=== PATIENT | male | born 1955 | race Caucasian/White ===

== ENCOUNTER 2017-09-08 22:00 | Emergency (ER) | payer OTHER ==
--- NOTE | 2017-09-08 23:27 | EDPHYS ---
Physician Documentation [facility] Name: Jose Elias Ahn Age: 62 yrs Sex: Male : 1955 Arrival Date: 09/08/2017 Time: 22:03 Bed 20 Private MD: ED Physician Juan C Hansen HPI: 09/08 23:55 This 62 yrs old Male presents to ER via Ambulatory with complaints of Cough. jr8 23:55 The patient or guardian reports cough, that is intermittent, described as moderate, jr8 with productive sputum, that is green. Onset: The symptoms/episode began/occurred suddenly, 1 month(s) ago. Severity of symptoms: At their worst the symptoms were mild, in the emergency department the symptoms are unchanged. Modifying factors: The symptoms are alleviated by nothing, the symptoms are aggravated by nothing. Associated signs and symptoms: The patient has no apparent associated signs or symptoms. The patient has not experienced similar symptoms in the past. The patient has not recently seen a physician. Patient stated that he has had cough for over a month now with mucous production. Has tried numerous OTC medications without relief. Subjective fevers at night . Historical: - Allergies: 22:10 No Known Allergies; la1 - PMHx: 22:10 Hypertension; Diabetes - NIDDM; Back pain; la1 22:11 CHF; Hepatitis; la1 - Immunization history:: Adult Immunizations up to date. - Social history:: Smoking status: Patient uses tobacco products, denies chronic smoking, but will smoke occasionally. ROS: 23:55 Eyes: Negative for injury, pain, redness, and discharge, ENT: Negative for injury, jr8 pain, and discharge, Neck: Negative for injury, pain, and swelling, Cardiovascular: Negative for chest pain, palpitations, and edema, Abdomen/GI: Negative for abdominal pain, nausea, vomiting, diarrhea, and constipation, Back: Negative for injury and pain, MS/Extremity: Negative for injury and deformity, Skin: Negative for injury, rash, and discoloration, Neuro: Negative for headache, weakness, numbness, tingling, and seizure. 23:55 Constitutional: Positive for fever. 23:55 Respiratory: Positive for cough, Negative for dyspnea on exertion, shortness of breath, wheezing. Exam: 23:55 Eyes: Pupils equal round and reactive to light, extra-ocular motions intact. Lids and jr8 lashes normal. Conjunctiva and sclera are non-icteric and not injected. Cornea within normal limits. Periorbital areas with no swelling, redness, or edema. ENT: Nares patent. No nasal discharge, no septal abnormalities noted. Tympanic membranes are normal and external auditory canals are clear. Oropharynx with no redness, swelling, or masses, exudates, or evidence of obstruction, uvula midline. Mucous membranes moist. Neck: Trachea midline, no thyromegaly or masses palpated, and no cervical lymphadenopathy. Supple, full range of motion without nuchal rigidity, or vertebral point tenderness. No Meningismus. Cardiovascular: Regular rate and rhythm with a normal S1 and S2. No gallops, murmurs, or rubs. Normal PMI, no JVD. No pulse deficits. Respiratory: Lungs have equal breath sounds bilaterally, clear to auscultation and percussion. No rales, rhonchi or wheezes noted. No increased work of breathing, no retractions or nasal flaring. Abdomen/GI: Soft, non-tender, with normal bowel sounds. No distension or tympany. No guarding or rebound. No evidence of tenderness throughout. Back: No spinal tenderness. No costovertebral tenderness. Full range of motion. Skin: Warm, dry with normal turgor. Normal color with no rashes, no lesions, and no evidence of cellulitis. MS/ Extremity: Pulses equal, no cyanosis. Neurovascular intact. Full, normal range of motion. Neuro: Awake and alert, GCS 15, oriented to person, place, time, and situation. Cranial nerves II-XII grossly intact. Motor strength 5/5 in all extremities. Sensory grossly intact. Cerebellar exam normal. Normal gait. Vital Signs: 22:10 BP 184 / 92; Pulse 84; Resp 15; Temp 97.3; Pulse Ox 95% on R/A; Weight 124.74 kg; la1 Height 6 ft. 1 in. (185.42 cm); 23:18 BP 158 / 81; Pulse 80; Resp 20; Pulse Ox 97% on R/A; tl2 23:34 BP 152 / 81; Pulse 88; Resp 17; Temp 98.2; Pulse Ox 97% on R/A; Pain 0/10; tl1 22:10 Body Mass Index 36.28 (124.74 kg, 185.42 cm) la1 MDM: 22:46 Patient medically screened. jr8 23:26 Data reviewed: vital signs, nurses notes, radiologic studies, plain films, and as a jr8 result, I will discharge patient. Data interpreted: Pulse oximetry: on room air is 97 %. Interpretation: normal. Counseling: I had a detailed discussion with the patient and/or guardian regarding: the historical points, exam findings, and any diagnostic results supporting the discharge/admit diagnosis, the need for outpatient follow up, a family practitioner, to return to the emergency department if symptoms worsen or persist or if there are any questions or concerns that arise at home. 09/08 22:29 Order name: XRAY Chest Pa And Lat (2 Views) tl1 Administered Medications: No medications were administered Disposition: 09/09 05:42 Co-signature as Attending Physician, Juan C Hansen MD. ma2 Disposition: 09/08/17 23:27 Discharged to Home. Impression: Bronchitis, not specified as acute or chronic. - Condition is Stable. - Discharge Instructions: Acute Bronchitis. - Prescriptions for Prednisone 20 mg Oral Tablet - take 1 tablet by ORAL route once daily for 5 days; 5 tablet. Zithromax Z- Arnulfo 250 mg Oral Tablet - take 1 tablet by ORAL route as directed for 5 days Day 1 - take two (2) tablets one time. Day 2, 3, 4 , 5 take one (1) tablet once daily.; 6 tablet. Albuterol Sulfate 90 mcg/actuation - inhale 1-2 puff by INHALATION route every 4-6 hours; 1 Inhaler. - Medication Reconciliation Form, Thank You Letter, Antibiotic Education, Prescription Opioid Use form. - Follow up: Private Physician; When: 5 - 6 days; Reason: Recheck today's complaints, Continuance of care, Re-evaluation by your physician. - Problem is new. - Symptoms have improved. Signatures: Dispatcher [employer] EDMS Jefferson Doty PA PA jr8 Kade Campos RN RN la1 Denice Amaya RN RN tl1 Juan C Hansen MD MD ma2
--- NOTE | 2017-09-08 23:27 | ER ---
Nurse's Notes [facility] Name: Jose Elias Ahn Age: 62 yrs Sex: Male : 1955 Arrival Date: 09/08/2017 Time: 22:03 Bed 20 Private MD: Diagnosis: Bronchitis, not specified as acute or chronic Presentation: 09/08 22:09 Presenting complaint: Patient states: I have had a cough for about a month and I want la1 to make sure I am not coming down with PNE. Transition of care: patient was not received from another setting of care. Onset of symptoms was September 08, 2017. Care prior to arrival: None. 22:09 Method Of Arrival: Ambulatory la1 22:09 Acuity: NEEL 3 la1 Triage Assessment: 23:35 General: Appears in no apparent distress. Behavior is calm, cooperative, appropriate tl1 for age. Pain: Denies pain. Historical: - Allergies: 22:10 No Known Allergies; la1 - PMHx: 22:10 Hypertension; Diabetes - NIDDM; Back pain; la1 22:11 CHF; Hepatitis; la1 - Immunization history:: Adult Immunizations up to date. - Social history:: Smoking status: Patient uses tobacco products, denies chronic smoking, but will smoke occasionally. Screenin:34 Abuse screen: Denies threats or abuse. Denies injuries from another. Nutritional tl1 screening: No deficits noted. Tuberculosis screening: Has had TB. Possible symptoms: cough for more than 2 weeks. Fall Risk None identified. Assessment: 22:45 General: Appears in no apparent distress. Behavior is calm, cooperative, appropriate tl1 for age. Pain: Denies pain. Neuro: No deficits noted. Level of Consciousness is awake, alert, obeys commands, Oriented to person, place, time, situation. Cardiovascular: Denies chest pain. Respiratory: Reports cough that is productive, hacking, persistent Airway is patent Trachea midline Respiratory effort is even, unlabored, Breath sounds are clear bilaterally. GI: Abdomen is non-distended, Bowel sounds present X 4 quads. Abd is soft and non tender X 4 quads. : No deficits noted. EENT: No signs and/or symptoms were reported regarding the EENT system. Derm: No signs and/or symptoms reported regarding the dermatologic system. 23:19 Reassessment: Patient appears in no apparent distress at this time. Patient and/or tl2 family updated on plan of care and expected duration. Pain level reassessed. Patient is alert, oriented x 3, equal unlabored respirations, skin warm/dry/pink. Vital Signs: 22:10 BP 184 / 92; Pulse 84; Resp 15; Temp 97.3; Pulse Ox 95% on R/A; Weight 124.74 kg; la1 Height 6 ft. 1 in. (185.42 cm); 23:18 BP 158 / 81; Pulse 80; Resp 20; Pulse Ox 97% on R/A; tl2 23:34 BP 152 / 81; Pulse 88; Resp 17; Temp 98.2; Pulse Ox 97% on R/A; Pain 0/10; tl1 22:10 Body Mass Index 36.28 (124.74 kg, 185.42 cm) la1 ED Course: 22:03 Patient arrived in ED. do 22:09 Triage completed. la1 22:11 Arm band placed on left wrist. la1 22:28 Denice Amaya, CHELLE is Primary Nurse. tl1 22:36 Patient moved to radiology via wheelchair. bb2 22:39 X-ray completed. Portable x-ray completed in exam room. Patient tolerated procedure bb2 well. 22:44 Patient moved back from radiology. bb2 22:44 XRAY Chest Pa And Lat (2 Views) In Process Unspecified. EDMS 22:46 Jefferson Doty PA is PHCP. jr8 22:46 Juan C Hansen MD is Attending Physician. jr8 23:34 No provider procedures requiring assistance completed. Patient did not have IV access tl1 during this emergency room visit. 23:36 Patient has correct armband on for positive identification. Bed in low position. Side tl1 rails up X 1. Administered Medications: No medications were administered Outcome: 23:27 Discharge ordered by . jr8 23:35 Discharged to home ambulatory. tl1 23:35 Condition: good 23:35 Discharge instructions given to patient, Instructed on discharge instructions, follow up and referral plans. medication usage, Demonstrated understanding of instructions, follow-up care, medications, Prescriptions given X 3. 23:40 Patient left the ED. tl1 Signatures: Dispatcher [employer] EDTX Jefferson Doty PA PA jr8 Kade Campos RN RN Denice Heck, RN RN tl1 Monae Carr Taylor RN RN tl2 Tasia Pierre2
[2017-09-09 00:24] VITALS: O2SAT 97
[2017-09-09 00:25] VITALS: BP 152/81; TEMP 98.2
--- NOTE | 2017-09-09 07:25 | RAD REPORT ---
EXAM DESCRIPTION: RAD - Chest Pa And Lat (2 Views) - 09/08/2017 10:49 pm CLINICAL HISTORY: Cough and congestion, possible early pneumonia COMPARISON: None. TECHNIQUE: PA and lateral views of the chest were obtained. FINDINGS: The lungs are clear. Left side pericardial fat pad noted. Trachea is midline. No mediasti nal or hilar abnormality identifiable. Heart size is normal and central vasculature is within normal limits. No pleural effusion or pneumothorax seen. No acute bony finding noted. No aortic abnormali ty. IMPRESSION: No acute cardiopulmonary process.
== END 2017-09-08 23:40 | disposition home or self-care (01) ==
LOC: ER 22:00
DX: J40 Bronchitis, not specified as acute or chronic (principal)
CPT/HCPCS: 71046; 99283

== ENCOUNTER 2019-10-25 07:50 | Emergency (ER) | payer OTHER ==
--- OUTSIDE RECORDS SUMMARY | 2019-10-25 08:42 | XMS REPORT ---
:1955 Author Organization [facility] t Address [address] [place] [address] Care Team Providers Name Role Phone Provider, Urgent Care Attending Clinician Unavailable Malou MEDICATION TECHNICIAN Attending Clinician Problems This patient has no known problems. Allergies, Adverse Reactions, Alerts This patient has no known allergies or adverse reactions. Medications This patient has no known medications. Procedures This patient has no known procedures. Encounters Start End Encounter Admission Attending Care Care Encounter Source Date/Time Date/Time Type Type Clinicians Facility Department ID 2019-10-15 2019-10-17 Urgent ProviderJESÚS [id number] 13:25:12 08:16:04 Care [facility] [id number] Care [place] [id number] Professio [phone] nal [address] 2019-10-16 2019-10-16 Telephone JESÚS [place] [id number] 00:00:00 00:00:00 [facility] [id number] [place] [id number] Professio [phone] [address]al [address] Results This patient has no known results.
--- OUTSIDE RECORDS SUMMARY | 2019-10-25 08:42 | XMS REPORT | Summary of Care ---
:1955 Author Organization [facility] Address [address] [place] [address] Care Team Providers Name Role Phone MD [place] Primary Care Provider Reason for Visit Reason Comments Refill Request Encounter Details Date Type Department Care Team Description 09/16/2019 Refill [facility] Family Medicine Kumar Xie MD Refill Request - [address] [address] [place] [address] [place] [address] [phone] Allergies No Known Allergiesdocumented as of this encounter (statuses as of 09/16/2019) Medications Medication Sig Dispensed Refills Start Date End Date Status mometasone 50 Use 1 [place] in 1 Bottle 0 07/23/2017 Active mcg/actuation each nostril 2 nasal spray (two) times daily. carvedilol 12.5 mg Take 12.5 mg by 0 07/12/2017 Active tablet mouth 2 (two) times daily. gabapentin 300 mg Take 300 mg by 0 07/12/2017 Active capsule mouth 2 (two) times daily. furosemide 20 mg Take 20 mg by 0 07/12/2017 Active tablet mouth daily. HYDROcodone-acetam Take 1 tablet by 0 07/12/2017 Active inophen 10-325 mg mouth 3 (three) tablet times daily. KRISTALOSE 20 gram Take 1 Package 0 07/25/2017 Active packet by mouth daily. tiZANidine 4 mg Take 1 tablet by 60 tablet 0 04/25/2018 Active tablet mouth 2 (two) times daily as needed for Pain (scale 4-6). diazePAM 10 mg Take 1 tablet by 2 tablet 0 04/25/2018 Active tablet mouth 2 (two) times daily as needed (pre proceedure). DILTIAZEM 60 mg TAKE 1 TABLET BY 10 tablet 0 08/03/2018 Active tablet MOUTH WITH PALPITATION AND TACHYCARDIA codeine-guaifenesi Take 5 mL by 8 oz 0 09/04/2018 Active n (CHERATUSSIN AC) mouth every 4 10-100 mg/5 mL (four) hours as solutionIndication needed for s: Upper Cough. respiratory tract infection, unspecified type AMITRIPTYLINE 10 TAKE 1 TABLET BY 30 tablet 2 10/26/2018 Active mg tablet MOUTH AT BEDTIME NEXIUM 40 mg TAKE 1 CAPSULE 30 capsule 2 10/26/2018 Active capsule BY MOUTH EVERY DAY METFORMIN 500 mg TAKE 1 TABLET BY 60 tablet 2 11/22/2018 Active tablet MOUTH TWICE DAILY LISINOPRIL-HYDROCH TAKE 1 TABLET BY 30 tablet 0 09/16/2019 Active LOROTHIAZIDE 20-25 MOUTH EVERY DAY mg per tabletIndications: Essential hypertension KCL 10 mEq tablet TAKE 1 TABLET BY 30 tablet 0 09/16/2019 Active MOUTH EVERY DAY LISINOPRIL-HYDROCH TAKE 1 TABLET BY 30 tablet 0 07/23/2019 Discontinued LOROTHIAZIDE 20-25 MOUTH EVERY DAY 0 mg per tabletIndications: Essential hypertension KCL 10 mEq tablet TAKE 1 TABLET BY 30 tablet 0 07/30/201908/28 Discontinued MOUTH EVERY DAY 0 documented as of this encounter (statuses as of 09/16/2019) Active Problems Problem Noted Date Sepsis 10/03/2015 Pain in joint, multiple sites 05/09/2013 Cervicalgia 05/09/2013 Lumbosacral spondylosis 05/09/2013 History of alcoholism 05/09/2013 Hepatitis C infection 05/09/2013 Chronic back pain 05/09/2013 documented as of this encounter (statuses as of 09/16/2019) Social History Tobacco Use Types Packs/Day Years Used Date Former Smoker Cigarettes 1.5 2 Smokeless Tobacco: Never Used Comments: Started as a teen then stopped and restarted 2 years ago. Alcohol Use Drinks/Week oz/Week Comments Yes 0 Standard drinks or equivalent 0.0 Occasionally Alcohol Habits Answer Date Recorded How often do you have a drink containing alcohol? Monthly or less 03/15/2019 How many drinks containing alcohol do you have on a 1 or 2 03/15/2019 typical day when you are drinking? How often do you have six or more drinks on one Less than mo nthly 03/15/2019 occasion? Social Isolation Answer Date Recorded In a typical week, how many times do you More than three eric es a week 03/15/2019 talk on the phone with family, friends, or neighbors? How often do you get together with friends Three times a wee k 03/15/2019 or relatives? How often do you attend mormonism or Never 2018 church services? Do you belong to any clubs or Yes 03/15/2019 organizations such as mormonism groups, unions, fraternal or athletic groups, or school groups? How often do you attend meetings of the More than 4 times pe r year 03/15/2019 clubs or organizations you belong to? Are you now , , , Never 03/15/2019 , never or living with a partner? Physical Activity Answer Date Recorded On average, how many days per week do you engage in moderate to 5 days 03/15/2019 strenuous exercise (like walking fast, running, jogging, dancing, swimming, biking, or other activities that cause a light or heavy sweat)? On average, how many minutes do you engage in exercise at th is 100 min 03/15/2019 level? Stress Answer Date Recorded Do you feel stress - tense, restless, nervous, or anxious, N ot at all 03/15/2019 or unable to sleep at night because your mind is troubled all the time - these days? Financial Resource Strain Answer Date Recorded How hard is it for you to pay for the very basics like food, Hard 03/15/2019 housing, medical care, and heating? Intimate Partner Violence Answer Date Recorded Within the last year, have you been afraid of your partner o r No 03/15/2019 ex-partner? Within the last year, have you been humiliated or emotionall y No 03/15/2019 abused in other ways by your partner or ex-partner? Within the last year, have you been kicked, hit, slapped, or No 03/15/2019 otherwise physically hurt by your partner or ex-partner? Within the last year, have you been raped or forced to have any No 03/15/2019 kind of sexual activity by your partner or ex-partner? Food Insecurity Answer Date Recorded Within the past 12 months, you worried that your food Someti mes true 03/15/2019 would run out before you got money to buy more. Within the past 12 months, the food you bought just Sometime s true 03/15/2019 didn't last and you didn't have money to get more. Transportation Needs Answer Date Recorded In the past 12 months, has lack of transportation kept you f rom No 03/15/2019 medical appointments or from getting medications? In the past 12 months, has lack of transportation kept you f rom No 03/15/2019 meetings, work, or getting things needed for daily living? Sex Assigned at Date Recorded Not on file Job Start Date Occupation Industry Not on file Not on file Not on file Travel History Travel Start Travel End No recent travel history available. documented as of this encounter Last Filed Vital Signs Not on filedocumented in this encounter Plan of Treatment Health Maintenance Due Date Last Done Comments PNEUMOCOCCAL 0-64 YEARS COMBINED SERIES (1 of 1 - 1960 PPSV23) DTaP,Tdap,and Td Vaccines (1 - Tdap) 1965 COLONOSCOPY 2004 Zoster Recombinant Vaccine (SHINGRIX) (1 of 2) 2004 INFLUENZA VACCINE (#1) 2019 HEPATITIS C (HCV) SCREEN Completed 05/09/2013 documented as of this encounter Results Not on filedocumented in this encounter Visit Diagnoses Diagnosis Essential hypertension Unspecified essential hypertension documented in this encounter Insurance Payer Benefit Plan / Subscriber ID Effective Dates Phone Addre ss Type Group [facility] xxxxxxxxx 2013-Present Medicaid COMM PLAN - PLUS MANAGED MEDICAID documented as of this encounter
--- OUTSIDE RECORDS SUMMARY | 2019-10-25 08:42 | XMS REPORT | Summary of Care ---
:1955 Author Organization [facility] Address [address] [place] [id number] Care Team Providers Name Role Phone MD Austin Primary Care Provider Reason for Visit Reason Comments Refill Request Encounter Details Date Type Department Care Team Description 07/30/2019 Refill [facility] Family Medicine Kumar iXe MD Refill Request - [place] [address] [place] [address] [place] [address] [phone] Allergies No Known Allergiesdocumented as of this encounter (statuses as of 07/30/2019) Medications Medication Sig Dispensed Refills Start Date End Date Status mometasone 50 Use 1 [place] in 1 Bottle 0 07/23/2017 Active mcg/actuation [...] 1 TABLET BY 30 tablet 0 07/23/2019 Active LOROTHIAZIDE 20-25 MOUTH EVERY DAY mg per tabletIndications: Essential hypertension KCL 10 mEq tablet TAKE 1 TABLET BY 30 tablet 0 07/30/2019 Active MOUTH EVERY DAY KCL 10 mEq tablet TAKE 1 TABLET BY 30 tablet 0 06/21/2019 03/0 Discontinued MOUTH EVERY DAY 0 documented as of this encounter (statuses as of 07/30/2019) Active Problems Problem Noted Date Sepsis 10/03/2015 Pain in joint, multiple sites 05/09/2013 Cervicalgia 05/09/2013 Lumbosacral spondylosis 05/09/2013 History of alcoholism 05/09/2013 Hepatitis C infection 05/09/2013 Chronic back pain 05/09/2013 documented as of this encounter (statuses as of 07/30/2019) Social History Tobacco Use Types Packs/Day Years [...] or relatives? How often do you attend druze or Never 2018 cheondoism services? Do you belong to any clubs or Yes 03/15/2019 organizations such as druze groups, unions, fraternal or athletic groups, or [...] Results Not on filedocumented in this encounter Insurance Payer Benefit Plan / Subscriber ID Effective Dates Phone Addre ss Type Group [facility] ST[facility] xxxxxxxxx 2013-Present Medicaid COMM PLAN - PLUS MANAGED MEDICAID documented as of this encounter
--- OUTSIDE RECORDS SUMMARY | 2019-10-25 08:43 | XMS REPORT | Summary of Care ---
:1955 Author Organization [facility] Address [address] [place] [id number] Care Team Providers Name Role Phone MD Austin Primary Care Provider Reason for Referral MRI/CAT Scan (Routine) Status Reason Specialty Diagnoses / Referred By Referred To Procedures Contact Contact New Request Diagnostic Diagnoses Left lower quadrant abdominal pain Robyn Westfall, Radiology Procedures CT ABDOMEN WO CONTRAST ACCOUNT MANAGEMENT ASSISTANT[address] [id number] Reason for Visit Reason Comments Back Pain x2 days Abdominal Pain x2 days Encounter Details Date Type Department Care Team Description 10/15/2019 Urgent Care [facility] Family Kye Westfall, ACCOUNT MANAGEMENT ASSISTANT [address] [phone] Left lower quadrant abdominal pain (Prim vitor Dx); Medicine - [place] Provider, [facility] Essential hypertension [address] [place] [phone] Allergies No Known Allergiesdocumented as of this encounter (statuses as of 10/15/2019) Medications Medication Sig Dispensed Refills Start Date End Date Status mometasone 50 Use 1 Charlotte in 1 Bottle 0 07/23/2017 Active mcg/actuation nasal each nostril 2 spray (two) times daily. carvedilol 12.5 mg Take 12.5 mg by 0 07/12/2017 Active tablet mouth 2 (two) times daily. gabapentin 300 mg Take 300 mg by 0 07/12/2017 Active capsule mouth 2 (two) times daily. furosemide 20 mg Take 20 mg by 0 07/12/2017 Active tablet mouth daily. HYDROcodone-acetamino Take 1 tablet by 0 07/12/2017 Active phen 10-325 mg tablet mouth 3 (three) times daily. KRISTALOSE 20 gram Take 1 Package by 0 07/25/2017 Active packet mouth daily. tiZANidine 4 mg Take 1 tablet by 60 tablet 0 04/25/2018 Active tablet mouth 2 (two) times daily as needed for Pain (scale 4-6). diazePAM 10 mg tablet Take 1 tablet by 2 tablet 0 04/25/2018 Active mouth 2 (two) times daily as needed (pre proceedure). DILTIAZEM 60 mg TAKE 1 TABLET BY 10 tablet 0 08/03/2018 Active tablet MOUTH WITH PALPITATION AND TACHYCARDIA codeine-guaifenesin Take 5 mL by mouth 8 oz 0 09/04/2018 Active (CHERATUSSIN AC) every 4 (four) 10-100 mg/5 mL hours as needed solutionIndications: for Cough. Upper respiratory tract infection, unspecified type AMITRIPTYLINE 10 mg TAKE 1 TABLET BY 30 tablet 2 10/26/2018 Active tablet MOUTH AT BEDTIME NEXIUM 40 mg capsule TAKE 1 CAPSULE BY 30 capsule 2 10/26/2018 Active MOUTH EVERY DAY METFORMIN 500 mg TAKE 1 TABLET BY 60 tablet 2 11/22/2018 Active tablet MOUTH TWICE DAILY LISINOPRIL-HYDROCHLOR TAKE 1 TABLET BY 30 tablet 0 09/16/2019 Active OTHIAZIDE 20-25 mg MOUTH EVERY DAY per tabletIndications: Essential hypertension KCL 10 mEq tablet TAKE 1 TABLET BY 30 tablet 0 09/16/2019 Active MOUTH EVERY DAY documented as of this encounter (statuses as of 10/15/2019) Active Problems Problem Noted Date Sepsis 10/03/2015 Pain in joint, multiple sites 05/09/2013 Cervicalgia 05/09/2013 Lumbosacral spondylosis 05/09/2013 History of alcoholism 05/09/2013 Hepatitis C infection 05/09/2013 Chronic back pain 05/09/2013 documented as of this encounter (statuses as of 10/15/2019) Social History Tobacco Use Types Packs/Day Years [...] or relatives? How often do you attend nondenominational or Never 2018 restoration services? Do you belong to any clubs or Yes 03/15/2019 organizations such as nondenominational groups, unions, fraternal or athletic groups, or [...] of this encounter Last Filed Vital Signs Vital Sign Reading Time Taken Comments Blood Pressure 159/87 10/15/2019 1:38 PM CDT Pulse 85 10/15/2019 1:34 PM CDT Temperature 37 C (98.6 F) 10/15/2019 1:34 PM CDT Respiratory Rate 19 10/15/2019 1:34 PM CDT Oxygen Saturation 98% 10/15/2019 1:34 PM CDT Inhaled Oxygen Concentration - - Weight 119.7 kg (264 lb) 10/15/2019 1:34 PM CDT Height 185.4 cm (6' 1") 10/15/2019 1:34 PM CDT Body Mass Index 34.83 10/15/2019 1:34 PM CDT documented in this encounter Patient Instructions Patient InstructionsRobyn Westfall FNP - 10/15/2019 1:40 PM CDT Patient Education Abdominal Pain Abdominal pain is pain in the stomach or belly area. Everyone has this pain from time to time. In many cases it goes away on its own. But abdominal pain can sometimes be due to a serious problem, such as appendicitis. So its important to know when to get help. Causes of abdominal pain There are many possible causes of abdominal pain. Common causes in adults include: Constipation, diarrhea, or gas Stomach acid flowing back up into the esophagus (acid reflux or heartburn) Severe acid reflux, called GERD (gastroesophageal reflux disease) A sore in the lining of the stomach or small intestine (peptic ulcer) Inflammation of the gallbladder, liver,or pancreas Gallstones or kidney stones Appendicitis Intestinal blockage An internal organ pushing through a muscle or other tissue (hernia) Urinary tract infections In women, menstrual cramps, fibroids, ovarian cysts, pelvic inflammatory disease, or endometriosis Inflammation or infection of the intestines, including Crohn's disease and ulcerative colitis Irritable bowel syndrome Diagnosing the cause of abdominal pain Your healthcare provider will give you a physical exam help find the cause of your pain. If needed, you will have tests. Belly pain has many possible causes. So it can be hard to find the reason for your pain. Giving details about your pain can help. Tell your provider where and when you feel the pain, and what makes it better or worse. Also let your provider know if you have other symptoms such as: Fever Tiredness Upset stomach (nausea) Vomiting Changes in bathroom habits Blood in the stool or black, tarry stool Weight loss that you can't explain (involuntary weight loss?) Also report any family history of stomach or intestinal problems, or cancers. Tell your provider about all your alcohol use and drug use. Tell your provider about all medicines you use, including herbs, vitamins, and supplements. Treating abdominal pain Some causes of pain need emergency medical treatment right away. These include appendicitis or a bowel blockage. Other problems can be treated with rest, fluids, or medicines. Your healthcare provider can give you specific instructions for treatment or self-care based on what is causing your pain. If you have vomiting or diarrhea,sip water or other clear fluids. When you are ready to eat solid foods again, start with small amounts of fdyr-st-ucoqhl, low- fat foods. These include apple sauce, toast, or crackers. When to get medical care Call 911or go to the hospital right away if you: Cant pass stool and are vomiting Are vomiting blood or have bloody diarrhea or black, tarry diarrhea Have chest, neck, or shoulder pain Feel like you might pass out Have pain in your shoulder blades with nausea Have sudden, severe belly pain Have new, severepain unlike any you have felt before Have a belly that is rigid, hard, and hurts to touch Call your healthcare provider if you have: Pain for more [id number] Bloating for more than 2days Diarrhea for more kadl1lipx A fever of 100.4F (38C) or higher, or as directed by your healthcare provider Pain that gets worse Weight loss for no reason Continued lack of appetite Blood in your stool How to prevent abdominal pain Here are some tips to help prevent abdominal pain: Eat smaller amounts of food at each meal. Don't eat greasy, fried, or other high-fat foods. Don't eat foods that give you gas. Exercise regularly. Drink plenty of fluids. To help prevent GERD symptoms: Quit smoking. Reduce alcohol and foods that increase stomach acid. Don't use aspirin or coyo-qtk-avmjsvs pain and fever medicines, if possible. This includes nonsteroidal anti-inflammatory drugs (NSAIDs). Lose excess weight. Finish eating at least 2 hours before you go to bed or lie down. Raise the head of your bed. [employer] last reviewed this educational content on 08/27/201819992321-1372 The [employer]. [address] [place] [address]. All rights reserved. This information is not intended as a substitute for professional medical care. Always follow your healthcare professional's instructions. Patient Education Controlling High Blood Pressure High blood pressure (hypertension) is often called the silent killer. This is because many people who have it, dont know it. It can be very dangerous. High blood pressure can raise your risk of heart attack, stroke, heart disease, and heart failure. Controlling your blood pressure can decrease yourrisk of these problems. It's important to know the appropriate blood pressure range and remember to check your blood pressure regularly. Doing so can save your life. Blood pressure measurements are given as 2 numbers. Systolic blood pressure is the upper number. This is the pressure when the heart contracts. Diastolic blood pressure is the lower number. This is thepressure when the heart relaxes between beats. Blood pressure is categorized as normal, elevated, or stage 1 or stage 2 high blood pressure: Normal blood pressure is systolic of less than 120 and diastolic of less than 80 (120/80) Elevated blood pressure is systolic of 120 to 129 and diastolic less than 80 Stage 1 high blood pressure is systolic is 130 to 139 or diastolic between 80 to 89 Stage 2 high blood pressure is when systolic is 140 or higher or the diastolic is 90 or higher A heart-healthy lifestyle can help you control your blood pressure without medicines. Here are some things you can do to pursue a heart-healthy lifestyle: Choose heart-healthy foods Select low-salt, low-fat foods. Limit sodium intake to 2,400 mg per day or the amount suggested by your healthcare provider. Limit canned, dried, cured, packaged, and fast foods. These can contain a lot of salt. Eat 8 to 10 servings of fruits and vegetables every day. Choose lean meats, fish, or chicken. Eat whole-grain pasta, brown rice, and beans. Eat 2 to 3 servings of low-fat or fat-free dairy products. Ask your doctor about the DASH eating plan. This plan helps reduce blood pressure. When you go to a restaurant, ask that your meal be prepared with no added salt. Stay at a healthy weight Ask your healthcare provider how many calories to eat a day. Then stick to that number. Ask your healthcare provider what weight range is healthiest for you. If you are overweight, a weight loss of only 3% to 5% of your body weightcan help lower blood pressure. Generally, a good weight loss goal is to lose 10% of your body weight in a year. Limit snacks and sweets. Get regular exercise. Get up and get active Find activities you enjoy that can be done alone or with friends or family. Such activities mightinclude bicycling, dancing, walking, or jogging. Park farther away from building entrances to walk more. Use stairs instead of the elevator. When you can, walk or bike instead of driving. [place] leaves, garden, or do household repairs. Be active at a moderate to vigorous level of physical activity for at least 40 minutes for a minimum of 3 to 4 days a week. Manage stress Make time to relax and enjoy life. Find time to laugh. Communicate your concerns with your loved ones and your healthcare provider. Visit with family and friends, and keep up with hobbies. Limit alcohol and quit smoking Men should have no more than 2 drinks per day. Women should have no more than 1 drink per day. Talk with your healthcare provider about quitting smoking. Smoking significantly increases your risk for heart disease and stroke. Ask your healthcare provider about community smoking cessation programs and other options. Medicines If lifestyle changes arent enough, your healthcare provider may prescribe high blood pressure medicine. Take all medicines as prescribed. If you have any questions about your medicines, ask your healthcare provider before stopping or changing them. [employer] last reviewed this educational content on 10/27/201819998822-5145 The [employer]. [address] [place] [address], [place] [address]. All rights reserved. This information is not intended as a substitute for professional medical care. Always follow your healthcare professional's instructions. Patient Education Eating Heart-Healthy Foods Eating has a big impact on your heart health. In fact, eating healthier can improve several of your heart risks at once. For instance, it helps you manage weight, cholesterol, and blood pressure. Here are ideas to help you make heart- healthy changes without giving up allthe foods and flavors you love. Getting started Talk with your healthcare provider about eating plans, such as the DASH or Mediterranean diet. You may also be referred to a dietitian. Change a few things at a time. Give yourself time to get used to a few eating changes before adding more. Work to create a tasty, healthy eating plan that you can stick to for the rest of your life. Goals for healthy eating Below are some tips to improve your eating habits: Limit saturated fats and trans fats. Saturated fats raise your levels of cholesterol, so keep these fats to a minimum. They are found in foods such as fatty meats, whole milk, cheese, and palm and coconut oils. Avoid trans fats because they lower good cholesterol as well as raise bad cholesterol. Trans fats are most often found in processed foods. Reduce sodium (salt) intake. Eating too much salt may increase your blood pressure. Limit your sodium intake to 2,300 milligrams (mg) per day(the amount in 1 teaspoon of salt), or less if your healthcare provider recommends it. Dining out less often and eating fewer processed foods are two great ways to decrease the amount of salt you consume. Managing calories. A calorie is a unit of energy. Your body de [place] garza calories for fuel, but if you eat more calories than your body de [place] garza, the extras are stored as fat. Your healthcare provider can help you create a diet plan to manage your calories. This will likely include eating healthier foods as well as exercising regularly. To help you track your progress, keep a diary to record what you eat and how often you exercise. Choose the right foods Aim to make these foods caren of your diet. If you have diabetes, you may have different recommendations than what is listed here: Fruits and vegetables provide plenty of nutrients without a lot of calories. At meals, fill half your plate with these foods. Split the other half of your plate between whole grains and lean protein. Whole grains are high in fiber and rich in vitamins and nutrients. Good choices include whole-wheat bread, pasta, and brown rice. Lean proteins give you nutrition with less fat. Good choices include fish, skinless chicken, and beans. Low-fat or nonfat dairy provides nutrients without a lot of fat. Try low-fat or nonfat milk, cheese, or yogurt. Healthy fats can be good for you in small amounts. These are unsaturated fats, such as olive oil,nuts, and fish. Try to have at least 2 servings per week of fatty fish, such as salmon, sardines, mackerel, rainbow trout, and albacore tuna. These contain omega-3 fatty acids, which are good for your heart. Flaxseed is another source of a heart-healthy fat. More on heart-healthy eating Read food labels Healthy eating starts at the grocery store. Be sure to pay attention to food labels on packaged foods. Look for products that are high in fiber and protein, and low in saturated fat, cholesterol, and sodium. Avoid products that contain trans fat. And pay close attention to serving size. For instance, if you plan to eat two servings, double all the numbers on the label. Prepare food right A juarez part of healthy cooking is cutting down on added fat and salt. Look on the internet for lower-fat, lower-sodium recipes. Also, try these tips: Remove fat from meat and skin from poultry before cooking. Skim fat from the surface of soups and sauces. Broil, boil, bake, steam, grill, and microwave food without added fats. Choose ingredients that spice up your food without adding calories, fat, or sodium. Try these items: horseradish, hot sauce, lemon, mustard, nonfat salad dressings, and vinegar. For salt-free herbs and spices, try basil, cilantro, cinnamon, pepper, and stephanie. [employer] last reviewed this educational content on 02/26/201719998564-5586 The [employer]. [address] [place] [address], [place] [id number]. All rights reserved. This information is not intended as a substitute for professional medical care. Always follow your healthcare professional's instructions. Patient Education Low-Salt Choices Eating salt(sodium)can make your body retain too much water. Extra water makes your heart work harder. Canned, packaged, and frozen foods are easy to prepare. But they are often high in sodium. Here are some ideas for low-salt foods you can easily make yourself. For breakfast Fruit or 100% fruit juice. It's better to have whole fruit instead of 100% fruit juice. Whole-wheat bread or an Ken[place] muffin. Look for sodium content on Nutrition Facts labels. Low-fat milk or yogurt Unsalted eggs Shredded wheat [place] tortillas Unsalted steamed rice Regular (not instant) hot cereal, made without salt Stay away from Sausage, soares, and ham Flour tortillas Packaged muffins, pancakes, and biscuits Instant hot cereals Cottage cheese For lunch and dinner Fresh fish, chicken, turkey, or meatbaked, broiled, or roasted without salt Dry beans, cooked without salt Tofu, stir-fried without salt Unsalted fresh fruit and vegetables, or frozen or canned fruit and vegetables with no added salt Stay away from Lunch or deli meat that is cured or smoked Cheese Tomato juice and ketchup Canned vegetables, soups, and fish not labeled as vs-cuql-wdvxi or reduced sodium Packaged gravies and sauces Olives, pickles, and relish Bottled salad dressings For snacks and desserts Yogurt Unsalted, air-popped popcorn Unsalted nuts or seeds Stay away from Pies and cakes Packaged dessert mixes Pizza Canned and packaged puddings Pretzels, chips, crackers, and nutsunless the label says unsalted Muna last reviewed this educational content on 03/29/201919998078-7372 The [employer]. [address] [place] [id number]. All rights reserved. This information is not intended as a substitute for professional medical care. Always follow your healthcare professional's instructions. Patient Education Checking Your Blood Pressure Bpnc-yl-Fwpt [employer] last reviewed this educational content on 08/28/201919998529-8429 The [employer]. [address] [place] [id number]. All rights reserved. This information is not intended as a substitute for professional medical care. Always follow your healthcare professional's instructions. documented in this encounter Progress Notes Robyn Westfall FNP - 10/15/2019 1:40 PM CDT Cc: Chief Complaint Patient presents with Back Pain x2 days Abdominal Pain x2 days Max Chad Ahn is a 64 year old male. Patient has a hx of hepatitis C and cirrhosis of the liver, abdominal hernia, GERD, chronic lower back pain, kidney stones, here with abdominal pain and lower back pain. His this acute abdominal pain is along the left lower quadrant mostly, and radiates up to the epigastric region sometimes. He sees pain management for his back and neck Pain, thus the lower back pain is not acute. He takes hydrocodone and muscle relaxants and home which he has been taking with this acute flare up. He denies any other associated symptoms as detailed below. Abdominal Pain Pain location: Epigastric, L flank and LUQ Pain quality: sharp, stabbing and tugging Pain radiates to: Does not radiate Pain severity: Mild Onset quality: Gradual Timing: Intermittent Progression: Unchanged Chronicity: Recurrent Context: not awakening from sleep, not diet changes and not previous surgeries Relieved by: Nothing Worsened by: Nothing Ineffective treatments: None tried Associated symptoms: no chest pain, no chills, no constipation, no cough, no diarrhea, no dysuria, no fatigue, no fever, no hematuria, no nausea, no shortness of breath and no vomiting Risk factors: being elderly and obesity Allergies Max has No Known Allergies. Medications Outpatient Medications Prior to Visit Medication Sig Dispense Refill KCL 10 mEq tablet TAKE 1 TABLET BY MOUTH EVERY DAY 30 tablet 0 LISINOPRIL-HYDROCHLOROTHIAZIDE 20-25 mg per tablet TAKE 1 TABLET BY MOUTH EVERY DAY 30 tablet 0 METFORMIN 500 mg tablet TAKE 1 TABLET BY MOUTH TWICE DAILY 60 tablet 2 tiZANidine 4 mg tablet Take 1 tablet by mouth 2 (two) times daily as needed for Pain (scale 4-6). 60 tablet 0 carvedilol 12.5 mg tablet Take 12.5 mg by mouth 2 (two) times daily. furosemide 20 mg tablet Take 20 mg by mouth daily. HYDROcodone-acetaminophen 10-325 mg tablet Take 1 tablet by mouth 3 (three) times daily. KRISTALOSE 20 gram packet Take 1 Package by mouth daily. AMITRIPTYLINE 10 mg tablet TAKE 1 TABLET BY MOUTH AT BEDTIME 30 tablet 2 NEXIUM 40 mg capsule TAKE 1 CAPSULE BY MOUTH EVERY DAY 30 capsule 2 codeine-guaifenesin (CHERATUSSIN AC) 10-100 mg/5 mL solution Take 5 mL by mouth every 4 (four) hours as needed for Cough. 8 oz 0 DILTIAZEM 60 mg tablet TAKE 1 TABLET BY MOUTH WITH PALPITATION AND TACHYCARDIA 10 tablet 0 diazePAM 10 mg tablet Take 1 tablet by mouth 2 (two) times daily as needed (pre proceedure). 2 tablet 0 gabapentin 300 mg capsule Take 300 mg by mouth 2 (two) times daily. mometasone 50 mcg/actuation nasal spray Use 1 Charlotte in each nostril 2 (two) times daily. 1 Bottle 0 Facility-Administered Medications Prior to Visit Medication Dose Route Frequency Provider Last Rate Last Dose bupivacaine (preserv free) (SENSORCAINE MPF) 0.25 % (2.5 mg/mL) injection PRN Dariel Trevino MD 10 mL at 09/18/17 1020 lidocaine 1% (XYLOCAINE) 10 mg/mL (1 %) injection PRN Dariel Trevino MD 6 mL at 09/18/17 1020 triamcinolone acetonide (KENALOG) injection PRN Dariel Trevino MD 40 mg at 09/18/17 1020 Histories Past Medical History: Diagnosis Date Acid reflux well controlled Anemia Back pain Blood transfusion, without reported diagnosis as a child Chronic back pain HCV (hepatitis C virus) HTN (hypertension) Kidney stone Obesity (BMI 30-39.9) Pre-diabetes Rheumatoid arthritis(714.0) diagnosed aout 20 years ago, states that he was in [facility] at that time TB (tuberculosis) states that he has hx of t/t for TB Past Surgical History: Procedure Laterality Date BACK SURGERY CERVICAL EPIDURAL STEROID INJECTION N/A 03/14/2016 Surgeon: Dariel Trevino MD; [place] [facility] [place]ERVICAL EPIDURAL STEROID INJECTION N/A 03/21/2016 Surgeon: Dariel Trevino MD; Location: [facility] CERVICAL EPIDURAL STEROID INJECTION N/A 03/28/2016 Surgeon: Dariel Trevino MD; Location: [facility] CERVICAL EPIDURAL STEROID INJECTION N/A 09/18/2017 Surgeon: Dariel Trevino MD; Location: [facility] CERVICAL EPIDURAL STEROID INJECTION N/A 09/25/2017 Surgeon: Dariel Trevino MD; Location: [facility] CERVICAL EPIDURAL STEROID INJECTION N/A 10/02/2017 Surgeon: Dariel Trevino MD; Location: [facility] Location LEG/ANKLE SURGERY PROC UNLISTED 1987 LUMBAR EPIDURAL STEROID INJECTION LUMBAR EPIDURAL STEROID INJECTION N/A 04/27/2015 Surgeon: Dariel Trevino MD; Location: [facility] LUMBAR EPIDURAL STEROID INJECTION N/A 05/04/2015 Surgeon: Dariel Trevino MD; Location: [facility] LUMBAR EPIDURAL STEROID INJECTION N/A 05/11/2015 Surgeon: Dariel Trevino MD; Location: [facility] LUMBAR EPIDURAL STEROID INJECTION N/A 09/21/2015 Surgeon: Dariel Trevino MD; Location: [facility] LUMBAR EPIDURAL STEROID INJECTION N/A 09/28/2015 Surgeon: Dariel Trevino MD; Location: [facility] LUMBAR EPIDURAL STEROID INJECTION N/A 10/05/2015 Surgeon: Dariel Trevino MD; Location: [facility] LUMBAR EPIDURAL STEROID INJECTION N/A 06/20/2016 Surgeon: Dariel Trevino MD; Location: [facility] Location LUMBAR EPIDURAL STEROID INJECTION N/A 06/27/2016 Surgeon: Dariel Trevino MD; Location: [facility] LUMBAR EPIDURAL STEROID INJECTION N/A 07/04/2016 Surgeon: Dariel Trevino MD; Location: [facility] [place] Location LUMBAR EPIDURAL STEROID INJECTION N/A 02/06/2017 Surgeon: Dariel Trevino MD; Location: [facility] [place] Location LUMBAR EPIDURAL STEROID INJECTION N/A 02/13/2017 Surgeon: Dariel Trevino MD; Location: [facility] LUMBAR EPIDURAL STEROID INJECTION N/A 02/20/2017 Surgeon: Dariel Trevino MD; Location: [facility] OTHER hardware in leg Social History Socioeconomic History Marital status: Single Spouse name: Not on file Number of children: 4 Years of education: 11 Highest education level: Not on file Occupational History Occupation: Disbabled Social Needs Financial resource strain: Hard Food insecurity: Worry: Sometimes true Inability: Sometimes true Transportation needs: Medical: No Non-medical: No Tobacco Use Smoking status: Former Smoker Packs/day: 1.50 Years: 2.00 Pack years: 3.00 Types: Cigarettes Smokeless tobacco: Never Used Tobacco comment: Started as a teen then stopped and restarted 2 years ago. Substance and Sexual Activity Alcohol use: Yes Alcohol/week: 0.0 standard drinks Frequency: Monthly or less Drinks per session: 1 or 2 Binge frequency: Less than monthly Comment: Occasionally Drug use: Yes Types: Hydrocodone Comment: perscribed Sexual activity: Not Currently Partners: Female Lifestyle Physical activity: Days per week: 5 days Minutes per session: 100 min Stress: Not at all Relationships Social connections: Talks on phone: More than three times a week Gets together: Three times a week Attends restoration service: Never Active member of club or organization: Yes Attends meetings of clubs or organizations: More than 4 times per year Relationship status: Never Intimate partner violence: Fear of current or ex partner: No Emotionally abused: No Physically abused: No Forced sexual activity: No Other Topics Concern Not on file Social History Narrative Unemployed-disabled. Lives alone. 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 Self reported claustrophobia. Has support of his children and grandchildren. [employer]. 03/15/2019 MRM Family History Problem Relation Age of Onset Arthritis Mother Arthritis Maternal Grandmother Heart Brother arrhythmia Review of Systems Constitutional: Negative. Negative for chills, fatigue and fever. Respiratory: Negative. Negative for cough, chest tightness, shortness of breath and wheezing. Cardiovascular: Negative. Negative for chest pain and palpitations. Gastrointestinal: Positive for abdominal pain. Negative for constipation, diarrhea, nausea and vomiting. Genitourinary: Negative for dysuria and hematuria. Musculoskeletal: Positive for back pain (chronic ). Neurological: Negative. Negative for syncope, weakness, light-headedness and headaches. Psychiatric/Behavioral: Negative. Endocrine: Endocrine negative Vital Signs BP (!) 159/87 (BP Location: Left arm, Patient Position: Sitting, BP CUFF SIZE: Adult Large) | Pulse85 | Temp 37 C (98.6 F) (Oral) | Resp 19 | Ht 6' 1" (1.854 m) | Wt 264 lb (119.7 kg) | HsT286% | BMI 34.83 kg/m Physical Exam Constitutional: He is oriented to person, place, and time. He appears well- developed. No distress. Cardiovascular: Normal rate, regular rhythm, normal heart sounds and intact distal pulses. Exam reveals no gallop and no friction rub. No murmur heard. Pulmonary/Chest: Effort normal and breath sounds normal. No stridor. No respiratory distress. He hasno wheezes. He has no rales. He exhibits no tenderness. Abdominal: Soft. Bowel sounds are normal. He exhibits distension. There is tenderness in the left upper quadrant and left lower quadrant. There is guarding. There is no CVA tenderness. A hernia is present. Exam limited due to large girth versus distension as well as severity of pain Neurological: He is alert and oriented to person, place, and time. Skin: Skin is warm and dry. Capillary refill takes less than 2 seconds. Psychiatric: He has a normal mood and affect. Nursing note and vitals reviewed. Assessment/Plan 1. Abdominal pain: will get CBC, CMP, UA and culture, and CT of the abdomen to determine etiology. further interventions to follow depending on study result. 2. Chronic back pain: continue care with pain clinic. 3. Hypertension: CBC, CMP, TSH continue current medication regimen as ordered, and care with PCP. Watch blood pressure: check at least twice weekly, if consistently elevated, follow up with PCP. Low salt Low caffeine diet Low alcohol Avoid tobacco products. Heart Healthy Exercise: total of 150 minutes of cardio: walking,swimming, hiking, biking every week. Heart healthy diet: low fat/carb/sugar diet; increase lean meat-chicken, turkey, fish; increase vegetables/fruits ( still be careful because elevated sugar level) ER--> worsening condition; cp, shortness of breath, dizziness, syncope, palpitations, n/v, diaphoresis. Plan of care, desired health behaviors, goals, and medication discussed with patient. Education resources provided and reviewed with AVS. Patient/guardian/family verbalized understanding & agrees to plan of care. This visit did not involve counseling and coordination that comprised more than 50% of the visit time. If applicable, the [facility] database was accessed to review any controlled substance prescription claims data. The [employer] prescription claims data in [employer] was reviewed to assess patient compliance with the medication treatment plan. 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 METABOLIC PANEL LAB Routine Left lower quadrant Ordered: 10/15/2019 (91206) abdominal pain Essential hypertension URINALYSIS LAB Routine Left lower quadrant Ordered: 10/15/2019 abdominal pain URINE CULTURE LAB Routine Left lower quadrant Ordered : 10/15/2019 abdominal pain THYROID STIMULATING LAB Routine Left lower quadrant E xpected: HORMONE abdominal pain 10/15/2019, Expires: Essential hypertension 10/14 CT ABDOMEN WO CONTRAST IMAGING Routine Left lower quadran t Expected: abdominal pain 10/15/2019, E xpires: 10/14/2020 Health Maintenance Due Date Last Done Comments DTaP,Tdap,and Td Vaccines (1 - Tdap) 1965 COLONOSCOPY 2004 Zoster Recombinant Vaccine (SHINGRIX) (1 of 2) 2004 Medicare Wellness Visit 08/21/2019 PNEUMOCOCCAL VACCINES 65+ (1 of 2 - PCV13) 08/21/2019 INFLUENZA VACCINE (Season Ended) 2020 HEPATITIS C (HCV) SCREEN Completed 05/09/2013 documented as of this encounter Results Not on filedocumented in this encounter Visit Diagnoses Diagnosis Left lower quadrant abdominal pain - Mary antoinette Essential hypertension Unspecified essential hypertension documented in this encounter Insurance Payer Benefit Plan / Subscriber ID Effective Dates Phone Addre ss Type Group [facility] STAR xxxxxxxxx 2013-Present Medicaid COMM PLAN - PLUS MANAGED MEDICAID documented as of this encounter
[2019-10-25] MEDS ORDERED: MORPHINE 4 MG/ML SYR ONE ×2 (08:44→10:12)
[2019-10-25] MEDS ORDERED: ONDANSETRON 4 MG/2 ML VIAL ONE (08:44)
[2019-10-25] MEDS ORDERED: NA CHLORIDE 0.9% 500 ML ONE (08:44)
--- OUTSIDE RECORDS SUMMARY | 2019-10-25 08:44 | XMS REPORT | Summary of Care ---
:1955 Author Organization [facility] - Health Address [address] [place] [address] Care Team Providers Name Role Phone MD Austin Primary Care Provider Encounter Details Date Type Department Care Team Description 10/15/2019 Orders Only [facility] Doctor Unassigned, No [address] [facility] [place] [address] [address] [place] [address] Allergies No Known Allergiesdocumented as of this encounter (statuses as of 10/15/2019) Medications Medication Sig Dispensed Refills Start Date End Date Status mometasone 50 Use 1 [place] in 1 Bottle 0 07/23/2017 Active mcg/actuation [...] or relatives? How often do you attend alevism or Never 2018 judaism services? Do you belong to any clubs or Yes 03/15/2019 organizations such as alevism groups, unions, fraternal or athletic groups, or [...] Travel End No recent travel history available. COVID-19 Exposure Response Date Recorded In the last month, have you been in contact with No / Unsure 10/15/2019 2:31 PM CDT someone who was confirmed or suspected to have Coronavirus / COVID-19? documented as of this encounter Last Filed [...] Completed 05/09/2013 documented as of this encounter Procedures Procedure Name Priority Date/Time Associated Diagnosis Comme nts ASSIGNMENT OF BENEFITS Routine 10/15/2019 2:48 PM CDT documented in this encounter Results Not on filedocumented in this encounter Insurance Payer Benefit Plan Subscriber ID Effective Phone Address Typ e / Group Dates [facility] xxxxxxxxx 2013-Prese Medic aid HEALTHCARE COMM STAR PLUS nt PLAN - MANAGED MEDICAID MEDICARE MEDICARE PART xxxxxxxxxxx 2019-Prese [phone] Medicare A & B nt [id number] [place] [id number] [facility] MEDICAID OF xxxxxxxxx 2019-Prese [phone] [address] Med icaid [place] nt [id number] [place] [address] documented as of this encounter
--- OUTSIDE RECORDS SUMMARY | 2019-10-25 08:44 | XMS REPORT | Summary of Care ---
:1955 Author Organization [facility] Address [address] [place] [address] Care Team Providers Name Role Phone MD Austin Primary Care Provider Reason for Referral MRI/CAT Scan (STAT) Status Reason Specialty Diagnoses / Referred By Referred To Procedures Contact Contact New Request Diagnostic Diagnoses Left lower quadrant abdominal pain Robyn Westfall, Radiology Procedures CT ABDOMEN WO CONTRAST CT ABDOMEN WO CONTRAST [facility] M[employer] OPER[address] [address] Reason for Visit Reason Comments Back Pain x2 days Abdominal Pain x2 days Encounter Details Date Type Department Care Team Description 10/15/[address] [facility] Family Kye Westfall, B[employer] M[employer] OPERATOR [address] [address] Left lower quadrant abdominal pain (Prim vitor Dx); Medicine - [place] Provider, [facility] Essential hypertension [address] [place] [phone] Allergies No Known Allergiesdocumented as of this encounter (statuses as of 10/15/2019) Medications Medication Sig Dispensed Refills Start Date End Date Status mometasone 50 Use 1 [place] in 1 Bottle 0 07/23/2017 Active mcg/actuation [...] or relatives? How often do you attend jehovah's witness or Never 2018 spiritism services? Do you belong to any clubs or Yes 03/15/2019 organizations such as jehovah's witness groups, unions, fraternal or athletic groups, or [...] foods again, start with small amounts of jzpm-hj-zfgryg, low- fat foods. These include apple sauce, [...] provider if you have: Pain for more [id number] Bloating for more than 2days Diarrhea for more [id number] A fever of 100.4F (38C) or higher, [...] increase stomach acid. Don't use aspirin or jdyh-viz-doifiga pain and fever medicines, if possible. This includes nonsteroidal anti-inflammatory drugs (NSAIDs). Lose excess weight. Finish eating at least 2 hours before you go to bed or lie down. Raise the head of your bed. [employer] last reviewed this educational content on 08/27/201819997267-[address] [employer] [place] [address], [place] [address]. All rights reserved. This information is not [...] can, walk or bike instead of driving. [place] leaves, garden, or do household repairs. Be [...] healthcare provider before stopping or changing them. [employer] last reviewed this educational content on 10/27/201819995188-7344 [employer]. [address] [place] [address]. All rights reserved. This information is not [...] try basil, cilantro, cinnamon, pepper, and stephanie. [employer] last reviewed this educational content on 02/26/201719994661-2931 [employer]. [address] [place] [address]. All rights reserved. This information is not [...] 100% fruit juice. Whole-wheat bread or an Sinhala muffin. Look for sodium content on Nutrition Facts labels. Low-fat milk or yogurt Unsalted eggs Shredded wheat [place] tortillas Unsalted steamed rice Regular (not instant) [...] vegetables, soups, and fish not labeled as dk-pkvu-pieoi or reduced sodium Packaged gravies and sauces Olives, pickles, and relish Bottled salad dressings For snacks and desserts Yogurt Unsalted, air-popped popcorn Unsalted nuts or seeds Stay away from Pies and cakes Packaged dessert mixes Pizza Canned and packaged puddings Pretzels, chips, crackers, and nutsunless the label says unsalted [employer] last reviewed this educational content on 03/29/201919998813-4826 [employer]. [address] [place] [address]. All rights reserved. This information is not intended as a substitute for professional medical care. Always follow your healthcare professional's instructions. Patient Education Checking Your Blood Pressure Acad-xz-Ktao [employer] last reviewed this educational content on 08/28/201919993908-9441 [employer]. [address] [place] [address]. All rights reserved. This information is not intended as a substitute for professional medical care. Always follow your healthcare professional's instructions. documented in this encounter Progress Notes Robyn Westfall FNP - 10/15/2019 1:40 PM CDT Cc: Chief Complaint Patient presents with Back Pain x2 days Abdominal Pain x2 days Jose Elias Ahn is a 64 year old male. [...] mometasone 50 mcg/actuation nasal spray Use 1 [place] in each nostril 2 (two) times daily. 1 Bottle 0 Facility-Administered Medications Prior to Visit Medication Dose Route Frequency Provider Last Rate Last Dose bupivacaine (preserv free) (SENSORCAINE MPF) 0.25 % (2.5 mg/mL) injection PRDariel Mcnair MD 10 mL at 09/18/17 1020 lidocaine 1% (XYLOCAINE) 10 mg/mL (1 %) injection PRDariel Mcnair MD 6 mL at 09/18/17 1020 triamcinolone acetonide (KENALOG) injection PRDariel Mcnair MD 40 mg at 09/18/17 1020 Histories [...] N/A 03/14/2016 Surgeon: Dariel Trevino MD; Location: [place] Location CERVICAL EPIDURAL STEROID INJECTION N/A 03/21/2016 Surgeon: Dariel Trevino MD; Location: [place] Location CERVICAL EPIDURAL STEROID INJECTION N/A 03/28/2016 Surgeon: Dariel Trevino MD; Location: [place] Location CERVICAL EPIDURAL STEROID INJECTION N/A 09/18/2017 Surgeon: Dariel Trevino MD; Location: [place] Location CERVICAL EPIDURAL STEROID INJECTION N/A 09/25/2017 Surgeon: Dariel Trevino MD; Location: [place] Location CERVICAL EPIDURAL STEROID INJECTION N/A 10/02/2017 Surgeon: Dariel Trevino MD; Location: [place] Location LEG/ANKLE SURGERY PROC UNLISTED 1987 [...] N/A 09/21/2015 Surgeon: Dariel Trevino MD; Location: [place] Location LUMBAR EPIDURAL STEROID INJECTION N/A 09/28/2015 Surgeon: Dariel Trevino MD; Location: [place] Location LUMBAR EPIDURAL STEROID INJECTION N/A 10/05/2015 Surgeon: Dariel Trevino MD; Location: [place] Location LUMBAR EPIDURAL STEROID INJECTION N/A 06/20/2016 Surgeon: Dariel Trevino MD; Location: [place] Location LUMBAR EPIDURAL STEROID INJECTION N/A 06/27/2016 Surgeon: Dariel Trevino MD; Location: [place] Location LUMBAR EPIDURAL STEROID INJECTION N/A 07/04/2016 Surgeon: Dariel Trevino MD; Location: [place] Location LUMBAR EPIDURAL STEROID INJECTION N/A 02/06/2017 Surgeon: Dariel Trevino MD; Location: [facility] OR Location LUMBAR EPIDURAL STEROID INJECTION N/A 02/13/2017 Surgeon: Dariel Trevino MD; Location: [facility] [place] Location LUMBAR EPIDURAL STEROID INJECTION N/A 02/20/2017 Surgeon: Dariel Trevino MD; Location: [facility] OR [facility] OTHER hardware in leg Social History [...] Gets together: Three times a week Attends spiritism service: Never Active member of club or [...] Has support of his children and grandchildren. [employer] Education. 03/15/2019 MRM Family History Problem Relation Age [...] | Wt 264 lb (119.7 kg) | DcJ432% | BMI 34.83 kg/m Physical Exam Constitutional: [...] of the visit time. If applicable, the [facility] database was accessed to review any controlled substance prescription claims data. The [employer] prescription claims data in [employer] was reviewed to assess patient compliance with the medication treatment plan. 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 METABOLIC PANEL LAB Routine Left lower quadrant Ordered: 10/15/2019 (39719) abdominal pain Essential hypertension URINALYSIS LAB Routine Left lower quadrant Ordered: 10/15/2019 abdominal pain URINE CULTURE LAB Routine Left lower quadrant Ordered : 10/15/2019 abdominal pain THYROID STIMULATING LAB Routine Left lower quadrant E xpected: HORMONE abdominal pain 10/15/2019, Expires: Essential hypertension 10/14 CT ABDOMEN WO CONTRAST IMAGING STAT Left lower quadran t Expected: abdominal pain [...] Left lower quadrant abdominal pain - Mary curry Essential hypertension Unspecified essential hypertension documented in this encounter Insurance Payer Benefit Plan / Subscriber ID Effective Dates Phone Addre ss Type Group [facility] xxxxxxxxx 2013-Present Medicaid COMM PLAN - PLUS MANAGED MEDICAID documented as of this encounter
[2019-10-25] MEDS ORDERED: FAMOTIDINE 20 MG/2 ML VIAL IV ONE (08:45)
--- OUTSIDE RECORDS SUMMARY | 2019-10-25 08:45 | XMS REPORT | Summary of Care ---
:1955 Author Organization [facility] Address [address] [place] [address] Care Team Providers Name Role Phone MD Austin Primary Care Provider Reason for Visit Reason Comments LAB WORK Auth/Cert Status Reason Specialty Diagnoses / Procedures Referred By Sherman fenton Referred To Contact Phlebotomy Diagnoses Left lower quadrant abdominal pain Adc Pob Lab Draw Procedures THYROID STIMULATING HORMONE Professional Office Building [address] [facility] , [address] [place] [address] Phone: Fax: Encounter Details Date Type Department Care Team Description 10/15/2019 Relocation Counselor Visit [facility] Robyn Westfall FNP [address] [address] Left lower quadrant abdominal pain; Professional Office Pob, Adc Lab Main Essential hypertension Building Phlebotomy Lab Professional Office Building [address] [facility] , [address] [place] [address] Allergies No Known Allergiesdocumented as of this encounter (statuses as of 10/15/2019) Medications Medication Sig Dispensed Refills Start Date End Date Status mometasone 50 Use 1 [place] in 1 Bottle 0 07/23/2017 Active mcg/actuation [...] or relatives? How often do you attend methodist or Never 2018 bahai services? Do you belong to any clubs or Yes 03/15/2019 organizations such as methodist groups, unions, fraternal or athletic groups, or [...] in contact with No / Unsure 10/15/2019 3:20 PM CDT someone who was confirmed or suspected to have Coronavirus / COVID-19? documented as of this encounter Last Filed Vital Signs Not on filedocumented in this encounter Plan of Treatment Date Type Specialty Care Team Description 10/15/2019 Hospital Encounter Radiology Kye Westfall FNP Arrived [address] [address] Name Type Priority Associated Diagnoses Date/Ti me THYROID STIMULATING LAB Routine Left lower quadrant 0 10/15/2019 3:00 PM HORMONE abdominal pain CDT Essential hypertension Health Maintenance Due Date Last Done Comments DTaP,Tdap,and Td Vaccines (1 - Tdap) 1965 COLONOSCOPY 2004 Zoster Recombinant Vaccine (SHINGRIX) (1 of 2) 2004 Medicare Wellness Visit 08/21/2019 PNEUMOCOCCAL VACCINES 65+ (1 of 2 - PCV13) 08/21/2019 INFLUENZA VACCINE (Season Ended) 2020 HEPATITIS C (HCV) SCREEN Completed 05/09/2013 documented as of this encounter Procedures Procedure Name Priority Date/Time Associated Diagnosis Comme nts CBC WITH DIFFERENTIAL Routine 10/15/2019 3:00 Left lower quad rant Results for this PM CDT abdominal pain procedure are in Essential the results hypertension section. CBC WITH DIFFERENTIAL Routine 10/15/2019 3:00 Left lower quad rant Results for this PM CDT abdominal pain procedure are in Essential the results hypertension section. documented in this encounter Results CBC WITH DIFFERENTIAL (10/15/2019 3:00 PM CDT) Pathologist Sig nature WBC 9.90 4.20 - 10.70 [facility] 10*3/L HOSPITAL LAB[facility]ORY RBC 5.50 4.26 - 5.52 [facility] 10*6/L [facility] HGB 16.8 (H) 12.2 - 16.4 [facility] g/dL [facility] HCT 51.0 (H) 38.4 - 49.3 % [facility] MCV 92.7 81.7 - 95.6 fL [facility] MCH 30.5 26.1 - 32.7 pg [facility] MCHC 32.9 31.2 - 35.0 [facility] g/dL [facility] RDW-SD 48.7 38.5 - 51.6 fL [facility] RDW-CV 14.2 12.1 - 15.4 % [facility] PLT 292 150 - 328 [facility] 10*3/L [facility] MPV 10.1 9.8 - 13.0 fL [facility] NRBC/100 WBC 0.0 0.0 - 10.0 /100 [facility] WBCs [facility] NRBC x10^3 <0.01 10*3/L [facility] GRAN MAT (NEUT) % 67.9 % [facility] IMM GRAN % 0.50 % [facility] LYMPH % 18.9 % [facility] MONO % 8.3 % [facility] EOS % 3.6 % [facility] BASO % 0.8 % [facility] GRAN MAT x10^3(ANC) 6.72 1.99 - 6.95 [facility] 10*3/uL HOSPITAL LAB[facility]ORY IMM GRAN x10^3 0.05 0.00 - 0.06 [facility] 10*3/uL HOS[facility]ITAL LAB[facility] LYMPH x10^3 1.87 1.09 - 3.23 [facility] 10*3/uL [facility]ITAL [facility] MONO x10^3 0.82 0.36 - 1.02 [facility] 10*3/uL HOS[facility]ITAL LAB[facility] EOS x10^3 0.36 0.06 - 0.53 [facility] 10*3/uL [facility]ITAL [facility] BASO x10^3 0.08 0.01 - 0.09 [facility] 10*3/uL [facility] Specimen Blood Performing Organization Address City/State/Zipcode Phone Number [facility] CLIA: [id number], [address] [place], [place] [address] documented in this encounter Visit Diagnoses Diagnosis Left lower quadrant abdominal pain Essential hypertension Unspecified essential hypertension documented in this encounter Insurance Payer Benefit Plan / Subscriber ID Effective Dates Phone Addre ss Type Group MEDICARE MEDICARE PART xxxxxxxxxxx 2019-Presen [phone] Medicare A & B t 2 [id number] [place] [address] [facility] MEDICAID OF xxxxxxxxx 2019-Presen [phone] Medicaid [place] t 0 [id number] [place] [address] documented as of this encounter
--- OUTSIDE RECORDS SUMMARY | 2019-10-25 08:45 | XMS REPORT | Summary of Care ---
:1955 Author Organization [facility] Address [address] [place] [address] Care Team Providers Name Role Phone MD Austin Primary Care Provider Reason for Visit Reason Comments Back Pain x2 days Abdominal Pain x2 days Auth/Cert Status Reason Specialty Diagnoses / Procedures Referred By C ontact Referred To Contact Phlebotomy Diagnoses Left lower quadrant abdominal pain Adc Pob Lab Draw Procedures THYROID STIMULATING HORMONE Professional Office Building [address] [place] [address] , [address] [place] [address] Phone: Fax: Encounter Details Date Type Department Care Team Description 10/15/2019 Urgent Care [facility] Family Kye Westfall, JANETTE [address] [address] Left lower quadrant abdominal pain (Prim vitor Dx); Medicine - [place] Provider, [facility] Essential hypertension; [facility] Urinary tract infection with out [place]uria, [place] [address] Allergies No Known Allergiesdocumented as of this encounter (statuses as of 10/17/2019) Medications Medication Sig Dispensed Refills Start Date End Date Status mometasone 50 Use 1 [place] in 1 Bottle 0 07/23/2017 Active mcg/actuation nasal each nostril 2 spray (two) times daily. carvedilol 12.5 mg Take 12.5 mg by 0 07/12/2017 Active tablet mouth 2 (two) times daily. gabapentin 300 mg Take 300 mg by 0 07/12/2017 Active capsule mouth 2 (two) times daily. furosemide 20 mg Take 20 mg by 0 07/12/2017 Active tablet mouth daily. HYDROcodone-acetamin Take 1 tablet by 0 07/12/2017 Active ophen 10-325 mg mouth 3 (three) tablet times [...] 2 11/22/2018 Active tablet MOUTH TWICE DAILY LISINOPRIL-HYDROCHLO TAKE 1 TABLET BY 30 tablet 0 09/16/2019 Active ROTHIAZIDE 20-25 mg MOUTH EVERY DAY per tabletIndications: Essential hypertension KCL 10 mEq tablet TAKE 1 TABLET BY 30 tablet 0 09/16/2019 Active MOUTH EVERY DAY Nitrofurantoin&Nit. Take 1 capsule by 14 capsule 0 10/17/2019 10/24/2019 Active Macrocryst mouth 2 (two) (MACROBID) 100 mg times daily for 7 capsuleIndications: days. Urinary tract infection without hematuria, site unspecified documented as of this encounter (statuses as of 10/17/2019) Active Problems Problem Noted Date Sepsis 10/03/2015 Pain in joint, multiple sites 05/09/2013 Cervicalgia 05/09/2013 Lumbosacral spondylosis 05/09/2013 History of alcoholism 05/09/2013 Hepatitis C infection 05/09/2013 Chronic back pain 05/09/2013 documented as of this encounter (statuses as of 10/17/2019) Social History Tobacco Use Types Packs/Day Years [...] or relatives? How often do you attend scientologist or Never 2018 methodist services? Do you belong to any clubs or Yes 03/15/2019 organizations such as scientologist groups, unions, fraternal or athletic groups, or [...] foods again, start with small amounts of ddie-ju-fesstj, low- fat foods. These include apple sauce, [...] provider if you have: Pain for more [id number] Bloating for more than 2days Diarrhea for more trif4efyf A fever of 100.4F (38C) or higher, [...] increase stomach acid. Don't use aspirin or tzzs-riq-oavftxn pain and fever medicines, if possible. This includes nonsteroidal anti-inflammatory drugs (NSAIDs). Lose excess weight. Finish eating at least 2 hours before you go to bed or lie down. Raise the head of your bed. [employer] last reviewed this educational content on 08/27/201819993319-5940 The [employer]. [address] [place] [address], [place] [address]. All rights reserved. This information is not [...] can, walk or bike instead of driving. Docena leaves, garden, or do household repairs. Be [...] healthcare provider before stopping or changing them. Aleth reviewed this educational content on 10/27/201819992511-8010 [employer]. [address] [place] [address], [place] [address]. All rights reserved. This information is not [...] try basil, cilantro, cinnamon, pepper, and stephanie. [employer] last reviewed this educational content on 02/26/201719995199-0106 [employer]. [address] [place] [address]. All rights reserved. This information is not [...] 100% fruit juice. Whole-wheat bread or an Sudanese muffin. Look for sodium content on Nutrition Facts labels. Low-fat milk or yogurt Unsalted eggs Shredded wheat Morehouse tortillas Unsalted steamed rice Regular (not instant) [...] vegetables, soups, and fish not labeled as ri-jcvn-nndaa or reduced sodium Packaged gravies and sauces Olives, pickles, and relish Bottled salad dressings For snacks and desserts Yogurt Unsalted, air-popped popcorn Unsalted nuts or seeds Stay away from Pies and cakes Packaged dessert mixes Pizza Canned and packaged puddings Pretzels, chips, crackers, and nutsunless the label says unsalted [employer] last reviewed this educational content on 03/29/2019 The [employer]. [address] [place] [address]. All rights reserved. This information is not intended as a substitute for professional medical care. Always follow your healthcare professional's instructions. Patient Education Checking Your Blood Pressure Xqef[employer]xh-Mqjl [employer] last reviewed this educational content on 08/28/2019 The [employer]. [address] [place] [address]. All rights reserved. This information is not [...] Risk factors: being elderly and obesity Allergies Jose Elias has No Known Allergies. Medications Outpatient Medications [...] mometasone 50 mcg/actuation nasal spray Use 1 [place] in each nostril 2 (two) times daily. [...] N/A 03/14/2016 Surgeon: Dariel Trevino MD; Location: [place] CERVICAL EPIDURAL STEROID INJECTION N/A 03/21/2016 Surgeon: Dariel Trevino MD; Location: [place] CERVICAL EPIDURAL STEROID INJECTION N/A 03/28/2016 Surgeon: Dariel Trevino MD; Location: [place] CERVICAL EPIDURAL STEROID INJECTION N/A 09/18/2017 Surgeon: Dariel Trevino MD; Location: [place] CERVICAL EPIDURAL STEROID INJECTION N/A 09/25/2017 Surgeon: Dariel Trevino MD; Location: [place] CERVICAL EPIDURAL STEROID INJECTION N/A 10/02/2017 Surgeon: Dariel Trevino MD; Location: [place] LEG/ANKLE SURGERY PROC UNLISTED 1987 [...] N/A 09/21/2015 Surgeon: Dariel Trevino MD; Location: [place] LUMBAR EPIDURAL STEROID INJECTION N/A 09/28/2015 Surgeon: Dariel Trevino MD; Location: [place] LUMBAR EPIDURAL STEROID INJECTION N/A 10/05/2015 Surgeon: Dariel Trevino MD; Location: [place] LUMBAR EPIDURAL STEROID INJECTION N/A 06/20/2016 Surgeon: Dariel Trevino MD; Location: [place] LUMBAR EPIDURAL STEROID INJECTION N/A 06/27/2016 Surgeon: Dariel Trevino MD; Location: [place] LUMBAR EPIDURAL STEROID INJECTION N/A 07/04/2016 Surgeon: Dariel Trevino MD; Location: [place] LUMBAR EPIDURAL STEROID INJECTION N/A 02/06/2017 Surgeon: Dariel Trevino MD; Location: [place] LUMBAR EPIDURAL STEROID INJECTION N/A 02/13/2017 Surgeon: Dariel Trevino MD; Location: [place] LUMBAR EPIDURAL STEROID INJECTION N/A 02/20/2017 Surgeon: Dariel Trevino MD; Location: [facility] Location OTHER hardware in leg Social History Socioeconomic [...] Gets together: Three times a week Attends methodist service: Never Active member of club or [...] Has support of his children and grandchildren. [employer]. 03/15/2019 [facility] Family History Problem Relation Age [...] | Wt 264 lb (119.7 kg) | RbN949% | BMI 34.83 kg/m Physical Exam Constitutional: [...] of the visit time. If applicable, the [place] [employer] database was accessed to review any controlled substance prescription claims data. The [employer] prescription claims data in [email or web address].de was reviewed to assess patient compliance with the medication treatment plan. documented in this encounter Plan of Treatment Name Type Priority Associated Diagnoses Date/Ti me URINE CULTURE LAB Routine Left lower quadrant abdomin al 10/15/2019 4:24 PM CDT pain Health Maintenance Due Date Last Done Comments DTaP,Tdap,and Td Vaccines (1 - Tdap) 1965 COLONOSCOPY 2004 Zoster Recombinant Vaccine (SHINGRIX) (1 of 2) 2004 Medicare Wellness Visit 08/21/2019 PNEUMOCOCCAL VACCINES 65+ (1 of 2 - PCV13) 08/21/2019 INFLUENZA VACCINE (Season Ended) 2020 HEPATITIS C (HCV) SCREEN Completed 05/09/2013 documented as of this encounter Procedures Procedure Name Priority Date/Time Associated Diagnosis Comme nts URINALYSIS Routine 10/15/2019 5:19 Left lower quadrant Resu lts for this PM CDT abdominal pain procedure are in the results section. COMP. METABOLIC Routine 10/15/2019 3:00 Left lower quadrant R esults for this PANEL (48268) PM CDT abdominal pain procedure are in Essential the results hypertension section. documented in this encounter Results URINALYSIS (10/15/2019 5:19 PM CDT) Pathologist Sig nature APPEARANCE Clear Clear [facility] COLOR Yellow Yellow [facility] PH 6.0 4.8 - 8.0 [facility] SP GRAVITY 1.019 1.003 - 1.030 [facility] GLU U QUAL Normal Normal [facility] BLOOD Negative Negative [facility] KETONES Negative Negative [facility] PROTEIN Negative Negative [facility] UROBILIN 2.0 mg/dL (A) Normal [facility] BILIRUBIN Negative Negative [facility] NITRITE Negative Negative [facility] LEUK RAMONA Negative Negative [facility] RBC/HPF <1 0 - 3 HPF [facility] WBC/HPF 1 0 - 5 HPF [facility] BACTERIA Few (A) Negative [facility] MUCOUS Slight (A) Negative LPF [facility] SQ EPITH <1 HPF [facility] GRAN CASTS 1 <=1 LPF [facility] Specimen Urine Performing Organization Address [facility] Phone Number [facility] CLIA: [id number], [address] [place] [address] THYROID STIMULATING HORMONE (10/15/2019 3:00 PM CDT) Pathologist [facility] TSH 1.69 0.45 - 4.70 mIU/L [facility] Specimen Blood Performing Organization Address [facility] Phone Number [facility] CLIA: [id number], [address] [place] [address] COMP. METABOLIC PANEL (41696) (10/15/2019 3:00 PM CDT) Pathologist Sig [facility] NA 141 135 - 145 mmol/L [facility] K 4.8 3.5 - 5.0 mmol/L [facility] CL 103 98 - 108 mmol/L [facility] CO2 TOTAL 30 23 - 31 mmol/L [facility] AGAP 8 2 - 16 [facility] BUN 19 7 - 23 mg/dL [facility] GLUCOSE 100 70 - 110 mg/dL [facility] CREATININE 1.25 0.60 - 1.25 [facility] mg/dL HOSPITAL LABORATORY TOTAL BILI 0.6 0.1 - 1.1 mg/dL [facility] CALCIUM 10.2 8.6 - 10.6 mg/dL [facility] T PROTEIN 7.0 6.3 - 8.2 g/dL [facility] ALBUMIN 4.4 3.5 - 5.0 g/dL [facility] ALK PHOS 77 34 - 122 U/L [facility] ALTv 29 5 - 50 U/L [facility] AST(SGOT) 25 13 - 40 U/L [facility] eGFR Calculation 58.0 mL/min/1.73m2 [facility] (Non-) [facility] LABORATOR Y eGFR Calculation 70.3 mL/min/1.73m2 [facility] () [facility] Specimen Blood Narrative Performed At Association of Glomerular Filtration Rate (GFR) [facility] and Staging of Kidney Disease* + + +- + | GFR (mL/min/1.73 m2) | With Kidney Damage | Without Kidney Damage + + +- + | >90 | Stage one | Normal + + +- + | 60-89 | Stage two | Decreased GFR + + +- + | 30-59 | Stage three | Stage three + + +- + | 15-29 | Stage four | Stage four + + +- + | <15 (or dialysis) | Stage five | Stage five + + +- + *Each stage assumes the associated GFR level has been in effect for at least three months. Stages 1 to 5, with or without kidney disease, indicate chronic kidney disease. Notes: Determination of stages one and two (with eGFR >59mL/min/1.73 m2) requires estimation of kidney damage for at least three months as defined by structural or functional abnormalities of the kidney, manifested by either: Pathological abnormalities or Markers of kidney damage (including abnormalities in the composition of the blood or urine or abnormalities in imaging tests). Performing Organization Address City/State/Zipcode Phone Number [facility] CLIA: [id number], [address] [place], [place] [address] [facility] [address] documented in this encounter Visit Diagnoses Diagnosis Left lower quadrant abdominal pain - Mary antoinette Essential hypertension Unspecified essential hypertension Urinary tract infection without hematuri a, site unspecified documented in this encounter Insurance Payer Benefit Plan / Subscriber ID Effective Dates Phone Addre ss Type Group MEDICARE MEDICARE PART xxxxxxxxxxx 2019-Presen [phone] Medicare A & B t 2 [id number] [place] [id number] [facility] MEDICAID OF xxxxxxxxx 2019-Presen [phone] Medicaid [place] t 0 [id number] [place] [address] documented as of this encounter
--- OUTSIDE RECORDS SUMMARY | 2019-10-25 08:45 | XMS REPORT | Summary of Care ---
:1955 Author Organization [facility] Address [address] [place] [address] Care Team Providers Name Role Phone MD Austin Primary Care Provider Reason for Visit Auth/Cert Status Reason Specialty Diagnoses / Procedures Referred By Sherman fenton Referred To Contact Phlebotomy Diagnoses Left lower quadrant abdominal pain Adc Pob Lab Draw Procedures THYROID STIMULATING HORMONE Professional Office Building [address] [place] [address] [address], [address] [place] [address] Phone: Fax: Encounter Details Date Type Department Care Team Description 10/15/2019 Hospital Encounter [facility] Sherman Westfall FNP Arrived [facility] [address] [facility] [address] [place] [phone] Allergies No Known Allergiesdocumented as of this encounter (statuses as of 10/16/2019) Medications Medication Sig Dispensed Refills Start Date End Date Status mometasone 50 Use 1 [place] in 1 Bottle 0 07/23/2017 Active mcg/actuation [...] as of this encounter (statuses as of 10/16/2019) Active Problems Problem Noted Date Sepsis 10/03/2015 Pain in joint, multiple sites 05/09/2013 Cervicalgia 05/09/2013 Lumbosacral spondylosis 05/09/2013 History of alcoholism 05/09/2013 Hepatitis C infection 05/09/2013 Chronic back pain 05/09/2013 documented as of this encounter (statuses as of 10/16/2019) Social History Tobacco Use Types Packs/Day Years [...] or relatives? How often do you attend baptism or Never 2018 latter day services? Do you belong to any clubs or Yes 03/15/2019 organizations such as baptism groups, unions, fraternal or athletic groups, or school groups? How often do you attend meetings of the More than 4 times r year 03/15/2019 clubs or organizations you [...] Name Priority Date/Time Associated Diagnosis Comme nts CT ABDOMEN PELVIS STAT 10/15/2019 4:41 PM Left lower quadr ant Results for this WO CONTRAST CDT abdominal pain procedure are in the results section. documented in this encounter Results CT ABDOMEN PELVIS WO CONTRAST (10/15/2019 4:41 PM CDT) Specimen Narrative Performed At CT Abdomen and Pelvis with oral contrast only. PACS/VR/DOSE CLINICAL HISTORY: Abdominal mass, nonpulsatile. Severe left lower quadrant tenderness. Abdominal hernia noted on ex am. DOSE: Up-to-date CT equipment and radiation dose reduc tion techniques were employed. CTDIvol: 13.0 mGy. DLP: 649 mG y-cm. TECHNIQUE : Contiguous axial imaging fro m the level of the lung bases through the pubic symphysis was performed with oral co ntrast medium only. Coronal and sagittal reconstructions wer e obtained. Auto mA and/or iterative reconstruction were used to re duce radiation dose. FINDINGS: Comparison is made with prev ious CT scan of 11/26/2015. Lower lungs: Clear. Prominent left epica rdial fat pad noted. No pleural effusion or pericardial effusion. No def inite evidence of hiatal hernia. Liver, Gallbladder and Spleen: Gallbladd er is contracted. No gallstones detected. No signs of acute cholecystitis. Biliary matt ts and the pancreatic duct appear of normal size. Liver is 14.5 cm with showed undulating serosal surfac e and heterogeneous coarse texture of the parenchyma, sugges tive of chronic primary liver disease. Spleen measures approximately 1 2.7 x 4.5 cm. Peritoneum: No free air or free fluid. No lymphadenopathy. Pancreas and Adrenals: Unremarkable pa ncreas and adrenal glands. Kidneys and Ureters: No visible calculi in the renal collecting systems. No hydroureter or hydronephrosis. Latera l surface of the right kidney showed 6.5 mm lesion, unchanged. Left ki dney showed 2.5 cm low-density lesion near its upper pole, likely cysti c and essentially unchanged. Vessels: Tortuous abdominal aorta with diffuse atheros clerosis of the aorta and iliac arteries. No abdominal aortic aneurysm. Retroperitoneum: No abnormal fluid.S mal l lymph nodes are seen in the retrogastric region and near the right orlando of the hem idiaphragm, unchanged when compared with 2016 study. Additiona l subcentimeter lymph nodes are also seen in the retroperitoneum surroun ding the aorta but remain unchanged. Bowel: Normal appendix. Diverticulosis of the sigmoid and descending colon noted without any acute changes of diverticulitis. Sma ll bowel gas pattern appears normal. Bladder and Reproductive Organs: Enlar ged prostate with central zone calcifications. No gross pathology in po mya distended urinary bladder. Bones: Lumbar levoscoliosis, multilevel degenerative d isc disease and old fracture of upper plate of L3 with loss of approximate ly 15% of its height. Soft tissues: Unremarkable. CONCLUSION: 1. No acute intra-abdominal or pelvic ab normalities detected. 2. Constipation, diverticulosis of sigmo id and descending colon noted without any acute changes of diverticuli tis. Appendix is normal. 3. Liver morphology suggestive of chronic primary live r disease, possibly cirrhosis. Procedure Note [facility], Radiant Results Inft User - 2019 4:[address] Abdomen and Pelvis with oral contrast only. CLINICAL HISTORY: Abdominal mass, nonpul satile. Severe left lower quadrant tenderness. Abdominal hernia noted on ex am. DOSE: Up-to-date CT equipment and radiat ion dose reduction techniques were employed. CTDIvol: 13.0 mGy. DLP: 649 mG y-cm. TECHNIQUE : Contiguous axial imaging fro m the level of the lung bases through the pubic symphysis was performe d with oral contrast medium only. Coronal and sagittal reconstructions wer e obtained. Auto mA and/or iterative reconstruction were used to re duce radiation dose. FINDINGS: Comparison is made with previ ous CT scan of 11/26/2015. Lower lungs: Clear. Prominent left epica rdial fat pad noted. No pleural effusion or pericardial effusion. No def inite evidence of hiatal hernia. Liver, Gallbladder and Spleen: Gallbladd er is contracted. No gallstones detected. No signs of acute cholecystiti s. Biliary ducts and the pancreatic duct appear of normal size. Liver is 14.5 cm with showed undulating serosal surface and heterogeneous coarse texture of the parenchyma, sugges tive of chronic primary liver disease. Spleen measures approximately 1 2.7 x 4.5 cm. Peritoneum: No free air or free fluid. No lymphadenopathy. Pancreas and Adrenals: Unremarkable morales creas and adrenal glands. Kidneys and Ureters: No visible calculi in the renal collecting systems. No hydroureter or hydronephrosis. Latera l surface of the right kidney showed 6.5 mm lesion, unchanged. Left ki dney showed 2.5 cm low-density lesion near its upper pole, likely cysti c and essentially unchanged. Vessels: Tortuous abdominal aorta with d iffuse atherosclerosis of the aorta and iliac arteries. No abdominal aortic aneurysm. Retroperitoneum: No abnormal fluid.S mal l lymph nodes are seen in the retrogastric region and near the right c henrique of the hemidiaphragm, unchanged when compared with 2016 study. Additiona l subcentimeter lymph nodes are also seen in the retroperitoneum surroun ding the aorta but remain unchanged. Bowel: Normal appendix. Diverticulosis o f the sigmoid and descending colon noted without any acute changes of diver ticulitis. Small bowel gas pattern appears normal. Bladder and Reproductive Organs: Enlarg ed prostate with central zone calcifications. No gross pathology in po mya distended urinary bladder. Bones: Lumbar levoscoliosis, multilevel degenerative disc disease and old fracture of upper plate of L3 with loss of approximately 15% of its height. Soft tissues: Unremarkable. CONCLUSION: 1. No acute intra-abdominal or pelvic ab normalities detected. 2. Constipation, diverticulosis of sigmo id and descending colon noted without any acute changes of diverticuli tis. Appendix is normal. 3. Liver morphology suggestive of chroni c primary liver disease, possibly cirrhosis. Performing Organization Address City/State/Zipcode Phone Number PACS/VR/DOSE documented in this encounter Visit Diagnoses Diagnosis Left lower quadrant abdominal pain documented in this encounter Insurance Payer Benefit Plan / Subscriber ID Effective Dates Phone Addre ss Type Group MEDICARE MEDICARE PART xxxxxxxxxxx 2019-Presen [id number] [address] Medicare A & B t 2 [id number] [place] [address] [facility] MEDICAID OF xxxxxxxxx 2019-Presen [phone] [address] Medicaid [place] t 0 [id number] [place] [address] documented as of this encounter
--- OUTSIDE RECORDS SUMMARY | 2019-10-25 08:46 | XMS REPORT | Summary of Care ---
:1955 Author Organization [facility] Address [address] [place] [id number] Care Team Providers Name Role Phone MD Austin Primary Care Provider Reason for Visit Reason Comments Results Encounter Details Date Type Department Care Team Description 10/16/2019 Telephone [facility] Family Medicine Robyn Meek FNP Results - [place] [id number] [place] [address] [address] [place] [id number] Allergies No Known Allergiesdocumented as of this encounter (statuses as of 10/23/2019) Medications Medication Sig Dispensed Refills Start Date End Date Status mometasone 50 Use 1 [place] in 1 Bottle 0 07/23/2017 Active mcg/actuation [...] as of this encounter (statuses as of 10/23/2019) Active Problems Problem Noted Date Sepsis 10/03/2015 Pain in joint, multiple sites 05/09/2013 Cervicalgia 05/09/2013 Lumbosacral spondylosis 05/09/2013 History of alcoholism 05/09/2013 Hepatitis C infection 05/09/2013 Chronic back pain 05/09/2013 documented as of this encounter (statuses as of 10/23/2019) Social History Tobacco Use Types Packs/Day Years [...] do you attend nondenominational or Never 2018 anglican services? Do you belong to any clubs [...] Address Typ e / Group Dates [facility] xxxxxxxxx 2013-Prese Medic aid HEALTHCARE COMM STAR PLUS nt PLAN - MANAGED MEDICAID MEDICARE MEDICARE PART xxxxxxxxxxx 2019-Prese [phone] Medicare A & B nt [id number] [place] [id number] [facility] MEDICAID OF xxxxxxxxx 2019- [phone] Med icaid [place] 2019 [id number] [place] [address] documented as of this encounter
--- NOTE | 2019-10-25 08:51 | RAD REPORT ---
EXAM DESCRIPTION: RAD - Chest Single View - 10/25/2019 8:38 am CLINICAL HISTORY: ABDOMINAL DISTENTION COMPARISON: Two view chest August 2017 TECHNIQUE: AP portable chest image was obtained 10/25/2019 8:38 am . FINDINGS: Lungs are clear. Heart and vasculature are normal. No measurable pleural effusion and no p neumothorax. No acute bony abnormality seen. No acute aortic findings suspected. IMPRESSION: No acute cardiopulmonary process. No significant change from comparison.
[2019-10-25 09:14] LABS: Absolute Lymphocytes (CBC) 1.4 K/uL (0.7-4.9); Basophils % 1.2 % (0-1.3); Hematocrit 48.6 % (39.6-49.0); Lymphocytes % 16.6 % (15.3-44.8); MPV 9.3 fL (7.6-11.3); RBC Red Blood Cell Count 5.33 M/uL (4.33-5.43)
[2019-10-25 09:29] LABS: ALT/SGPT 22 U/L (12-78); AST/SGOT 13 U/L (15-37); Albumin 3.9 g/dL (3.4-5.0); Alkaline Phosphatase 92 U/L (45-117); BUN Blood Urea Nitrogen 17 mg/dL (7-18); Bicarbonate 25 mmol/L (21-32); Bilirubin Direct 0.2 mg/dL (0-0.2); Bilirubin Total 0.5 mg/dL (0.2-1.0); Glucose Level 102 mg/dL (74-106); Lipase 139 U/L (73-393); Magnesium 2.2 mg/dL (1.8-2.4); NT PRO-BNP 102 pg/mL (<125); Protein, Total 7.4 g/dL (6.4-8.2); Sodium Level 137 mmol/L (136-145); Troponin (Emerg Dept Use Only) < 0.02 ng/mL (0.0-0.045)
--- NOTE | 2019-10-25 10:34 | RAD REPORT ---
EXAM DESCRIPTION: CT - Abdomen Pelvis W Contrast - 10/25/2019 10:16 am CLINICAL HISTORY: ABD PAIN COMPARISON: No comparisons TECHNIQUE: Biphasic, helical CT imaging of the abdomen and pelvis was performed following 100 ml non -ionic IV contrast. Oral contrast was given. All CT scans are performed using dose optimization technique as appropriate and may include automated exposure control or mA/KV adjustment according to patient size. FINDINGS: No suspicious findings in the lung bases. Liver is normal in size. There is a prominent nodular contour to the liver. This can be seen with cir rhosis or diffuse hepatic parenchymal disease. No focal liver lesion. Portal vein enhances normally. No varices, ascites or other findings of significant liver disease. Pancreas and spleen show no suspi cious findings. Gallbladder and biliary tree are also without suspicious finding. Symmetric renal function is seen with no hydronephrosis or suspicious renal mass. No pyelonephritis o r acute parenchymal process. Renal cysts are present. No ureteritis findings. Urinary bladder shows n o wall thickening, edema or enhancement. Prostate gland within normal limits. No adrenal abnormalitie s. No dilated bowel loops or bowel wall thickening. Appendix is normal. Left-sided diverticulosis is min imal with no diverticulitis. No free air, free fluid or inflammatory stranding. No hernia, mass or b ulky lymphadenopathy. No suspicious bony findings. IMPRESSION: No pyelonephritis or ureteritis. No abnormality of the system identifiable. Minimal diverticulosis without diverticulitis. No appendicitis. No acute finding. Nodular liver contour suggesting cirrhosis or diffuse hepatic parenchymal disease. This can be follow ed as warranted.
[2019-10-25] MEDS ORDERED: NA CHLORIDE 0.9% 1,000 ML ONE (10:38)
[2019-10-25 11:02] LABS: Urine Blood TRACE (NEG); Urine Glucose NEGATIVE (NEG); Urine Protein NEGATIVE (NEG)
[2019-10-25 12:17] VITALS: TEMP 98.5
[2019-10-25 12:20] VITALS: O2SAT 97
[2019-10-25 12:23] VITALS: BP 140/73
--- NOTE | 2019-10-26 12:59 | EKG ---
Test Date: 2019-10-25 Test Time: 08:56:02 Patient Services Technician: KARYN MEASUREMENT RESULTS: Intervals: Rate: 69 UT: 178 QRSD: 78 QT: 390 QTc: 417 [place]: P: 83 UT: 178 QRS: 67 T: 62 INTERPRETIVE STATEMENTS: Normal sinus rhythm Normal ECG No previous ECG available for comparison Electronically Signed On 10-26-19 12:58:34 CDT by Sav Suarez
--- NOTE | 2019-10-28 16:53 | EDPHYS ---
Physician Documentation [facility] Name: Jose Elias Ahn Age: 64 yrs Sex: Male : 1955 Arrival Date: 10/25/2019 Time: 07:53 Bed 19 Private MD: ADDISON Physician Marcelino Nazario HPI: 10/24 08:30 This 64 yrs old Male presents to ER via Ambulatory with complaints of kacy Abdominal Swelling, Flank Pain. 08:30 The patient complains of pain in the left low back and left mid back. Location: left kacy low back and left mid back. Onset: The symptoms/episode began/occurred 3 day(s) ago. 08:30 The patient presents with abdominal pain in the upper abdomen, in the lower abdomen, in kacy the left lower quadrant, abdominal distention in the upper abdomen, in the lower abdomen. Onset: The symptoms/episode began/occurred 3 day(s) ago. Modifying factors: The symptoms are alleviated by nothing. remaining still, the symptoms are aggravated by movement, palpation/percussion. Associated signs and symptoms: The patient has no apparent associated signs or symptoms. The symptoms do not radiate. Associated signs and symptoms: none. Modifying factors: The symptoms are alleviated by remaining still, the symptoms are aggravated by movement, pressure, touching the area. Historical: - Allergies: 08:16 No Known Allergies; ss - PMHx: 08:16 Back pain; CHF; Diabetes - NIDDM; Hepatitis; Hypertension; ss - PSHx: 08:16 L leg; back sx; ss - Immunization history:: Adult Immunizations up to date. - Social history:: Smoking status: Patient reports the use of cigarette tobacco products, smokes one pack cigarettes per day. - Family history:: not pertinent. ROS: 08:30 Constitutional: Negative for fever, chills, and weight loss, Eyes: Negative for injury, kacy pain, redness, and discharge, ENT: Negative for injury, pain, and discharge, Neck: Negative for injury, pain, and swelling, Cardiovascular: Negative for chest pain, palpitations, and edema, Respiratory: Negative for shortness of breath, cough, wheezing, and pleuritic chest pain, Back: Negative for injury and pain, : Negative for injury, bleeding, discharge, and swelling, MS/Extremity: Negative for injury and deformity, Skin: Negative for injury, rash, and discoloration, Neuro: Negative for headache, weakness, numbness, tingling, and seizure, Psych: Negative for depression, anxiety, suicide ideation, homicidal ideation, and hallucinations, Allergy/Immunology: Negative for hives, rash, and allergies, Endocrine: Negative for neck swelling, polydipsia, polyuria, polyphagia, and marked weight changes, Hematologic/Lymphatic: Negative for swollen nodes, abnormal bleeding, and unusual bruising. 08:30 Abdomen/GI: Positive for abdominal pain, constipation, of the anterior aspect of left lateral abdomen, posterior aspect of left lateral abdomen, left upper quadrant and left lower quadrant. Exam: 08:30 Constitutional: This is a well developed, well nourished patient who is awake, alert, kacy and in no acute distress. Head/Face: Normocephalic, atraumatic. Eyes: Pupils equal round and reactive to light, extra-ocular motions intact. Lids and lashes normal. Conjunctiva and sclera are non-icteric and not injected. Cornea within normal limits. Periorbital areas with no swelling, redness, or edema. ENT: Nares patent. No nasal discharge, no septal abnormalities noted. Tympanic membranes are normal and external auditory canals are clear. Oropharynx with no redness, swelling, or masses, exudates, or evidence of obstruction, uvula midline. Mucous membranes moist. Neck: Trachea midline, no thyromegaly or masses palpated, and no cervical lymphadenopathy. Supple, full range of motion without nuchal rigidity, or vertebral point tenderness. No Meningismus. Chest/axilla: Normal chest wall appearance and motion. Nontender with no deformity. No lesions are appreciated. Cardiovascular: Regular rate and rhythm with a normal S1 and S2. No gallops, murmurs, or rubs. Normal PMI, no JVD. No pulse deficits. Respiratory: Lungs have equal breath sounds bilaterally, clear to auscultation and percussion. No rales, rhonchi or wheezes noted. No increased work of breathing, no retractions or nasal flaring. Male : Normal genitalia with no discharge or lesions. Skin: Warm, dry with normal turgor. Normal color with no rashes, no lesions, and no evidence of cellulitis. MS/ Extremity: Pulses equal, no cyanosis. Neurovascular intact. Full, normal range of motion. Neuro: Awake and alert, GCS 15, oriented to person, place, time, and situation. Cranial nerves II-XII grossly intact. Motor strength 5/5 in all extremities. Sensory grossly intact. Cerebellar exam normal. Normal gait. Psych: Awake, alert, with orientation to person, place and time. Behavior, mood, and affect are within normal limits. 08:30 Abdomen/GI: Inspection: distension, that is moderate, Bowel sounds: active, Palpation: mild abdominal tenderness, moderate abdominal tenderness, in the left upper quadrant, right lower quadrant and left lower quadrant, Liver: no appreciated palpable abnormalities, Hernia: not appreciated. 08:59 ECG was reviewed by the Attending Physician. [facility] Vital Signs: 08:12 BP 171 / 100; Pulse 80; Resp 19; Temp 98.5(TE); Pulse Ox 98% on R/A; Weight 119.75 kg; ss Height 6 ft. 1 in. (185.42 cm); Pain 7/10; 09:08 BP 176 / 97; Pulse 64; Resp 18; Pulse Ox 96% on R/A; ph 10:10 BP 168 / 100; Pulse 67; Resp 16; Pulse Ox 97% on R/A; ph 10:48 BP 164 / 85; Pulse 54; Resp 15 S; Pulse Ox 97% on R/A; ca1 11:25 BP 140 / 73; Pulse 51; Resp 16 S; Pulse Ox 97% on R/A; ca1 08:12 Body Mass Index 34.83 (119.75 kg, 185.42 cm) ss MDM: 07:58 Patient medically screened. [facility] 08:32 Data reviewed: vital signs, nurses notes, lab test result(s), EKG, radiologic studies, [facility] CT scan, plain films. 08:32 Differential diagnosis: pyelonephritis, UTI, diverticulitis, pancreatitis, AAA, bowel kacy obstruction, diverticulitis, gastritis, non-specific abd pain, pancreatitis, Ureterolithiasis. 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 Test interpretation: by ED physician or midlevel provider: ECG, plain radiologic studies. Counseling: I had a detailed discussion with the patient and/or guardian regarding: the historical points, exam findings, and any diagnostic results supporting the discharge/admit diagnosis, lab results, radiology results. Medication response: Zofran partially relieved the patient's nausea. 11:38 ED course: all labs discussed, plan discussed, pt will follow up. will return if kacy symptoms worsen or persist. 10/24 08:25 Order name: Basic Metabolic Panel; Complete Time: 10:11 [facility] 10/24 08:25 Order name: CBC with Diff; Complete Time: 09:20 [facility] 10/24 08:25 Order name: LFT's; Complete Time: 10: [facility] 10/24 08:25 Order name: Magnesium; Complete Time: 10: [facility] 10/24 08:25 Order name: NT PRO-BNP; Complete Time: 10: [facility] 10/24 08:25 Order name: Troponin (emerg Dept Use Only); Complete Time: 10: [facility] 10/24 08:25 Order name: XRAY Chest (1 view); Complete Time: 09:20 [facility] 10/24 08:25 Order name: Lipase; Complete Time: 10: [facility] 10/24 08:25 Order name: CT Abd/Pelvis - PO and IV Contrast; Complete Time: : [facility] 10/24 10:48 Order name: Urine Dipstick--Ancillary (enter results); Complete Time: 11:29 10/24 08:25 Order name: EKG; Complete Time: 08:26 [facility] 10/24 08:25 Order name: Cardiac monitoring; Complete Time: 09:10 [facility] 10/24 08:25 Order name: EKG - Nurse/Tech; Complete Time: 09:10 [facility] 10/24 08:25 Order name: IV Saline Lock; Complete Time: 09:10 [facility] 10/24 08:25 Order name: Labs collected and sent; Complete Time: 09:11 [facility] 10/24 08:25 Order name: O2 Per Protocol; Complete Time: 09:11 [facility] 10/24 08:25 Order name: O2 Sat Monitoring; Complete Time: 09: [facility] 10/24 08:25 Order name: Urine Dipstick-Ancillary (obtain specimen); Complete Time: 10:44 [facility] EC:59 Rate is 69 beats/min. Rhythm is regular. QRS [place] is Normal. SD interval is normal. QRS kacy interval is normal. QT interval is normal. No Q waves. T waves are Normal. No ST changes noted. Clinical impression: Normal ECG and No evidence of ischemia. Interpreted by me. Reviewed by me. Administered Medications: 09:00 Drug: NS 0.9% 500 ml Route: IV; Rate: bolus; Site: left antecubital; ph 09:40 Follow up: Response: No adverse reaction; IV Status: Completed infusion ca1 10:08 Follow up: Response: No adverse reaction; IV Status: Completed infusion; IV Intake: ph 500ml 09:01 Drug: Pepcid 20 mg Route: IVP; Site: left antecubital; ph 10:07 Follow up: Response: No adverse reaction ph 09:03 Drug: Zofran (Ondansetron) 4 mg Route: IVP; Site: left antecubital; ph 10:08 Follow up: Response: No adverse reaction ph 09:05 Drug: morphine 4 mg Route: IVP; Site: left antecubital; ph 09:30 Follow up: Response: No adverse reaction; Pain is decreased; RASS: Alert and Calm (0) ph 10:09 Drug: morphine 4 mg Route: IVP; Site: left antecubital; ph 11:00 Follow up: Response: No adverse reaction; Pain is decreased; RASS: Alert and Calm (0) ca1 10:38 Drug: NS 0.9% 1000 ml Route: IV; Rate: 125 ml/hr; Site: left antecubital; ca1 11:51 Follow up: IV Status: Order to discontinue infusion; Order to discontinue infusion, pt ca1 d/c Disposition: 10/25/19 11:33 Discharged to Home. Impression: Abdominal tenderness, Obesity, unspecified, Unspecified cirrhosis of liver, Diverticular disease of intestine, Tobacco abuse counseling, Tobacco use. - Condition is Stable. - Discharge Instructions: Abdominal Pain, Adult, Obesity, Adult, Abdominal Pain, Adult, [id number], Obesity, Adult, [id number]-[id number]. - Prescriptions for Bentyl 20 mg Oral Tablet - take 1 tablet by ORAL route every 6 hours As needed; 20 tablet. Pepcid 20 mg Oral Tablet - take 1 tablet by ORAL route every 12 hours for 10 days; 20 tablet. - Medication Reconciliation Form, Thank You Letter, Antibiotic Education, Prescription Opioid Use form. - Follow up: Private Physician; When: 2 - 3 days; Reason: Recheck today's complaints, Continuance of care, Re-evaluation by your physician. Follow up: Du Ayers MD; When: 2 - 3 days; Reason: Recheck today's complaints, Re-evaluation by your physician. - Problem is new. - Symptoms have improved. Signatures: Dispatcher [employer] EDMarcelino Heck MD MD cha Smirch, Shelby, RN RN ss Ricarda Singh RN RN ph Michelle Mireles RN RN ca1 Corrections: (The following items were deleted from the chart) 11:36 11:33 10/25/2019 11:33 Discharged to Home. Impression: Abdominal tenderness; Obesity, kacy unspecified; Unspecified cirrhosis of liver; Diverticular disease of intestine. Condition is Stable. Forms are Medication Reconciliation Form, Thank You Letter, Antibiotic Education, Prescription Opioid Use. Follow up: Private Physician; When: 2 - 3 days; Reason: Recheck today's complaints, Continuance of care, Re-evaluation by your physician. Follow up: Du Ayers; When: 2 - 3 days; Reason: Recheck today's complaints, Re-evaluation by your physician. Problem is new. Symptoms have improved. kacy 11:48 11:36 10/25/2019 11:33 Discharged to Home. Impression: Abdominal tenderness; Obesity, ca1 unspecified; Unspecified cirrhosis of liver; Diverticular disease of intestine; Tobacco abuse counseling; Tobacco use. Condition is Stable. Discharge Instructions: Abdominal Pain, Adult, Obesity, Adult, Abdominal Pain, Adult, [id number], Obesity, Adult, [id number]. Prescriptions for Bentyl 20 mg Oral Tablet - take 1 tablet by ORAL route every 6 hours As needed; 20 tablet, Pepcid 20 mg Oral Tablet - take 1 tablet by ORAL route every 12 hours for 10 days; 20 tablet. and Forms are Medication Reconciliation Form, Thank You Letter, Antibiotic Education, Prescription Opioid Use. Follow up: Private Physician; When: 2 - 3 days; Reason: Recheck today's complaints, Continuance of care, Re-evaluation by your physician. Follow up: Du Ayers; When: 2 - 3 days; Reason: Recheck today's complaints, Re-evaluation by your physician. Problem is new. Symptoms have improved. kacy
--- NOTE | 2019-10-28 16:53 | ER ---
Nurse's Notes [facility] Name: Jose Elias Ahn Age: 64 yrs Sex: Male : 1955 Arrival Date: 10/25/2019 Time: 07:53 Bed 19 Private MD: Diagnosis: Abdominal tenderness;Obesity, unspecified;Unspecified cirrhosis of liver;Diverticular disease of intestine;Tobacco abuse counseling;Tobacco use Presentation: 10/24 08:00 Risk Assessment: Do you want to hurt yourself or someone else? Patient reports no ph desire to harm self or others. 08:12 Chief complaint: Patient states: L sided abd pain and swelling that began over a week ss ago. Pt reports he was seen at [facility] and had a urine specimen and abd CT obtained and was told he had a UTI. Pt believes that there is something more going on than just a UTI. Denies fever. Coronavirus screen: Surgical mask placed on patient. Patient moved to private room, placed in contact and droplet isolation with eye protection until further assessment. Patient denies a cough. Patient denies shortness of breath or difficulty breathing. Patient denies measured and/or subjective temperature greater than 100.4F prior to today's visit. Patient denies travel on a cruise ship or to a country the [facility] currently lists as an affected area. Patient denies contact with known and/or suspected case of COVID-19. Ebola Screen: Patient denies exposure to infectious person. Patient denies travel to an Ebola-affected area in the 21 days before illness onset. Initial Sepsis Screen: Does the patient meet any 2 criteria? No. Patient's initial sepsis screen is negative. Does the patient have a suspected source of infection? No. Patient's initial sepsis screen is negative. Onset of symptoms was September 2019. 08:12 Method Of Arrival: Ambulatory ss 08:12 Acuity: NEEL 3 ss Historical: - Allergies: 08:16 No Known Allergies; ss - PMHx: 08:16 Back pain; CHF; Diabetes - NIDDM; Hepatitis; Hypertension; ss - PSHx: 08:16 L leg; back sx; ss - Immunization history:: Adult Immunizations up to date. - Social history:: Smoking status: Patient reports the use of cigarette tobacco products, smokes one pack cigarettes per day. - Family history:: not pertinent. Screenin:59 Abuse screen: Denies threats or abuse. Denies injuries from another. Nutritional ph screening: No deficits noted. Tuberculosis screening: No symptoms or risk factors identified. Fall Risk None identified. Assessment: 09:05 General: Appears in no apparent distress. comfortable, Behavior is calm, cooperative, ph appropriate for age, Denies fever. Pain: Complains of pain in left lower quadrant and left upper quadrant and posterior aspect of left lateral abdomen and anterior aspect of left lateral abdomen. Neuro: Level of Consciousness is awake, alert, obeys commands, Oriented to person, place, time, situation. Cardiovascular: Capillary refill < 3 seconds in bilateral fingers Patient's skin is warm and dry. Respiratory: Airway is patent Respiratory effort is even, unlabored, Respiratory pattern is regular, symmetrical. GI: Abdomen is round Bowel sounds present X 4 quads. Reports lower abdominal pain, upper abdominal pain, Patient currently denies diarrhea, nausea, vomiting. : No signs and/or symptoms were reported regarding the genitourinary system. Derm: Skin is intact, is healthy with good turgor, Skin is pink, warm \T\ dry. Musculoskeletal: Circulation, motion, and sensation intact. Range of motion: intact in all extremities. 10:10 Reassessment: Patient appears in no apparent distress at this time. Patient and/or ph family updated on plan of care and expected duration. Pain level reassessed. Patient is alert, oriented x 3, equal unlabored respirations, skin warm/dry/pink. Pt taken to CT via wheelchair. 10:44 Reassessment: Patient appears in no apparent distress at this time. Patient is alert, ca1 oriented x 3, equal unlabored respirations, skin warm/dry/pink. GI: Abd is soft X 4 quads Abdomen is tender to palpation in left upper quadrant. 11:25 Reassessment: Patient appears in no apparent distress at this time. Patient and/or ca1 family updated on plan of care and expected duration. Pain level reassessed. Patient is alert, oriented x 3, equal unlabored respirations, skin warm/dry/pink. Vital Signs: 08:12 BP 171 / 100; Pulse 80; Resp 19; Temp 98.5(TE); Pulse Ox 98% on R/A; Weight 119.75 kg; ss Height 6 ft. 1 in. (185.42 cm); Pain 7/10; 09:08 BP 176 / 97; Pulse 64; Resp 18; Pulse Ox 96% on R/A; ph 10:10 BP 168 / 100; Pulse 67; Resp 16; Pulse Ox 97% on R/A; ph 10:48 BP 164 / 85; Pulse 54; Resp 15 S; Pulse Ox 97% on R/A; ca1 11:25 BP 140 / 73; Pulse 51; Resp 16 S; Pulse Ox 97% on R/A; ca1 08:12 Body Mass Index 34.83 (119.75 kg, 185.42 cm) ED Course: 07:53 Patient arrived in ED. as 07:57 Marcelino Nazario MD is Attending Physician. kacy 07:58 Ricarda Singh, CHELLE is Primary Nurse. ph 08:15 Triage completed. ss 08:16 Arm band placed on right wrist. ss 08:32 Patient has correct armband on for positive identification. Placed in gown. Bed in low ph position. Call light in reach. Side rails up X 1. Pulse ox on. NIBP on. Door closed. Noise minimized. Warm blanket given. 08:38 XRAY Chest (1 view) In Process Unspecified. EDMS 08:55 Initial lab(s) drawn, by tn, sent to lab. Inserted saline lock: 20 gauge in left ph antecubital area, using aseptic technique. Blood collected. 09:11 EKG done, by testing and regulating technician. reviewed by Marcelino Nazario MD. tc 10:16 CT Abd/Pelvis - PO and IV Contrast In Process Unspecified. EDMS 11:32 Du Ayers MD is Referral Physician. kacy 11:40 No provider procedures requiring assistance completed. ca1 11:48 IV discontinued, intact, bleeding controlled, No redness/swelling at site. Pressure ca1 dressing applied. Administered Medications: 09:00 Drug: NS 0.9% 500 ml Route: IV; Rate: bolus; Site: left antecubital; ph 09:40 Follow up: Response: No adverse reaction; IV Status: Completed infusion ca1 10:08 Follow up: Response: No adverse reaction; IV Status: Completed infusion; IV Intake: ph 500ml 09:01 Drug: Pepcid 20 mg Route: IVP; Site: left antecubital; ph 10:07 Follow up: Response: No adverse reaction ph 09:03 Drug: Zofran (Ondansetron) 4 mg Route: IVP; Site: left antecubital; ph 10:08 Follow up: Response: No adverse reaction ph 09:05 Drug: morphine 4 mg Route: IVP; Site: left antecubital; ph 09:30 Follow up: Response: No adverse reaction; Pain is decreased; RASS: Alert and Calm (0) ph 10:09 Drug: morphine 4 mg Route: IVP; Site: left antecubital; ph 11:00 Follow up: Response: No adverse reaction; Pain is decreased; RASS: Alert and Calm (0) ca1 10:38 Drug: NS 0.9% 1000 ml Route: IV; Rate: 125 ml/hr; Site: left antecubital; ca1 11:51 Follow up: IV Status: Order to discontinue infusion; Order to discontinue infusion, pt ca1 d/c Intake: 10:08 IV: 500ml; Total: 500ml. ph Outcome: 11:33 Discharge ordered by . kacy 11:48 Discharged to home ambulatory. ca1 11:48 Condition: stable 11:48 Discharge instructions given to patient, Instructed on discharge instructions, follow up and referral plans. medication usage, Demonstrated understanding of instructions, follow-up care, medications, Prescriptions given X 2. 11:48 Patient left the ED. ca1 Signatures: Dispatcher [employer] EDMS Marcelino Nazario MD MD cha Martinez, Amelia as Smirch, Shelby, CHELLE RN Anne-Marie Craig, commercial credit head EKG [facility] Ricarda Singh RN RN ph Acob, Cheryl, RN RN ca1
== END 2019-10-25 11:48 | disposition home or self-care (01) ==
LOC: ER 07:50
DX: K74.60 Unspecified cirrhosis of liver (principal); K57.90 Diverticulosis of intestine, part unspecified, without perforation or abscess without bleeding; E66.9 Obesity, unspecified; I10 Essential (primary) hypertension; Z72.0 Tobacco use; Z71.6 Tobacco abuse counseling
CPT/HCPCS: 96361; 93005; 85025; 80048; 36415; 83735; 80076; 81003; 84484; 83690; 83880; 74177; 71045; 96375; 96374; 99284; Q9967; J7040; J7030; J2405

== ENCOUNTER 2021-10-12 09:47 | Emergency (ER) | payer OTHER ==
--- OUTSIDE RECORDS SUMMARY | 2021-10-12 09:57 | XMS REPORT | Continuity of Care Document ---
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 TAKE 1 [facility] 10 mg 5-31 TABLET BY [facility] tablet 00:00: MOUTH AT [place] BEDTIME [facility] NEXIUM 40 0 Yes TAKE 1 [facility] mg capsule 5-31 CAPSULE BY [facility] of 00:00: MOUTH [place] EVERY DAY [facility] AMITRIPTYLI 2019-0 Yes 10mg TAKE 1 [facility] 10 mg 5-31 TABLET BY [facility] tablet 00:00: MOUTH AT [place] BEDTIME [facility] NEXIUM 40 0 Yes TAKE 1 [facility] mg capsule 5-31 CAPSULE BY [facility] of 00:00: MOUTH [place] DAY [facility] AMITRIPTYLI 2019-0 Yes 10mg TAKE 1 [facility] 10 mg 5-31 TABLET BY [facility] tablet 00:00: MOUTH AT [place] BEDTIME [facility] NEXIUM 40 2018-0 Yes TAKE 1 [facility] mg capsule 5-31 CAPSULE BY [facility] of 00:00: MOUTH [place] EVERY DAY [facility] AMITRIPTYLI 2019-0 Yes 10mg TAKE 1 [facility] 10 mg 5-31 TABLET BY [facility] tablet 00:00: MOUTH AT [place] BEDTIME [facility] NEXIUM 40 2019-0 Yes TAKE 1 [facility] mg capsule 5-31 CAPSULE BY [facility] of 00:00: MOUTH [place] EVERY DAY [facility] AMITRIPTYLI 2019-0 Yes 10mg TAKE 1 [facility] 10 mg 5-31 TABLET BY [facility] tablet 00:00: MOUTH AT [place] BEDTIME [facility] NEXIUM 40 2019-0 Yes TAKE 1 [facility] mg capsule 5-31 CAPSULE BY [facility] of 00:00: MOUTH [place] EVERY DAY [facility] AMITRIPTYLI 2019-0 Yes 10mg TAKE 1 [facility] 10 mg 5-31 TABLET BY [facility] tablet 00:00: MOUTH AT [place] BEDTIME [facility] NEXIUM 40 2019-0 Yes TAKE 1 [facility] mg capsule 5-31 CAPSULE BY [facility] of 00:00: MOUTH [place] EVERY DAY [facility] AMITRIPTYLI 2019-0 Yes 10mg TAKE 1 [facility] 10 mg 5-31 TABLET BY [facility] tablet 00:00: MOUTH AT [place] BEDTIME [facility] NEXIUM 40 2019-0 Yes TAKE 1 [facility] mg capsule 5-31 CAPSULE BY [facility] of 00:00: MOUTH [place] EVERY DAY [facility] AMITRIPTYLI 2019-0 Yes 10mg TAKE 1 [facility] 10 mg 5-31 TABLET BY [facility] tablet 00:00: MOUTH AT [place] BEDTIME [facility] NEXIUM 40 2018-0 Yes TAKE 1 [facility] mg capsule 5-31 CAPSULE BY [facility] of 00:00: MOUTH [place] EVERY DAY [facility] AMITRIPTYLI 2019-0 Yes 10mg TAKE 1 [facility] 10 mg 5-31 TABLET BY [facility] tablet 00:00: MOUTH AT [place] BEDTIME [facility] NEXIUM 40 2018-0 Yes TAKE 1 [facility] mg capsule 5-31 CAPSULE BY [facility] of 00:00: MOUTH [place] EVERY DAY [facility] AMITRIPTYLI 2019-0 Yes 10mg TAKE 1 [facility] 10 mg 5-31 TABLET BY [facility] tablet 00:00: MOUTH AT [place] BEDTIME [facility] NEXIUM 40 2019-0 Yes TAKE 1 [facility] mg capsule 5-31 CAPSULE BY [facility] of 00:00: MOUTH [place] EVERY DAY [facility] AMITRIPTYLI 2019-0 Yes 10mg TAKE 1 [facility] 10 mg 5-31 TABLET BY [facility] of tablet 00:00: MOUTH AT [place] BEDTIME [facility] NEXIUM 40 2019-0 Yes TAKE 1 [facility] mg capsule 5-31 CAPSULE BY [facility] of 00:00: MOUTH [place] EVERY DAY [facility] AMITRIPTYLI 2019-0 Yes 10mg TAKE 1 [facility] 10 mg 5-31 TABLET BY [facility] tablet 00:00: MOUTH AT [place] BEDTIME [facility] NEXIUM 40 2019-0 Yes TAKE 1 [facility] mg capsule 5-31 CAPSULE BY [facility] of 00:00: MOUTH [place] [address] EVERY DAY Medical Branch AMITRIPTYLI 2019-0 Yes 10mg TAKE 1 [facility] 10 mg 5-31 TABLET BY [facility] of tablet 00:00: MOUTH AT [place] [address] BEDTIME Medical Branch AMITRIPTYLI 2019-0 Yes 10mg TAKE 1 [facility] 10 mg 5-31 TABLET BY [facility] tablet 00:00: MOUTH AT [place] BEDTIME [facility] AMITRIPTYLI 2019-0 Yes 10mg TAKE 1 [facility] 10 mg 5-31 TABLET BY [facility] tablet 00:00: MOUTH AT [place] BEDTIME [facility] AMITRIPTYLI 2019-0 Yes 10mg TAKE 1 [facility] 10 mg 5-31 TABLET BY [facility] of tablet 00:00: MOUTH AT [place] BEDTIME [facility] AMITRIPTYLI 2019-0 Yes 10mg TAKE 1 [facility] 10 mg 5-31 TABLET BY [facility] tablet 00:00: MOUTH AT [place] BEDTIME [facility] AMITRIPTYLI 20190 Yes 10mg TAKE 1 [facility] 10 mg 5-31 TABLET BY [facility] of tablet 00:00: MOUTH AT [place] BEDTIME [facility] AMITRIPTYLI 2019-0 Yes 10mg TAKE 1 [facility] 10 mg 5-31 TABLET BY [facility] tablet 00:00: MOUTH AT [place] BEDTIME [facility] AMITRIPTYLI 2019-0 Yes 10mg TAKE 1 [facility] 10 mg 5-31 TABLET BY [facility] tablet 00:00: MOUTH AT [place] BEDTIME [facility] AMITRIPTYLI 20190 Yes 10mg TAKE 1 [facility] 10 mg 5-31 TABLET BY [facility] tablet 00:00: MOUTH AT [place] [facility] AMITRIPTYLI 2019-0 Yes 10mg TAKE 1 [facility] 10 mg 5-31 TABLET BY [facility] of tablet 00:00: MOUTH AT [place] BEDTIME [facility] Branch AMITRIPTYLI 2019-0 Yes 10mg TAKE 1 [facility] 10 mg 5-31 TABLET BY [facility] of tablet 00:00: MOUTH AT [place] [facility] Branch KCL 10 mEq 20190 Yes TAKE 1 [facility] tablet 5-31 TABLET BY ity of 00:00: MOUTH [place] EVERY DAY [facility] Branch AMITRIPTYLI 2019-0 Yes 10mg TAKE 1 [facility] 10 mg 5-31 TABLET BY [facility] of tablet 00:00: MOUTH AT [place] BEDTIME [facility] Branch AMITRIPTYLI 2019-0 Yes 10mg TAKE 1 [facility] 10 mg 5-31 TABLET BY ity of tablet 00:00: MOUTH AT BEDTIME Medical Branch NEXIUM 40 0 Yes TAKE 1 [facility] mg capsule 5-31 CAPSULE BY it[facility] of 00:00: MOUTH EVERY DAY [facility] Branch AMITRIPTYLI 20190 Yes 10mg TAKE 1 [facility] 10 mg 5-31 TABLET BY [facility] of tablet 00:00: MOUTH AT [place] BEDTIME [facility] KCL 10 mEq Yes TAKE 1 [facility] tablet 5-31 TABLET BY it[facility] of 00:00: MOUTH EVERY DAY [facility] AMITRIPTYLI 0 Yes 10mg TAKE 1 [facility] 10 mg 5-31 TABLET BY [facility] of tablet 00:00: MOUTH AT [place] BEDTIME [facility] Branch NEXIUM 40 0 Yes TAKE 1 [facility] mg capsule 5-31 CAPSULE BY ity of 00:00: MOUTH EVERY DAY [facility] Branch NEXIUM 40 2018-0 2020- No TAKE 1 [facility] mg capsule 5-31 07-22 CAPSULE BY it y of 00:00: 00:00 MOUTH [place] 00 :00 EVERY DAY Medical Branch NEXIUM 40 2018-0 2020- No TAKE 1 [facility] mg capsule 5-31 07-22 CAPSULE BY it y of 00:00: 00:00 MOUTH [place] 00 :00 EVERY DAY Medical Branch codeine-gua 0 Yes [id number] 5mL Take 5 mL [facility] 4-09 by mouth ity of (CHERATUSSI 00:00: every 4 [place] AC) 00 (four) Medical 10-100 mg/5 hours as Bran ch mL solution needed for Cough. codeine-gua 2019 Yes [id number] 5mL Take 5 mL [facility] ifenesin 4-09 by mouth ity of (CHERATUSSI 00:00: every 4 [place] AC) 00 (four) Medical 10-100 mg/5 hours as Bran ch mL solution needed for Cough. codeine-gua 20190 Yes [id number] 5mL Take 5 mL [facility] ifenesin 4-09 by mouth ity of (CHERATUSSI 00:00: every 4 [place] AC) 00 (four) Medical 10-100 mg/5 hours as Bran ch mL solution needed for Cough. codeine-gua 2019-0 Yes [id number] 5mL Take 5 mL [facility] ifenesin 4-09 by mouth ity of (CHERATUSSI 00:00: every 4 [place] AC) 00 (four) Medical 10-100 mg/5 hours as Bran ch mL solution needed for Cough. codeine-gua Yes [id number] 5mL Take 5 mL [facility]enes[facility] 4-09 by mouth ity of (CHERATUSSI 00:00: every 4 [place] AC) 00 (four) Medical 10-100 mg/5 hours as Bran ch mL solution needed for Cough. codeine-gua Yes [id number] 5mL Take 5 mL [facility] 4-09 by mouth ity of (CHERATUSSI 00:00: every 4 [place] AC) 00 (four) Medical 10-100 mg/5 hours as Bran ch mL solution needed for Cough. codeine-gua Yes [id number] 5mL Take 5 mL [facility] 4-09 by mouth ity of (CHERATUSSI 00:00: every 4 [place] AC) 00 (four) Medical 10-100 mg/5 hours as Bran ch mL solution needed for Cough. codeine-gua Yes [id number] 5mL Take 5 mL [facility] 4-09 by mouth ity of (CHERATUSSI 00:00: every 4 [place] AC) 00 (four) Medical 10-100 mg/5 hours as Bran ch mL solution needed for Cough. codeine-gua Yes [id number] 5mL Take 5 mL [facility] 4-09 by mouth ity of (CHERATUSSI 00:00: every 4 [place] AC) 00 (four) Medical 10-100 mg/5 hours as Bran ch mL solution needed for Cough. codeine-gua Yes [id number] 5mL Take 5 mL [facility] 4-09 by mouth ity of (CHERATUSSI 00:00: every 4 [place] AC) 00 (four) Medical 10-100 mg/5 hours as Bran ch mL solution needed for Cough. codeine-gua 0 Yes [id number] 5mL Take 5 mL [facility] 4-09 by mouth ity of (CHERATUSSI 00:00: every 4 [place] AC) 00 (four) Medical 10-100 mg/5 hours as Bran ch mL solution needed for Cough. codeine-gu[place] Yes [id number] 5mL Take 5 mL [facility] 4-09 by mouth ity of (CHERATUSSI 00:00: every 4 [place] AC) 00 (four) Medical 10-100 mg/5 hours as Bran ch mL solution needed for Cough. codeine-gua 0 Yes [id number] 5mL Take 5 mL [facility] 4-09 by mouth ity of (CHERATUSSI 00:00: every 4 [place] AC) 00 (four) Medical 10-100 mg/5 hours as Bran ch mL solution needed for Cough. codeine-gua Yes [id number] 5mL Take 5 mL [facility] 4-09 by mouth ity of (CHERATUSSI 00:00: every 4 [place] AC) 00 (four) Medical 10-100 mg/5 hours as Bran ch mL solution needed for Cough. codeine-gua Yes [id number] 5mL Take 5 mL [facility] 4-09 by mouth ity of (CHERATUSSI 00:00: every 4 [place] AC) 00 (four) Medical 10-100 mg/5 hours as Bran ch mL solution needed for Cough. codeine-gua Yes [id number] 5mL Take 5 mL [facility] 4-09 by mouth ity of (CHERATUSSI 00:00: every 4 [place] AC) 00 (four) Medical 10-100 mg/5 hours as Bran ch mL solution needed for Cough. codeine-gua Yes [id number] 5mL Take 5 mL [facility] 4-09 by mouth ity of (CHERATUSSI 00:00: every 4 [place] AC) 00 (four) Medical 10-100 mg/5 hours as Bran ch mL solution needed for Cough. codeine-gu[place] Yes [id number] 5mL Take 5 mL [facility] 4-09 by mouth ity of (CHERATUSSI 00:00: every 4 [place] AC) 00 (four) Medical 10-100 mg/5 hours as Bran ch mL solution needed for Cough. codeine-gua 0 Yes [id number] 5mL Take 5 mL [facility] 4-09 by mouth ity of (CHERATUSSI 00:00: every 4 [place] AC) 00 (four) Medical 10-100 mg/5 hours as Bran ch mL solution needed for Cough. codeine-gua Yes [id number] 5mL Take 5 mL [facility] 4-09 by mouth ity of (CHERATUSSI 00:00: every 4 [place] AC) 00 (four) Medical 10-100 mg/5 hours as Bran ch mL solution needed for Cough. codeine-gua Yes [id number] 5mL Take 5 mL [facility] 4-09 by mouth ity of (CHERATUSSI 00:00: every 4 [place] AC) 00 (four) Medical 10-100 mg/5 hours as Bran ch mL solution needed for Cough. codeine-gua Yes [id number] 5mL Take 5 mL [facility] 4-09 by mouth ity of (CHERATUSSI 00:00: every 4 [place] AC) 00 (four) Medical 10-100 mg/5 hours as Bran ch mL solution needed for Cough. codeine-[place] Yes [id number] 5mL Take 5 mL [facility] 4-09 by mouth ity of (CHERATUSSI 00:00: every 4 [place] AC) 00 (four) Medical 10-100 mg/5 hours as Bran ch mL solution needed for Cough. codeine-gua 2020- No [id number] 5mL Take 5 mL [facility] -02 02- by mouth ity of (CHERATUSSI 00:00: 00:00 every 4 [place] N AC) 00 :00 (four) Medical 10-100 mg/5 hours as Bran ch mL solution needed for Cough. codeine-gua 2020- No [id number] 5mL Take 5 mL [facility] -02 02- by mouth ity of (CHERATUSSI 00:00: 00:00 every 4 [place] N AC) 00 :00 (four) Medical 10-100 mg/5 hours as Bran ch mL solution needed for Cough. DILTIAZEM Yes TAKE 1 [facility] 60 mg 3-08 TABLET BY ity of tablet 00:00: MOUTH WITH [place] 00 PALPITATIO Medical N AND Branch TACHYCARDI A DILTIAZEM Yes TAKE 1 [facility] 60 mg 3-08 TABLET BY ity of tablet 00:00: MOUTH WITH [place] 00 PALPITATIO Medical N AND Branch TACHYCARDI A DILTIAZEM 2019-0 Yes TAKE 1 [facility] 60 mg 3-08 TABLET BY ity of tablet 00:00: MOUTH WITH [place] 00 PALPITATIO Medical N AND Branch TACHYCARDI A DILTIAZEM 0 Yes TAKE 1 [facility] 60 mg 3-08 TABLET BY ity of tablet 00:00: MOUTH WITH [place] PALPITATIO Medical N AND Branch TACHYCARDI A DILTIAZEM 0 Yes TAKE 1 [facility] 60 mg 3-08 TABLET BY ity of tablet 00:00: MOUTH WITH [place] PALPITATIO Medical N AND Branch TACHYCARDI A DILTIAZEM 0 Yes TAKE 1 [facility] 60 mg 3-08 TABLET BY ity of tablet 00:00: MOUTH WITH [place] PALPITATIO Medical N AND Branch TACHYCARDI A DILTIAZEM 0 Yes TAKE 1 [facility] 60 mg 3-08 TABLET BY ity of tablet 00:00: MOUTH WITH [place] PALPITATIO Medical N AND Branch TACHYCARDI A DILTIAZEM Yes TAKE 1 [facility] 60 mg 3-08 TABLET BY ity of tablet 00:00: MOUTH WITH [place] PALPITATIO Medical N AND Branch TACHYCARDI A DILTIAZEM 0 Yes TAKE 1 [facility] 60 mg 3-08 TABLET BY ity of tablet 00:00: MOUTH WITH [place] PALPITATIO Medical N AND Branch TACHYCARDI A DILTIAZEM 2018-0 Yes TAKE 1 [facility] 60 mg 3-08 TABLET BY ity of tablet 00:00: MOUTH WITH [place] PALPITATIO Medical N AND Branch TACHYCARDI A DILTIAZEM 2018-0 Yes TAKE 1 [facility] 60 mg 3-08 TABLET BY ity of tablet 00:00: MOUTH WITH [place] PALPITATIO Medical N AND Branch TACHYCARDI A DILTIAZEM 2018-0 Yes TAKE 1 [facility] 60 mg 3-08 TABLET BY ity of tablet 00:00: MOUTH WITH [place] 00 PALPITATIO Medical N AND Branch TACHYCARDI A DILTIAZEM 2018-0 Yes TAKE 1 [facility] 60 mg 3-08 TABLET BY ity of tablet 00:00: MOUTH WITH [place] 00 PALPITATIO Medical N AND Branch TACHYCARDI A DILTIAZEM 0 Yes TAKE 1 [facility] 60 mg 3-08 TABLET BY ity of tablet 00:00: MOUTH WITH [place] PALPITATIO Medical N AND Branch TACHYCARDI A DILTIAZEM 2019-0 Yes TAKE 1 [facility] 60 mg 3-08 TABLET BY ity of tablet 00:00: MOUTH WITH [place] PALPITATIO Medical N AND Branch TACHYCARDI A DILTIAZEM 2018-0 Yes TAKE 1 [facility] 60 mg 3-08 TABLET BY ity of tablet 00:00: MOUTH WITH [place] PALPITATIO Medical N AND Branch TACHYCARDI A DILTIAZEM 2018-0 Yes TAKE 1 [facility] 60 mg 3-08 TABLET BY ity of tablet 00:00: MOUTH WITH [place] PALPITATIO Medical N AND Branch TACHYCARDI A DILTIAZEM 2018-0 Yes TAKE 1 [facility] 60 mg 3-08 TABLET BY ity of tablet 00:00: MOUTH WITH [place] PALPITATIO Medical N AND Branch TACHYCARDI A DILTIAZEM 2018-0 Yes TAKE 1 [facility] 60 mg 3-08 TABLET BY ity of tablet 00:00: MOUTH WITH [place] PALPITATIO Medical N AND Branch TACHYCARDI A DILTIAZEM 2018-0 Yes TAKE 1 [facility] 60 mg 3-08 TABLET BY ity of tablet 00:00: MOUTH WITH [place] PALPITATIO Medical N AND Branch TACHYCARDI A DILTIAZEM 2018-0 Yes TAKE 1 [facility] 60 mg 3-08 TABLET BY ity of tablet 00:00: MOUTH WITH [place] [facility] N AND Branch TACHYCARDI A DILTIAZEM 2019-0 Yes TAKE 1 [facility] 60 mg 3-08 TABLET BY ity of tablet 00:00: MOUTH WITH [place] PALPITATIO Medical N AND Branch TACHYCARDI A DILTIAZEM 2019-0 Yes TAKE 1 [facility] 60 mg 3-08 TABLET BY ity of tablet 00:00: MOUTH WITH [place] PALPITATIO Medical N AND Branch TACHYCARDI A DILTIAZEM 2019-0 Yes TAKE 1 [facility] 60 mg 3-08 TABLET BY ity of tablet 00:00: MOUTH WITH [place] PALPITATIO Medical N AND Branch TACHYCARDI A DILTIAZEM 2019-0 Yes TAKE 1 [facility] 60 mg 3-08 TABLET BY ity of tablet 00:00: MOUTH WITH [place] [facility] N AND Branch TACHYCARDI A DILTIAZEM Yes TAKE 1 [facility] 60 mg 3-08 TABLET BY ity of tablet 00:00: MOUTH WITH [place] PALPITATIO Medical N AND Branch TACHYCARDI A DILTIAZEM Yes TAKE 1 [facility] 60 mg 3-08 TABLET BY ity of tablet 00:00: MOUTH WITH [place] PALPITATIO Medical N AND Branch TACHYCARDI A DILTIAZEM Yes TAKE 1 [facility] 60 mg 3-08 TABLET BY ity of tablet 00:00: MOUTH WITH [place] [facility] N AND Branch TACHYCARDI A DILTIAZEM Yes TAKE 1 [facility] 60 mg 3-08 TABLET BY ity of tablet 00:00: MOUTH WITH [place] [facility] N AND Branch TACHYCARDI A DILTIAZEM Yes TAKE 1 [facility] 60 mg 3-08 TABLET BY ity of tablet 00:00: MOUTH WITH [place] [facility] N AND Branch TACHYCARDI A DILTIAZEM Yes TAKE 1 [facility] 60 mg 3-08 TABLET BY ity of tablet 00:00: MOUTH WITH [place] [facility] N AND Branch TACHYCARDI A DILTIAZEM Yes TAKE 1 [facility] 60 mg 3-08 TABLET BY ity of tablet 00:00: MOUTH [facility] [place] [facility] N AND Branch TACHYCARDI A DILTIAZEM Yes TAKE 1 [facility] 60 mg 3-08 TABLET BY ity of tablet 00:00: MOUTH [facility] [place] [facility] AND Branch TACHYCARDI A DILTIAZEM Yes TAKE 1 [facility] 60 mg 3-08 TABLET BY ity of tablet 00:00: MOUTH WITH [place] [facility] N AND Branch TACHYCARDI A DILTIAZEM Yes TAKE 1 [facility] 60 mg 3-08 TABLET BY ity of tablet 00:00: MOUTH WITH [place] [facility] N AND Branch TACHYCARDI A DILTIAZEM 0 Yes TAKE 1 [facility] 60 mg 3-08 TABLET BY ity of tablet 00:00: MOUTH WITH [place] Medical N AND Branch TACHYCARDI A LISINOPRIL- 0 Yes [id number] TAKE 1 [facility] HYDROCHLORO 1-31 TABLET BY ity of THIAZIDE 00:00: MOUTH [place] 20-25 mg 00 EVERY DAY Medica l per tablet Branch LISINOPRIL- 0 Yes [id number] TAKE 1 [facility] HYDROCHLORO 1-31 TABLET BY ity of THIAZIDE 00:00: MOUTH [place] 20-25 mg 00 EVERY DAY Medica l per tablet Branch LISINOPRIL- Yes [id number] TAKE 1 [facility] HYDROCHLORO 1-31 TABLET BY ity of THIAZIDE 00:00: MOUTH [place] 20-25 mg 00 EVERY DAY Medica l per tablet Branch LISINOPRIL- 0 2019- No [id number] TAKE 1 [facility] HYDROCHLORO 1-31 08-29 TABLET BY it y of THIAZIDE 00:00: 00:00 MOUTH [place] 20-25 mg 00 :00 EVERY DAY Medica l per tablet Branch tiZANidine 2017-05 Yes 4mg Take 1 [facility] 4 mg tablet 1-28 tablet by ity of 00:00: mouth 2 00 (two) Medical times Branch daily as needed for Pain (scale 4-6). diazePAM 2017-05 Yes 10mg Take 1 [facility] mg tablet 1-28 tablet by ity o f 00:00: mouth 2 00 (two) Medical times Branch daily as needed (pre proceedure ). tiZANidine 2017-05 Yes 4mg Take 1 [facility] 4 mg tablet 1-28 tablet by ity of 00:00: mouth 2 00 (two) Medical times Branch daily as needed for Pain (scale 4-6). diazePAM 2017-05 Yes 10mg Take 1 [facility] mg tablet 1-28 tablet by ity o f 00:00: mouth 2 [place] 00 (two) Medical times Branch daily as needed (pre proceedure ). tiZANidine 2017-05 Yes 4mg Take 1 [facility] 4 mg tablet 1-28 tablet by ity of 00:00: mouth 2 [place] 00 (two) Medical times Branch daily as needed for Pain (scale 4-6). diazePAM 2017-05 Yes 10mg Take 1 [facility] mg tablet 1-28 tablet by ity o f 00:00: mouth 2 [place] 00 (two) Medical times Branch daily as needed (pre proceedure ). tiZANidine 2017-05 Yes 4mg Take 1 [facility] 4 mg tablet 1-28 tablet by ity of 00:00: mouth 2 (two) Medical times Branch daily as needed for Pain (scale 4-6). diazePAM 2017-05 Yes 10mg Take 1 [facility] mg tablet 1-28 tablet by ity o f 00:00: mouth 2 [place] 00 (two) Medical times Branch daily as needed (pre proceedure ). tiZANidine 2017-05 Yes 4mg Take 1 [facility] 4 mg tablet 1-28 tablet by ity of 00:00: mouth 2 (two) Medical times Branch daily as needed for Pain (scale 4-6). diazePAM 2017-05 Yes 10mg Take 1 [facility] mg tablet 1-28 tablet by ity o f 00:00: mouth 2 (two) Medical times Branch daily as needed (pre proceedure ). tiZANidine 2017-05 Yes 4mg Take 1 [facility] 4 mg tablet 1-28 tablet by ity of 00:00: mouth 2 (two) Medical times Branch daily as needed for Pain (scale 4-6). diazePAM 2017-05 Yes 10mg Take 1 [facility] mg tablet 1-28 tablet by ity o f 00:00: mouth 2 (two) Medical times Branch daily as needed (pre proceedure ). tiZANidine 2017-05 Yes 4mg Take 1 [facility] 4 mg tablet 1-28 tablet by ity of 00:00: mouth 2 00 (two) Medical times Branch daily as needed for Pain (scale 4-6). diazePAM 2017-05 Yes 10mg Take 1 [facility] mg tablet 1-28 tablet by ity o f 00:00: mouth 2 (two) Medical times Branch daily as needed (pre proceedure ). tiZANidine 2017-05 Yes 4mg Take 1 [facility] 4 mg tablet 1-28 tablet by ity of 00:00: mouth 2 00 (two) Medical times Branch daily as needed for Pain (scale 4-6). diazePAM 2017-05 Yes 10mg Take 1 [facility] mg tablet 1-28 tablet by ity o f 00:00: mouth 2 00 (two) Medical times Branch daily as needed (pre proceedure ). tiZANidine 2017-05 Yes 4mg Take 1 [facility] 4 mg tablet 1-28 tablet by ity of 00:00: mouth 2 [place] 00 (two) Medical times Branch daily as needed for Pain (scale 4-6). diazePAM 2017-05 Yes 10mg Take 1 [facility] mg tablet 1-28 tablet by ity o f 00:00: mouth 2 (two) Medical times Branch daily as needed (pre proceedure ). tiZANidine 2017-05 Yes 4mg Take 1 [facility] 4 mg tablet 1-28 tablet by ity of 00:00: mouth 2 (two) Medical times Branch daily as needed for Pain (scale 4-6). diazePAM 2017-05 Yes 10mg Take 1 [facility] mg tablet 1-28 tablet by ity o f 00:00: mouth 2 (two) Medical times Branch daily as needed (pre proceedure ). tiZANidine 2017-05 Yes 4mg Take 1 [facility] 4 mg tablet 1-28 tablet by ity of 00:00: mouth (two) Medical times Branch daily as needed for Pain (scale 4-6). diazePAM 2017-05 Yes 10mg Take 1 [facility] mg tablet 1-28 tablet by ity o f 00:00: mouth (two) Medical times Branch daily as needed (pre proceedure ). tiZANidine 2017-05 Yes 4mg Take 1 [facility] 4 mg tablet 1-28 tablet by ity of 00:00: mouth (two) Medical times Branch daily as needed for Pain (scale 4-6). diazePAM 2017-05 Yes 10mg Take 1 [facility] mg tablet 1-28 tablet by ity o f 00:00: mouth (two) Medical times Branch daily as needed (pre proceedure ). tiZANidine 2017-05 Yes 4mg Take 1 [facility] 4 mg tablet 1-28 tablet by ity of 00:00: mouth 2 (two) Medical times Branch daily as needed for Pain (scale 4-6). diazePAM 2017-05 Yes 10mg Take 1 [facility] mg tablet 1-28 tablet by ity o f 00:00: mouth 2 (two) Medical times Branch daily as needed (pre proceedure ). tiZANidine 2017-05 Yes 4mg Take 1 [facility] 4 mg tablet 1-28 tablet by ity of 00:00: mouth 2 [place] 00 (two) Medical times Branch daily as needed for Pain (scale 4-6). diazePAM 2017-05 Yes 10mg Take 1 [facility] mg tablet 1-28 tablet by ity o f 00:00: mouth 2 (two) Medical times Branch daily as needed (pre proceedure ). tiZANidine 2017-05 Yes 4mg Take 1 [facility] 4 mg tablet 1-28 tablet by ity of 00:00: mouth 2 (two) Medical times Branch daily as needed for Pain (scale 4-6). diazePAM 2017-05 Yes 10mg Take 1 [facility] mg tablet 1-28 tablet by ity o f 00:00: mouth 2 (two) Medical times Branch daily as needed (pre proceedure ). tiZANidine 2017-05 Yes 4mg Take 1 [facility] 4 mg tablet 1-28 tablet by ity of 00:00: mouth (two) Medical times Branch daily as needed for Pain (scale 4-6). diazePAM 2017-05 Yes 10mg Take 1 [facility] mg tablet 1-28 tablet by ity o f 00:00: mouth (two) Medical times Branch daily as needed (pre proceedure ). tiZANidine 2017-05 Yes 4mg Take 1 [facility] 4 mg tablet 1-28 tablet by ity of 00:00: mouth (two) Medical times Branch daily as needed for Pain (scale 4-6). diazePAM 2017-05 Yes 10mg Take 1 [facility] mg tablet 1-28 tablet by ity o f 00:00: mouth 2 (two) Medical times Branch daily as needed (pre proceedure ). tiZANidine 2017-05 Yes 4mg Take 1 [facility] 4 mg tablet 1-28 tablet by ity of 00:00: mouth 2 (two) Medical times Branch daily as needed for Pain (scale 4-6). diazePAM 2017-05 Yes 10mg Take 1 [facility] mg tablet 1-28 tablet by ity o f 00:00: mouth 2 (two) Medical times Branch daily as needed (pre proceedure ). tiZANidine 2017-05 Yes 4mg Take 1 [facility] 4 mg tablet 1-28 tablet by ity of 00:00: mouth 2 (two) Medical times Branch daily as needed for Pain (scale 4-6). diazePAM 2017-05 Yes 10mg Take 1 [facility] mg tablet 1-28 tablet by ity o f 00:00: mouth 2 (two) Medical times Branch daily as needed (pre proceedure ). tiZANidine 2017-05 Yes 4mg Take 1 [facility] 4 mg tablet 1-28 tablet by ity of 00:00: mouth 2 (two) Medical times Branch daily as needed for Pain (scale 4-6). diazePAM 2017-05 Yes 10mg Take 1 [facility] mg tablet 1-28 tablet by ity o f 00:00: mouth 2 (two) Medical times Branch daily as needed (pre proceedure ). tiZANidine 2017-05 Yes 4mg Take 1 [facility] 4 mg tablet 1-28 tablet by ity of 00:00: mouth (two) Medical times Branch daily as needed for Pain (scale 4-6). tiZANidine 2017-05 Yes 4mg Take 1 [facility] 4 mg tablet 1-28 tablet by ity of 00:00: mouth (two) Medical times Branch daily as needed for Pain (scale 4-6). tiZANidine 2017-05 Yes 4mg Take 1 [facility] 4 mg tablet 1-28 tablet by ity of 00:00: mouth (two) Medical times Branch daily as needed for Pain (scale 4-6). tiZANidine 2017-05 Yes 4mg Take 1 [facility] 4 mg tablet 1-28 tablet by ity of 00:00: mouth (two) Medical times Branch daily as needed for Pain (scale 4-6). tiZANidine 2017-05 Yes 4mg Take 1 [facility] 4 mg tablet 1-28 tablet by ity of 00:00: mouth 2 (two) Medical times Branch daily as needed for Pain (scale 4-6). tiZANidine 2017-05 Yes 4mg Take 1 [facility] 4 mg tablet 1-28 tablet by ity of 00:00: mouth 2 (two) Medical times Branch daily as needed for Pain (scale 4-6). tiZANidine 2017-05 Yes 4mg Take 1 [facility] 4 mg tablet 1-28 tablet by ity of 00:00: mouth 2 (two) Medical times Branch daily as needed for Pain (scale 4-6). tiZANidine 2017-05 Yes 4mg Take 1 [facility] 4 mg tablet 1-28 tablet by [facility] 00:00: mouth (two) Medical times Branch daily as needed for Pain (scale 4-6). tiZANidine 2017-05 Yes 4mg Take 1 [facility] 4 mg tablet 1-28 tablet by [facility] of 00:00: mouth (two) Medical times Branch daily as needed for Pain (scale 4-6). tiZANidine 2017-05 Yes 4mg Take 1 [facility] 4 mg tablet 1-28 tablet by [facility] of 00:00: mouth (two) Medical times Branch daily as needed for Pain (scale 4-6). diazePAM 2017-05 Yes 10mg Take 1 [facility] mg tablet 1-28 tablet by [facility] o f 00:00: mouth (two) Medical times Branch daily as needed (pre proceedure ). tiZANidine 2017-05 Yes 4mg Take 1 [facility] 4 mg tablet 1-28 tablet by [facility] of 00:00: mouth (two) Medical times Branch daily as needed for Pain (scale 4-6). tiZANidine 2017-05 Yes 4mg Take 1 [facility] 4 mg tablet 1-28 tablet by [facility] of 00:00: mouth (two) Medical times Branch daily as needed for Pain (scale 4-6). tiZANidine 2017-05 Yes 4mg Take 1 [facility] 4 mg tablet 1-28 tablet by [facility] of 00:00: mouth (two) Medical times Branch daily as needed for Pain (scale 4-6). tiZANidine 2017-05 Yes 4mg Take 1 [facility] 4 mg tablet 1-28 tablet by [facility] of 00:00: mouth (two) Medical times Branch daily as needed for Pain (scale 4-6). tiZANidine 2017-05 Yes 4mg Take 1 [facility] 4 mg tablet 1-28 tablet by [facility] of 00:00: mouth (two) Medical times Branch daily as needed for Pain (scale 4-6). diazePAM 2017-05 Yes 10mg Take 1 [facility] mg tablet 1-28 tablet by [facility] o f 00:00: mouth (two) Medical times Branch daily as needed (pre proceedure ). tiZANidine 2017-05 Yes 4mg Take 1 [facility] 4 mg tablet - tablet by [facility] of 00:00: mouth (two) Medical times Branch daily as needed for Pain (scale 4-6). diazePAM 2017-05 Yes 10mg Take 1 [facility] mg tablet - tablet by [facility]y o f 00:00: mouth (two) Medical times Branch daily as needed (pre proceedure ). diazePAM 2017-05- No 10mg Take 1 [facility] vers mg tablet 06-25- tablet by [facility]y of 00:00: 00:00 mouth 2 00 :00 (two) Medical times Branch daily as needed (pre proceedure ). diazePAM 2017-05- No 10mg Take 1 [facility] vers mg tablet 06-25- tablet by [facility] of 00:00: 00:00 mouth 2 00 :00 (two) Medical times Branch daily as needed (pre proceedure ). KRISTALOSE 0 Yes 1{packa Take 1 [facility] will 20 gram 2-27 ge} Package by [facility] of packet 00:00: mouth 00 daily. Medical Branch KRISTALOSE 0 Yes 1{packa Take 1 [facility] will 20 gram 2-27 ge} Package by ity of packet 00:00: mouth [place] 00 daily. [facility] Branch KRISTALOSE 0 Yes 1{packa Take 1 [facility] will 20 gram 2-27 ge} Package by ity of packet 00:00: mouth 00 daily. Medical Branch KRISTALOSE 2017-0 Yes 1{packa Take 1 [facility] will 20 gram 2-27 ge} Package by [facility] of packet 00:00: mouth [place] 00 daily. Medical Branch KRISTALOSE 2018-0 Yes 1{packa Take 1 [facility] will 20 gram 2-27 ge} Package by it[facility] of packet 00:00: mouth [place] 00 daily. Medical Branch KRISTALOSE 2018-0 Yes 1{packa Take 1 [facility] will 20 gram 2-27 ge} Package by ity of packet 00:00: mouth [place] 00 daily. [facility] KRISTALOSE 2018-0 Yes 1{packa Take 1 [facility] will 20 gram 2-27 ge} Package by [facility] of packet 00:00: mouth [place] 00 daily. Medical [facility] KRISTALOSE 2018-0 Yes 1{packa Take 1 [facility] will 20 gram 2-27 ge} Package by [facility] of packet 00:00: mouth [place] 00 daily. Medical [facility] KRISTALOSE 2018-0 Yes 1{packa Take 1 [facility] will 20 gram 2-27 ge} Package by ity of packet 00:00: mouth [place] 00 daily. Medical [facility] KRISTALOSE 2018-0 Yes 1{packa Take 1 [facility] will 20 gram 2-27 ge} Package by ity of packet 00:00: mouth [place] 00 daily. [facility] KRISTALOSE 2018-0 Yes 1{packa Take 1 [facility] will 20 gram 2-27 ge} Package by ity of packet 00:00: mouth [place] 00 daily. [facility] KRISTALOSE 2018-0 Yes 1{packa Take 1 [facility] will 20 gram 2-27 ge} Package by ity of packet 00:00: mouth [place] 00 daily. [facility] KRISTALOSE 2018-0 Yes 1{packa Take 1 [facility] will 20 gram 2-27 ge} Package by it[facility] of packet 00:00: mouth [place] 00 daily. Medical [facility] KRISTALOSE 2018-0 Yes 1{packa Take 1 [facility] will 20 gram 2-27 ge} Package by ity of packet 00:00: mouth [place] 00 daily. [facility] KRISTALOSE 2018-0 Yes 1{packa Take 1 [facility] will 20 gram 2-27 ge} Package by ity of packet 00:00: mouth [place] 00 daily. Medical [facility] KRISTALOSE 2018-0 Yes 1{packa Take 1 [facility] will 20 gram 2-27 ge} Package by [facility] of packet 00:00: mouth [place] 00 daily. [facility] KRISTALOSE 2018-0 Yes 1{packa Take 1 [facility] will 20 gram 2-27 ge} Package by ity of packet 00:00: mouth [place] 00 daily. [facility] KRISTALOSE 2018-0 Yes 1{packa Take 1 [facility] will 20 gram 2-27 ge} Package by ity of packet 00:00: mouth [place] 00 daily. [facility] KRISTALOSE 2018-0 Yes 1{packa Take 1 [facility] will 20 gram 2-27 ge} Package by it[facility] of packet 00:00: mouth [place] 00 daily. [facility] KRISTALOSE 2018-0 Yes 1{packa Take 1 [facility] will 20 gram 2-27 ge} Package by it[facility] of packet 00:00: mouth [place] 00 daily. [facility] KRISTALOSE 2018-0 Yes 1{packa Take 1 [facility] will 20 gram 2-27 ge} Package by ity of packet 00:00: mouth [place] 00 daily. [facility] KRISTALOSE 2018-0 Yes 1{packa Take 1 [facility] will 20 gram 2-27 ge} Package by ity of packet 00:00: mouth [place] 00 daily. [facility] KRISTALOSE 2018-0 Yes 1{packa Take 1 [facility] will 20 gram 2-27 ge} Package by it[facility] of packet 00:00: mouth [place] 00 daily. [facility] KRISTALOSE 2018-0 Yes 1{packa Take 1 [facility] will 20 gram 2-27 ge} Package by ity of packet 00:00: mouth [place] 00 daily. [facility] KRISTALOSE 2018-0 Yes 1{packa Take 1 [facility] will 20 gram 2-27 ge} Package by [facility] of packet 00:00: mouth [place] 00 daily. [facility] KRISTALOSE 2018-0 Yes 1{packa Take 1 [facility] 20 gram 2-27 ge} Package by [facility] of packet 00:00: mouth [place] 00 daily. [facility] KRISTALOSE 2018-0 Yes 1{packa Take 1 [facility] will 20 gram 2-27 ge} Package by [facility] of packet 00:00: mouth [place] 00 daily. [facility] KRISTALOSE 2018-0 Yes 1{packa Take 1 [facility] 20 gram 2-27 ge} Package by ity of packet 00:00: mouth [place] 00 daily. [facility] KRISTALOSE 2018-0 Yes 1{packa Take 1 [facility] will 20 gram 2-27 ge} Package by [facility] of packet 00:00: mouth [place] 00 daily. [facility] KRISTALOSE 2018-0 Yes 1{packa Take 1 [facility] will 20 gram 2-27 ge} Package by ity of packet 00:00: mouth [place] 00 daily. [facility] KRISTALOSE 2018-0 Yes 1{packa Take 1 [facility] will 20 gram 2-27 ge} Package by ity of packet 00:00: mouth [place] 00 daily. [facility] KRISTALOSE 2018-0 Yes 1{packa Take 1 [facility] will 20 gram 2-27 ge} Package by it[facility] of packet 00:00: mouth [place] 00 daily. [facility] KRISTALOSE 2017-0 Yes 1{packa Take 1 [facility] will 20 gram 2-27 ge} Package by [facility] of packet 00:00: mouth [place] 00 daily. [facility] KRISTALOSE 2017-0 Yes 1{packa Take 1 [facility] will 20 gram 2-27 ge} Package by ity of packet 00:00: mouth [place] 00 daily. [facility] KRISTALOSE 2017-0 Yes 1{packa Take 1 [facility] will 20 gram 2-27 ge} Package by it[facility] of packet 00:00: mouth [place] 00 daily. [facility] KRISTALOSE 2017-0 Yes 1{packa Take 1 [facility] will 20 gram 2-27 ge} Package by ity of packet 00:00: mouth [place] 00 daily. [facility] mometasone 2018-0 Yes 1{spray Use 1 [facility] vers 50 2-25 } [place] in [facility]y of mcg/actuati 00:00: each [place] on nasal 00 nostril 2 [facility] spray (two) Branch times daily. mometasone 2018-0 Yes 1{spray Use 1 [facility] vers 50 2-25 } [place] in [facility]y of mcg/actuati 00:00: each [place] on nasal 00 nostril 2 [facility] l spray (two) Branch times daily. mometasone 2018-0 Yes 1{spray Use 1 [facility] vers 50 2-25 } [place] in ity of mcg/actuati 00:00: each [place] on nasal 00 nostril 2 [facility] spray (two) Branch times daily. mometasone 2018-0 Yes 1{spray Use 1 [facility] vers 50 2-25 } [place] in ity of mcg/actuati 00:00: each [place] on nasal 00 nostril 2 [facility] spray (two) Branch times daily. mometasone 2018-0 Yes 1{spray Use 1 [facility] vers 50 2-25 } [place] in ity of mcg/actuati 00:00: each [place] on nasal 00 nostril 2 [facility] l spray (two) Branch times daily. mometasone 2018-0 Yes 1{spray Use 1 [facility] vers 50 2-25 } [place] in ity of mcg/actuati 00:00: each [place] on nasal 00 nostril 2 [facility] spray (two) Branch times daily. mometasone 2018-0 Yes 1{spray Use 1 [facility] vers 50 2-25 } [place] in ity of mcg/actuati 00:00: each [place] on nasal 00 nostril 2 [facility] spray (two) Branch times daily. mometasone 2018-0 Yes 1{spray Use 1 [facility] vers 50 2-25 } [place] in ity of mcg/actuati 00:00: each [place] on nasal 00 nostril 2 [facility] spray (two) Branch times daily. mometasone 2018-0 Yes 1{spray Use 1 [facility] vers 50 2-25 } [place] in ity of mcg/actuati 00:00: each [place] on nasal 00 nostril 2 [facility] spray (two) Branch times daily. mometasone 2018-0 Yes 1{spray Use 1 [facility] vers 50 2-25 } [place] in ity of mcg/actuati 00:00: each [place] on nasal 00 nostril 2 [facility] spray (two) Branch times daily. mometasone 2018-0 Yes 1{spray Use 1 [facility] vers 50 2-25 } [place] in ity of mcg/actuati 00:00: each [place] on nasal 00 nostril 2 [facility] spray (two) Branch times daily. mometasone 2018-0 Yes 1{spray Use 1 [facility] vers 50 2-25 } [place] in ity of mcg/actuati 00:00: each [place] on nasal 00 nostril 2 [facility] spray (two) Branch times daily. mometasone 2018-0 Yes 1{spray Use 1 [facility] vers 50 2-25 } [place] in ity of mcg/actuati 00:00: each [place] on nasal 00 nostril 2 [facility] spray (two) Branch times daily. mometasone 2018-0 Yes 1{spray Use 1 [facility] vers 50 2-25 } [place] in ity of mcg/actuati 00:00: each [place] on nasal 00 nostril 2 [facility] spray (two) Branch times daily. mometasone 2018-0 Yes 1{spray Use 1 [facility] vers 50 2-25 } [place] in ity of mcg/actuati 00:00: each [place] on nasal 00 nostril 2 [facility] spray (two) Branch times daily. mometasone 2018-0 Yes 1{spray Use 1 [facility] vers 50 2-25 } [place] in ity of mcg/actuati 00:00: each [place] on nasal 00 nostril 2 [facility] spray (two) Branch times daily. mometasone 2018-0 Yes 1{spray Use 1 [facility] vers 50 2-25 } [place] in ity of mcg/actuati 00:00: each [place] on nasal 00 nostril 2 [facility] spray (two) Branch times daily. mometasone 2017-0 Yes 1{spray Use 1 [facility] vers 50 2-25 } [place] in ity of mcg/actuati 00:00: each [place] on nasal 00 nostril 2 [facility] spray (two) Branch times daily. mometasone 2018-0 Yes 1{spray Use 1 [facility] vers 50 2-25 } [place] in ity of mcg/actuati 00:00: each [place] on nasal 00 nostril 2 [facility] spray (two) Branch times daily. mometasone 2018-0 Yes 1{spray Use 1 [facility] vers 50 2-25 } [place] in ity of mcg/actuati 00:00: each [place] on nasal 00 nostril 2 [facility] spray (two) Branch times daily. mometasone 2017-0 Yes 1{spray Use 1 [facility] vers 50 2-25 } [place] in ity of mcg/actuati 00:00: each [place] on nasal 00 nostril 2 Med[facility] spray (two) Branch times daily. mometasone 2017-0 Yes 1{spray Use 1 [facility] vers 50 2-25 } [place] in ity of mcg/actuati 00:00: each [place] on nasal 00 nostril 2 [facility] spray (two) Branch times daily. mometasone 2018-0 Yes 1{spray Use 1 [facility] vers 50 2-25 } [place] in ity of mcg/actuati 00:00: each [place] on nasal 00 nostril 2 [facility] spray (two) Branch times daily. mometasone 2018-0 2020- No 1{spray Use 1 Un will 50 2-25 07-22 } [place] in ity of mcg/actuati 00:00: 00:00 each [place] on nasal 00 :00 nostril 2 [facility] spray (two) Branch times daily. mometasone 2018-0 2020- No 1{spray Use 1 Un will 50 2-25 07-22 } [place] in ity of mcg/actuati 00:00: 00:00 each [place] on nasal 00 :00 nostril 2 [facility] l spray (two) Branch times daily. carvedilol 2018-0 Yes 12.5mg Take 12.5 [facility] 12.5 mg 2-14 mg by ity of tablet 00:00: mouth 2 (two) Medical times Branch daily. gabapentin 2018-0 Yes 300mg Take 300 [facility] 300 mg 2-14 mg by ity of capsule 00:00: mouth 2 (two) Medical times Branch daily. furosemide 2018-0 Yes 20mg Take 20 mg [facility] nivers 20 mg 2-14 by mouth ity of tablet 00:00: daily. Medical [facility] HYDROcodone 2018-0 Yes 1{tbl} Take 1 [facility] will -acetaminop 2-14 tablet by ity of hen 10-325 00:00: mouth 3 [place] mg tablet 00 (three) Medical times Branch daily. carvedilol 2018-0 Yes 12.5mg Take 12.5 [facility] 12.5 mg 2-14 mg by ity of tablet 00:00: mouth [place] (two) Medical times Branch daily. gabapentin 2018-0 Yes 300mg Take 300 [facility] 300 mg 2-14 mg by ity of capsule 00:00: mouth [place] (two) Medical times Branch daily. furosemide 2018-0 Yes 20mg Take 20 mg U nivers 20 mg 2-14 by mouth ity of tablet 00:00: daily. [place] [facility] HYDROcodone 2018-0 Yes 1{tbl} Take 1 [facility] will -acetaminop 2-14 tablet by ity of hen 10-325 00:00: mouth 3 [place] mg tablet 00 (three) Medical times Branch daily. carvedilol 2018-0 Yes 12.5mg Take 12.5 [facility] 12.5 mg 2-14 mg by ity of tablet 00:00: mouth [place] (two) Medical times Branch daily. gabapentin 2018-0 Yes 300mg Take 300 [facility] will 300 mg 2-14 mg by ity of capsule 00:00: mouth 2 [place] (two) Medical times Branch daily. furosemide 2018-0 Yes 20mg Take 20 mg [facility] nivers 20 mg 2-14 by mouth ity of tablet 00:00: daily. [place] [facility] HYDROcodone 2018-0 Yes 1{tbl} Take 1 Un will -acetaminop 2-14 tablet by ity of hen 10-325 00:00: mouth 3 [place] mg tablet 00 (three) Medical times Branch daily. carvedilol 2018-0 Yes 12.5mg Take 12.5 [facility] 12.5 mg 2-14 mg by ity of tablet 00:00: mouth 2 (two) Medical times Branch daily. gabapentin 2018-0 Yes 300mg Take 300 [facility] will 300 mg 2-14 mg by ity of capsule 00:00: mouth 2 (two) Medical times Branch daily. furosemide 2018-0 Yes 20mg Take 20 mg U nivers 20 mg 2-14 by mouth ity of tablet 00:00: daily. [place] [address] Medical Branch HYDROcodone 2018-0 Yes 1{tbl} Take 1 Un will -acetaminop 2-14 tablet by ity of hen 10-325 00:00: mouth 3 [place] mg tablet 00 (three) Medical times Branch daily. carvedilol 2018-0 Yes 12.5mg Take 12.5 [facility] 12.5 mg 2-14 mg by ity of tablet 00:00: mouth (two) Medical times Branch daily. gabapentin 2018-0 Yes 300mg Take 300 [facility] will 300 mg 2-14 mg by ity of capsule 00:00: mouth (two) Medical times Branch daily. furosemide 2018-0 Yes 20mg Take 20 mg U nivers 20 mg 2-14 by mouth ity of tablet 00:00: daily. [place] [facility] HYDROcodone 2018-0 Yes 1{tbl} Take 1 Un will -acetaminop 2-14 tablet by ity of hen 10-325 00:00: mouth 3 [place] mg tablet 00 (three) Medical times Branch daily. carvedilol 2018-0 Yes 12.5mg Take 12.5 [facility] 12.5 mg 2-14 mg by ity of tablet 00:00: mouth 2 (two) Medical times Branch daily. gabapentin 2018-0 Yes 300mg Take 300 Un will 300 mg 2-14 mg by ity of capsule 00:00: mouth 2 (two) Medical times Branch daily. furosemide 2018-0 Yes 20mg Take 20 mg U nivers 20 mg 2-14 by mouth ity of tablet 00:00: daily. Medical Branch HYDROcodone 2018-0 Yes 1{tbl} Take 1 Un will -acetaminop 2-14 tablet by ity of hen 10-325 00:00: mouth 3 [place] mg tablet 00 (three) Medical times Branch daily. carvedilol 2018-0 Yes 12.5mg Take 12.5 [facility] 12.5 mg 2-14 mg by ity of tablet 00:00: mouth (two) Medical times Branch daily. gabapentin 2018-0 Yes 300mg Take 300 [facility] will 300 mg 2-14 mg by ity of capsule 00:00: mouth (two) Medical times Branch daily. furosemide 2018-0 Yes 20mg Take 20 mg U nivers 20 mg 2-14 by mouth ity of tablet 00:00: daily. [place] [facility] Branch HYDROcodone 2018-0 Yes 1{tbl} Take 1 Un will -acetaminop 2-14 tablet by ity of hen 10-325 00:00: mouth 3 [place] mg tablet 00 (three) Medical times Branch daily. carvedilol 2018-0 Yes 12.5mg Take 12.5 [facility] 12.5 mg 2-14 mg by ity of tablet 00:00: mouth (two) Medical times Branch daily. gabapentin 2018-0 Yes 300mg Take 300 [facility] will 300 mg 2-14 mg by ity of capsule 00:00: mouth (two) Medical times Branch daily. furosemide 2018-0 Yes 20mg Take 20 mg U nivers 20 mg 2-14 by mouth ity of tablet 00:00: daily. [place] [facility] HYDROcodone 2018-0 Yes 1{tbl} Take 1 Un will -acetaminop 2-14 tablet by ity of hen 10-325 00:00: mouth 3 [place] mg tablet 00 (three) Medical times Branch daily. carvedilol 2018-0 Yes 12.5mg Take 12.5 [facility] 12.5 mg 2-14 mg by ity of tablet 00:00: mouth (two) Medical times Branch daily. gabapentin 2018-0 Yes 300mg Take 300 [facility] will 300 mg 2-14 mg by ity of capsule 00:00: mouth (two) Medical times Branch daily. furosemide 2018-0 Yes 20mg Take 20 mg U nivers 20 mg 2-14 by mouth ity of tablet 00:00: daily. Medical Branch HYDROcodone 2018-0 Yes 1{tbl} Take 1 Un will -acetaminop 2-14 tablet by ity of hen 10-325 00:00: mouth 3 [place] mg tablet 00 (three) Medical times Branch daily. carvedilol 2018-0 Yes 12.5mg Take 12.5 [facility] 12.5 mg 2-14 mg by ity of tablet 00:00: mouth 2 (two) Medical times Branch daily. gabapentin 2018-0 Yes 300mg Take 300 [facility] will 300 mg 2-14 mg by ity of capsule 00:00: mouth (two) Medical times Branch daily. furosemide 2018-0 Yes 20mg Take 20 mg U nivers 20 mg 2-14 by mouth ity of tablet 00:00: daily. [place] [facility] HYDROcodone 2018-0 Yes 1{tbl} Take 1 Un will -acetaminop 2-14 tablet by ity of hen 10-325 00:00: mouth 3 [place] mg tablet 00 (three) Medical times Branch daily. carvedilol 2018-0 Yes 12.5mg Take 12.5 [facility] 12.5 mg 2-14 mg by ity of tablet 00:00: mouth (two) Medical times Branch daily. gabapentin 2018-0 Yes 300mg Take 300 [facility] will 300 mg 2-14 mg by ity of capsule 00:00: mouth (two) Medical times Branch daily. furosemide 2018-0 Yes 20mg Take 20 mg U nivers 20 mg 2-14 by mouth ity of tablet 00:00: daily. [place] [facility] HYDROcodone 2018-0 Yes 1{tbl} Take 1 Un will -acetaminop 2-14 tablet by ity of hen 10-325 00:00: mouth 3 [place] mg tablet 00 (three) Medical times Branch daily. carvedilol 2018-0 Yes 12.5mg Take 12.5 [facility] 12.5 mg 2-14 mg by ity of tablet 00:00: mouth 2 (two) Medical times Branch daily. gabapentin 2018-0 Yes 300mg Take 300 Un will 300 mg 2-14 mg by ity of capsule 00:00: mouth (two) Medical times Branch daily. furosemide 2018-0 Yes 20mg Take 20 mg U nivers 20 mg 2-14 by mouth ity of tablet 00:00: daily. Medical Branch HYDROcodone 2018-0 Yes 1{tbl} Take 1 Un will -acetaminop 2-14 tablet by ity of hen 10-325 00:00: mouth 3 [place] mg tablet 00 (three) Medical times Branch daily. carvedilol 2018-0 Yes 12.5mg Take 12.5 [facility] 12.5 mg 2-14 mg by ity of tablet 00:00: mouth 2 (two) Medical times Branch daily. gabapentin 2018-0 Yes 300mg Take 300 [facility] will 300 mg 2-14 mg by ity of capsule 00:00: mouth (two) Medical times Branch daily. furosemide 2018-0 Yes 20mg Take 20 mg U nivers 20 mg 2-14 by mouth ity of tablet 00:00: daily. [place] [facility] Branch HYDROcodone 2018-0 Yes 1{tbl} Take 1 Un will -acetaminop 2-14 tablet by ity of hen 10-325 00:00: mouth 3 [place] mg tablet 00 (three) Medical times Branch daily. carvedilol 2018-0 Yes 12.5mg Take 12.5 [facility] 12.5 mg 2-14 mg by ity of tablet 00:00: mouth (two) Medical times Branch daily. gabapentin 2018-0 Yes 300mg Take 300 Un will 300 mg 2-14 mg by ity of capsule 00:00: mouth (two) Medical times Branch daily. furosemide 2018-0 Yes 20mg Take 20 mg U nivers 20 mg 2-14 by mouth ity of tablet 00:00: daily. [place] [facility] HYDROcodone 2018-0 Yes 1{tbl} Take 1 Un will -acetaminop 2-14 tablet by ity of hen 10-325 00:00: mouth 3 [place] mg tablet 00 (three) Medical times Branch daily. carvedilol 2018-0 Yes 12.5mg Take 12.5 [facility] 12.5 mg 2-14 mg by ity of tablet 00:00: mouth (two) Medical times Branch daily. gabapentin 2018-0 Yes 300mg Take 300 [facility] will 300 mg 2-14 mg by ity of capsule 00:00: mouth 2 (two) Medical times Branch daily. furosemide 2018-0 Yes 20mg Take 20 mg U nivers 20 mg 2-14 by mouth ity of tablet 00:00: daily. Medical Branch HYDROcodone 2018-0 Yes 1{tbl} Take 1 Un will -acetaminop 2-14 tablet by ity of hen 10-325 00:00: mouth 3 [place] mg tablet 00 (three) Medical times Branch daily. carvedilol 2018-0 Yes 12.5mg Take 12.5 [facility] 12.5 mg 2-14 mg by ity of tablet 00:00: mouth 2 (two) Medical times Branch daily. gabapentin 2018-0 Yes 300mg Take 300 [facility] will 300 mg 2-14 mg by ity of capsule 00:00: mouth (two) Medical times Branch daily. furosemide 2018-0 Yes 20mg Take 20 mg U nivers 20 mg 2-14 by mouth ity of tablet 00:00: daily. [place] [facility] HYDROcodone 2018-0 Yes 1{tbl} Take 1 Un will -acetaminop 2-14 tablet by ity of hen 10-325 00:00: mouth 3 [place] mg tablet 00 (three) Medical times Branch daily. carvedilol 2018-0 Yes 12.5mg Take 12.5 [facility] 12.5 mg 2-14 mg by ity of tablet 00:00: mouth (two) Medical times Branch daily. gabapentin 2018-0 Yes 300mg Take 300 [facility] will 300 mg 2-14 mg by ity of capsule 00:00: mouth (two) Medical times Branch daily. furosemide 2018-0 Yes 20mg Take 20 mg U nivers 20 mg 2-14 by mouth ity of tablet 00:00: daily. [place] [facility] HYDROcodone 2018-0 Yes 1{tbl} Take 1 Un will -acetaminop 2-14 tablet by ity of hen 10-325 00:00: mouth 3 [place] mg tablet 00 (three) Medical times Branch daily. carvedilol 2018-0 Yes 12.5mg Take 12.5 [facility] 12.5 mg 2-14 mg by ity of tablet 00:00: mouth 2 (two) Medical times Branch daily. gabapentin 2018-0 Yes 300mg Take 300 Un will 300 mg 2-14 mg by ity of capsule 00:00: mouth 2 (two) Medical times Branch daily. furosemide 2018-0 Yes 20mg Take 20 mg U nivers 20 mg 2-14 by mouth ity of tablet 00:00: daily. Medical Branch HYDROcodone 2018-0 Yes 1{tbl} Take 1 Un will -acetaminop 2-14 tablet by ity of hen 10-325 00:00: mouth 3 [place] mg tablet 00 (three) Medical times Branch daily. carvedilol 2018-0 Yes 12.5mg Take 12.5 [facility] 12.5 mg 2-14 mg by ity of tablet 00:00: mouth 2 (two) Medical times Branch daily. gabapentin 2018-0 Yes 300mg Take 300 Un will 300 mg 2-14 mg by ity of capsule 00:00: mouth 2 (two) Medical times Branch daily. furosemide 2018-0 Yes 20mg Take 20 mg U nivers 20 mg 2-14 by mouth ity of tablet 00:00: daily. [place] [facility] HYDROcodone 2018-0 Yes 1{tbl} Take 1 Un will -acetaminop 2-14 tablet by ity of hen 10-325 00:00: mouth 3 [place] mg tablet 00 (three) Medical times Branch daily. carvedilol 2018-0 Yes 12.5mg Take 12.5 [facility] 12.5 mg 2-14 mg by ity of tablet 00:00: mouth 2 (two) Medical times Branch daily. gabapentin 2018-0 Yes 300mg Take 300 Un will 300 mg 2-14 mg by ity of capsule 00:00: mouth 2 (two) Medical times Branch daily. furosemide 2018-0 Yes 20mg Take 20 mg U nivers 20 mg 2-14 by mouth ity of tablet 00:00: daily. [place] [address] Medical Branch HYDROcodone 2018-0 Yes 1{tbl} Take 1 Un will -acetaminop 2-14 tablet by ity of hen 10-325 00:00: mouth 3 [place] mg tablet 00 (three) Medical times Branch daily. carvedilol 2018-0 Yes 12.5mg Take 12.5 [facility] 12.5 mg 2-14 mg by ity of tablet 00:00: mouth 2 (two) Medical times Branch daily. furosemide 2018-0 Yes 20mg Take 20 mg U nivers 20 mg 2-14 by mouth ity of tablet 00:00: daily. [place] [facility] HYDROcodone 2018-0 Yes 1{tbl} Take 1 Un will -acetaminop 2-14 tablet by ity of hen 10-325 00:00: mouth 3 [place] mg tablet 00 (three) Medical times Branch daily. carvedilol 2018-0 Yes 12.5mg Take 12.5 [facility] 12.5 mg 2-14 mg by ity of tablet 00:00: mouth 2 (two) Medical times Branch daily. furosemide 2018-0 Yes 20mg Take 20 mg U nivers 20 mg 2-14 by mouth ity of tablet 00:00: daily. [place] [facility] HYDROcodone 2018-0 Yes 1{tbl} Take 1 Un will -acetaminop 2-14 tablet by ity of hen 10-325 00:00: mouth 3 [place] mg tablet 00 (three) Medical times Branch daily. carvedilol 2018-0 Yes 12.5mg Take 12.5 [facility] 12.5 mg 2-14 mg by ity of tablet 00:00: mouth 2 (two) Medical times Branch daily. furosemide 2018-0 Yes 20mg Take 20 mg U nivers 20 mg 2-14 by mouth ity of tablet 00:00: daily. [place] [facility] HYDROcodone 2018-0 Yes 1{tbl} Take 1 Un will -acetaminop 2-14 tablet by ity of hen 10-325 00:00: mouth 3 [place] mg tablet 00 (three) Medical times Branch daily. carvedilol 2018-0 Yes 12.5mg Take 12.5 [facility] 12.5 mg 2-14 mg by ity of tablet 00:00: mouth 2 (two) Medical times Branch daily. furosemide 2018-0 Yes 20mg Take 20 mg U nivers 20 mg 2-14 by mouth ity of tablet 00:00: daily. [place] [facility] HYDROcodone 2018-0 Yes 1{tbl} Take 1 Un will -acetaminop 2-14 tablet by ity of hen 10-325 00:00: mouth 3 [place] mg tablet 00 (three) Medical times Branch daily. carvedilol 2018-0 Yes 12.5mg Take 12.5 [facility] 12.5 mg 2-14 mg by ity of tablet 00:00: mouth 2 (two) Medical times Branch daily. furosemide 2018-0 Yes 20mg Take 20 mg U nivers 20 mg 2-14 by mouth ity of tablet 00:00: daily. Medical Branch HYDROcodone 2018-0 Yes 1{tbl} Take 1 Un will -acetaminop 2-14 tablet by ity of hen 10-325 00:00: mouth 3 [place] mg tablet 00 (three) Medical times Branch daily. carvedilol 2018-0 Yes 12.5mg Take 12.5 [facility] 12.5 mg 2-14 mg by ity of tablet 00:00: mouth (two) Medical times Branch daily. carvedilol 2018-0 Yes 12.5mg Take 12.5 Univers 12.5 mg 2-14 mg by ity of tablet 00:00: mouth (two) Medical times Branch daily. furosemide 2018-0 Yes 20mg Take 20 mg U nivers 20 mg 2-14 by mouth ity of tablet 00:00: daily. [place] [facility] HYDROcodone 2018-0 Yes 1{tbl} Take 1 Un will -acetaminop 2-14 tablet by ity of [place] 10-325 00:00[place] (three) Medical times Branch daily. gabapentin 2018-0 Yes 300mg Take 300 Un will 300 mg 2-14 mg by ity of capsule 00:00: mouth (two) Medical times Branch daily. carvedilol 2018-0 Yes 12.5mg Take 12.5 Univers 12.5 mg 2-14 mg by ity of tablet 00:00: mouth 2 (two) Medical times Branch daily. furosemide 2018-0 Yes 20mg Take 20 mg U nivers 20 mg 2-14 by mouth ity of tablet 00:00: daily. [place] [facility] HYDROcodone 2018-0 Yes 1{tbl} Take 1 Un will -acetaminop 2-14 tablet by ity of [place] 10-325 00[place]00[place] tablet [place] (three) Medical times Branch daily. furosemide 2018-0 Yes 20mg Take 20 mg U nivers 20 mg 2-14 by mouth ity of tablet 00:00: daily. [place] [facility] carvedilol 2018-0 Yes 12.5mg Take 12.5 Univers 12.5 mg 2-14 mg by ity of tablet 00:00: mouth 2 (two) Medical times Branch daily. furosemide 2018-0 Yes 20mg Take 20 mg U nivers 20 mg 2-14 by mouth ity of tablet 00:00: daily. [place] [facility] HYDROcodone 2018-0 Yes 1{tbl} Take 1 Un will -acetaminop 2-14 tablet by ity of [place] 10-325 00:00: [place] tablet 00 (three) Medical times Branch daily. HYDROcodone 2018-0 Yes 1{tbl} Take 1 Un will -acetaminop 2-14 tablet by ity of hen 10-325 00:00: mouth 3 [place] mg tablet 00 (three) Medical times Branch daily. carvedilol 2018-0 Yes 12.5mg Take 12.5 Univers 12.5 mg 2-14 mg by ity of tablet 00:00: mouth 2 (two) Medical times Branch daily. furosemide 2018-0 Yes 20mg Take 20 mg U nivers 20 mg 2-14 by mouth ity of tablet 00:00: daily. [place] [facility] HYDROcodone 2018-0 Yes 1{tbl} Take 1 Un will -acetaminop 2-14 tablet by ity of hen 10-325 00:00: mouth 3 [place] tablet 00 (three) Medical times Branch daily. carvedilol 2018-0 Yes 12.5mg Take 12.5 Univers 12.5 mg 2-14 mg by ity of tablet 00:00: mouth 2 (two) Medical times Branch daily. furosemide 2018-0 Yes 20mg Take 20 mg U nivers 20 mg 2-14 by mouth ity of tablet 00:00: daily. [place] [facility] HYDROcodone 2018-0 Yes 1{tbl} Take 1 Un will -acetaminop 2-14 tablet by ity of hen 10-325 00:00: mouth [place] tablet 00 (three) Medical times Branch daily. carvedilol 2018-0 Yes 12.5mg Take 12.5 Univers 12.5 mg 2-14 mg by ity of tablet 00:00: mouth 2 (two) Medical times Branch daily. furosemide 2018-0 Yes 20mg Take 20 mg U nivers 20 mg 2-14 by mouth ity of tablet 00:00: daily. Medical Branch HYDROcodone 2018-0 Yes 1{tbl} Take 1 Un will -acetaminop 2-14 tablet by ity of hen 10-325 00:00: mouth [place] mg tablet 00 (three) Medical times Branch daily. carvedilol 2018-0 Yes 12.5mg Take 12.5 Univers 12.5 mg 2-14 mg by ity of tablet 00:00: mouth 2 (two) Medical times Branch daily. furosemide 2018-0 Yes 20mg Take 20 mg U nivers 20 mg 2-14 by mouth ity of tablet 00:00: daily. Medical Branch HYDROcodone 2018-0 Yes 1{tbl} Take 1 Un will -acetaminop 2-14 tablet by ity of hen 10-325 00:00: mouth 3 [place] mg tablet 00 (three) Medical times Branch daily. carvedilol 2018-0 Yes 12.5mg Take 12.5 Univers 12.5 mg 2-14 mg by ity of tablet 00:00: mouth 2 (two) Medical times Branch daily. furosemide 2018-0 Yes 20mg Take 20 mg U nivers 20 mg 2-14 by mouth ity of tablet 00:00: daily. [place] [facility] HYDROcodone 2018-0 Yes 1{tbl} Take 1 Un will -acetaminop 2-14 tablet by ity of hen 10-325 00:00: mouth 3 [place] mg tablet (three) Medical times Branch daily. carvedilol 2018-0 Yes 12.5mg Take 12.5 Univers 12.5 mg 2-14 mg by ity of tablet 00:00: mouth 2 (two) Medical times Branch daily. gabapentin 2018-0 Yes 300mg Take 300 Un will 300 mg 2-14 mg by ity of capsule 00:00: mouth 2 (two) Medical times Branch daily. furosemide 2018-0 Yes 20mg Take 20 mg U nivers 20 mg 2-14 by mouth ity of tablet 00:00: daily. [place] [facility] Branch HYDROcodone 2018-0 Yes 1{tbl} Take 1 Un will -acetaminop 2-14 tablet by ity of hen 10-325 00:00: mouth 3 [place] mg tablet 00 (three) Medical times Branch daily. carvedilol 2017- Yes 12.5mg Take 12.5 Univers 12.5 mg 2-14 mg by ity of tablet 00:00: mouth 2 [place] 00 (two) Medical times Branch daily. gabapentin Yes 300mg Take 300 Un will 300 mg 2-14 mg by ity of capsule 00:00: mouth 2 [place] 00 (two) Medical times Branch daily. furosemide 2017- Yes 20mg Take 20 mg U nivers 20 mg 2-14 by mouth ity of tablet 00:00: daily. [place] [facility] HYDROcodone 2017- Yes 1{tbl} Take 1 Un will -acetaminop 2-14 tablet by ity of hen 10-325 00:00: mouth 3 [place] mg tablet 00 (three) Medical times Branch daily. gabapentin 2020- No 300mg Take 300 U nivers 300 mg 2-14 07-22 mg by ity of capsule 00:00: 00:00 mouth 2 [place] 00 :00 (two) Medical times Branch daily. gabapentin 2019- No 300mg Take 300 U nivers 300 mg 2-14 07-22 mg by ity of capsule 00:00: 00:00 mouth 2 [place] 00 :00 (two) Medical times Branch daily. Vital Signs Vital Name Observation Time Observation Value Comments Source Systolic blood 2020-09-28 13:21:00 148 mm[Hg] [facility] Diastolic blood 2020-09-28 13:21:00 88 mm[Hg] [facility] Heart rate 2020-09-28 13:21:00 81 /min [facility] Respiratory rate 2020-09-28 13:21:00 20 /min [facility] Oxygen saturation in 2020-09-28 13:21:00 97 /min [facility] Arterial blood by [facility] Pulse oximetry Branch Body temperature 2020-09-28 13:07:00 36.83 Sandra [facility] Body height 2020-09-24 15:31:00 185.4 cm [facility] Body weight 2020-09-24 15:31:00 117.5 kg Universi ty of [place] [facility] BMI 2020-09-24 15:31:00 34.18 kg/m2 Universi ty of [facility] Branch Systolic blood 2020-09-28 13:12:00 136 mm[Hg] Univer sity of pressure [place] [facility] Diastolic blood 2020-09-28 13:12:00 78 mm[Hg] Unive rsity of pressure [facility] Heart rate 2020-09-28 13:12:00 75 /min Universi ty of [facility] Respiratory rate 2020-09-28 13:12:00 21 /min Univ ersity of [facility] Oxygen saturation in 2020-09-28 13:12:00 97 /min University of Arterial blood by [facility] Pulse oximetry Branch Body temperature 2020-09-28 13:07:00 36.83 Sandra [facility] ersity of [facility] Body height 2020-09-24 15:31:00 185.4 cm Universi ty of [facility] Body weight 2020-09-24 15:31:00 117.5 kg Universi ty of [facility] BMI 2020-09-24 15:31:00 34.18 kg/m2 Universi ty of [facility] Branch Systolic blood 2019-12-18 20:34:00 161 mm[Hg] Univer sity of pressure [facility] Diastolic blood 2019-12-18 20:34:00 99 mm[Hg] Unive rsity of pressure [facility] Heart rate 2019-12-18 20:34:00 77 /min Universi ty of [facility] Body temperature 2019-12-18 20:34:00 36.44 Sandra [facility] ersity of [facility] Body weight 2019-12-18 20:34:00 117.482 kg Universi ty of [place] [facility] BMI 2019-12-18 20:34:00 34.17 kg/m2 Universi ty of [facility] Branch Systolic blood 2019-10-15 18:38:00 159 mm[Hg] Univer sity of pressure [facility] Diastolic blood 2019-10-15 18:38:00 87 mm[Hg] Unive rsity of pressure [facility] Heart rate 2019-10-15 18:34:00 85 /min Universi ty of [facility] Body temperature 2019-10-15 18:34:00 37 Sandra [facility] ersity of [place] [facility] Respiratory rate 2019-10-15 18:34:00 19 /min Univ ersity of [place] [facility] Body height 2019-10-15 18:34:00 185.4 cm Universi ty of [place] [facility] Body weight 2019-10-15 18:34:00 119.75 kg Universi ty of [place] [facility] BMI 2019-10-15 18:34:00 34.83 kg/m2 Universi ty of [place] [facility] Oxygen saturation in 2019-10-15 18:34:00 98 /min University of Arterial blood by [facility] Pulse oximetry Branch Systolic blood 2019-10-15 18:38:00 159 mm[Hg] Univer sity of pressure [place] [facility] Diastolic blood 2019-10-15 18:38:00 87 mm[Hg] Unive rsity of pressure [place] [facility] Heart rate 2019-10-15 18:34:00 85 /min Universi ty of [place] [facility] Body temperature 2019-10-15 18:34:00 37 Sandra [facility] [place] [facility] Respiratory rate 2019-10-15 18:34:00 19 /min [facility] ersity of [place] [facility] Body height 2019-10-15 18:34:00 185.4 cm Universi ty of [place] [facility] Body weight 2019-10-15 18:34:00 119.75 kg Universi ty of [place] [facility] BMI 2019-10-15 18:34:00 34.83 kg/m2 Universi ty of [place] [facility] Oxygen saturation in 2019-10-15 18:34:00 98 /min University of Arterial blood by [facility] Pulse oximetry Branch Procedures Procedure Date / Time Performing Clinician Source Performed ASSIGNMENT OF BENEFITS 2020-10-09 16:58:46 Doctor Unassigned, [facility] [place] [facility] FL TIME OR 2020-09-28 13:26:41 Dariel Yee [facility] (NON-REPORTABLE) Medical Branch FL TIME OR 2020-09-28 13:26:41 Dariel Yee [facility] (NON-REPORTABLE) Medical Branch CERVICAL EPIDURAL STEROID 2020-09-28 12:45:00 Dariel Yee [facility] INJECTION Medical [place] DAY SURGERY - ADC 2020-09-28 05:01:00 Doctor Unassigned, [facility] [place] [facility] ASSIGNMENT OF BENEFITS 2020-09-25 16:37:38 [facility] [place] [facility] ASSIGNMENT OF BENEFITS 2020-09-24 14:39:19 [facility] [place] [facility] MEDICATION CORRESPONDENCE 2020-01-09 05:01:00 Doctor Unasshenrry, [facility] [place] [facility] [place] MEDICATION CORRESPONDENCE 2019-11-06 05:01:00 Doctor Unassigned, [facility] [place] [facility] [place] URINALYSIS 2019-10-15 22:19:00 Robyn [place] o f [facility] CT ABDOMEN PELVIS WO 2019-10-15 21:41[facility]01 [facility]ENTIAL 2019-10-15 20:00:00 Malou Robyn [facility] COMP. METABOLIC PANEL 2019-10-15 20:00:00 Malou [facility] ([id number]) Medical Branch ASSIGNMENT OF BENEFITS 2019-10-15 19:48:27 Doctor Unassigned, [facility] Name [facility] [place] Encounters Start End Encounter Admission Attending Care Care Encounter Source Date/Time Date/Time Type Type Clinicians Facility Department ID 2021-03-28 Outpatient Jung YEE [facility] ANS [id number] Univers 20:24:43 [facility] 2021-03-28 Outpatient Jung YEE [facility] ANS [id number] Univers 16:14:13 [facility] 2021-03-28 Outpatient Jung YEE [facility] ANS [id number] Univers 16:14:08 [facility] 2020-10-30 2020-10-30 Outpatient R [facility] [id number] Univers 09:30:00 09:30:00 [id number] [facility] 2020-10-30 2020-10-30 Outpatient Jung YEE [facility] [id number] Univers 09:30:00 09:30:00 [facility] 2020-10-09 2020-10-09 Laboratory Only, Adc Test [facility] 1.2.840. 114 [id number] Univers 11:57:54 12:12:54 Only Dariel Yee 350.1.13.1 0 it[place] [phone] [facility] [address] [place] 2020-10-09 2020-10-09 Outpatient R [facility] [id number] Univers 08:30:00 08:30:00 [id number] ity of [facility] 2020-10-09 2020-10-09 Outpatient R [facility] [id number] Univers 08:30:00 08:30:00 DARIEL ity [facility] 2020-10-09 2020-10-09 Orders Doctor JOSÉ 1.2.840.114 [id number] Univers 00:00:00 00:00:00 Only Unassigned, NESSA 350.1.13.10 ity of [place] [facility] 4.2.7.2.686 Matt as [phone] [facility] [address] [place] 2020-09-28 2020-09-28 [facility] 1.2.840.114 [id number] Univers 07:16:00 09:00:00 Encounter Dariel Godfrey [id number] it[place] [id number] [facility] 071 Branch 2020-09-28 2020-09-28 Surgery [facility] [id number] Univers 07:50:00 08:12:00 Dariel Godfrey [id number] it[place]2.[place] [phone] [facility] 020 Branch 2020-09-28 2020-09-28 Orders Doctor JOSÉ 1.2.840.114 [id number] Univers 00:00:00 00:00:00 Only Unassigned, NESSA 350.1.13.10 ity of [place] [facility] 4.2.7.2.686 Matt as [phone] [facility] [address] [place] 2020-09-25 2020-09-25 Laboratory Only, Adc Test [facility] 1.2.840. 114 [id number] Univers 11:34:51 11:49:51 Only Dariel Yee 350.1.13.1 0 it[place] of [place] 4[place] [phone] [address] 2020-09-25 2020-09-25 Outpatient R [facility] [id number] Univers 11:15:00 11:15:00 [id number] ity of [facility] 2020-09-25 2020-09-25 [facility] [id number] Univers 11:15:00 11:15:00 DARIEL ity [facility] 2020-09-25 2020-09-25 Orders Doctor JOSÉ 1.2.840.114 [id number] Univers 00:00:00 00:00:00 Only Unassigned, NESSA 350.1.13.10 ity of [place] [facility] 4.2.7.2.686 Matt as [phone] [address] 2020-09-24 2020-09-24 Outpatient R [facility] [id number] Univers 10:00:00 10:00:00 [id number] ity of [facility] 2020-09-24 2020-09-24 [facility]patient [facility] [id number] Univers 10:00:00 10:00:00 [facility] ity [facility] 2020-09-24 2020-09-24 Steward/Stewardess Second Gary, Gigi Lab Main [facility] 1.2.8 40.114 [id number] Univers 09:38:58 09:53:58 Visit Dariel Yee 350.1.13.1 0 it[place] 4[place]2.7.2.[place] [facility] [phone] [place] [address] 2020-09-24 2020-09-24 Orders Doctor JOSÉ 1.2.840.114 [id number] Univers 00:00:00 00:00:00 Only Unassigned, NESSA 350.1.13.10 ity of [place] [facility] 4.2.7.2.686 Matt as [phone] [address] 2020-01-09 2020-01-09 Orders Doctor JOSÉ 1.2.840.114 [id number] Univers 00:00:00 00:00:00 Only Unassigned, NESSA 350.1.13.10 ity of [place] [facility] 4.2.7.2.686 Amtt as [phone] [address] 2020-01-08 2020-01-08 Telephone [facility] [id number] Univers 00:00:00 00:00:00 Jorge Godfrey 350.1.13.10 i ty of [place] Profess[place] [phone] [address] 2019-12-18 2019-12-18 Office [facility] 1.2.840.114 [id number] Univers 15:26:31 15:41:31 Visit Omar Godfrey 350.1.13.10 i ty of [place] 4[place]2.7.2.[place] [phone] [address] 2019-12-18 2019-12-18 Outpatient R [facility] [id number] Univers 15:30:00 15:30:00 OMAR [id number] [facility] 2019-12-18 2019-12-18 Outpatient R [facility] [id number] Univers 15:30:00 15:30:00 [facility] 2019-12-10 2019-12-10 Telephone [facility] [id number] Univers 00:00:00 00:00:00 Jorge Godfery 350.1.13.10 i ty [place] 4[place].2.[place] [phone] [address] 2019-12-09 2019-12-09 Refill [facility] 1.2.840.114 [id number] Univers 00:00:00 00:00:00 Jorge Jauregui 350.1.13.10 it y of [place] 4.2.7.2.686 Matt as Professio [phone] [address] Office Building One 2019-11-26 2019-11-26 Refsilvio Howard [facility] 1.2.840.114 [id number] Univers 00:00:00 00:00:00 [facility] 350.1.13.10 it y of [place] 4.2.7.2.686 [place] as Professio [phone] [address] 2019-11-06 2019-11-06 Telephone Anita [facility] [id number] Univers 00:00:00 00:00:00 Jorge Godfrey 350.1.13.10 i ty [place] [phone] [address] 2019-11-06 2019-11-06 Orders Doctor JOSÉ 1.2.840.114 [id number] Univers 00:00:00 00:00:00 Only Unassigned, NESSA 350.1.13.10 ity of [place] [facility] 4.2.7.2.686 Matt as [phone] [address] 2019-11-04 2019-11-04 Refsilvio [facility] 1.2.840.114 [id number] Univers 00:00:00 00:00:00 [facility] 350.1.13.10 it y of [place] 4.2.7.2.686 [place] as Professio [phone] [address] Office [facility] 2019-10-22 2019-10-22 Outpatient Jung HOWARD [facility] [id number] Univers 08:00:00 08:00:00 JORGE [id number] ity of [facility] 2019-10-22 2019-10-22 Outpatient R ANITA [facility] [id number] Univers 08:00:00 08:00:00 JORGE ity [facility] 2019-10-15 2019-10-17 Urgent Provider, [facility] 1.2.840.114 [id number] Univers 13:25:12 08:16:04 Care Robyn [facility] 350.1.13.10 ity of [place] 4.2.7.2.686 [place] as Professio [phone] [address] Office Building [facility] 2019-10-15 2019-10-17 Urgent Provider, [facility] 1.2.027.500 [id number] 13:25:12 08:16:04 Care [facility] 350.1.13.10 Care [place] 4.2.7.2.686 Professio [phone] [place] [address] Office Building [facility] 2019-10-16 2019-10-16 Telephone [facility] [id number] Univers 00:00:00 00:00:00 Robyn [facility] 350.1.13.10 it y of [place] 4.2.7.2.686 [place] as Professio [phone] [address] Office [facility] 2019-10-16 2019-10-16 Telephone [facility] [id number] 00:00:00 00:00:00 Robyn Health 350.1.13.10 [place] 4.2.7.2.686 Professio [phone] [address] 2019-10-15 2019-10-15 Out[facility] [id number] Univers 15:22:21 23:59:00 ROBYN itaracelis [facility] 2019-10-15 2019-10-15 Hospital [facility] 1.2.840.114 [id number] Univers 15:22:00 23:59:00 Encounter Robyn Godfrey 350.1.13.10 ity of [place] [phone] [address] 2019-10-15 2019-10-15 Steward/Stewardess Second Gary, Gigi Lab Main [facility] 1.2.8 40.114 [id number] Univers 14:32:11 14:47:11 Visit Robyn [place] 350.1.13.10 ity of [place] [phone] [facility] 353 [facility] 2019-10-15 2019-10-15 Outpatient [facility] [id number] Univers 13:40:00 13:40:00 [id number] ity [facility] 2019-10-15 2019-10-15 Orders Doctor JOSÉ 1.2.840.114 [id number] Univers 00:00:00 00:00:00 Only Unassigned, NESSA 350.1.13.10 ity of [place] [facility] 4.2.7.2.686 Matt as [phone] [address] 2019-09-16 2019-09-16 Refsilvio Anita [facility] 1.2.840.114 [id number] Univers 00:00:00 00:00:00 Jorge Health 350.1.13.10 it y of [place] 4.2.7.2.686 [place] as Professio [phone] [address] Office [facility] 2019-07-30 2019-07-30 Refsilvio Howard [facility] 1.2.840.114 [id number] Univers 00:00:00 00:00:00 Jorge Health 350.1.13.10 it y of [place] 4.2.7.2.686 Matt as Professio [phone] [address] 2019-07-23 2019-07-23 Refsilvio [facility] 1.2.840.114 [id number] Univers 00:00:00 00:00:00 Jorge Health 350.1.13.10 it y of [place] 4.2.7.2.686 Matt as Professio [phone] [address] Office [facility] 2019-07-04 2019-07-04 Telephone [facility] [id number] Univers 00:00:00 00:00:00 Jorge Health 350.1.13.10 it y of [place] 4.2.7.2.686 Matt as Professio [phone] [address] Office [facility] 2019-07-02 2019-07-02 Telephone Anita [facility] [id number] Univers 00:00:00 00:00:00 Jorge Health 350.1.13.10 it y of [place] 4.2.7.2.686 Matt as Professio [phone] [address] Office [facility] 2019-06-21 2019-06-21 Tejinder [facility] 1.2.840.114 [id number] Univers 00:00:00 00:00:00 Jorge Health 350.1.13.10 it y of [place] 4.2.7.2.686 Matt as Professio [phone] [address] One 2019-01-31 2019-01-31 Outpatient [facility] [id number] Univers 00:00:00 00:00:00 DARIEL [id number] ity of [facility] 2019-01-24 2019-01-24 Tejinder [facility] 1.2.840.114 [id number] Univers 00:00:00 00:00:00 Jorge Health 350.1.13.10 it y of [place] 4.2.7.2.686 Matt as Professio [phone] [address] One 2018-12-26 2018-12-26 Ash [facility] [id number] Univers 00:00:00 00:00:00 Jorge [facility] 350.1.13.10 it y of [place] 4.2.7.2.686 Matt as Professio [phone] [address] One 2018-12-18 2018-12-18 Ash [facility] [id number] Univers 00:00:00 00:00:00 Jorge [facility] 350.1.13.10 it y of [place] 4.2.7.2.686 Matt as Professio [phone] [address] Office [facility] Results Test Description Test Time Test Comments Results Result Sour e Comments GA TIME OR 2020-09-28 These images do Universit y of (NON-REPORTABLE) 13:28:16 not require a [facility] diagnostic report. GA TIME OR 2020-09-28 These images do Universit y of (NON-REPORTABLE) 13:28:16 not require a [facility] diagnostic report. URINALYSIS 2019-10-15 22:29:00 Test Item Value Reference Range Interpretation Comme nts APPEARANCE (test code = Clear Clear 9974745255) COLOR (test code = 3083656460) Yellow Yellow PH (test code = 5784695274) 4.8-8.0 SP GRAVITY (test code = 1.003-1.030 9710436675) GLU U QUAL (test code = Normal Normal 9101300391) BLOOD (test code = 1867935668) Negative Negative KETONES (test code = 4165777669) Negative Negative PROTEIN (test code = 2887-8) Negative Negative UROBILIN (test code = 2.0 mg/dL Normal A 8427925113) BILIRUBIN (test code = Negative Negative 7031905588) NITRITE (test code = 1436293220) Negative Negative LEUK RAMONA (test code = Negative Negative 2898461498) RBC/HPF (test code = 6514932325) <1 See_Comment [Automated message] The system which Ornicept nerated this result transmit dione reference range: 0 - 3 HP F. The reference range was not used to interpret th is result as normal/abnormal . WBC/HPF (test code = 0910369530) See_Comment [Automated message] The system which [facility] nerated this result transmit dione reference range: 0 - 5 HP F. The reference range was not used to interpret th is result as normal/abnormal . BACTERIA (test code = Few Negative A 8479583858) MUCOUS (test code = 3716456214) Slight Negative LPF A SQ EPITH (test code = <1 HPF 5115842751) GRAN CASTS (test code = See_Comment [Au tomated message] The [id number]) system which [facility] nerated this result transmit dione reference range: <=1 LPF. The reference range was not used to interpret th is result as normal/abnormal . Lab Interpretation (test code = Abnormal 90868-3) [id number] 21:53:26CT Abdomen and Pelvis with oral contrast only. CLINICAL HISTORY: Abdominal mass, nonpulsatile. Severe left lower quadranttenderness. Abdominal hernia noted on exam. DOSE: Up-to-date CT equipment and radiation dose reduction techniques wereemployed. CTDIvol: 13.0 mGy. DLP: 649 mGy-cm. TECHNIQUE : Contig uous axial imaging from the level of the lung basesthrough the pubic symphysis was performed with oral contrast medium only.Coronal and sagittal reconstructions were obtained. Auto mA and/oriterative reconstruction were used to reduce radiation dose. FINDINGS: ?Comparison is made with previous CT scanof 11/26/2015. Lower lungs: Clear. Prominent left epicardial fat pad noted. No pleuraleffusion or pericardial effusion. No definite evidence of hiatal hernia. Liver, Gallbladder and Spleen: Gallbladder is contracted. No gallstonesdetected. No signs of acute cholecystitis. Biliary ducts and the pancreaticduct appear of normal size. Liver is 14.5 cm with showed undulating serosal surface and heterogeneouscoarse texture of the parenchyma, suggestive of chronic primary liverdisease. Spleen measures approximately 12.7 x 4.5 cm. Peritoneum: ?No free air or free fluid. No lymphadenopathy. Pancreas and Adrenals: ?Unremarkable pancreas and adrenal glands. Kidneys and Ureters: ?No visible calculi in the renal collecting systems. No hydroureter or hydronephrosis. Lateral surface of the right kidneyshowed 6.5mm lesion, unchanged. Left kidney showed 2.5 cm low- densitylesion near its upper pole, likely cysticand essentially unchanged. Vessels: Tortuous abdominal aorta with diffuse atherosclerosis of the aortaand iliac arteries. No abdominal aortic aneurysm. Retroperitoneum: No abnormal fluid.S mall lymph nodes are seen in theretrogastric region and near the right [place] of the hemidiaphragm, unchangedwhen compared with 2016 study. Additional subcentimeter lymph nodes arealso seen in the retroperitoneum surrounding the aorta but remainunchanged. Bowel: Normal appendix. Diverticulosis of the sigmoid and descending colonnoted without any acute changes of diverticulitis. Small bowel gas patternappears normal. Bladder ?and Reproductive Organs: Enlarged prostate with central zonecalcifications. No gross pathology in poorly distended urinary bladder. Bones: Lumbar levoscoliosis, multilevel degenerative disc disease and oldfracture of upper plate of L3 with loss of approximately 15% of its height. Soft tissues: Unremarkable. CONCLUSION:1. No acute intra- abdominal or pelvic abnormalities detected.2. Constipation, diverticulosis of sigmoid and descending colon notedwithout any acute changes of diverticulitis. Appendix is normal.3. Liver morphology suggestive of chronic primary liver disease, possiblycirrhosis. [facility], Radiant Results Inft User - 10/15/2019 4:54 PM CDTCT Abdomen and Pelvis with oral contrast only.CLINICAL HISTORY: Abdominal mass, nonpulsatile. Severe left lower quadranttenderness. Abdominal hernia noted on exam.DOSE: Up-to-date CT equipment and radiation dose reduction techniques wereemployed. CTDIvol: 13.0 mGy. DLP: 649 mGy-cm.TECHNIQUE : Contiguous axial imaging from the level of the lung basesthrough the pubic symphysis was performed with oral contrast medium only.Coronal and sagittal reconstructions were obtained. Auto mA and/oriterative reconstruction were used to reduce radiation dose.FINDINGS: Comparison is made with previous CT scan of 11/26/2015.Lower lungs: Clear. Prominent left epicardial fat pad noted. No pleuraleffusion or pericardial effusion. No definite evidence of hiatal hernia.Liver, Gallbladder and Spleen: Gallbladder is contracted. No gallstonesdetected. No signs of acute cholecystitis. Biliary ducts and the pancreaticduct appear of normal size.Liver is 14.5cm with showed undulating serosal surface and heterogeneouscoarse texture of the parenchyma, suggestive of chronic primary liverdisease. Spleen measures approximately 12.7 x 4.5 cm.Peritoneum: No freeair or free fluid. No lymphadenopathy.Pancreas and Adrenals: Unremarkable pancreas and adrenal glands.Kidneys and Ureters: No visible calculi in the renal collecting systems. No hydroureter or hydrone phrosis. Lateral surface of the right kidneyshowed 6.5 mm lesion, unchanged. Left kidney showed 2.5 cm low-densitylesion near its upper pole, likely cystic and essentially unchanged.Vessels: Tortuous abdominal aorta with diffuse atherosclerosis of the aortaand iliac arteries. No abdominal aortic aneury sm.Retroperitoneum: No abnormal fluid.S mall lymph nodes are seen in theretrogastric region and nearthe right [place] of the hemidiaphragm, unchangedwhen compared with 2016 study. Additional subcentimeter lymph nodes arealso seen in the retroperitoneum surrounding the aorta but remainunchanged.Bowel: Normal appendix. Diverticulosis of the sigmoid and descending colonnoted without any acute changes of diverticulitis. Small bowel gas patternappears normal.Bladder and Reproductive Organs: Enlarged prostate with central zonecalcifications. No gross pathology in poorly distended urinary bladder.Bones: Lumbar levoscoliosis, multilevel degenerative disc disease and oldfracture of upper plate of L3 with loss of approximately 15% of its height.Soft tissues: Unremarkable.CONCLUSION:1. No acute intra-abdominal or pelvic abnormalities detected.2. Constipation, diverticulosis of sigmoid and descending colon notedwithout any acute changes of diverticulitis. Appendix is normal.3. Liver morphology suggestive ofchronic primary liver disease, possiblycirrhosis.[facility]. METABOLIC PANEL ([id number])2019-10-15 21:26:00 Test Item Value Reference Range Interpretation Comments NA (test code = 141 mmol/L 135-145 4576440722) K (test code = 4.8 mmol/L 3.5-5 2833543745) CL (test code = 103 mmol/L 98-108 1016751671) CO2 TOTAL (test code = 30 mmol/L 23-31 4326682827) AGAP (test code = 2-16 1145538419) BUN (test code = 19 mg/dL 7-23 4909284467) GLUCOSE (test code = 100 mg/dL 70-110 6014662707) CREATININE (test code 1.25 mg/dL 0.6-1.25 = 4342864806) TOTAL BILI (test code 0.6 mg/dL 0.1-1.1 = 2306643013) CALCIUM (test code = 10.2 mg/dL 8.6-10.6 7221996889) T PROTEIN (test code = 7.0 g/dL 6.3-8.2 0497134154) ALBUMIN (test code = 4.4 g/dL 3.5-5 0771466810) ALK PHOS (test code = 77 U/L 34-122 7440877131) ALTv (test code = 29 U/L 5-50 1742-6) AST(SGOT) (test code = 25 U/L 13-40 0377069259) eGFR Calculation mL/min/1.73m2 (Non-) (test code = 1300667650) eGFR Calculation mL/min/1.73m2 () (test code = 3587696459) GORDO (test code = GORDO) Association of Glomerular Filtration Rate (GFR) and Staging of Kidney Disease* + -+ + ---+| GFR (mL/min/1.73 m2) ?| With Kidney Damage ?| ?Without Kidney Damage+ -------+ ------+ ---------+| ?>90 ?| ?Stage one ?| ? Normal ?+ --+ -+ ----+| ?60-89 ?| ?Stage two ?| ? Decreased GFR ? + -+ + ---+| ?30-59 ?| ?Stage three ?| ? Stage three ? + -+ + ---+| ?15-29 ?| ?Stage four ? | ? Stage four ?+ --+ -+ ----+| ?<15 (or dialysis) ? ?| ?Stage five ? | ? Stage five ?+ --+ -+ ----+ *Each stage assumes the associated GFR level has been in effect for at least three months. ?Stages 1 to 5, with or without kidney disease, indicate chronic kidney disease. Notes: Determination of stages one and two (with eGFR >59mL/min/1.73 m2) requires estimation of kidney damage for at least three months as defined by structural or functional abnormalities of the kidney, manifested by either:Pathological abnormalities or Markers of kidney damage (including abnormalities in the composition of the blood or urine or abnormalities in imaging tests). [facility] WITH [id number] 20:07:00 Test Item Value Reference Range Interpretation Comments WBC (test code = See_Comment [Automated 1290-2) message] The sy stem which generated this result transmitted reference range : 4.20 - 10.70 10*3/?L. The reference range was not used to interpret this result as normal/abnormal . RBC (test code = See_Comment [Automated 409-8) message] The sy stem which generated this result transmitted reference range : 4.26 - 5.52 10*6/?L. The reference range was not used to interpret this result as normal/abnormal . HGB (test code = 16.8 g/dL 12.2-16.4 H 718-7) HCT (test code = 51.0 % 38.4-49.3 H 4544-3) MCV (test code = 92.7 fL 81.7-95.6 787-2) MCH (test code = 30.5 pg 26.1-32.7 785-6) MCHC (test code = 32.9 g/dL 31.2-35 786-4) RDW-SD (test code = 48.7 fL 38.5-51.6 78317-4) RDW-CV (test code = 14.2 % 12.1-15.4 788-0) PLT (test code = See_Comment [Automated 777-3) message] The sy stem which generated this result transmitted reference range : 150 - 328 10*3/ ?L. The reference r lito was not used to interpret this result as normal/abnormal . MPV (test code = 10.1 fL 9.8-13 50731-9) NRBC/100 WBC (test See_Comment [Automat ed code = 0607113123) message] The system which generated this result transmitted reference range : 0.0 - 10.0 /100 WBCs. The refer ence range was not u sed to interpret th is result as normal/abnormal . NRBC x10^3 (test code <0.01 See_Comment [Auto mated = 0598414416) message] The s ystem which generated this result transmitted reference range : 10*3/?L. The reference range was not used to interpret this result as normal/abnormal . GRAN MAT (NEUT) % 67.9 % (test code = 770-8) IMM GRAN % (test code 0.50 % = 2867831904) LYMPH % (test code = 18.9 % 736-9) MONO % (test code = 8.3 % 5905-5) EOS % (test code = 3.6 % 713-8) BASO % (test code = 0.8 % 706-2) GRAN MAT x10^3(ANC) 6.72 10*3/uL 1.99-6.95 (test code = 1520843237) IMM GRAN x10^3 (test 0.05 10*3/uL 0-0.06 code = 3113689108) LYMPH x10^3 (test code 1.87 10*3/uL 1.09-3.23 = 731-0) MONO x10^3 (test code 0.82 10*3/uL 0.36-1.02 = 742-7) EOS x10^3 (test code = 0.36 10*3/uL 0.06-0.53 711-2) BASO x10^3 (test code 0.08 10*3/uL 0.01-0.09 = 704-7) Lab Interpretation Abnormal (test code = 40978-7) [facility]"
--- NOTE | 2021-10-12 11:13 | ER ---
Nurse's Notes [facility] Name: Jose Elias Ahn Age: 66 yrs Sex: Male : 1955 Arrival Date: 10/12/2021 Time: 09:54 Bed Waiting [facility] MD: Diagnosis: ED Course: 10/12 09:54 Patient arrived in ED. ds1 Administered Medications: No medications were administered Outcome: 11:12 Patient left the ED. ww Signatures: Amalia Chopra ds1 Birgit Baldwin, RN RN ww
== END 2021-10-12 11:12 | disposition left against medical advice (07) ==
LOC: ER 09:47
DX: Z02.9 Encounter for administrative examinations, unspecified (principal)

== ENCOUNTER 2022-06-04 07:41 | Emergency (ER) | payer OTHER ==
--- OUTSIDE RECORDS SUMMARY | 2022-06-04 07:51 | XMS REPORT | Continuity of Care Document ---
:1955 Author Organization [facility] t Address [address] [place] [address] Care Team Providers Name Role Phone DARIEL YEE Primary Care Physician Unavailable DARIEL YEE Attending Clinician Unavailable Pob, [facility] Main Attending Clinician Unavailable Dariel Yee MD Attending Clinician Doctor Unassigned, [place] Attending Clinician Unavailable ULYSSES BRAY Attending Clinician Unavailable Ulysses Bryant Attending Clinician Only, [facility] Test Attending Clinician Unavailable Jorge Howard MD Attending Clinician Omar Bradshaw MD Attending Clinician OMAR BRADSHAW Attending Clinician Unavailable JORGE HOWARD Attending Clinician Unavailable Provider, [facility] Attending Clinician Unavailable Robyn Llanos Attending Clinician ROBYN WESTFALL Attending Clinician Unavailable DARIEL YEE Admitting Clinician Unavailable Dariel Yee MD Admitting Clinician ROBYN WESTFALL Admitting Clinician Unavailable Payers Payer Name Policy Type Policy Number Effective Date Expiration Date Maria Luisa handy [facility] DUAL [id number] 2021 COMP HMO D SNP 00:00:00 [place] [id number] 2019 00:00:00 MEDICARE PART A [id number] 2019 \\T\\ B 00:00:00 [facility] DIAZ [id number] 2013 PLUS 00:00:00 Problems Condition Condition Condition Status Onset Resolution Last Treating Co mments Source Name Details Category Date Date Treatment Clinician Date Sepsis Sepsis Disease Active 2015- Univers 5-07 ity of 00:00: [place] 00 [facility] Branch Pain in Pain in Disease Active 2012-05 Univers joint, joint, 2-12 ity of multiple multiple 00:00: [place] sites sites 00 Medical Branch Cervicalgi Cervicalgi Disease Active 2012-05 U nivers a a 2-12 ity of 00:00: [place] 00 Medical Branch Lumbosacra Lumbosacra Disease Active 2012-05 U nivers l l 2-12 ity of spondylosi spondylosi [place] [facility] History of History of Disease Active 2012-05 U nivers alcoholism alcoholism 2-12 it y of 00:00: [place] 00 Medical Branch Hepatitis Hepatitis Disease Active 2012-05 Uni vers C C 2-12 [place] infection [place] [facility] Chronic Chronic Disease Active 2012-05 Univers back pain back pain 2-12 ity of 00:00: [place] 00 [facility] Branch Allergies, Adverse Reactions, Alerts Allergy Allergy Status Severity Reaction(s) Onset Inactive Treating Comm ents Source Name Type Date Date Clinician CODEINE DRUG Active Low N/V 2021-05 Univers INGREDI 2-14 ity of 00:00: [place] 00 [facility] Branch Codeine Propensi Active Nausea 2021-05 Univers ty to and/or 2-14 ity of adverse Vomiting 00:00: [place] reaction 00 Medical s to Branch drug NO KNOWN Drug Active Univers ALLERGIE Class ity of S [facility] Social History Social Habit Start Date Stop Date Quantity Comments Source Exposure to 2022-05-01 2022-05-11 Not sure University of SARS-CoV-2 (event) 00:00:00 11:14:[address] [facility] Cigarettes smoked 2022-05-11 2022-05-11 Univers ity of current (pack per 00:00:00 00:00:00 ) - Reported Branch Cigarette 2022-05-11 2022-05-11 University of pack-years 00:00:00 00:00:00 [place] [facility] Tobacco Comment 2022-05-11 2022-05-11 Started as a teen Un iversity of 00:00:00 00:00:00 then stopped and Oliver whitaker restarted 2 years Branch ago. Alcohol intake 2022-05-11 2022-05-11 0 /d University of 00:00:00 00:00:00 [place] [facility] Tobacco use and 2022-05-11 2022-05-11 Smokeless tobacco Un iversity of exposure 00:00:00 00:00:00 non-user [place] [facility] History SDOH 2019-03-15 2019-03-15 2 University o f Alcohol Frequency 00:00:00 00:00:00 [place] [facility] History SDOH 2019-03-15 2019-03-15 1 University o f Alcohol Std Drinks 00:00:00 00:00:00 [place] [facility] History SDOH 2019-03-15 2019-03-15 2 University o f Alcohol Binge 00:00:00 00:00:00 [place] [facility] History SDOH 2019-03-15 2019-03-15 5 University o f Social Connections 00:00:00 00:00:00 [place] [facility] Phone [facility] History SDOH 2019-03-15 2019-03-15 4 University o f Social Connections 00:00:00 00:00:00 [place] [facility] Get Together Branch History SDOH 2019-03-15 2019-03-15 1 University o f Social Connections 00:00:00 00:00:00 [place] [facility] Jain Branch History SDOH 2019-03-15 2019-03-15 1 University [...] 2 Univers ity of Worry 00:00:00 00:00:00 [place] [facility] History SDOH Food 2019-03-15 2019-03-15 2 Univers ity of Scarcity 00:00:00 00:00:00 [place] [facility] History SDOH 2019-03-15 2019-03-15 2 University o f Transport Med 00:00:00 00:00:00 [place] [facility] History SDOH 2019-03-15 2019-03-15 2 University o f Transport Non-Med 00:00:00 00:00:00 [place] [facility] Alcohol Comment 2019-03-15 2019-03-15 Occasionally Univers ity of 00:00:00 00:00:[address] [facility] History of tobacco 1999-05-29 Cigarette Smoker University of use 00:00:[address] [facility] Sex [birth year] Universit y of 00:00:00 00:00:[address] [facility] Smoking Status Start Date Stop Date Source Smokes tobacco daily 2022-05-11 00:00:[address] [facility] Former smoker 2020-10-09 00:00:00 2020-10-09 00:00:[address] [facility] Medications Ordered Filled Start Stop Current Ordering Indication Dosage Frequency Signature Comments Components Source Medication Medication Date Date Medication? Clinician (SIG) Name Name cephALEXin 2021- No [id number] 500mg Take 1 Univers 500 mg 10-13 [id number] capsule by ity of capsule 00:00: 04:59 mouth 4 [place] 00 :00 (four) Medical times Branch daily for 7 days. triamcinolo 2020- No PRN, Unive rs ne 09-28 Starting ity of acetonide 12:57: 16:01 09/28/20 [place] (KENALOG) 00 :02 at 0757, Medica l injection Until Mon Branc h 09/28/20 at 1101, Routine, Intra-op iohexoL 2020- No PRN, Univers (OMNIPAQUE 09-28 Starting ity of 350 BULK-50 12:57: 16:01 [facility] 09/28/20 [place] mL) 00 :02 at 0757, Medical injection Until Mon Branc h 09/28/20 at 1101, Routine, Intra-op lidocaine 2020- No PRN, Univers 1% 09-28 Starting ity of (XYLOCAINE) 12:56: 16:01 [facility] 09/28/20 [place] 10 mg/mL (1 00 :02 at 0756, Medi sushma %) Until Mon Branch injection 09/28/20 at 1101, Routine, Intra-op bupivacaine 2020- No PRN, Unive rs (preserv 09-28 Starting ity of free) 12:56: 16:01 [facility] 09/28/20 [place] (SENSORCAIN 00 :02 at 0756, Medi sushma [...] 1000mL at 42 Unive rs ringers IV 5-03 05-03 mL/hr, ity of infusion 12:30: 12:43 1,000 mL, [place] 1,000 mL 00 :00 IV Medical Infusion, Branch ONCE, 1 dose, 09/28/20 at 0730, Routine, DSU Pre-op KCL 10 mEq 2020-0 Yes TAKE 1 Unive rs tablet 6-08 TABLET BY ity of 00:00: MOUTH [place] EVERY DAY Medical Branch KCL 10 mEq 2020-0 Yes TAKE 1 Unive rs tablet 6-08 TABLET BY ity of 00:00: MOUTH [place] 00 EVERY DAY Medical Branch KCL 10 mEq 2020-0 Yes TAKE 1 Unive rs tablet 6-08 TABLET BY ity of 00:00: MOUTH [place] EVERY DAY Medical Branch KCL 10 mEq 2020-0 Yes TAKE 1 Unive rs tablet 6-08 TABLET BY ity of 00:00: MOUTH [place] EVERY DAY Medical Branch KCL 10 mEq 2020-0 Yes TAKE 1 Unive rs tablet 6-08 TABLET BY ity of 00:00: MOUTH [place] EVERY DAY Medical Branch KCL 10 mEq [...] TABLET BY ity of 00:00: MOUTH [place] EVERY DAY Medical Branch KCL 10 mEq [...] TABLET BY ity of 00:00: MOUTH [place] EVERY DAY Medical Branch KCL 10 mEq 2020-0 Yes TAKE 1 Unive rs tablet 6-08 TABLET BY ity of 00:00: MOUTH [place] 00 EVERY DAY Medical Branch KCL 10 mEq 2020-0 Yes TAKE 1 Unive rs tablet 6-08 TABLET BY ity of 00:00: MOUTH [place] EVERY DAY Medical Branch KCL 10 mEq 2020-0 Yes TAKE 1 Unive rs tablet 6-08 TABLET BY ity of 00:00: MOUTH [place] EVERY DAY Medical Branch KCL 10 mEq 2020-0 Yes TAKE 1 Unive rs tablet 6-08 TABLET BY ity of 00:00: MOUTH [place] EVERY DAY Medical Branch KCL 10 mEq 2020-0 Yes TAKE 1 Unive rs tablet 6-08 TABLET BY ity of 00:00: MOUTH [place] EVERY DAY Medical Branch KCL 10 mEq 2020-0 Yes TAKE 1 Unive rs tablet 6-08 TABLET BY ity of 00:00: MOUTH [place] EVERY DAY Medical Branch KCL 10 mEq 2020-0 Yes TAKE 1 Unive rs tablet 6-08 TABLET BY ity of 00:00: MOUTH [place] 00 EVERY DAY Medical Branch KCL 10 mEq 2020-0 Yes TAKE 1 Unive rs tablet 6-08 TABLET BY ity of 00:00: MOUTH [place] 00 EVERY DAY Medical Branch Nitrofurant 2020-0 2020- No [id number] 100mg Take 1 Univers oin&Nit. 5-21 05-29 capsule by ity of Macrocryst 00:00: 04:59 mouth 2 [place] (MACROBID) 00 :00 (two) Medical 100 mg times Branch capsule daily for 7 days. LISINOPRIL- 2020-0 Yes [id number] TAKE 1 Univers HYDROCHLORO 4-20 TABLET BY ity of THIAZIDE 00:00: MOUTH [place] 20-25 mg 00 EVERY DAY Medica l per tablet Branch KCL 10 mEq 2020-0 Yes TAKE 1 Unive rs tablet 4-20 TABLET BY ity of 00:00: MOUTH [place] 00 EVERY DAY Medical Branch LISINOPRIL- 2020-0 Yes [id number] TAKE 1 Univers HYDROCHLORO 4-20 TABLET BY ity of THIAZIDE 00:00: MOUTH [place] 20-25 mg 00 EVERY DAY Medica l per tablet Branch KCL 10 mEq 2020-0 Yes TAKE 1 Unive rs tablet 4-20 TABLET BY ity of 00:00: MOUTH [place] 00 EVERY DAY Medical Branch LISINOPRIL- 2020-0 Yes [id number] TAKE 1 Univers HYDROCHLORO 4-20 TABLET BY ity of THIAZIDE 00:00: MOUTH [place] 20-25 mg 00 EVERY DAY Medica l per tablet Branch KCL 10 mEq 2020-0 Yes TAKE 1 Unive rs tablet 4-20 TABLET BY ity of 00:00: MOUTH [place] 00 EVERY DAY Medical Branch LISINOPRIL- 2020-0 Yes [id number] TAKE 1 Univers HYDROCHLORO 4-20 TABLET BY ity of THIAZIDE 00:00: MOUTH [place] 20-25 mg 00 EVERY DAY Medica l per tablet Branch KCL 10 mEq 2020-0 Yes TAKE 1 Unive rs tablet 4-20 TABLET BY ity of 00:00: MOUTH [place] 00 EVERY DAY Medical Branch LISINOPRIL- 2020-0 Yes [id number] TAKE 1 Univers HYDROCHLORO 4-20 TABLET BY ity of THIAZIDE 00:00: MOUTH [place] 20-25 mg 00 EVERY DAY Medica l per tablet Branch KCL 10 mEq 2020-0 Yes TAKE 1 Unive rs tablet 4-20 TABLET BY ity of 00:00: MOUTH [place] 00 EVERY DAY Medical Branch LISINOPRIL- 2020-0 Yes [id number] TAKE 1 Univers HYDROCHLORO 4-20 TABLET BY ity of THIAZIDE 00:00: MOUTH [place] 20-25 mg 00 EVERY DAY Medica l per tablet Branch KCL 10 mEq 2020-0 Yes TAKE 1 Unive rs tablet 4-20 TABLET BY ity of 00:00: MOUTH [place] 00 EVERY DAY Medical Branch LISINOPRIL- 2020-0 Yes [id number] TAKE 1 Univers HYDROCHLORO 4-20 TABLET BY ity of THIAZIDE 00:00: MOUTH [place] 20-25 mg 00 EVERY DAY Medica l per tablet Branch KCL 10 mEq 2020-0 Yes TAKE 1 Unive rs tablet 4-20 TABLET BY ity of 00:00: MOUTH [place] 00 EVERY DAY Medical Branch LISINOPRIL- 2020-0 Yes [id number] TAKE 1 Univers HYDROCHLORO 4-20 TABLET BY ity of THIAZIDE 00:00: MOUTH [place] 20-25 mg 00 EVERY DAY Medica l per tablet Branch KCL 10 mEq 2020-0 Yes TAKE 1 Unive rs tablet 4-20 TABLET BY ity of 00:00: MOUTH [place] 00 EVERY DAY Medical Branch LISINOPRIL- 2020-0 Yes [id number] TAKE 1 Univers HYDROCHLORO 4-20 TABLET BY ity of THIAZIDE 00:00: MOUTH [place] 20-25 mg 00 EVERY DAY Medica l per tablet Branch LISINOPRIL- 2020-0 Yes [id number] TAKE 1 Univers HYDROCHLORO 4-20 TABLET BY ity of THIAZIDE 00:00: MOUTH [place] 20-25 mg 00 EVERY DAY Medica l per tablet Branch LISINOPRIL- 2020-0 Yes [id number] TAKE 1 Univers HYDROCHLORO 4-20 TABLET BY ity of THIAZIDE 00:00: MOUTH [place] 20-25 mg 00 EVERY DAY Medica l per tablet Branch LISINOPRIL- 2020-0 Yes [id number] TAKE 1 Univers HYDROCHLORO 4-20 TABLET BY ity of THIAZIDE 00:00: MOUTH [place] 20-25 mg 00 EVERY DAY Medica l per tablet Branch LISINOPRIL- 2020-0 Yes [id number] TAKE 1 Univers HYDROCHLORO 4-20 TABLET BY ity of THIAZIDE 00:00: MOUTH [place] 20-25 mg 00 EVERY DAY Medica l per tablet Branch LISINOPRIL- 2020-0 Yes [id number] TAKE 1 Univers HYDROCHLORO 4-20 TABLET BY ity of THIAZIDE 00:00: MOUTH [place] 20-25 mg 00 EVERY DAY Medica l per tablet Branch LISINOPRIL- 2020-0 Yes [id number] TAKE 1 Univers HYDROCHLORO 4-20 TABLET BY ity of THIAZIDE 00:00: MOUTH [place] 20-25 mg 00 EVERY DAY Medica l per tablet Branch LISINOPRIL- 2020-0 Yes [id number] TAKE 1 Univers HYDROCHLORO 4-20 TABLET BY ity of THIAZIDE 00:00: MOUTH [place] 20-25 mg 00 EVERY DAY Medica l per tablet Branch LISINOPRIL- 2020-0 Yes [id number] TAKE 1 Univers HYDROCHLORO 4-20 TABLET BY ity of THIAZIDE 00:00: MOUTH [place] 20-25 mg 00 EVERY DAY Medica l per tablet Branch LISINOPRIL- 2020-0 Yes [id number] TAKE 1 Univers HYDROCHLORO 4-20 TABLET BY ity of THIAZIDE 00:00: MOUTH [place] 20-25 mg 00 EVERY DAY Medica l per tablet Branch LISINOPRIL- 2020-0 Yes [id number] TAKE 1 Univers HYDROCHLORO 4-20 TABLET BY ity of THIAZIDE 00:00: MOUTH [place] 20-25 mg 00 EVERY DAY Medica l per tablet Branch LISINOPRIL- 2020-0 Yes [id number] TAKE 1 Univers HYDROCHLORO 4-20 TABLET BY ity of THIAZIDE 00:00: MOUTH [place] 20-25 mg 00 EVERY DAY Medica l per tablet Branch LISINOPRIL- 2020-0 Yes [id number] TAKE 1 Univers HYDROCHLORO 4-20 TABLET BY ity of THIAZIDE 00:00: MOUTH [place] 20-25 mg 00 EVERY DAY Medica l per tablet Branch LISINOPRIL- 2020-0 Yes [id number] TAKE 1 Univers HYDROCHLORO 4-20 TABLET BY ity of THIAZIDE 00:00: MOUTH [place] 20-25 mg 00 EVERY DAY Medica l per tablet Branch LISINOPRIL- 2020-0 Yes [id number] TAKE 1 Univers HYDROCHLORO 4-20 TABLET BY ity of THIAZIDE 00:00: MOUTH [place] 20-25 mg 00 EVERY DAY Medica l per tablet Branch LISINOPRIL- 2019-0 Yes [id number] TAKE 1 Univers HYDROCHLORO 4-20 TABLET BY ity of THIAZIDE 00:00: MOUTH [place] 20-25 mg 00 EVERY DAY Medica l per tablet Branch LISINOPRIL- 2019-0 Yes [id number] TAKE 1 Univers HYDROCHLORO 4-20 TABLET BY ity of THIAZIDE 00:00: MOUTH [place] 20-25 mg 00 EVERY DAY Medica l per tablet Branch LISINOPRIL- 2020-0 Yes [id number] TAKE 1 Univers HYDROCHLORO 4-20 TABLET BY ity of THIAZIDE 00:00: MOUTH [place] 20-25 mg 00 EVERY DAY Medica l per tablet Branch LISINOPRIL- 2020-0 Yes [id number] TAKE 1 Univers HYDROCHLORO 4-20 TABLET BY ity of THIAZIDE 00:00: MOUTH [place] 20-25 mg 00 EVERY DAY Medica l per tablet Branch LISINOPRIL- 2020-0 Yes [id number] TAKE 1 Univers HYDROCHLORO 4-20 TABLET BY ity of THIAZIDE 00:00: MOUTH [place] 20-25 mg 00 EVERY DAY Medica l per tablet Branch LISINOPRIL- 2020-0 Yes [id number] TAKE 1 Univers HYDROCHLORO 4-20 TABLET BY ity of THIAZIDE 00:00: MOUTH [place] 20-25 mg 00 EVERY DAY Medica l per tablet Branch LISINOPRIL- 2020-0 Yes [id number] TAKE 1 Univers HYDROCHLORO 4-20 TABLET BY ity of THIAZIDE 00:00: MOUTH [place] 20-25 mg 00 EVERY DAY Medica l per tablet Branch LISINOPRIL- 2020-0 Yes [id number] TAKE 1 Univers HYDROCHLORO 4-20 TABLET BY ity of THIAZIDE 00:00: MOUTH [place] 20-25 mg 00 EVERY DAY Medica l per tablet Branch KCL 10 mEq 2019-0 2020- No TAKE 1 Univ ers tablet [...] 00 :00 EVERY DAY Medical Branch LISINOPRIL- 2019-0 Yes [id number] TAKE 1 Univers HYDROCHLORO 2-25 TABLET BY ity of THIAZIDE 00:00: MOUTH [place] 20-25 mg 00 EVERY DAY Medica l per tablet Branch LISINOPRIL- 2019-0 Yes [id number] TAKE 1 Univers HYDROCHLORO 2-25 TABLET BY ity of THIAZIDE 00:00: MOUTH [place] 20-25 mg 00 EVERY DAY Medica l per tablet Branch LISINOPRIL- 2020-0 2020- No [id number] TAKE 1 Univers HYDROCHLORO 2-25 04-20 TABLET BY it y of THIAZIDE 00:00: 00:00 MOUTH [place] 20-25 mg 00 :00 EVERY DAY Medica l per tablet Branch KCL 10 mEq 2019-0 Yes TAKE 1 Unive rs tablet 1-24 TABLET BY ity of 00:00: MOUTH [place] 00 EVERY DAY Medical Branch LISINOPRIL- 2020-0 Yes [id number] TAKE 1 Univers HYDROCHLORO 1-24 TABLET BY ity of THIAZIDE 00:00: MOUTH [place] 20-25 mg 00 EVERY DAY Medica l per tablet Branch KCL 10 mEq 2020-0 Yes TAKE 1 Unive rs tablet 1-24 TABLET BY ity of 00:00: MOUTH [place] 00 EVERY DAY Medical Branch LISINOPRIL- 2020-0 Yes [id number] TAKE 1 Univers HYDROCHLORO 1-24 TABLET BY ity of THIAZIDE 00:00: MOUTH [place] 20-25 mg 00 EVERY DAY Medica l per tablet Branch KCL 10 mEq 2020-0 Yes TAKE 1 Unive rs tablet 1-24 TABLET BY ity of 00:00: MOUTH [place] 00 EVERY DAY Medical Branch LISINOPRIL- 2020-0 Yes [id number] TAKE 1 Univers HYDROCHLORO 1-24 TABLET BY ity of THIAZIDE 00:00: MOUTH [place] 20-25 mg 00 EVERY DAY Medica l per tablet Branch KCL 10 mEq Yes TAKE 1 Unive rs tablet 1-24 TABLET BY ity of 00:00: MOUTH [place] 00 EVERY DAY Medical Branch KCL 10 mEq 2020- No TAKE 1 Univ ers tablet 1-24 03-03 TABLET BY ity of 00:00: 00:00 MOUTH [place] 00 :00 EVERY DAY Medical Branch LISINOPRIL- 2020- No [id number] TAKE 1 Univers HYDROCHLORO 1-24 02-25 TABLET BY it y of THIAZIDE 00:00: 00:00 MOUTH [place] 20-25 mg 00 :00 EVERY DAY Medica l per tablet Branch LISINOPRIL- 2018-05 2020- No [id number] TAKE 1 Univers HYDROCHLORO 2-27 01-24 TABLET BY it y of THIAZIDE 00:00: 00:00 MOUTH [place] 20-25 mg 00 :00 EVERY DAY Medica l per tablet Branch KCL 10 mEq 2018-05 2020- No TAKE 1 Univ ers tablet 0-02 01-24 TABLET BY ity of 00:00: 00:00 MOUTH [place] 00 :00 EVERY DAY Medical Branch LISINOPRIL- Yes [id number] TAKE 1 Univers HYDROCHLORO 8-29 TABLET BY ity of THIAZIDE 00:00: MOUTH [place] 20-25 mg 00 EVERY DAY Medica l per tablet Branch METFORMIN Yes TAKE 1 Univer s 500 mg [...] TWICE Medical DAILY Branch KCL 10 mEq Yes TAKE 1 Unive rs tablet 5-31 TABLET BY ity of 00:00: MOUTH [place] EVERY DAY Medical Branch AMITRIPTYLI Yes 10mg TAKE 1 Univ ers NE 10 mg 5-31 TABLET BY ity of tablet 00:00: MOUTH AT [place] BEDTIME Medical Branch NEXIUM 40 Yes TAKE 1 Univer s mg capsule 5-31 CAPSULE BY ity of 00:00: MOUTH [place] EVERY DAY Medical Branch KCL 10 mEq Yes TAKE 1 Unive rs tablet 5-31 TABLET BY ity of 00:00: MOUTH [place] EVERY DAY Medical Branch AMITRIPTYLI Yes 10mg TAKE 1 Univ ers NE 10 mg 5-31 TABLET BY ity of tablet 00:00: MOUTH AT [place] BEDTIME Medical Branch NEXIUM 40 Yes TAKE 1 Univer s mg capsule 5-31 CAPSULE BY ity of 00:00: MOUTH [place] EVERY DAY Medical Branch AMITRIPTYLI Yes 10mg TAKE 1 Univ ers NE 10 mg 5-31 TABLET BY ity of tablet 00:00: MOUTH AT [place] BEDTIME Medical Branch NEXIUM 40 Yes TAKE 1 Univer s mg capsule 5-31 CAPSULE BY ity of 00:00: MOUTH [place] EVERY DAY Medical Branch AMITRIPTYLI Yes 10mg TAKE 1 Univ ers NE 10 mg 5-31 TABLET BY ity of tablet 00:00: MOUTH AT [place] BEDTIME Medical Branch NEXIUM 40 Yes TAKE 1 Univer s mg capsule 5-31 CAPSULE BY ity of 00:00: MOUTH [place] EVERY DAY Medical Branch AMITRIPTYLI 0 Yes 10mg TAKE 1 Univ ers NE 10 mg 5-31 TABLET BY ity of tablet 00:00: MOUTH AT [place] BEDTIME Medical Branch NEXIUM 40 Yes TAKE 1 Univer s mg capsule 5-31 CAPSULE BY ity of 00:00: MOUTH [place] DAY Medical Branch AMITRIPTYLI 2019-0 Yes 10mg TAKE 1 Univ ers NE 10 mg 5-31 TABLET BY ity of tablet 00:00: MOUTH AT [place] BEDTIME Medical Branch NEXIUM 40 2019-0 Yes TAKE 1 Univer s mg capsule 5-31 CAPSULE BY ity of 00:00: MOUTH [place] EVERY DAY Medical Branch AMITRIPTYLI 2019-0 Yes 10mg TAKE 1 Univ ers NE 10 mg 5-31 TABLET BY ity of tablet 00:00: MOUTH AT [place] BEDTIME Medical Branch NEXIUM 40 2019-0 Yes TAKE 1 Univer s mg capsule 5-31 CAPSULE BY ity of 00:00: MOUTH [place] EVERY DAY Medical Branch AMITRIPTYLI 2019-0 Yes 10mg TAKE 1 Univ ers NE 10 mg 5-31 TABLET BY ity of tablet 00:00: MOUTH AT [place] BEDTIME Medical Branch NEXIUM 40 0 Yes TAKE 1 Univer s mg capsule 5-31 CAPSULE BY ity of 00:00: MOUTH [place] DAY Medical Branch AMITRIPTYLI 2019-0 Yes 10mg TAKE 1 Univ ers NE 10 mg 5-31 TABLET BY ity of tablet 00:00: MOUTH AT [place] BEDTIME Medical Branch NEXIUM 40 2018-0 Yes TAKE 1 Univer s mg capsule 5-31 CAPSULE BY ity of 00:00: MOUTH [place] EVERY DAY Medical Branch AMITRIPTYLI 2019-0 Yes 10mg TAKE 1 Univ ers [place] 10 mg 5-31 TABLET BY ity of tablet 00:00: MOUTH AT [place] BEDTIME Medical Branch NEXIUM 40 2019-0 Yes TAKE 1 Univer s mg capsule 5-31 CAPSULE BY ity of 00:00: MOUTH [place] DAY Medical Branch AMITRIPTYLI 2019-0 Yes 10mg TAKE 1 Univ ers NE 10 mg 5-31 TABLET BY ity of tablet 00:00: MOUTH AT [place] BEDTIME Medical Branch NEXIUM 40 2019-0 Yes TAKE 1 Univer s mg capsule 5-31 CAPSULE BY ity of 00:00: MOUTH [place] EVERY DAY Medical Branch AMITRIPTYLI 2019-0 Yes 10mg TAKE 1 Univ ers [place] 10 mg 5-31 TABLET BY ity of tablet 00:00: MOUTH AT [place] BEDTIME Medical Branch NEXIUM 40 2019-0 Yes TAKE 1 Univer s mg capsule 5-31 CAPSULE BY ity of 00:00: MOUTH [place] DAY Medical Branch AMITRIPTYLI 2019-0 Yes 10mg TAKE 1 Univ ers NE 10 mg 5-31 TABLET BY ity of tablet 00:00: MOUTH AT [place] BEDTIME Medical Branch NEXIUM 40 2019-0 Yes TAKE 1 Univer s mg capsule 5-31 CAPSULE BY ity of 00:00: MOUTH [place] EVERY DAY Medical Branch AMITRIPTYLI 2019-0 Yes 10mg TAKE 1 Univ ers [place] 10 mg 5-31 TABLET BY ity of tablet 00:00: MOUTH AT [place] BEDTIME Medical Branch NEXIUM 40 2018-0 Yes TAKE 1 Univer s mg capsule 5-31 CAPSULE BY ity of 00:00: MOUTH [place] EVERY DAY Medical Branch AMITRIPTYLI 2019-0 Yes 10mg TAKE 1 Univ ers NE 10 mg 5-31 TABLET BY ity of tablet 00:00: MOUTH AT [place] BEDTIME Medical Branch NEXIUM 40 2018-0 Yes TAKE 1 Univer s mg capsule 5-31 CAPSULE BY ity of 00:00: MOUTH [place] EVERY DAY Medical Branch AMITRIPTYLI 2019-0 Yes 10mg TAKE 1 Univ ers NE 10 mg 5-31 TABLET BY ity of tablet 00:00: MOUTH AT [place] BEDTIME Medical Branch NEXIUM 40 2018-0 Yes TAKE 1 Univer s mg capsule 5-31 CAPSULE BY ity of 00:00: MOUTH [place] EVERY DAY Medical Branch AMITRIPTYLI 2019-0 Yes 10mg TAKE 1 Univ ers NE 10 mg 5-31 TABLET BY ity of tablet 00:00: MOUTH AT [place] BEDTIME Medical Branch NEXIUM 40 2019-0 Yes TAKE 1 Univer s mg capsule 5-31 CAPSULE BY ity of 00:00: MOUTH [place] EVERY DAY Medical Branch AMITRIPTYLI 2019-0 Yes 10mg TAKE 1 Univ ers NE 10 mg 5-31 TABLET BY ity of tablet 00:00: MOUTH AT [place] BEDTIME Medical Branch NEXIUM 40 2019-0 Yes TAKE 1 Univer s mg capsule 5-31 CAPSULE BY ity of 00:00: MOUTH [place] EVERY DAY Medical Branch AMITRIPTYLI 2019-0 Yes 10mg TAKE 1 Univ ers [place] 10 mg 5-31 TABLET BY ity of tablet 00:00: MOUTH AT [place] BEDTIME Medical Branch NEXIUM 40 2019-0 Yes TAKE 1 Univer s mg capsule 5-31 CAPSULE BY ity of 00:00: MOUTH [place] DAY Medical Branch AMITRIPTYLI 2019-0 Yes 10mg TAKE 1 Univ ers NE 10 mg 5-31 TABLET BY ity of tablet 00:00: MOUTH AT [place] BEDTIME Medical Branch NEXIUM 40 2019-0 Yes TAKE 1 Univer s mg capsule 5-31 CAPSULE BY ity of 00:00: MOUTH [place] EVERY DAY Medical Branch AMITRIPTYLI 2019-0 Yes 10mg TAKE 1 Univ ers [place] 10 mg 5-31 TABLET BY ity of tablet 00:00: MOUTH AT [place] BEDTIME Medical Branch NEXIUM 40 2019-0 Yes TAKE 1 Univer s mg capsule 5-31 CAPSULE BY ity of 00:00: MOUTH [place] EVERY DAY Medical Branch AMITRIPTYLI 2019-0 Yes 10mg TAKE 1 Univ ers [place] 10 mg 5-31 TABLET BY ity of tablet 00:00: MOUTH AT [place] BEDTIME Medical Branch AMITRIPTYLI 2019-0 Yes 10mg TAKE 1 Univ ers [place] 10 mg 5-31 TABLET BY ity of tablet 00:00: MOUTH AT [place] BEDTIME Medical Branch AMITRIPTYLI 2019-0 Yes 10mg TAKE 1 Univ ers [place] 10 mg 5-31 TABLET BY ity of tablet 00:00: MOUTH AT [place] BEDTIME Medical Branch AMITRIPTYLI 2019-0 Yes 10mg TAKE 1 Univ ers [place] 10 mg 5-31 TABLET BY ity of tablet 00:00: [facility] [place] [facility] AM[facility]-0 Yes 10mg TAKE 1 Univ ers NE 10 mg 5-31 TABLET BY ity of tablet 00:00: MOUTH AT [place] BEDTIME Medical Branch AMITRIPTYLI 2019-0 Yes 10mg TAKE 1 Univ ers [place] 10 mg 5-31 TABLET BY ity of tablet 00:00: MOUTH AT [place] BEDTIME Medical Branch AMITRIPTYLI 2019-0 Yes 10mg TAKE 1 Univ ers [place] 10 mg 5-31 TABLET BY ity of tablet 00:00: MOUTH AT [place] BEDTIME Medical Branch AMITRIPTYLI 2019-0 Yes 10mg TAKE 1 Univ ers [place] 10 mg 5-31 TABLET BY ity of tablet 00:00: MOUTH AT [place] BEDTIME Medical Branch AMITRIPTYLI 2019-0 Yes 10mg TAKE 1 Univ ers [place] 10 mg 5-31 TABLET BY ity of tablet 00:00: MOUTH AT [place] BEDTIME Medical Branch AMITRIPTYLI 2019-0 Yes 10mg TAKE 1 Univ ers [place] 10 mg 5-31 TABLET BY ity of tablet 00:00: MOUTH AT [place] BEDTIME Medical Branch AMITRIPTYLI [id number] Yes 10mg TAKE 1 Univ ers [place] 10 mg 5-31 TABLET BY ity of tablet 00:00: MOUTH AT [place] BEDTIME Medical Branch KCL 10 mEq 0 Yes TAKE 1 Unive rs tablet 5-31 TABLET BY ity of 00:00: MOUTH [place] EVERY DAY Medical Branch AMITRIPTYLI [id number] Yes 10mg TAKE 1 Univ ers [place] 10 mg 5-31 TABLET BY ity of tablet 00:00: MOUTH AT [place] BEDTIME Medical Branch AMITRIPTYLI 0 Yes 10mg TAKE 1 Univ ers [place] 10 mg 5-31 TABLET BY ity [facility] tablet 00:00[facility] [place] [facility] NEX[facility] 40 0 Yes TAKE 1 Univer s mg capsule 5-31 CAPSULE BY ity of 00:00: MOUTH [place] EVERY DAY Medical Branch AMITRIPTYLI [id number] Yes 10mg TAKE 1 [facility] ers [place] 10 mg 5-31 TABLET BY ity of tablet 00:00: MOUTH AT [place] BEDTIME Medical Branch AMITRIPTYLI 2019-0 Yes 10mg TAKE 1 [facility] [place] 10 mg 5-31 TABLET BY ity of tablet 00:00: MOUTH AT [place] [facility] Medical Branch AMITRIPTYLI [id number] Yes 10mg TAKE 1 [facility] ers [place] 10 mg 5-31 TABLET BY ity of tablet 00:00: MOUTH AT [place] BEDTIME Medical Branch AMITRIPTYLI 2019-0 Yes 10mg TAKE 1 [facility] ers [place] 10 mg 5-31 TABLET BY ity of tablet 00:00: MOUTH AT [place] BEDTIME Medical Branch AMITRIPTYLI 2019-0 Yes 10mg TAKE 1 [facility] ers [place] 10 mg 5-31 TABLET BY ity of tablet 00:00: MOUTH AT [place] [facility] Medical Branch KCL 10 mEq 2018-0 Yes TAKE 1 Unive rs tablet 5-31 TABLET BY ity of 00:00: MOUTH [place] EVERY DAY Medical Branch AMITRIPTYLI [id number] Yes 10mg TAKE 1 [facility] ers [place] 10 mg 5-31 TABLET BY ity of tablet 00:00: MOUTH AT [place] 00 BEDTIME Medical Branch NEXIUM 40 2019-0 Yes TAKE 1 Univer s mg capsule 10-26 CAPSULE BY ity of 00:00: MOUTH [place] 00 EVERY DAY Medical Branch NEXIUM 40 2019-0 2020- No TAKE 1 Unive rs mg capsule 10-26- CAPSULE BY it y of 00:00: 00:00 MOUTH [place] 00 :00 EVERY DAY Medical Branch NEXIUM 40 2019-0 2020- No TAKE 1 Unive rs mg capsule 10-26- CAPSULE BY it y of 00:00: 00:00 MOUTH [place] 00 :00 EVERY DAY Medical Branch codeine-gua 2019-0 Yes [id number] 5mL Take 5 mL Univers ifenesin 4-09 by mouth ity of (CHERATUSSI 00:00: every 4 [place] N AC) 00 (four) Medical 10-100 mg/5 hours as Bran ch mL solution needed for Cough. codeine-gua 2018-0 Yes [id number] 5mL Take 5 mL Univers ifenesin 4-09 by mouth ity of (CHERATUSSI 00:00: every 4 [place] AC) 00 (four) Medical 10-100 mg/5 hours as Bran ch mL solution needed for Cough. codeine-gua 2018- Yes [id number] 5mL Take 5 mL Univers ifenesin 4-09 by mouth ity of (CHERATUSSI 00:00: every 4 [place] AC) 00 (four) Medical 10-100 mg/5 hours as Bran ch mL solution needed for Cough. codeine-gua 2018-0 Yes [id number] 5mL Take 5 mL Univers ifenesin 4-09 by mouth ity of (CHERATUSSI 00:00: every 4 [place] AC) 00 (four) Medical 10-100 mg/5 hours as Bran ch mL solution needed for Cough. codeine-gua 2019-0 Yes [id number] 5mL Take 5 mL Univers ifenesin 4-09 by mouth ity of (CHERATUSSI 00:00: every 4 [place] AC) 00 (four) Medical 10-100 mg/5 hours as Bran ch mL solution needed for Cough. codeine-gua 2018-0 Yes [id number] 5mL Take 5 mL Univers ifenesin 4-09 by mouth ity of (CHERATUSSI 00:00: every 4 [place] AC) 00 (four) Medical 10-100 mg/5 hours as Bran ch mL solution needed for Cough. codeine-gua 2018-0 Yes [id number] 5mL Take 5 mL Univers ifenesin 4-09 by mouth ity of (CHERATUSSI 00:00: every 4 [place] AC) 00 (four) Medical 10-100 mg/5 hours as Bran ch mL solution needed for Cough. codeine-gua 0 Yes [id number] 5mL Take 5 mL Univers ifenesin 4-09 by mouth ity of (CHERATUSSI 00:00: every 4 [place] AC) 00 (four) Medical 10-100 mg/5 hours as Bran ch mL solution needed for Cough. codeine-gua 0 Yes [id number] 5mL Take 5 mL Univers ifenesin 4-09 by mouth ity of (CHERATUSSI 00:00: every 4 [place] AC) 00 (four) Medical 10-100 mg/5 hours as Bran ch mL solution needed for Cough. codeine-gua Yes [id number] 5mL Take 5 mL Univers ifenesin 4-09 by mouth ity of (CHERATUSSI 00:00: every 4 [place] AC) 00 (four) Medical 10-100 mg/5 hours as Bran ch mL solution needed for Cough. codeine-gua 0 Yes [id number] 5mL Take 5 mL Univers ifenesin 4-09 by mouth ity of (CHERATUSSI 00:00: every 4 [place] AC) 00 (four) Medical 10-100 mg/5 hours as Bran ch mL solution needed for Cough. codeine-gua 0 Yes [id number] 5mL Take 5 mL Univers ifenesin 4-09 by mouth ity of (CHERATUSSI 00:00: every 4 [place] AC) 00 (four) Medical 10-100 mg/5 hours as Bran ch mL solution needed for Cough. codeine-gua 0 Yes [id number] 5mL Take 5 mL Univers ifenesin 4-09 by mouth ity of (CHERATUSSI 00:00: every 4 [place] AC) 00 (four) Medical 10-100 mg/5 hours as Bran ch mL solution needed for Cough. codeine-gua Yes [id number] 5mL Take 5 mL Univers ifenesin 4-09 by mouth ity of (CHERATUSSI 00:00: every 4 [place] AC) 00 (four) Medical 10-100 mg/5 hours as Bran ch mL solution needed for Cough. codeine-gua 0 Yes [id number] 5mL Take 5 mL Univers ifenesin 4-09 by mouth ity of (CHERATUSSI 00:00: every 4 [place] AC) 00 (four) Medical 10-100 mg/5 hours as Bran ch mL solution needed for Cough. codeine-gua 0 Yes [id number] 5mL Take 5 mL Univers ifenesin 4-09 by mouth ity of (CHERATUSSI 00:00: every 4 [place] AC) 00 (four) Medical 10-100 mg/5 hours as Bran ch mL solution needed for Cough. codeine-gua 0 Yes [id number] 5mL Take 5 mL Univers ifenesin 4-09 by mouth ity of (CHERATUSSI 00:00: every 4 [place] AC) 00 (four) Medical 10-100 mg/5 hours as Bran ch mL solution needed for Cough. codeine-gua Yes [id number] 5mL Take 5 mL Univers ifenesin 4-09 by mouth ity of (CHERATUSSI 00:00: every 4 [place] AC) 00 (four) Medical 10-100 mg/5 hours as Bran ch mL solution needed for Cough. codeine-gua 0 Yes [id number] 5mL Take 5 mL Univers ifenesin 4-09 by mouth ity of (CHERATUSSI 00:00: every 4 [place] AC) 00 (four) Medical 10-100 mg/5 hours as Bran ch mL solution needed for Cough. codeine-gua 0 Yes [id number] 5mL Take 5 mL Univers ifenesin 4-09 by mouth ity of (CHERATUSSI 00:00: every 4 [place] AC) 00 (four) Medical 10-100 mg/5 hours as Bran ch mL solution needed for Cough. codeine-gua 0 Yes [id number] 5mL Take 5 mL Univers ifenesin 4-09 by mouth ity of (CHERATUSSI 00:00: every 4 [place] AC) 00 (four) Medical 10-100 mg/5 hours as Bran ch mL solution needed for Cough. codeine-gua 2019-0 Yes [id number] 5mL Take 5 mL Univers ifenesin 4- by mouth ity of (CHERATUSSI 00:00: every 4 [place] N AC) 00 (four) Medical 10-100 mg/5 hours as Bran ch mL solution needed for Cough. codeine-gua Yes [id number] 5mL Take 5 mL Univers ifenesin - by mouth ity of (CHERATUSSI 00:00: every 4 [place] N AC) 00 (four) Medical 10-100 mg/5 hours as Bran ch mL solution needed for Cough. codeine-gua 2020- No [id number] 5mL Take 5 mL Univers ifenesin 09-04- by mouth ity of (CHERATUSSI 00:00: 00:00 every 4 [place] N AC) 00 :00 (four) Medical 10-100 mg/5 hours as Bran ch mL solution needed for Cough. codeine-gua 2020- No [id number] 5mL Take 5 mL Univers ifenesin 09-04- by mouth ity of (CHERATUSSI 00:00: 00:00 every 4 [place] N AC) 00 :00 (four) Medical 10-100 mg/5 hours as Bran ch mL solution needed for Cough. DILTIAZEM Yes TAKE 1 Univer s 60 mg 3-08 TABLET BY ity of tablet 00:00: MOUTH WITH [place] PALPITATIO Medical N AND Branch TACHYCARDI A DILTIAZEM Yes TAKE 1 Univer s 60 mg 3-08 TABLET BY ity of tablet 00:00: MOUTH WITH [place] PALPITATIO Medical N AND Branch TACHYCARDI A DILTIAZEM 2018-0 Yes TAKE 1 Univer s 60 mg 3-08 TABLET BY ity of tablet 00:00: MOUTH WITH [place] PALPITATIO Medical N AND Branch TACHYCARDI A DILTIAZEM 2018-0 Yes TAKE 1 Univer s 60 mg 3-08 TABLET BY ity of tablet 00:00: MOUTH WITH [place] PALPITATIO Medical N AND Branch TACHYCARDI A DILTIAZEM 2018-0 Yes TAKE 1 Univer s 60 mg 3-08 TABLET BY ity of tablet 00:00: MOUTH WITH [place] PALPITATIO Medical N AND Branch TACHYCARDI A [...] Medical N AND Branch TACHYCARDI A LISINOPRIL- Yes [id number] TAKE 1 Univers HYDROCHLORO 1-31 TABLET BY ity of THIAZIDE 00:00: MOUTH [place] 20-25 mg 00 EVERY DAY Medica l per tablet Branch LISINOPRIL- Yes [id number] TAKE 1 Univers HYDROCHLORO 1-31 TABLET BY ity of THIAZIDE 00:00: MOUTH [place] 20-25 mg 00 EVERY DAY Medica l per tablet Branch LISINOPRIL- Yes [id number] TAKE 1 Univers HYDROCHLORO 1-31 TABLET BY ity of THIAZIDE 00:00: MOUTH [place] 20-25 mg 00 EVERY DAY Medica l per tablet Branch LISINOPRIL- 2019- No [id number] TAKE 1 Univers HYDROCHLORO 1-31 08-29 TABLET [...] needed for Pain (scale 4-6). diazePAM 10 2017-05 Yes 10mg Take 1 Univ ers [...] 10mg Take 1 Uni vers mg tablet -23 12- tablet by ity of 00:00: 00:00 mouth 2 [place] 00 :00 (two) Medical times Branch daily as needed (pre proceedure ). diazePAM 2017-05- No 10mg Take 1 Uni vers mg tablet -23 12-22 tablet by ity of 00:00: 00:00 mouth 2 [place] 00 :00 (two) Medical times Branch daily as needed (pre proceedure ). KRISTALOSE Yes 1{packa Take 1 Un will 20 [...] mouth [place] 00 daily. Medical Branch KRISTALOSE 2017- Yes 1{packa Take 1 Un will 20 [...] mouth [place] 00 daily. Medical Branch mometasone 2017-0 Yes 1{spray Use 1 Uni vers 50 2-25 } [place] in ity of mcg/actuati 00:00: each [place] on nasal 00 nostril 2 Medica l spray (two) Branch times daily. mometasone 2017-0 Yes 1{spray Use 1 Uni vers 50 2-25 } [place] in ity of mcg/actuati 00:00: each [place] on nasal 00 nostril 2 Medica l spray (two) Branch times daily. mometasone 2017-0 Yes 1{spray Use 1 Uni vers 50 2-25 } [place] in ity of mcg/actuati 00:00: each [place] on nasal 00 nostril 2 Medica l spray (two) Branch times daily. mometasone 2017-0 Yes 1{spray Use 1 Uni vers 50 2-25 } [place] in ity of mcg/actuati 00:00: each [place] on nasal 00 nostril 2 Medica l spray (two) Branch times daily. mometasone 2017-0 Yes 1{spray Use 1 Uni vers 50 2-25 } [place] in ity of mcg/actuati 00:00: each [place] on nasal 00 nostril 2 Medica l spray (two) Branch times daily. mometasone 2017-0 Yes 1{spray Use 1 Uni vers 50 2-25 } [place] in ity of mcg/actuati 00:00: each [place] on nasal 00 nostril 2 Medica l spray (two) Branch times daily. mometasone 2017-0 Yes 1{spray Use 1 Uni vers 50 2-25 } [place] in ity of mcg/actuati 00:00: each [place] on nasal 00 nostril 2 Medica l spray (two) Branch times daily. mometasone 2017-0 Yes 1{spray Use 1 Uni vers 50 2-25 } [place] in ity of mcg/actuati 00:00: each [place] on nasal 00 nostril 2 Medica l spray (two) Branch times daily. mometasone 2018-0 Yes 1{spray Use 1 Uni vers 50 2-25 } [place] in ity of mcg/actuati 00:00: each [place] on nasal 00 nostril 2 Medica l spray (two) Branch times daily. mometasone 2018-0 Yes 1{spray Use 1 Uni vers 50 2-25 } [place] in ity of mcg/actuati 00:00: each [place] on nasal 00 nostril 2 Medica l spray (two) Branch times daily. mometasone 2018-0 Yes 1{spray Use 1 Uni vers 50 2-25 } [place] in ity of mcg/actuati 00:00: each [place] on nasal 00 nostril 2 Medica l spray (two) Branch times daily. mometasone 2018-0 Yes 1{spray Use 1 Uni vers 50 2-25 } [place] in ity of mcg/actuati 00:00: each [place] on nasal 00 nostril 2 Medica l spray (two) Branch times daily. mometasone 2018-0 Yes 1{spray Use 1 Uni vers 50 2-25 } [place] in ity of mcg/actuati 00:00: each [place] on nasal 00 nostril 2 Medica l spray (two) Branch times daily. mometasone 2018-0 Yes 1{spray Use 1 Uni vers 50 2-25 } [place] in ity of mcg/actuati 00:00: each [place] on nasal 00 nostril 2 Medica l spray (two) Branch times daily. mometasone 2018-0 Yes 1{spray Use 1 Uni vers 50 2-25 } [place] in ity of mcg/actuati 00:00: each [place] on nasal 00 nostril 2 Medica l spray (two) Branch times daily. mometasone 2018-0 Yes 1{spray Use 1 Uni vers 50 2-25 } [place] in ity of mcg/actuati 00:00: each [place] on nasal 00 nostril 2 Medica l spray (two) Branch times daily. mometasone 2018-0 Yes 1{spray Use 1 Uni vers 50 2-25 } [place] in ity of mcg/actuati 00:00: each [place] on nasal 00 nostril 2 Medica l spray (two) Branch times daily. mometasone 2018-0 Yes 1{spray Use 1 Uni vers 50 2-25 } [place] in ity of mcg/actuati 00:00: each [place] on nasal 00 nostril 2 Medica l spray (two) Branch times daily. mometasone 2018-0 Yes 1{spray Use 1 Uni vers 50 2-25 } [place] in ity of mcg/actuati 00:00: each [place] on nasal 00 nostril 2 Medica l spray (two) Branch times daily. mometasone 2018-0 Yes 1{spray Use 1 Uni vers 50 2-25 } [place] in ity of mcg/actuati 00:00: each [place] on nasal 00 nostril 2 Medica l spray (two) Branch times daily. mometasone 2018-0 Yes 1{spray Use 1 Uni vers 50 2-25 } [place] in ity of mcg/actuati 00:00: each [place] on nasal 00 nostril 2 Medica l spray (two) Branch times daily. mometasone 2018-0 Yes 1{spray Use 1 Uni vers 50 2-25 } [place] in ity of mcg/actuati 00:00: each [place] on nasal 00 nostril 2 Medica l spray (two) Branch times daily. mometasone 2018-0 Yes 1{spray Use 1 Uni vers 50 2-25 } [place] in ity of mcg/actuati 00:00: each [place] on nasal 00 nostril 2 Medica l spray (two) Branch times daily. mometasone 2017-0 2020- No 1{spray Use 1 Un will 50 2-25 07-22 } [place] in ity of mcg/actuati 00:00: 00:00 each [place] on nasal 00 :00 nostril 2 Medica l spray (two) Branch times daily. mometasone 2018-0 2020- No 1{spray Use 1 Un will 50 2-25 07-22 } [place] in ity of mcg/actuati 00:00: 00:00 each [place] on nasal 00 :00 nostril 2 Medica l spray (two) Branch times daily. carvedilol 2018- Yes 12.5mg Take 12.5 Univers 12.5 mg 2-14 mg by ity of tablet 00:00: mouth 2 [place] 00 (two) Medical times Branch daily. gabapentin 2018-0 [...] by mouth ity of tablet 00:00: daily. [place] [facility] HYDROcodone 2018-0 Yes 1{tbl} Take [...] by mouth ity of tablet 00:00: daily. [place] [facility] HYDROcodone 2018-0 Yes 1{tbl} Take [...] by mouth ity of tablet 00:00: daily. [facility] Branch HYDROcodone 2018-0 Yes 1{tbl} Take 1 [...] by mouth ity of tablet 00:00: daily. [place] [facility] Branch HYDROcodone 2018-0 Yes 1{tbl} Take 1 [...] by mouth ity of tablet 00:00: daily. [place] [facility] Branch HYDROcodone 2018-0 Yes 1{tbl} Take 1 [...] by mouth ity of tablet 00:00: daily. [place] [facility] HYDROcodone 2018-0 Yes 1{tbl} Take [...] by mouth ity of tablet 00:00: daily. [place] [facility] Branch HYDROcodone 2018-0 Yes 1{tbl} Take 1 [...] by mouth ity of tablet 00:00: daily. [address] Branch HYDROcodone 2018-0 Yes 1{tbl} Take 1 [...] by mouth ity of tablet 00:00: daily. [place] [facility] HYDROcodone 2018-0 Yes 1{tbl} Take [...] by mouth ity of tablet 00:00: daily. [address] HYDROcodone 2018-0 Yes 1{tbl} Take 1 Un [...] by mouth ity of tablet 00:00: daily. [address] HYDROcodone 2018-0 Yes 1{tbl} Take 1 Un [...] HYDROcodone 2018-0 Yes 1{tbl} Take 1 Un iwll -acetaminop 2-14 tablet by ity of hen [...] by mouth ity of tablet 00:00: daily. [place] [facility] Branch HYDROcodone 2018-0 Yes 1{tbl} Take 1 [...] by mouth ity of tablet 00:00: daily. [place] [id number] Medical Branch HYDROcodone 2018-0 Yes 1{tbl} Take 1 Un iwll -acetaminop 2-14 tablet by ity of hen [...] by mouth ity of tablet 00:00: daily. [place] [facility] Branch HYDROcodone 2018-0 Yes 1{tbl} Take 1 [...] by mouth ity of tablet 00:00: daily. [place] [facility] HYDROcodone 2018-0 Yes 1{tbl} Take [...] by mouth ity of tablet 00:00: daily. [place] [facility] Branch HYDROcodone 2018-0 Yes 1{tbl} Take 1 Un will -acetaminop 2-14 tablet by ity of hen 10-325 00:00: mouth 3 [place] mg tablet 00 (three) Medical times Branch daily. carvedilol 2018-0 Yes 12.5mg Take 12.5 Univers 12.5 mg 2-14 mg by ity of tablet 00:00: mouth 2 [place] (two) Medical times Branch daily. furosemide 2018-0 Yes 20mg Take 20 mg U nivers 20 mg 2-14 by mouth ity of tablet 00:00: daily. [place] [facility] Branch HYDROcodone 2018-0 Yes 1{tbl} Take 1 Un will -acetaminop 2-14 tablet by ity of hen 10-325 00:00: mouth 3 [place] mg tablet 00 (three) Medical times Branch daily. carvedilol 2018-0 Yes 12.5mg Take 12.5 Univers 12.5 mg 2-14 mg by ity of tablet 00:00: mouth 2 [place] (two) Medical times Branch daily. furosemide 2018-0 Yes 20mg Take 20 mg U nivers 20 mg 2-14 by mouth ity of tablet 00:00: daily. [place] [facility] HYDROcodone 2018-0 Yes 1{tbl} Take 1 Un will -acetaminop 2-14 tablet by ity of hen 10-325 00:00: mouth 3 [place] mg tablet 00 (three) Medical times Branch daily. carvedilol 2018-0 Yes 12.5mg Take 12.5 Univers 12.5 mg 2-14 mg by ity of tablet 00:00: mouth 2 [place] (two) Medical times Branch daily. furosemide 2018-0 Yes 20mg Take 20 mg U nivers 20 mg 2-14 by mouth ity of tablet 00:00: daily. [place] [facility] HYDROcodone 2018-0 Yes 1{tbl} Take 1 Un will -acetaminop 2-14 tablet by ity of hen 10-325 00:00: mouth 3 [place] mg tablet 00 (three) Medical times Branch daily. carvedilol 2018-0 Yes 12.5mg Take 12.5 Univers 12.5 mg 2-14 mg by ity of tablet 00:00: mouth 2 (two) Medical times Branch daily. carvedilol 2018-0 Yes 12.5mg Take 12.5 Univers 12.5 mg 2-14 mg by ity of tablet 00:00: mouth 2 (two) Medical times Branch daily. furosemide 2018-0 Yes 20mg Take 20 mg U nivers 20 mg 2-14 by mouth ity of tablet 00:00: daily. [place] [facility] Branch HYDROcodone 2018-0 Yes 1{tbl} Take 1 Un will -acetaminop 2-14 tablet by ity of hen 10-325 00:00: mouth 3 [place] mg tablet 00 (three) Medical times Branch daily. gabapentin 2018-0 Yes 300mg Take 300 Un will 300 mg 2-14 mg by ity of capsule 00:00: mouth 2 (two) Medical times Branch daily. carvedilol 2018-0 Yes 12.5mg Take 12.5 Univers 12.5 mg 2-14 mg by ity of tablet 00:00: mouth 2 (two) Medical times Branch daily. furosemide 2018-0 Yes 20mg Take 20 mg U nivers 20 mg 2-14 by mouth ity of tablet 00:00: daily. [place] [facility] HYDROcodone 2018-0 Yes 1{tbl} Take 1 Un will -acetaminop 2-14 tablet by ity of hen 10-325 00:00: mouth 3 [place] mg tablet 00 (three) Medical times Branch daily. furosemide 2018-0 Yes 20mg Take 20 mg U nivers 20 mg 2-14 by mouth ity of tablet 00:00: daily. [place] [facility] Branch carvedilol 2018-0 Yes 12.5mg Take 12.5 Univers 12.5 mg 2-14 mg by ity of tablet 00:00: mouth 2 (two) Medical times Branch daily. furosemide 2018-0 Yes 20mg Take 20 mg U nivers 20 mg 2-14 by mouth ity of tablet 00:00: daily. [place] [address] Medical Branch HYDROcodone 2018-0 Yes 1{tbl} Take [...] by ity of tablet 00:00: mouth 2 [place] 00 (two) Medical times Branch daily. furosemide 2018-0 Yes 20mg Take 20 mg U nivers 20 mg 2-14 by mouth ity of tablet 00:00: daily. [address] Branch HYDROcodone 2017-0 Yes 1{tbl} Take 1 Un will -acetaminop 2-14 tablet by ity of hen 10-325 00:00: mouth 3 [place] mg tablet 00 (three) Medical times Branch daily. carvedilol 2018-0 Yes 12.5mg Take 12.5 Univers 12.5 mg 2-14 mg by ity of tablet 00:00: mouth 2 [place] (two) Medical times Branch daily. furosemide 2018-0 Yes 20mg Take 20 mg U nivers 20 mg 2-14 by mouth ity of tablet 00:00: daily. [address] HYDROcodone 2018-0 Yes 1{tbl} Take 1 Un will -acetaminop 2-14 tablet by ity of hen 10-325 00:00: mouth 3 [place] mg tablet 00 (three) Medical times Branch daily. carvedilol 2018-0 Yes 12.5mg Take 12.5 Univers 12.5 mg 2-14 mg by ity of tablet 00:00: mouth 2 [place] 00 (two) Medical times Branch daily. furosemide 2018-0 Yes 20mg Take 20 mg U nivers 20 mg 2-14 by mouth ity of tablet 00:00: daily. [address] Branch HYDROcodone 2018-0 Yes 1{tbl} Take 1 [...] by mouth ity of tablet 00:00: daily. [place] [facility] HYDROcodone 2018-0 Yes 1{tbl} Take [...] by mouth ity of tablet 00:00: daily. [place] [facility] Branch HYDROcodone 2018-0 Yes 1{tbl} Take 1 [...] by mouth ity of tablet 00:00: daily. [place] [facility] Branch HYDROcodone 2018-0 Yes 1{tbl} Take 1 Un will -acetaminop 2-14 tablet by ity of hen 10-325 00:00: mouth 3 [place] mg tablet 00 (three) Medical times Branch daily. furosemide 2018-0 Yes 20mg Take 20 mg U nivers 20 mg 2-14 by mouth ity of tablet 00:00: daily. [place] [facility] HYDROcodone 2018-0 Yes 1{tbl} Take 1 Un will -acetaminop 2-14 tablet by ity of hen 10-325 00:00: mouth 3 [place] mg tablet 00 (three) Medical times Branch daily. carvedilol 2018-0 Yes 12.5mg Take 12.5 Univers 12.5 mg 2-14 mg by ity of tablet 00:00: mouth 2 [place] (two) Medical times Branch daily. furosemide 2018-0 Yes 20mg Take 20 mg U nivers 20 mg 2-14 by mouth ity of tablet 00:00: daily. [place] [facility] HYDROcodone 2018-0 Yes 1{tbl} Take 1 Un will -acetaminop 2-14 tablet by ity of hen 10-325 00:00: mouth 3 [place] mg tablet 00 (three) Medical times Branch daily. carvedilol 2018-0 Yes 12.5mg Take 12.5 Univers 12.5 mg 2-14 mg by ity of tablet 00:00: mouth 2 [place] (two) Medical times Branch daily. furosemide 2018-0 Yes 20mg Take 20 mg U nivers 20 mg 2-14 by mouth ity of tablet 00:00: daily. [place] [facility] Branch HYDROcodone 2018-0 Yes 1{tbl} Take 1 Un will -acetaminop 2-14 tablet by ity of hen 10-325 00:00: mouth 3 [place] mg tablet 00 (three) Medical times Branch daily. carvedilol 2018-0 Yes 12.5mg Take 12.5 Univers 12.5 mg 2-14 mg by ity of tablet 00:00: mouth 2 [place] (two) Medical times Branch daily. furosemide 2018-0 Yes 20mg Take 20 mg U nivers 20 mg 2-14 by mouth ity of tablet 00:00: daily. [place] [facility] Branch HYDROcodone 2018-0 Yes 1{tbl} Take 1 Un will -acetaminop 2-14 tablet by ity of hen 10-325 00:00: mouth 3 [place] mg tablet 00 (three) Medical times Branch daily. carvedilol 2018-0 Yes 12.5mg Take 12.5 Univers 12.5 mg 2-14 mg by ity of tablet 00:00: mouth 2 [place] 00 (two) Medical times Branch daily. gabapentin 2017- Yes 300mg Take 300 Un will 300 mg 2-14 mg by ity of capsule 00:00: mouth 2 00 (two) Medical times Branch daily. furosemide 2017- Yes 20mg Take 20 mg U nivers 20 mg 2-14 by mouth ity of tablet 00:00: daily. Medical Branch HYDROcodone 2017- Yes 1{tbl} Take 1 Un will -acetaminop 2-14 tablet by ity of hen 10-325 00:00: mouth 3 [place] mg tablet 00 (three) Medical times Branch daily. gabapentin 2020- No 300mg Take 300 U nivers 300 mg 2-14 07-22 mg by ity of capsule 00:00: 00:00 mouth 2 [place] 00 :00 (two) Medical times Branch daily. gabapentin 2019- No 300mg Take 300 U nivers 300 mg 2-14 07-22 mg by ity of capsule 00:00: 00:00 mouth 2 [place] 00 :00 (two) Medical times Branch daily. Vital Signs Vital Name Observation Time Observation Value Comments Source Systolic blood 2021-10-13 22:15:00 152 mm[Hg] [facility] Diastolic blood 2021-10-13 22:15:00 89 mm[Hg] [facility] Heart rate 2021-10-13 22:15:00 79 /min [facility] Body temperature 2021-10-13 22:15:00 37.17 Sandra [facility] Respiratory rate 2021-10-13 22:15:00 18 /min [facility] Oxygen saturation in 2021-10-13 22:15:00 98 /min [facility] Arterial blood by [facility] Pulse oximetry Branch Systolic blood 2020-09-28 13:21:00 148 mm[Hg] Univer sity [facility] Diastolic blood 2020-09-28 13:21:00 88 mm[Hg] Unive [facility] Heart rate 2020-09-28 13:21:00 81 /min [facility] Respiratory rate 2020-09-28 13:21:00 20 /min [facility] Oxygen saturation in 2020-09-28 13:21:00 97 /min University of Arterial blood by [facility] Pulse oximetry Branch Body temperature 2020-09-28 13:07:00 36.83 Sandra Univ ersity of [facility] Body height 2020-09-24 15:31:00 185.4 cm [facility] [place] [facility] Body weight 2020-09-24 15:31:00 117.5 kg [facility] [place] [facility] BMI 2020-09-24 15:31:00 34.18 kg/m2 [facility] [place] [facility] Systolic blood 2020-09-28 13:12:00 136 mm[Hg] Univer sity of pressure [facility] Branch Diastolic blood 2020-09-28 13:12:00 78 mm[Hg] Unive rsity of pressure [facility] Heart rate 2020-09-28 13:12:00 75 /min Universi ty of [facility] Respiratory rate 2020-09-28 13:12:00 21 /min Univ ersity of [facility] Oxygen saturation in 2020-09-28 13:12:00 97 /min University of Arterial blood by [facility] Pulse oximetry Branch Body temperature 2020-09-28 13:07:00 36.83 Sandra Univ ersity of [facility] Body height 2020-09-24 15:31:00 185.4 cm [facility] Body weight 2020-09-24 15:31:00 117.5 kg [facility] BMI 2020-09-24 15:31:00 34.18 kg/m2 [facility] Systolic blood 2019-12-18 20:34:00 161 mm[Hg] Univer sity of [facility] Diastolic blood 2019-12-18 20:34:00 99 mm[Hg] Unive rsity of pressure [facility] Heart rate 2019-12-18 20:34:00 77 /min [facility] Body temperature 2019-12-18 20:34:00 36.44 Sandra [facility] Body weight 2019-12-18 20:34:00 117.482 kg [facility] BMI 2019-12-18 20:34:00 34.17 kg/m2 Universi ty of [facility] Systolic blood 2019-10-15 18:38:00 159 mm[Hg] Univer [facility]ity of [facility] Diastolic blood 2019-10-15 18:38:00 87 mm[Hg] Unive rsity of [facility] Heart rate 2019-10-15 18:34:00 85 /min Universi ty of [facility] Body temperature 2019-10-15 18:34:00 37 Sandra Univ ersity of [facility] Respiratory rate 2019-10-15 18:34:00 19 /min Univ ersity of [facility] Body height 2019-10-15 18:34:00 185.4 cm [facility] Body weight 2019-10-15 18:34:00 119.75 kg Universi ty of [facility] BMI 2019-10-15 18:34:00 34.83 kg/m2 Universi ty of [facility] Oxygen saturation in 2019-10-15 18:34:00 98 /min University of Arterial blood by [facility] Pulse oximetry Branch Systolic blood 2019-10-15 18:38:00 159 mm[Hg] Univer sity of pressure [facility] Diastolic blood 2019-10-15 18:38:00 87 mm[Hg] Unive rsity of pressure [facility] Heart rate 2019-10-15 18:34:00 85 /min Universi ty of [facility] Body temperature 2019-10-15 18:34:00 37 Sandra [facility] Respiratory rate 2019-10-15 18:34:00 19 /min Univ ersity of [facility] Body height 2019-10-15 18:34:00 185.4 cm [facility] Body weight 2019-10-15 18:34:00 119.75 kg [facility] BMI 2019-10-15 18:34:00 34.83 kg/m2 Universi ty of [facility] Oxygen saturation in 2019-10-15 18:34:00 98 /min University of Arterial blood by [facility] Pulse oximetry Branch Procedures Procedure Date / Time Performing Clinician Source Performed CBC WITH DIFF 2022-05-11 18:21:00 Dariel Yee [facility] PHYSICIAN ORDERS 2022-05-11 06:01:00 Doctor Unassigned, [facility] [place] [facility] NOTICE OF PRIVACY 2021-10-13 22:11:48 Doctor Bruno [facility] PRACTICES [facility] [place] [facility] CONSENT/REFUSAL FOR 2021-10-13 22:11:29 Doctor Bruno [facility] DIAGNOSIS AND TREATMENT [place] [place] [facility] ASSIGNMENT OF BENEFITS 2020-10-09 16:58:46 Doctor Bruno, [facility] [place] [facility] FL TIME OR 2020-09-28 13:26:41 Dariel Yee [facility] (NON-REPORTABLE) Medical Branch [place] TIME OR 2020-09-28 13:26:41 Dariel Yee [facility] (NON-REPORTABLE) Medical Branch CERVICAL EPIDURAL STEROID 2020-09-28 12:45:00 Dariel Yee [facility] INJECTION Medical Branch DAY SURGERY - ADC 2020-09-28 05:01:00 Doctor Carr [facility] [place] [facility] ASSIGNMENT OF BENEFITS 2020-09-25 16:37:38 Doctor Bruno, [facility] [place] [facility] ASSIGNMENT OF BENEFITS 2020-09-24 14:39:19 Doctor Bruno, [facility] [place] [facility] MEDICATION CORRESPONDENCE 2020-01-09 05:01:00 Doctor Bruno [facility] [facility] MEDICATION CORRESPONDENCE 2019-11-06 05:01:00 Doctor Bruno [facility] [place] [facility] URINALYSIS 2019-10-15 22:19:00 Robyn [place]fall [place] [facility] [place] [facility] [place] [facility] ABDOMEN PELVIS WO 2019-10-15 21:41:01 Robyn Westfall [facility] CONTRAST Medical Branch CBC WITH DIFFERENTIAL 2019-10-15 20:00:00 Robyn Westfall [facility] Medical Branch COMP. METABOLIC PANEL 2019-10-15 20:00:00 Robyn Westfall [facility] ([id number]) Medical Branch ASSIGNMENT OF BENEFITS 2019-10-15 19:48:27 Doctor Bruno, [facility] [place] [facility] Encounters Start End Encounter Admission Attending Care Care Encounter Source Date/Time Date/Time Type Type Clinicians Facility Department ID 2022-05-27 Outpatient JSEÚS KOEHLER ANS [id number] Univers 15:03:48 DARIEL ity [facility] 2022-05-27 [facility] [id number] Univers 14:57:49 DARIEL ity [facility] 2022-05-05 Outpatient R NAKAI [facility] ANS [id number] Univers 09:40:05 DARIEL nicholasy [facility] 2021-03-28 Outpatient R NAKIA [facility] ANS [id number] Univers 20:24:43 DARIEL ity [facility] 2021-03-28 Outpatient R NAKIA, [facility] ANS [id number] Univers 16:14:13 DARIEL ity [facility] 2021-03-28 Outpatient Jung NAKIA [facility] ANS [id number] Univers 16:14:08 DARIELEl [facility] 2022-05-13 2022-05-13 Outpatient Jung NAKIA [facility] [id number] Univers 08:45:00 08:45:00 [facility] 2022-05-11 2022-05-11 Want Ad Clerk Gary, Adc Lab Main [facility] 1.2.8 40.114 [id number] Univers 12:15:00 12:30:00 Visit Nakia Dariel Maria Luisa KRISTIN 350.1.13.1 0 [facility] 4.2.7.2.686 [place] [phone] Tn dical [address] 2022-05-11 2022-05-11 Outpatient Jung NAKIA [facility] [id number] Univers 12:15:00 12:15:00 DARIEL ity [facility] 2022-05-11 2022-05-11 Orders Doctor JOSÉ 1.2.840.114 [id number] Univers 00:00:00 00:00:00 Only Unassigned, NESSA 350.1.13.10 ity of [place] [facility] 4.2.7.2.686 Matt as [phone] [address] 2021-10-13 2021-10-13 Emergency X [facility] ERT [id number] Univers 17:17:00 18:33:00 ULYSSES ity [facility] 2021-10-13 2021-10-13 Emergency [facility] 1.2.512.118 [id number] Univers 17:17:00 18:33:00 Ulysses FOSTER 350.1.13.10 i ty of [facility] 4.2.7.2.[place] [id number] [facility] 084 Branch 2020-10-30 2020-10-30 [facility] [id number] Univers 09:30:00 09:30:00 DARIEL ity of [facility] 2020-10-09 2020-10-09 Laboratory Only, Adc Test [facility] 1.2.840. 114 [id number] Univers 11:57:54 12:12:54 Only Dariel Yee 350.1.13.1 0 ity of [place] [id number] [facility] 353 Branch 2020-10-09 2020-10-09 [facility] [id number] Univers 08:30:00 08:30:00 DARIEL ity of [facility] 2020-10-09 2020-10-09 Orders Doctor JOSÉ 1.2.840.114 [id number] Univers 00:00:00 00:00:00 Only Unassigned, NESSA 350.1.13.10 ity of [place] [facility] 4.2.7.2.686 Matt as [phone] [facility] 009 Branch 2020-09-28 2020-09-28 Hospital [facility] 1.2.840.114 [id number] Univers 07:16:00 09:00:00 Encounter Dariel Postton 350.1.13.10 ity of [place].2.[place] [id number] [facility] 071 Branch 2020-09-28 2020-09-28 Surgery [facility] 1.2.584.195 [id number] Univers 07:50:00 08:12:00 Dariel Maria Luisa [place] 350.1.13.10 ity of [place].2.[place] [id number] [facility] 020 Branch 2020-09-28 2020-09-28 Orders Doctor JOSÉ 1.2.840.114 [id number] Univers 00:00:00 00:00:00 Only Unassigned, NESSA 350.1.13.10 ity of [place] [facility] 4.2.7.2.686 Matt as [phone] [facility] 009 [place] 2020-09-25 2020-09-25 Laboratory Only, Adc Test [facility] 1.2.840. 114 [id number] Univers 11:34:51 11:49:51 Only NakiaBetzyt Maria Luisa Kristin 350.1.13.1 0 ity of [place].2.686 [place] [phone] [address] 2020-09-25 2020-09-25 Outpatient R NAKIA [facility] [id number] Univers 11:15:00 11:15:00 DARIEL ity [facility] 2020-09-25 2020-09-25 Orders Doctor KUMAR 1.2.840.114 [id number] Univers 00:00:00 00:00:00 Only Unassigned, NESSA 350.1.13.10 ity of [place] [facility] 4.2.7.2.686 Matt as [id number] [address] 2020-09-24 2020-09-24 Outpatient Jung YEE [facility] [id number] Univers 10:00:00 10:00:00 DARIEL ity of [facility] 2020-09-24 2020-09-24 Want Ad Clerk Gary, Adc Lab Main [facility] 1.2.8 40.114 [id number] Univers 09:38:58 09:53:58 Visit NakiaBetzyt Maria Luisa Kristin 350.1.13.1 0 ity of [place].2.686 [place] [facility] [phone] [address] 2020-09-24 2020-09-24 Orders Doctor KUMAR 1.2.840.114 [id number] Univers 00:00:00 00:00:00 Only Unassigned, NESSA 350.1.13.10 ity of [place] [facility] 4.2.7.2.686 Matt as [phone] [address] 2020-01-09 2020-01-09 Orders Doctor JOSÉ 1.2.840.114 [id number] Univers 00:00:00 00:00:00 Only Unassigned, NESSA 350.1.13.10 ity of [place] [facility] 4.2.7.2.686 Matt as [id number] [address] 2020-01-08 2020-01-08 Telephone [facility] [id number] Univers 00:00:00 00:00:00 Jorge Foster 350.1.13.10 i ty of [place] Profess[place] [phone] [address] 2019-12-18 2019-12-18 [facility] 1.2.840.114 [id number] Univers 15:26:31 15:41:31 Visit Omar Foster 350.1.13.10 i ty of [place] 4[place]2.7.2.[place] [phone] [address] 2019-12-18 2019-12-18 Outpatient R AUGUSTINE [facility] [id number] Univers 15:30:00 15:30:00 OMAR emma [facility] 2019-12-10 2019-12-10 Telephone [facility] 1.2.076.360 [id number] Univers 00:00:00 00:00:00 Jorge Foster 350.1.13.10 i ty of [place].2.[place] [phone] [address] 2019-12-09 2019-12-09 Refsilvio Howard [facility] 1.2.840.114 [id number] Univers 00:00:00 00:00:00 Jorge Jauregui 350.1.13.10 it y of [place] 4.2.7.2.686 Matt as Professio [phone] [address] Office Building One 2019-11-26 2019-11-26 Refsilvio Howard [facility] 1.2.840.114 [id number] Univers 00:00:00 00:00:00 Jorge Health 350.1.13.10 it y of [place] 4.2.7.2.686 [place] as Professio [phone] [address] Office [facility] One 2019-11-06 2019-11-06 Telephone [facility] 1.2.032.636 [id number] Univers 00:00:00 00:00:00 Jorge Foster 350.1.13.10 i ty of [place] 4[place].2.[place] [phone] [address] 2019-11-06 2019-11-06 Orders Doctor JOSÉ 1.2.840.114 [id number] Univers 00:00:00 00:00:00 Only Unassigned, NESSA 350.1.13.10 ity of [place] [facility] 4.2.7.2.686 Matt as [id number] [address] 2019-11-04 2019-11-04 Refsilvio [facility] 1.2.840.114 [id number] Univers 00:00:00 00:00:00 Jorge Health 350.1.13.10 it y of [place] 4.2.7.2.686 Matt as Professio [phone] [address] Office [facility] 2019-10-22 2019-10-22 Outpatient R HOWARD [facility] [id number] Univers 08:00:00 08:00:00 JORGE ity [facility] 2019-10-15 2019-10-17 Urgent Provider, [facility] 1.2.840.114 [id number] Univers 13:25:12 08:16:04 Care Anene, Robyn Health 350.1.13.10 ity of [place] 4.2.7.2.686 [place] as Professio [phone] [address] Office [facility] 2019-10-15 2019-10-17 Urgent Provider, [facility] 1.2.299.181 [id number] 13:25:12 08:16:04 Care [facility] 350.1.13.10 Care [place] 4.2.7.2.686 Professio [phone] nal 044 Office Building [facility] 2019-10-16 2019-10-16 Telephone [facility] 1.2.428.627 [id number] Univers 00:00:00 00:00:00 Robyn Jauregui 350.1.13.10 it y of [place] 4.2.7.2.686 Matt as Professio [phone] Tn dical [facility] 044 [place] Office Building [facility] 2019-10-16 2019-10-16 Telephone [facility] 1.2.242.640 [id number] 00:00:00 00:00:00 Robyn Health 350.1.13.10 [place] 4.2.7.2.686 Professio [phone] [place] [address] Office Building [facility] 2019-10-15 2019-10-15 Outpatient R [facility] [id number] Univers 15:22:21 23:59:00 ROBYN ity of [facility] 2019-10-15 2019-10-15 [facility] 1.2.840.114 [id number] Univers 15:22:00 23:59:00 Encounter Robyn Foster 350.1.13.10 ity of [place] [phone] [facility] 801 [place] 2019-10-15 2019-10-15 Want Ad Clerk Gary, Gigi Lab Main [facility] 1.2.8 40.114 [id number] Univers 14:32:11 14:47:11 Visit Robyn Westfall 350.1.13.10 ity of [place].2.[place] [phone] Tn dical [facility] 353 [facility] 2019-10-15 2019-10-15 Orders Doctor JOSÉ 1.2.840.114 [id number] Univers 00:00:00 00:00:00 Only Unassigned, NESSA 350.1.13.10 ity of [place] [facility] 4.2.7.2.686 Matt as [phone] [facility] 009 [place] 2019-09-16 2019-09-16 Refsilvio Howard [facility] 1.2.840.114 [id number] Univers 00:00:00 00:00:00 Jorge Health 350.1.13.10 it y of [place] 4.2.7.2.686 Matt as Professio [phone] Tn dical nal [address] [place] [address] Office Building One 2019-07-30 2019-07-30 Tejinder Howard NMCHRIS 1.2.840.114 [id number] Univers 00:00:00 00:00:00 Jorge Health 350.1.13.10 it y of [place] 4.2.7.2.686 Matt as Professio [phone] Tn dical nal [address] [place] [address] Office Building One 2019-07-23 2019-07-23 Tejinder [facility]AD[facility] 1.2.840.114 [id number] Univers 00:00:00 00:00:00 Jorge Health 350.1.13.10 it y of [place] 4.2.7.2.686 Matt as Professio [phone] Tn analiliaal nal [address] [place] [address] Office [facility] One 2019-07-04 2019-07-04 Telephone [facility] 1.2.953.496 [id number] Univers 00:00:00 00:00:00 Jorge Health 350.1.13.10 it y of [place] 4.2.7.2.686 Matt as Professio [phone] Tn dical nal [address] [place] [address] Office Building One 2019-07-02 2019-07-02 Telephone [facility] 1.2.714.112 [id number] Univers 00:00:00 00:00:00 Jorge Health 350.1.13.10 it y of [place] 4.2.7.2.686 Matt as Professio [phone] Tn dical nal [address] [place] [address] Office [facility] One 2019-06-21 2019-06-21 Tejinder HowardAD[facility] 1.2.840.114 [id number] Univers 00:00:00 00:00:00 Jorge Health 350.1.13.10 it y of [place] 4.2.7.2.686 Matt as Professio [phone] Tn analiliaal nal [address] [place] [address] Office Building One 2019-01-24 2019-01-24 Tejinder HowardADV[facility] 1.2.840.114 [id number] Univers 00:00:00 00:00:00 Jorge Health 350.1.13.10 it y of [place] 4.2.7.2.686 Matt as Professio [phone] [facility] 044 [facility] One 2018-12-26 2018-12-26 Telephone [place] NMCHRIS 1.2.360.784 [id number] Univers 00:00:00 00:00:00 Jorge Health 350.1.13.10 it y of [place] 4.2.7.2.686 Matt as Professio [phone] Tn analilia[address] One 2018-12-18 2018-12-18 Telephone [place] [facility] 1.2.947.528 [id number] Univers 00:00:00 00:00:00 Jorge Health 350.1.13.10 it y of [place] 4.2.7.2.686 Matt as Professio [phone] [address] One Results Test Description Test Time Test Comments Results Result Comments Source CBC WITH DIFF 2022-05-11 18:26:28 Test Item Value Reference Range Interpretation Comme nts WBC (test code = 6690-2) See_Comment [A utomated message] The system which ge nerated this result transmit dione reference range: 4.20 - 1 0.70 10*3/?L. The reference r lito was not used to interpr et this result as normal/abnor mal. RBC (test code = 789-8) See_Comment [Au tomated message] The system which ge nerated this result transmit dione reference range: 4.26 - 5 .52 10*6/?L. The reference r lito was not used to interpr et this result as normal/abnor mal. HGB (test code = 718-7) 15.9 g/dL 12.2-16.4 HCT (test code = 4544-3) 48.4 % 38.4-49.3 MCV (test code = 787-2) 90.6 fL 81.7-95.6 MCH (test code = 785-6) 29.8 pg 26.1-32.7 MCHC (test code = 786-4) 32.9 g/dL 31.2-35.0 RDW-SD (test code = 58071-3) 45.5 fL 38.5-51.6 RDW-CV (test code = 788-0) 13.6 % 12.1-15.4 PLT (test code = 777-3) See_Comment H [Au tomated message] The system which ge nerated this result transmit dione reference range: 150 - 32 8 10*3/?L. The reference range was not used to interpret th is result as normal/abnormal . MPV (test code = 37426-7) 10.1 fL 9.8-13.0 NRBC/100 WBC (test code = See_Comment [ Automated message] The 3889578924) system which ge nerated this result transmit dione reference range: 0.0 - 10 .0 /100 WBCs. The reference r lito was not used to interpr et this result as normal/abnor mal. NRBC x10^3 (test code = See_Comment [Au tomated message] The 9781599722) system which ge nerated this result transmit dione reference range: 10*3/?L. The reference range was not u sed to interpret this result as normal/abnormal . GRAN MAT (NEUT) % (test code 71.8 % = 770-8) IMM GRAN % (test code = 0.40 % 9834689378) LYMPH % (test code = 736-9) 17.5 % MONO % (test code = 5905-5) 6.6 % EOS % (test code = 713-8) 3.2 % BASO % (test code = 706-2) 0.5 % GRAN MAT x10^3(ANC) (test 6.79 10*3/uL 1.99-6.95 code = 0620349841) IMM GRAN x10^3 (test code = 0.04 10*3/uL 0.00-0.06 8537734148) LYMPH x10^3 (test code = 1.66 10*3/uL 1.09-3.23 731-0) MONO x10^3 (test code = 0.62 10*3/uL 0.36-1.02 742-7) EOS x10^3 (test code = 0.30 10*3/uL 0.06-0.53 711-2) BASO x10^3 (test code = 0.05 10*3/uL 0.01-0.09 704-7) Lab Interpretation (test Abnormal code = 99638-0) [facility] TIME OR (NON-REPORTABLE)2020-09-28 13:28:16 These images do not require a Radiology diagnostic report.[facility] TIME OR (NON-REPORTABLE)2020-09-28 13:28:16These images do not require a Radiology diagnostic report.[facility] [id number] 22:29:00 Test Item Value Reference Range Interpretation Comments APPEARANCE (test code = Clear Clear 9724968196) COLOR (test code = Yellow Yellow 3278799359) PH (test code = 4.8-8.0 5717161744) SP GRAVITY (test code = 1.003-1.030 0053247885) GLU U QUAL (test code = Normal Normal 5021627716) BLOOD (test code = Negative Negative 8439208270) KETONES (test code = Negative Negative 7233759086) PROTEIN (test code = Negative Negative 2887-8) UROBILIN (test code = 2.0 mg/dL Normal A 0766428268) BILIRUBIN (test code = Negative Negative 9646745024) NITRITE (test code = Negative Negative 0178323358) LEUK RAMONA (test code = Negative Negative 9889189361) RBC/HPF (test code = <1 See_Comment [Autom ated message] 5520092296) The system [employer] generated this result transmit dione reference range : 0 - 3 HPF. The refe rence range was not u sed to interpret th is result as normal/abnormal . WBC/HPF (test code = See_Comment [Autom ated message] 5027838722) The system [employer] generated this result transmit dione reference range : 0 - 5 HPF. The refe rence range was not u sed to interpret th is result as normal/abnormal . BACTERIA (test code = Few Negative A 2879029787) MUCOUS (test code = Slight Negative LPF A 5109114529) SQ EPITH (test code = <1 HPF 9312846626) GRAN CASTS (test code = See_Comment [Au tomated message] 7932444151) The system [employer] generated this result transmit dione reference range : <=1 LPF. The refere nce range was not u sed to interpret th is result as normal/abnormal . Lab Interpretation (test Abnormal code = 60116-5) [facility] [id number] 21:53:26CT Abdomen and Pelvis with oral contrast [...] bladder. Bones: Lumbar levoscoliosis, multilevel degenerative disc di sease and oldfracture of upper plate of L3 with loss of approximately 15% of its height. Soft tissues: Unremarkable. CONCLUSION:1. No acute intra-abdominal or pelvic abnormalities detected.2. Constipation, diverticulosis of sigmoid and descending colon notedwithout any acute changes of diverticulitis.Appendix is normal.3. Liver morphology suggestive of chronic primary liver disease, possiblycirrhosis. [facility], Radiant Results Inft User - 10/15/2019 4:54 PM CDTCT Abdomen and Pelvis with oral contrast only.CLINICAL HISTORY: Abdominal mass, nonpulsatile. Severe left lower quadranttenderness. Abdominal hernia noted on exam.DOSE: Up-to-date CT equipment and radiation dose reduction techniques wereemployed. CTDIvol: 13.0 mGy. DLP: 649 mGy-cm.TECHNIQUE : Contiguous axial imaging from the level of the lungbasesthrough the pubic symphysis was performed with oral contrast medium only.Coronal and sagittal reconstructions were obtained. Auto mA and/oriterative reconstruction were used to reduce radiation dose.FINDINGS: Comparison is made with previous CT scan of 11/26/2015.Lower lungs: Clear. Prominent leftepicardial fat pad noted. No pleuraleffusion or pericardial effusion. No definite evidence of hiatalhernia.Liver, Gallbladder and Spleen: Gallbladder is contracted. No gallstonesdetected. No signs of acute cholecystitis. Biliary ducts and the pancreaticduct appear of normal size.Liver is 14.5 cm withshowed undulating serosal surface and heterogeneouscoarse texture of the parenchyma, suggestive of chronic primary liverdisease. Spleen measures approximately 12.7 x 4.5 cm.Peritoneum: No free air or free fluid. No lymphadenopathy.Pancreas and Adrenals: Unremarkable pancreas and adrenal glands.Kidneysand Ureters: No visible calculi in the renal collecting systems. No hydroureter or hydronephrosis. Lateral surface of the right kidneyshowed 6.5 mm lesion, unchanged. Left kidney showed 2.5 cm low-densitylesion near its upper pole, likely cystic and essentially unchanged.Vessels: Tortuous abdominal aorta with diffuse atherosclerosis of the aortaand iliac arteries. No abdominal aortic aneurysm.Retroperitoneum: No abnormal fluid.S mall lymph nodes are [...] height.Soft tissues: Unremarkable.CONCLUSION:1. No acute intra-abdominal or pelvicabnormalities detected.2. Constipation, diverticulosis of sigmoid and descending colon notedwithout any acute changes of diverticulitis. Appendix is normal.3. Liver morphology suggestive of chronic primary liver disease, possiblycirrhosis.[facility]. METABOLIC PANEL (01037)2019-10-15 21:26:00 Test Item Value Reference Range Interpretation Comments NA (test code = 141 mmol/L 135-145 6391871188) K (test code = 4.8 mmol/L 3.5-5 8790707194) CL (test code = 103 mmol/L 98-108 0404150345) CO2 TOTAL (test code = 30 mmol/L 23-31 8386293013) AGAP (test code = 2-16 2031332425) BUN (test code = 19 mg/dL 7-23 1552457671) GLUCOSE (test code = 100 mg/dL 70-110 5337940108) CREATININE (test code 1.25 mg/dL 0.6-1.25 = 4818201786) TOTAL BILI (test code 0.6 mg/dL 0.1-1.1 = 7607933612) CALCIUM (test code = 10.2 mg/dL 8.6-10.6 1077996560) T PROTEIN (test code = 7.0 g/dL 6.3-8.2 0859767346) ALBUMIN (test code = 4.4 g/dL 3.5-5 4843776889) ALK PHOS (test code = 77 U/L 34-122 9102569649) ALTv (test code = 29 U/L 5-50 1742-6) AST(SGOT) (test code = 25 U/L 13-40 5532941137) eGFR Calculation mL/min/1.73m2 (Non-) (test code = 4763204585) eGFR Calculation mL/min/1.73m2 () (test code = 1762529871) GORDO (test code = GORDO) Association of [...] or urine or abnormalities in imaging tests). [facility] WITH [id number] 20:07:00 Test Item Value Reference Range Interpretation Comments WBC (test code = See_Comment [Automated 6690-2) message] The sy stem which generated this result transmitted reference range : 4.20 - 10.70 10*3/?L. The reference range was not used to interpret this result as normal/abnormal . RBC (test code = See_Comment [Automated 789-8) message] The sy stem which generated this [...] RDW-SD (test code = 48.7 fL 38.5-51.6 03183-0) RDW-CV (test code = 14.2 % 12.1-15.4 788-0) PLT (test code = See_Comment [Automated 777-3) message] The sy stem which generated this result transmitted reference range : 150 - 328 10*3/ ?L. The reference r lito was not used to interpret this result as normal/abnormal . MPV (test code = 10.1 fL 9.8-13 17815-7) NRBC/100 WBC (test See_Comment [Automat ed code = 1823478526) message] The system which generated this result transmitted reference range : 0.0 - 10.0 /100 WBCs. The refer ence range was not u sed to interpret th is result as normal/abnormal . NRBC x10^3 (test code <0.01 See_Comment [Auto mated = 2910407250) message] The s ystem which generated this result transmitted reference range : 10*3/?L. The reference range was not used to interpret this result as normal/abnormal . GRAN MAT (NEUT) % 67.9 % (test code = 770-8) IMM GRAN % (test code 0.50 % = 5188137947) LYMPH % (test code = 18.9 % 736-9) MONO % (test code = 8.3 % 5905-5) EOS % (test code = 3.6 % 713-8) BASO % (test code = 0.8 % 706-2) GRAN MAT x10^3(ANC) 6.72 10*3/uL 1.99-6.95 (test code = 7554973292) IMM GRAN x10^3 (test 0.05 10*3/uL 0-0.06 code = 8216639781) LYMPH x10^3 (test code 1.87 10*3/uL 1.09-3.23 = 731-0) MONO x10^3 (test code 0.82 10*3/uL 0.36-1.02 = 742-7) EOS x10^3 (test code = 0.36 10*3/uL 0.06-0.53 711-2) BASO x10^3 (test code 0.08 10*3/uL 0.01-0.09 = 704-7) Lab Interpretation Abnormal (test code = 00945-7) [facility]"
[2022-06-04 08:28] LABS: Absolute Lymphocytes (CBC) 1.2 K/uL (0.7-4.9); Hematocrit 47.5 % (39.6-49.0); Lymphocytes % 9.5 % (15.3-44.8); MCV 90.7 fL (80-100); MPV 8.4 fL (7.6-11.3); RBC Red Blood Cell Count 5.24 M/uL (4.33-5.43)
[2022-06-04 08:33] LABS: Protime INR 1.08
--- NOTE | 2022-06-04 08:34 | RAD REPORT ---
EXAM DESCRIPTION: RAD - Chest Single View - 06/04/2022 8:24 am CLINICAL HISTORY: COUGH COMPARISON: Chest Single View dated 10/25/2019; Chest Pa And Lat (2 Views) dated 09/08/2017 FINDINGS: Lines: None. Lungs: No evidence of edema or pneumonia. Pleural: No significant pleural effusions or pneumothorax. Cardiac: The heart size is within normal limits. Mediastinum: Within normal limits. Bones: No acute fractures. Other: None IMPRESSION: No acute cardiopulmonary disease.
[2022-06-04 08:48] LABS: Albumin 3.8 g/dL (3.4-5.0); Bilirubin Direct 0.2 mg/dL (0-0.2); Bilirubin Total 0.7 mg/dL (0.2-1.0); Magnesium 2.1 mg/dL (1.6-2.4); Potassium 4.2 mmol/L (3.5-5.1); Protein, Total 7.4 g/dL (6.4-8.2); Troponin High Sensitivity 12.3 pg/mL (<58.9)
[2022-06-04 08:51] LABS: SARS-COV-2 RT PCR NEGATIVE (NEGATIVE)
[2022-06-04] MEDS ORDERED: LEVALBUTEROL 1.25 MG/3 ML NEB ONE (09:03)
[2022-06-04] MEDS ORDERED: METHYLPREDNISOLONE 125 MG INJ ONE (09:03)
--- NOTE | 2022-06-04 09:03 | ER ---
Nurse's Notes [facility] Name: Jose Elias Ahn Age: 66 yrs Sex: Male : 1955 Arrival Date: 06/04/2022 Time: 07:43 Bed 16 Private MD: Diagnosis: Cough;Dyspnea, unspecified Presentation: 06/04 07:45 Chief complaint: Patient states: about a month has been having difficulty breathing vg1 with a cough, stated was exposed to black mold while tearing down a house. 07:45 Coronavirus screen: Vaccine status: Patient reports receiving the 2nd dose of the covid vg1 vaccine. Client denies travel out of the [place] in the last 14 days. Client presents with at least one sign or symptom that may indicate coronavirus-19. Standard/surgical mask placed on the client. Ebola Screen: Patient negative for fever greater than or equal to 101.5 degrees Fahrenheit, and additional compatible Ebola Virus Disease symptoms. Initial Sepsis Screen: Does the patient meet any 2 criteria? RR > 20 per min. Does the patient have a suspected source of infection? No. Patient's initial sepsis screen is negative. Risk Assessment: Do you want to hurt yourself or someone else? Patient reports desire/thoughts of hurting themselves or someone else. Provider notified. Onset of symptoms was April 2022. 07:45 Method Of Arrival: Ambulatory vg1 07:45 Acuity: NEEL 3 vg1 Triage Assessment: 07:56 General: Appears in no apparent distress. uncomfortable, Behavior is calm, cooperative. vg1 Pain: Denies pain. Neuro: Level of Consciousness is awake, alert, obeys commands, Oriented to person, place, time, situation. Respiratory: Reports shortness of breath at rest cough that is Airway is patent Respiratory effort is even, labored, Respiratory pattern is tachypnea Onset: The symptoms/episode began/occurred about a month ago, the patient has moderate shortness of breath. Historical: - Allergies: 07:56 No Known Allergies; vg1 - Home Meds: 07:56 Hydrocodone-Acetaminophen Oral [Active]; Trazodone Oral [Active]; amitriptyline Oral vg1 [Active]; - PMHx: 07:56 Back pain; CHF; Diabetes - NIDDM; Hepatitis; Hypertension; vg1 - Immunization history:: Client reports receiving the 2nd dose of the Covid vaccine. - Social history:: Smoking status: Patient reports the use of cigarette tobacco products, smokes one pack cigarettes per day. Smoking status: Reported history of juuling and/or vaping. - Family history:: not pertinent. - Hospitalizations: : No recent hospitalization is reported. Screenin:[facility] ED Fall Risk Assessment (Adult) History of falling in the last 3 months, vg1 including since admission No falls in past 3 months (0 pts) Confusion or Disorientation No (0 pts) Intoxicated or Sedated No (0 pts) Impaired Gait No (0 pts) Mobility Assist Device Used No (0 pt) Altered Elimination No (0 pt) Score/Fall Risk Level 0 - 2 = Low Risk Oriented to surroundings, Maintained a safe environment, Educated pt \T\ family on fall prevention, incl call for assistance when getting out of bed, Assessed \T\ reinforced patient's understanding of fall precautions. Abuse screen: Denies threats or abuse. Nutritional screening: No deficits noted. Tuberculosis screening: Has had TB. Assessment: 08:00 General: SEE TRIAGE NOTE. bp 08:49 Cardiovascular: Rhythm is sinus rhythm. Respiratory: Airway is patent Breath sounds are bp coarse bilaterally. 10:17 Reassessment: PT DC HOME AMBULATORY. bp Vital Signs: 07:45 BP 170 / 100; Pulse 88; Resp 24; Temp 98.6(TE); Pulse Ox 95% on R/A; Weight 117.93 kg; vg1 Height 6 ft. 1 in. (185.42 cm); 08:49 BP 158 / 80; Pulse 85; Resp 24; Pulse Ox 97% ; bp 09:14 BP 162 / 81; Pulse 83; Resp 13; Pulse Ox 100% ; bp 10:17 BP 147 / 73; Pulse 88; Resp 13; Pulse Ox 96% ; bp 07:45 Body Mass Index 34.30 (117.93 kg, 185.42 cm) vg1 ED Course: 07:43 Patient arrived in ED. am2 07:43 Henri Alves MD is Attending Physician. rn 07:53 Tai Schwarz, CHELLE is Primary Nurse. bp 07:56 Triage completed. vg1 07:56 Arm band placed on. vg1 08:10 Inserted saline lock: 20 gauge in left antecubital area, using aseptic technique. Blood bp collected. 08:18 Blood Culture Adult (2) Sent. mm9 08:19 Patient has correct armband on for positive identification. Bed in low position. Call mm9 light in reach. Side rails up X 1. hop sorter on. Pulse ox on. NIBP on. 08:19 Initial lab(s) drawn, by ED staff, sent to lab. EKG done, by ED staff, reviewed by mm9 Henri Alves MD COVID swab sent to lab. 08:26 XRAY CXR (1 view) In Process Unspecified. EDMS 10:00 Abilio Townsend MD is Referral Physician. rn 10:17 No provider procedures requiring assistance completed. IV discontinued, intact, bp bleeding controlled, No redness/swelling at site. Pressure dressing applied. Administered Medications: 09:14 Drug: SOLU-Medrol (methylPrednisoLONE) 125 mg Route: IVP; Site: left antecubital; bp 10:18 Follow up: Response: No adverse reaction bp 09:14 Drug: Xopenex (levalbuterol) 1.25 mg Route: Inhalation; bp Medication: 08:49 VIS not applicable for this client. bp Outcome: 09:02 Discharge ordered by . rn 10:17 Discharged to home ambulatory. bp 10:17 Condition: stable 10:17 Discharge instructions given to patient, Instructed on discharge instructions, follow up and referral plans. medication usage, benefits of quitting smoking, Demonstrated understanding of instructions, follow-up care, medications, Prescriptions given X 3. 10:19 Patient left the ED. bp Signatures: Dispatcher [employer] EDAZ Henri Alves MD MD rn Moreno, Amanda am2 Peltier, Brian RN RN bp Angela Salcedo RN RN jacky1 Elisha Leonard mm9 Corrections: (The following items were deleted from the chart) 08:50 08:49 Pulse 85bpm; Resp 24bpm; Pulse Ox 97%; bp bp
--- NOTE | 2022-06-04 09:03 | EDPHYS ---
Physician Documentation [facility] Name: Jose Elias Ahn Age: 66 yrs Sex: Male : 1955 Arrival Date: 06/04/2022 Time: 07:43 Bed 16 Private MD: ED Physician Henri Alves HPI: 06/04 08:55 This 66 yrs old Male presents to ER via Ambulatory with complaints of Breathing rn Difficulty, Cough. 08:55 The patient has shortness of breath with light activity, during heavy activity. Onset: rn The symptoms/episode began/occurred 2 month(s) ago. Duration: The symptoms are intermittent. The patient's shortness of breath is aggravated by coughing, exertion, light activity. Associated signs and symptoms: Pertinent positives: non-productive cough, Pertinent negatives: chest pain, fever, hemoptysis. Severity of symptoms: At their worst the symptoms were moderate in the emergency department the symptoms are unchanged. The patient has experienced similar episodes in the past. The patient has not recently seen a physician. Historical: - Allergies: 07:56 No Known Allergies; vg1 - Home Meds: 07:56 Hydrocodone-Acetaminophen Oral [Active]; Trazodone Oral [Active]; amitriptyline Oral vg1 [Active]; - PMHx: 07:56 Back pain; CHF; Diabetes - NIDDM; Hepatitis; Hypertension; vg1 - Immunization history:: Client reports receiving the 2nd dose of the Covid vaccine. - Social history:: Smoking status: Patient reports the use of cigarette tobacco products, smokes one pack cigarettes per day. Smoking status: Reported history of juuling and/or vaping. - Family history:: not pertinent. - Hospitalizations: : No recent hospitalization is reported. ROS: 08:55 Constitutional: Negative for fever, chills, and weight loss, Eyes: Negative for injury, rn pain, redness, and discharge, Neck: Negative for injury, pain, and swelling, Cardiovascular: Negative for chest pain, palpitations, and edema, Respiratory: + cough and sob Abdomen/GI: Negative for abdominal pain, nausea, vomiting, diarrhea, and constipation, MS/Extremity: Negative for injury and deformity, Skin: Negative for injury, rash, and discoloration, Neuro: Negative for headache, weakness, numbness, tingling, and seizure. Exam: 08:55 Constitutional: This is a well developed, well nourished patient who is awake, alert, rn and in no acute distress. Head/Face: Normocephalic, atraumatic. ENT: No stridor Cardiovascular: Regular rate and rhythm. No pulse deficits. Respiratory: + mild tachypnea with faint wheezing noted, no retractions, speaking full sentences Abdomen/GI: soft, non-tender Skin: NO cyanosis MS/ Extremity: Pulses equal, no cyanosis. Neurovascular intact. Full, normal range of motion. Equal circumference. Neuro: Awake and alert, GCS 15 08:58 ECG was reviewed by the Attending Physician. rn Vital Signs: 07:45 BP 170 / 100; Pulse 88; Resp 24; Temp 98.6(TE); Pulse Ox 95% on R/A; Weight 117.93 kg; vg1 Height 6 ft. 1 in. (185.42 cm); 08:49 BP 158 / 80; Pulse 85; Resp 24; Pulse Ox 97% ; bp 09:14 BP 162 / 81; Pulse 83; Resp 13; Pulse Ox 100% ; bp 10:17 BP 147 / 73; Pulse 88; Resp 13; Pulse Ox 96% ; bp 07:45 Body Mass Index 34.30 (117.93 kg, 185.42 cm) vg1 MDM: 07:44 Patient medically screened. rn 08:43 Test interpretation: by ED physician or midlevel provider: plain radiologic studies, rn Independent interpretation of CXR by me: no acute disease, no pneumothorax.. 08:58 Differential diagnosis: Anemia Anxiety Reaction Bronchitis CHF exacerbation, Chronic rn Obstructive Pulmonary Disease Myocardial Infarction pneumonia, Pneumothorax pulmonary edema, Pulmonary Embolism reactive airway disease. Data reviewed: vital signs, nurses notes, lab test result(s), EKG, radiologic studies, plain films. 08:58 Data interpreted: threat monitoring analyst: rate is 85 beats/min, rhythm is normal sinus rhythm, rn regular, with no ectopy, Interpretation: normal rate, normal rhythm, Pulse oximetry: on room air is 97 %. Interpretation: normal. Counseling: I had a detailed discussion with the patient and/or guardian regarding: the historical points, exam findings, and any diagnostic results supporting the discharge/admit diagnosis, lab results, radiology results, the need for outpatient follow up, to return to the emergency department if symptoms worsen or persist or if there are any questions or concerns that arise at home. Response to treatment: the patient's symptoms have mildly improved after treatment, and as a result, I will discharge patient. Special discussion: I discussed with the patient/guardian in detail that at this point there is no indication for admission to the hospital. It is understood, however, that if the symptoms persist or worsen the patient needs to return immediately for re-evaluation. Based on the history and exam findings, there is no indication for further emergent testing or inpatient evaluation. I discussed with the patient/guardian the need to see the primary care provider for further evaluation of the symptoms. ED course: Pt with respiratory symptoms, possible pneumonia, no oxygen requirement. No evidence of pulmonary edema or pneumothorax of CXR. No pneumonia of CXR. Will dc home with steroids and inhaler. Return precautions given and understood. Care of patient complicated by multiple chronic co-morbid illnesses including but not limited to diabetes, HTN, CHF, obesity. Trop neg and ECG normal, no evidence of acute NE. . 10:00 Counseling: I had a detailed discussion with the patient and/or guardian regarding: rn smoking cessation. 06/04 07:57 Order name: BMP; Complete Time: 08:53 06/04 08:56 Interpretation: Within normal limits. 06/04 07:57 Order name: Blood Culture Adult (2) rn 06/04 07:57 Order name: CBC with Diff; Complete Time: 08:43 06/04 08:56 Interpretation: Abnormal. 06/04 07:57 Order name: Hepatic Function; Complete Time: 08:53 06/04 08:57 Interpretation: Within normal limits. rn 06/04 07:57 Order name: Magnesium; Complete Time: 08:53 rn 06/04 08:57 Interpretation: Within normal limits. 06/04 07:57 Order name: NT PRO-BNP; Complete Time: 08:53 rn 06/04 08:57 Interpretation: Within normal limits. rn 06/04 07:57 Order name: PT-INR; Complete Time: 08:43 06/04 07:57 Order name: Ptt, Activated; Complete Time: 08:43 06/04 07:57 Order name: Troponin HS; Complete Time: 08:53 rn 06/04 08:57 Interpretation: Within normal limits. 06/04 07:57 Order name: XRAY CXR (1 view); Complete Time: 08:43 rn 06/04 08:57 Interpretation: No acute disease. rn 06/04 07:57 Order name: EKG; Complete Time: 07:58 rn 06/04 07:57 Order name: COVID-19/FLU A+B; Complete Time: 08:53 rn 06/04 07:57 Order name: Cardiac monitoring; Complete Time: 08:19 rn 06/04 07:57 Order name: EKG - Nurse/Tech; Complete Time: 08:19 rn 06/04 07:57 Order name: IV Saline Lock; Complete Time: 08:11 rn 06/04 07:57 Order name: Labs collected and sent; Complete Time: 08:11 rn 06/04 07:57 Order name: O2 Per Protocol; Complete Time: 08:00 rn 06/04 07:57 Order name: O2 Sat Monitoring; Complete Time: 08:00 rn EC:58 Rate is 85 beats/min. Rhythm is regular. QRS [place] is Normal. [place] interval is normal. QRS rn interval is normal. QT interval is normal. No Q waves. T waves are Normal. No ST changes noted. Clinical impression: Normal ECG. Interpreted by me. Reviewed by me. Administered Medications: 09:14 Drug: SOLU-Medrol (methylPrednisoLONE) 125 mg Route: IVP; Site: left antecubital; bp 10:18 Follow up: Response: No adverse reaction bp 09:14 Drug: Xopenex (levalbuterol) 1.25 mg Route: Inhalation; bp Disposition Summary: 06/04/22 09:02 Discharge Ordered Location: Home rn Problem: new rn Symptoms: have improved rn Condition: Stable rn Diagnosis - Cough rn - Dyspnea, unspecified rn Followup: rn - With: Private Physician - When: As needed - Reason: Recheck today's complaints, Re-evaluation by your physician Followup: rn - With: Abilio Townsend MD - When: As needed - Reason: Recheck today's complaints, Re-evaluation by your physician Discharge Instructions: - Discharge Summary Sheet rn - Shortness of Breath, Adult rn - Cough, Adult, [id number] rn Forms: - Medication Reconciliation Form rn - Thank You Letter rn - Antibiotic staff attorney - Prescription Opioid Use rn Prescriptions: - albuterol sulfate 90 mcg/actuation Inhalation HFA aerosol inhaler - inhale 1 puff by INHALATION route every 4-6 hours; 1 Pump; Refills: 0, Product rn Selection Permitted - Prednisone 20 mg Oral Tablet - take 3 tablets by ORAL route once daily for 5 days; 15 tablet; Refills: 0, rn Product Selection Permitted - Zithromax Z-Arnulfo 250 mg Oral Tablet - take 1 tablet by ORAL route as directed for 5 days Day 1 - take two (2) tablets rn one time. Day 2, 3, 4 , 5 take one (1) tablet once daily.; 6 tablet; Refills: 0, Product Selection Permitted Signatures: Dispatcher [employer] EDHenri Vergara MD MD rn Peltier, Brian, RN RN bp Garcia, Victoria, RN RN vg1
[2022-06-04 10:26] VITALS: TEMP 98.6
[2022-06-04 10:30] VITALS: BP 147/73; O2SAT 96
--- NOTE | 2022-06-06 16:32 | EKG ---
Test Date: 2022-06-04 Test Time: 08:15:50 Glycerin Supervisor: SENIA MEASUREMENT RESULTS: Intervals: Rate: 85 ID: [id number] QRSD: 76 QT: 360 QTc: 428 [place]: P: 72 ID: [id number] QRS: 48 T: 52 INTERPRETIVE STATEMENTS: Normal sinus rhythm Normal ECG Compared to ECG 10/25/2019 08:56:02 No significant changes Electronically Signed On 06-06-22 16:28:34 SCHOOL BUSINESS ADMINISTRATOR by Rajat Nicole
== END 2022-06-04 10:19 | disposition home or self-care (01) ==
LOC: ER 07:41
DX: R05.9 Cough, unspecified (principal); R06.00 Dyspnea, unspecified; I10 Essential (primary) hypertension; I50.9 Heart failure, unspecified; E11.9 Type 2 diabetes mellitus without complications; F17.210 Nicotine dependence, cigarettes, uncomplicated; Z20.822 Contact with and (suspected) exposure to COVID-19
CPT/HCPCS: 93005; 87040; 85025; 80048; 36415; 83735; 85610; 80076; 85730; 84484; 83880; 0240U; 71045; 96374; 99285; J7614; J2930

== ENCOUNTER 2022-08-17 11:35 | Emergency (ER) | payer OTHER ==
--- OUTSIDE RECORDS SUMMARY | 2022-08-17 11:48 | XMS REPORT | Continuity of Care Document ---
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 TABLET BY ity of 00:00: 00:00 MOUTH [place] 00 :00 EVERY DAY Medical Branch LISINOPRIL- 0 2020- No [id number] TAKE 1 [facility] HYDROCHLORO 1-24 02-25 TABLET BY it y of THIAZIDE 00:00: 00:00 MOUTH [place] 20-25 mg 00 :00 EVERY DAY Medica [facility] per tablet Branch LISINOPRIL- 2018-05 2020- No [id number] TAKE 1 [facility] HYDROCHLORO 2-27 01-24 TABLET BY it y of THIAZIDE 00:00: 00:00 MOUTH [place] 20-25 mg 00 :00 EVERY DAY Med[facility] per tablet Branch KCL 10 mEq 2018-05 2020- No TAKE 1 [facility] tablet 0-02 01-24 TABLET BY ity of 00:00: 00:00 MOUTH [place] 00 :00 EVERY DAY Medical Branch LISINOPRIL- Yes [id number] TAKE 1 [facility] HYDROCHLORO 8-29 TABLET BY [...] 00:00: MOUTH TWICE Medical DAILY Branch METFORMIN Yes TAKE 1 [facility] 500 mg 6-27 TABLET BY ity of tablet 00:00: MOUTH TWICE Medical DAILY Branch METFORMIN Yes TAKE 1 [facility] 500 mg 6-27 TABLET BY ity of tablet 00:00: MOUTH [place] TWICE Medical DAILY Branch AMITRIPTYLI Yes 10mg TAKE 1 [facility] NE 10 mg 5-31 TABLET BY ity of tablet 00:00: MOUTH AT [place] BEDTIME Medical Branch KCL 10 mEq Yes TAKE 1 [facility] tablet 5-31 TABLET BY ity of 00:00: MOUTH [place] EVERY DAY Medical Branch AMITRIPTYLI Yes 10mg TAKE 1 [facility] NE 10 mg 5-31 TABLET BY ity of tablet 00:00: MOUTH AT [place] BEDTIME Medical Branch NEXIUM 40 Yes TAKE 1 [facility] mg capsule 5-31 CAPSULE BY ity of 00:00: MOUTH [place] DAY Medical Branch AMITRIPTYLI Yes 10mg TAKE 1 [facility] NE 10 mg 5-31 TABLET BY ity of tablet 00:00: MOUTH AT [place] BEDTIME Medical Branch AMITRIPTYLI 0 Yes 10mg TAKE 1 [facility] NE 10 mg 5-31 TABLET BY ity of tablet 00:00: MOUTH AT [place] BEDTIME Medical Branch AMITRIPTYLI 0 Yes 10mg TAKE 1 [facility] NE 10 mg 5-31 TABLET BY ity of tablet 00:00: MOUTH AT [place] BEDTIME Medical Branch AMITRIPTYLI 0 Yes 10mg TAKE 1 [facility] NE 10 mg 5-31 TABLET BY ity of tablet 00:00: MOUTH AT [place] BEDTIME Medical Branch KCL 10 mEq Yes TAKE 1 [facility] tablet 5-31 TABLET BY ity of 00:00: MOUTH [place] EVERY DAY Medical Branch AMITRIPTYLI 0 Yes 10mg TAKE 1 [facility] NE 10 mg 5-31 TABLET BY ity of tablet 00:00: MOUTH AT [place] BEDTIME Medical Branch NEXIUM 40 0 Yes TAKE 1 [facility] mg capsule 5-31 CAPSULE BY ity of 00:00: MOUTH [place] EVERY DAY Medical Branch AMITRIPTYLI 2019-0 Yes 10mg TAKE 1 [facility] NE 10 mg 5-31 TABLET BY ity of tablet 00:00: MOUTH AT [place] BEDTIME Medical Branch NEXIUM 40 2019-0 Yes TAKE 1 [facility] mg capsule 5-31 CAPSULE BY ity of 00:00: MOUTH [place] EVERY DAY Medical Branch AMITRIPTYLI 2019-0 Yes 10mg TAKE 1 [facility] NE 10 mg 5-31 TABLET BY ity of tablet 00:00: MOUTH AT [place] BEDTIME Medical Branch NEXIUM 40 2019-0 Yes TAKE 1 [facility] mg capsule 5-31 CAPSULE BY ity of 00:00: MOUTH [place] EVERY DAY Medical Branch AMITRIPTYLI 2019-0 Yes 10mg TAKE 1 [facility] NE 10 mg 5-31 TABLET BY ity of tablet 00:00: MOUTH AT [place] BEDTIME Medical Branch NEXIUM 40 2018-0 Yes TAKE 1 [facility] mg capsule 5-31 CAPSULE BY ity of 00:00: MOUTH [place] EVERY DAY Medical Branch AMITRIPTYLI 2019-0 Yes 10mg TAKE 1 [facility] NE 10 mg 5-31 TABLET BY ity of tablet 00:00: MOUTH AT [place] BEDTIME Medical Branch NEXIUM 40 2018-0 Yes TAKE 1 [facility] mg capsule 5-31 CAPSULE BY ity of 00:00: MOUTH [place] EVERY DAY Medical Branch AMITRIPTYLI 2019-0 Yes 10mg TAKE 1 [facility] NE 10 mg 5-31 TABLET BY ity of tablet 00:00: MOUTH AT [place] BEDTIME Medical Branch NEXIUM 40 2019-0 Yes TAKE 1 [facility] mg capsule 5-31 CAPSULE BY ity of 00:00: MOUTH [place] EVERY DAY Medical Branch AMITRIPTYLI 2019-0 Yes 10mg TAKE 1 [facility] NE 10 mg 5-31 TABLET BY ity of tablet 00:00: MOUTH AT [place] BEDTIME Medical Branch NEXIUM 40 2019-0 Yes TAKE 1 [facility] mg capsule 5-31 CAPSULE BY ity of 00:00: MOUTH [place] EVERY DAY Medical Branch AMITRIPTYLI 2019-0 Yes 10mg TAKE 1 [facility] NE 10 mg 5-31 TABLET BY ity of tablet 00:00: MOUTH AT [place] BEDTIME Medical Branch NEXIUM 40 2019-0 Yes TAKE 1 [facility] mg capsule 5-31 CAPSULE BY ity of 00:00: MOUTH [place] EVERY DAY Medical Branch AMITRIPTYLI 2019-0 Yes 10mg TAKE 1 [facility] [place] 10 mg 5-31 TABLET BY ity of tablet 00:00: MOUTH AT [place] BEDTIME Medical Branch NEXIUM 40 2019-0 Yes TAKE 1 [facility] mg capsule 5-31 CAPSULE BY ity of 00:00: MOUTH [place] EVERY DAY Medical Branch AMITRIPTYLI 2019-0 Yes 10mg TAKE 1 [facility] NE 10 mg 5-31 TABLET BY ity of tablet 00:00: MOUTH AT [place] BEDTIME Medical Branch NEXIUM 40 2018-0 Yes TAKE 1 [facility] mg capsule 5-31 CAPSULE BY ity of 00:00: MOUTH [place] EVERY DAY Medical Branch AMITRIPTYLI 2019-0 Yes 10mg TAKE 1 [facility] NE 10 mg 5-31 TABLET BY ity of tablet 00:00: MOUTH AT [place] BEDTIME Medical Branch NEXIUM 40 2018-0 Yes TAKE 1 [facility] mg capsule 5-31 CAPSULE BY ity of 00:00: MOUTH [place] DAY Medical Branch AMITRIPTYLI 2019-0 Yes 10mg TAKE 1 [facility] NE 10 mg 5-31 TABLET BY ity of tablet 00:00: MOUTH AT [place] BEDTIME Medical Branch NEXIUM 40 0 Yes TAKE 1 [facility] mg capsule 5-31 CAPSULE BY ity of 00:00: MOUTH [place] EVERY DAY Medical Branch AMITRIPTYLI 2019-0 Yes 10mg TAKE 1 [facility] [place] 10 mg 5-31 TABLET BY ity of tablet 00:00: MOUTH AT [place] BEDTIME Medical Branch NEXIUM 40 2019-0 Yes TAKE 1 [facility] mg capsule 5-31 CAPSULE BY ity of 00:00: MOUTH [place] EVERY DAY Medical Branch AMITRIPTYLI 2019-0 Yes 10mg TAKE 1 [facility] [place] 10 mg 5-31 TABLET BY ity of tablet 00:00: MOUTH AT [place] BEDTIME Medical Branch NEXIUM 40 2019-0 Yes TAKE 1 [facility] mg capsule 5-31 CAPSULE BY ity of 00:00: MOUTH [place] EVERY DAY Medical Branch AMITRIPTYLI 2019-0 Yes 10mg TAKE 1 [facility] [place] 10 mg 5-31 TABLET BY ity of tablet 00:00: MOUTH AT [place] BEDTIME Medical Branch NEXIUM 40 2019-0 Yes TAKE 1 [facility] mg capsule 5-31 CAPSULE BY ity of 00:00: MOUTH [place] 00 EVERY DAY Medical Branch AMITRIPTYLI 2019-0 Yes 10mg TAKE 1 [facility] [place] 10 mg 5-31 TABLET BY ity of tablet 00:00: MOUTH AT [place] BEDTIME Medical Branch NEXIUM 40 2018-0 Yes TAKE 1 [facility] mg capsule 5-31 CAPSULE BY ity of 00:00: MOUTH [place] DAY Medical Branch AMITRIPTYLI 2019-0 Yes 10mg TAKE 1 [facility] [place] 10 mg 5-31 TABLET BY ity of tablet 00:00: MOUTH AT [place] BEDTIME Medical Branch NEXIUM 40 0 Yes TAKE 1 [facility] mg capsule 5-31 CAPSULE BY ity of 00:00: MOUTH [place] EVERY DAY Medical Branch AMITRIPTYLI 2019-0 Yes 10mg TAKE 1 [facility] [place] 10 mg 5-31 TABLET BY ity of tablet 00:00: MOUTH AT [place] BEDTIME Medical Branch NEXIUM 40 0 Yes TAKE 1 [facility] mg capsule 5-31 CAPSULE BY ity of 00:00: MOUTH [place] EVERY DAY Medical Branch AMITRIPTYLI 2019-0 Yes 10mg TAKE 1 [facility] [place] 10 mg 5-31 TABLET BY ity of tablet 00:00: MOUTH AT [place] BEDTIME Medical Branch NEXIUM 40 0 Yes TAKE 1 [facility] mg capsule 5-31 CAPSULE BY ity of 00:00: MOUTH [place] DAY Medical Branch AMITRIPTYLI 2019-0 Yes 10mg TAKE 1 [facility] [place] 10 mg 5-31 TABLET BY ity of tablet 00:00: MOUTH AT [place] BEDTIME Medical Branch NEXIUM 40 2019-0 Yes TAKE 1 [facility] mg capsule 5-31 CAPSULE BY ity of 00:00: MOUTH [place] EVERY DAY Medical Branch AMITRIPTYLI 2019-0 Yes 10mg TAKE 1 [facility] [place] 10 mg 5-31 TABLET BY ity of tablet 00:00: MOUTH AT [place] BEDTIME Medical Branch AMITRIPTYLI 2019-0 Yes 10mg TAKE 1 [facility] [place] 10 mg 5-31 TABLET BY ity of tablet 00:00: MOUTH AT [place] BEDTIME Medical Branch AMITRIPTYLI 2019-0 Yes 10mg TAKE 1 [facility] [place] 10 mg 5-31 TABLET BY ity of tablet 00:00: MOUTH AT [place] BEDTIME Medical Branch AMITRIPTYLI 2019-0 Yes 10mg TAKE 1 [facility] [place] 10 mg 5-31 TABLET BY ity of tablet 00:00: MOUTH AT [place] BEDTIME Medical Branch AMITRIPTYLI 2019-0 Yes 10mg TAKE 1 [facility] [place] 10 mg 5-31 TABLET BY ity of tablet 00:00: MOUTH AT [place] BEDTIME Medical Branch AMITRIPTYLI 2019-0 Yes 10mg TAKE 1 [facility] [place] 10 mg 5-31 TABLET BY ity of tablet 00:00: MOUTH AT [place] BEDTIME Medical Branch AMITRIPTYLI 2019-0 Yes 10mg TAKE 1 [facility] [place] 10 mg 5-31 TABLET BY ity of tablet 00:00: MOUTH AT [place] BEDTIME Medical Branch AMITRIPTYLI 20190 Yes 10mg TAKE 1 [facility] [place] 10 mg 5-31 TABLET BY ity of tablet 00:00: MOUTH AT [place] BEDTIME Medical Branch AMITRIPTYLI 20190 Yes 10mg TAKE 1 [facility] [place] 10 mg 5-31 TABLET BY ity of tablet 00:00: MOUTH AT [place] BEDTIME Medical Branch AMITRIPTYLI 2019-0 Yes 10mg TAKE 1 [facility] [place] 10 mg 5-31 TABLET BY ity of tablet 00:00: MOUTH AT [place] BEDTIME Medical Branch AMITRIPTYLI 20190 Yes 10mg TAKE 1 [facility] [place] 10 mg 5-31 TABLET BY ity of tablet 00:00: MOUTH AT [place] [facility] KCL 10 mEq 0 Yes TAKE 1 [facility] tablet 5-31 TABLET BY ity of 00:00: MOUTH [place] EVERY DAY Medical Branch AMITRIPTYLI 2019-0 Yes 10mg TAKE 1 [facility] [place] 10 mg 5-31 TABLET BY ity of tablet 00:00: MOUTH AT [place] BEDTIME Medical Branch AMITRIPTYLI 2019-0 Yes 10mg TAKE 1 [facility] [place] 10 mg 5-31 TABLET BY ity of tablet 00:00: MOUTH AT [place] BEDTIME Medical Branch NEXIUM 40 2019-0 Yes TAKE 1 [facility] mg capsule 5-31 CAPSULE BY ity of 00:00: MOUTH [place] EVERY DAY Medical Branch AMITRIPTYLI 2019-0 Yes 10mg TAKE 1 [facility] [place] 10 mg 5-31 TABLET BY ity of tablet 00:00: MOUTH AT [place] BEDTIME Medical Branch AMITRIPTYLI 2019-0 Yes 10mg TAKE 1 [facility] [place] 10 mg 5-31 TABLET BY ity of tablet 00:00: MOUTH AT [place] [address] BEDTIME Medical Branch AMITRIPTYLI 2019-0 Yes 10mg TAKE 1 [facility] NE 10 mg 5-31 TABLET BY ity of tablet 00:00: MOUTH AT [place] BEDTIME Medical Branch AMITRIPTYLI 2019-0 Yes 10mg TAKE 1 [facility] [place] 10 mg 5-31 TABLET BY ity of tablet 00:00: MOUTH AT [place] BEDTIME Medical Branch AMITRIPTYLI 2019-0 Yes 10mg TAKE 1 [facility] [place] 10 mg 5-31 TABLET BY ity of tablet 00:00: MOUTH AT [address] Medical Branch KCL 10 mEq 2019-0 Yes TAKE 1 [facility] tablet 5-31 TABLET BY ity of 00:00: MOUTH [place] EVERY DAY Medical Branch AMITRIPTYLI 2019-0 Yes 10mg TAKE 1 [facility] [place] 10 mg 5-31 TABLET BY ity of tablet 00:00: MOUTH AT [place] [facility] Branch AMITRIPTYLI 2019-0 Yes 10mg TAKE 1 [facility] [place] 10 mg 5-31 TABLET BY ity of tablet 00:00: MOUTH AT [place] [address] BEDTIME Medical Branch NEXIUM 40 2019-0 Yes TAKE 1 [facility] mg capsule 5-31 CAPSULE BY ity of 00:00: MOUTH [place] EVERY DAY Medical Branch AMITRIPTYLI 2019-0 Yes 10mg TAKE 1 [facility] [place] 10 mg 5-31 TABLET BY ity of tablet 00:00: MOUTH AT [place] [facility] Branch AMITRIPTYLI 2019-0 Yes 10mg TAKE 1 [facility] [place] 10 mg 5-31 TABLET BY ity of tablet 00:00: MOUTH AT [place] BEDTIME Medical Branch AMITRIPTYLI 2019-0 Yes 10mg TAKE 1 [facility] [place] 10 mg 5-31 TABLET BY ity of tablet 00:00: MOUTH AT [place] [address] BEDTIME Medical Branch AMITRIPTYLI 2019-0 Yes 10mg TAKE 1 [facility] [place] 10 mg 5-31 TABLET BY ity of tablet 00:00: MOUTH AT [place] [address] BEDTIME Medical Branch NEXIUM 40 2019-0 2020- No TAKE 1 [facility] mg capsule 5-31 07-22 CAPSULE BY it y of 00:00: 00:00 MOUTH [place] 00 :00 EVERY DAY Medical Branch NEXIUM 40 2019-0 2020- No TAKE 1 [facility] mg capsule 5-31 07-22 CAPSULE BY it y of 00:00: 00:00 MOUTH [place] 00 :00 EVERY DAY Medical Branch codeine-gua 2019-0 Yes [id number] 5mL Take 5 mL [facility] ifenesin 4-09 by mouth ity of (CHERATUSSI 00:00: every 4 [place] AC) 00 (four) Medical 10-100 mg/5 hours as Bran ch mL solution needed for Cough. codeine-gua 0 Yes [id number] 5mL Take 5 mL [facility] ifenesin 4-09 by mouth ity of (CHERATUSSI 00:00: every 4 [place] AC) 00 (four) Medical 10-100 mg/5 hours as Bran ch mL solution needed for Cough. codeine-gua 0 Yes [id number] 5mL Take 5 mL [facility] ifenesin 4-09 by mouth ity of (CHERATUSSI 00:00: every 4 [place] AC) 00 (four) Medical 10-100 mg/5 hours as Bran ch mL solution needed for Cough. codeine-gua Yes [id number] 5mL Take 5 mL [facility] ifenesin 4-09 by mouth ity of (CHERATUSSI 00:00: every 4 [place] AC) 00 (four) Medical 10-100 mg/5 hours as Bran ch mL solution needed for Cough. codeine-gua 0 Yes [id number] 5mL Take 5 mL [facility] ifenesin 4-09 by mouth ity of (CHERATUSSI 00:00: every 4 [place] AC) 00 (four) Medical 10-100 mg/5 hours as Bran ch mL solution needed for Cough. codeine-gua 0 Yes [id number] 5mL Take 5 mL [facility] ifenesin 4-09 by mouth ity of (CHERATUSSI 00:00: every 4 [place] AC) 00 (four) Medical 10-100 mg/5 hours as Bran ch mL solution needed for Cough. codeine-gua 0 Yes [id number] 5mL Take 5 mL [facility] ifenesin 4-09 by mouth ity of (CHERATUSSI 00:00: every 4 [place] AC) 00 (four) Medical 10-100 mg/5 hours as Bran ch mL solution needed for Cough. codeine-gua Yes [id number] 5mL Take 5 mL [facility] ifenesin 4-09 by mouth ity of (CHERATUSSI 00:00: every 4 [place] AC) 00 (four) Medical 10-100 mg/5 hours as Bran ch mL solution needed for Cough. codeine-gua 0 Yes [id number] 5mL Take 5 mL [facility] ifenesin 4-09 by mouth ity of (CHERATUSSI 00:00: every 4 [place] AC) 00 (four) Medical 10-100 mg/5 hours as Bran ch mL solution needed for Cough. codeine-gua 0 Yes [id number] 5mL Take 5 mL [facility] ifenesin 4-09 by mouth ity of (CHERATUSSI 00:00: every 4 [place] AC) 00 (four) Medical 10-100 mg/5 hours as Bran ch mL solution needed for Cough. codeine-gua 0 Yes [id number] 5mL Take 5 mL [facility] ifenesin 4-09 by mouth ity of (CHERATUSSI 00:00: every 4 [place] AC) 00 (four) Medical 10-100 mg/5 hours as Bran ch mL solution needed for Cough. codeine-gua Yes [id number] 5mL Take 5 mL [facility] ifenesin 4-09 by mouth ity of (CHERATUSSI 00:00: every 4 [place] AC) 00 (four) Medical 10-100 mg/5 hours as Bran ch mL solution needed for Cough. codeine-gua 0 Yes [id number] 5mL Take 5 mL [facility] ifenesin 4-09 by mouth ity of (CHERATUSSI 00:00: every 4 [place] AC) 00 (four) Medical 10-100 mg/5 hours as Bran ch mL solution needed for Cough. codeine-gua 0 Yes [id number] 5mL Take 5 mL [facility] ifenesin 4-09 by mouth ity of (CHERATUSSI 00:00: every 4 [place] AC) 00 (four) Medical 10-100 mg/5 hours as Bran ch mL solution needed for Cough. codeine-gua 0 Yes [id number] 5mL Take 5 mL [facility] ifenesin 4-09 by mouth ity of (CHERATUSSI 00:00: every 4 [place] AC) 00 (four) Medical 10-100 mg/5 hours as Bran ch mL solution needed for Cough. codeine-gua 2019-0 Yes [id number] 5mL Take 5 mL [facility] ifenesin 4-09 by mouth ity of (CHERATUSSI 00:00: every 4 [place] AC) 00 (four) Medical 10-100 mg/5 hours as Bran ch mL solution needed for Cough. codeine-gua Yes [id number] 5mL Take 5 mL [facility] ifenesin 4-09 by mouth ity of (CHERATUSSI 00:00: every 4 [place] AC) 00 (four) Medical 10-100 mg/5 hours as Bran ch mL solution needed for Cough. codeine-gua Yes [id number] 5mL Take 5 mL [facility] ifenesin 4-09 by mouth ity of (CHERATUSSI 00:00: every 4 [place] AC) 00 (four) Medical 10-100 mg/5 hours as Bran ch mL solution needed for Cough. codeine-gua Yes [id number] 5mL Take 5 mL [facility] ifenesin 4-09 by mouth ity of (CHERATUSSI 00:00: every 4 [place] AC) 00 (four) Medical 10-100 mg/5 hours as Bran ch mL solution needed for Cough. codeine-gua Yes [id number] 5mL Take 5 mL [facility] ifenesin 4-09 by mouth ity of (CHERATUSSI 00:00: every 4 [place] AC) 00 (four) Medical 10-100 mg/5 hours as Bran ch mL solution needed for Cough. codeine-gua Yes [id number] 5mL Take 5 mL [facility] ifenesin 4-09 by mouth ity of (CHERATUSSI 00:00: every 4 [place] AC) 00 (four) Medical 10-100 mg/5 hours as Bran ch mL solution needed for Cough. codeine-gua Yes [id number] 5mL Take 5 mL [facility] ifenesin 4-09 by mouth ity of (CHERATUSSI 00:00: every 4 [place] AC) 00 (four) Medical 10-100 mg/5 hours as Bran ch mL solution needed for Cough. codeine-gua Yes [id number] 5mL Take 5 mL [facility] ifenesin 4-09 by mouth ity of (CHERATUSSI 00:00: every 4 [place] AC) 00 (four) Medical 10-100 mg/5 hours as Bran ch mL solution needed for Cough. codeine-gua 2020- No [id number] 5mL Take 5 mL [facility] ifenesin 09-04 by mouth ity of (CHERATUSSI 00:00: 00:00 every 4 [place] N AC) 00 :00 (four) Medical 10-100 mg/5 hours as Bran ch mL solution needed for Cough. codeine-gua 2020- No [id number] 5mL Take 5 mL [facility] ifenesin 09-04 by mouth ity of (CHERATUSSI 00:00: 00:00 every 4 [place] N AC) 00 :00 (four) Medical 10-100 mg/5 hours as Bran ch mL solution needed for Cough. DILTIAZEM 2019-0 Yes TAKE 1 [facility] 60 mg 3-08 TABLET BY ity of tablet 00:00: MOUTH WITH [place] PALPITATIO Medical N AND Branch TACHYCARDI A DILTIAZEM 2019-0 Yes TAKE 1 [facility] 60 mg 3-08 TABLET BY ity of tablet 00:00: MOUTH WITH [place] PALPITATIO Medical N AND Branch TACHYCARDI A DILTIAZEM 2019-0 Yes TAKE 1 [facility] 60 mg 3-08 TABLET BY ity of tablet 00:00: MOUTH WITH [place] PALPITATIO Medical N AND Branch TACHYCARDI A DILTIAZEM 2019-0 Yes TAKE 1 [facility] 60 mg 3-08 TABLET BY ity of tablet 00:00: MOUTH WITH [place] PALPITATIO Medical N AND Branch TACHYCARDI A DILTIAZEM 2019-0 Yes TAKE 1 [facility] 60 mg 3-08 TABLET BY ity of tablet 00:00: MOUTH WITH [place] PALPITATIO Medical N AND Branch TACHYCARDI A DILTIAZEM 2019-0 Yes TAKE 1 [facility] 60 mg 3-08 TABLET BY ity of tablet 00:00: MOUTH WITH [place] PALPITATIO Medical N AND Branch TACHYCARDI A DILTIAZEM 2019-0 Yes TAKE 1 [facility] 60 mg 3-08 TABLET BY ity of tablet 00:00: MOUTH WITH [place] PALPITATIO Medical N AND Branch TACHYCARDI A DILTIAZEM 2019-0 Yes TAKE 1 [facility] 60 mg 3-08 TABLET BY ity of tablet 00:00: MOUTH WITH [place] Medical N AND Branch TACHYCARDI A DILTIAZEM [id number] Yes TAKE 1 [facility] 60 mg [...] N AND Branch TACHYCARDI A LISINOPRIL- Yes [id number] TAKE 1 [facility] HYDROCHLORO 1-31 TABLET BY ity of THIAZIDE 00:00: MOUTH [place] 20-25 mg 00 EVERY DAY Medica l per tablet Branch LISINOPRIL- 2018- Yes [id number] TAKE 1 [facility] HYDROCHLORO 1-31 TABLET BY ity of THIAZIDE 00:00: MOUTH [place] 20-25 mg 00 EVERY DAY Medica l per tablet Branch LISINOPRIL- 2018-0 Yes [id number] TAKE 1 [facility] HYDROCHLORO 1-31 TABLET BY ity of THIAZIDE 00:00: MOUTH [place] 20-25 mg 00 EVERY DAY Medica l per tablet Branch LISINOPRIL- 2019- No [id number] TAKE 1 [facility] HYDROCHLORO 1-31 08-29 TABLET [...] 10mg Take 1 [facility] ers mg tablet -28 tablet by ity o f 00:00: mouth 2 00 (two) Medical times Branch daily as needed (pre proceedure ). diazePAM 2017-05- No 10mg Take 1 [facility] vers mg tablet 06-25- tablet by ity of 00:00: 00:00 mouth 2 [place] 00 :00 (two) Medical times Branch daily as needed (pre proceedure ). diazePAM 2017-05- No 10mg Take 1 [facility] vers mg tablet 06-25-22 tablet by ity of 00:00: 00:00 mouth 2 [place] 00 :00 (two) Medical times Branch daily as needed (pre proceedure ). KRISTALOSE 2018-0 Yes 1{packa Take 1 Un [...] Use 1 [facility] vers 50 2-25 } [place] in ity of mcg/actuati 00:00: each [place] on nasal 00 nostril 2 Medica l spray (two) Branch times daily. mometasone 2018-0 Yes 1{spray Use 1 [facility] vers 50 2-25 } [place] in ity of mcg/actuati 00:00: each [place] on nasal 00 nostril 2 Medica l spray (two) Branch times daily. mometasone 2018-0 Yes 1{spray Use 1 [facility] vers 50 2-25 } [place] in ity of mcg/actuati 00:00: each [place] on nasal 00 nostril 2 Medica l spray (two) Branch times daily. mometasone 2018-0 Yes 1{spray Use 1 [facility] vers 50 2-25 } [place] in ity of mcg/actuati 00:00: each [place] on nasal 00 nostril 2 Medica l spray (two) Branch times daily. mometasone 2018-0 Yes 1{spray Use 1 [facility] vers 50 2-25 } [place] in ity of mcg/actuati 00:00: each [place] on nasal 00 nostril 2 Medica l spray (two) Branch times daily. mometasone 2018-0 Yes 1{spray Use 1 [facility] vers 50 2-25 } [place] in ity of mcg/actuati 00:00: each [place] on nasal 00 nostril 2 Medica l spray (two) Branch times daily. mometasone 2018-0 Yes 1{spray Use 1 [facility] vers 50 2-25 } [place] in ity of mcg/actuati 00:00: each [place] on nasal 00 nostril 2 Medica l spray (two) Branch times daily. mometasone 2018-0 Yes 1{spray Use 1 [facility] vers 50 2-25 } [place] in ity of mcg/actuati 00:00: each [place] on nasal 00 nostril 2 Medica l spray (two) Branch times daily. mometasone 2018-0 Yes 1{spray Use 1 [facility] vers 50 2-25 } [place] in ity of mcg/actuati 00:00: each [place] on nasal 00 nostril 2 Medica l spray (two) Branch times daily. mometasone 2018-0 Yes 1{spray Use 1 [facility] vers 50 2-25 } [place] in ity of mcg/actuati 00:00: each [place] on nasal 00 nostril 2 Medica l spray (two) Branch times daily. mometasone 2018-0 Yes 1{spray Use 1 [facility] vers 50 2-25 } [place] in ity of mcg/actuati 00:00: each [place] on nasal 00 nostril 2 Medica l spray (two) Branch times daily. mometasone 2018-0 Yes 1{spray Use 1 [facility] vers 50 2-25 } [place] in ity of mcg/actuati 00:00: each [place] on nasal 00 nostril 2 Medica l spray (two) Branch times daily. mometasone 2018-0 Yes 1{spray Use 1 [facility] vers 50 2-25 } [place] in ity of mcg/actuati 00:00: each [place] on nasal 00 nostril 2 Medica l spray (two) Branch times daily. mometasone 2018-0 Yes 1{spray Use 1 [facility] vers 50 2-25 } [place] in ity of mcg/actuati 00:00: each [place] on nasal 00 nostril 2 Medica l spray (two) Branch times daily. mometasone 2018-0 Yes 1{spray Use 1 [facility] vers 50 2-25 } [place] in ity of mcg/actuati 00:00: each [place] on nasal 00 nostril 2 Medica l spray (two) Branch times daily. mometasone 2018-0 Yes 1{spray Use 1 [facility] vers 50 2-25 } [place] in ity of mcg/actuati 00:00: each [place] on nasal 00 nostril 2 Medica l spray (two) Branch times daily. mometasone 2018-0 Yes 1{spray Use 1 [facility] vers 50 2-25 } [place] in ity of mcg/actuati 00:00: each [place] on nasal 00 nostril 2 Medica l spray (two) Branch times daily. mometasone 2018-0 Yes 1{spray Use 1 [facility] vers 50 2-25 } [place] in ity of mcg/actuati 00:00: each [place] on nasal 00 nostril 2 Medica l spray (two) Branch times daily. mometasone 2018-0 Yes 1{spray Use 1 [facility] vers 50 2-25 } [place] in ity of mcg/actuati 00:00: each [place] on nasal 00 nostril 2 Medica l spray (two) Branch times daily. mometasone 2018-0 Yes 1{spray Use 1 [facility] vers 50 2-25 } [place] in ity of mcg/actuati 00:00: each [place] on nasal 00 nostril 2 Medica l spray (two) Branch times daily. mometasone 2018-0 Yes 1{spray Use 1 [facility] vers 50 2-25 } [place] in ity of mcg/actuati 00:00: each [place] on nasal 00 nostril 2 Medica l spray (two) Branch times daily. mometasone 2018-0 Yes 1{spray Use 1 [facility] vers 50 2-25 } [place] in ity of mcg/actuati 00:00: each [place] on nasal 00 nostril 2 Medica l spray (two) Branch times daily. mometasone 2018-0 Yes 1{spray Use 1 [facility] vers 50 2-25 } [place] in ity of mcg/actuati 00:00: each [place] on nasal 00 nostril 2 Medica l spray (two) Branch times daily. mometasone 2017- 2020- No 1{spray Use 1 [facility] will 50 2-25 07-22 } [place] in ity of mcg/actuati 00:00: 00:00 each [place] on nasal 00 :00 nostril 2 Medica l spray (two) Branch times daily. mometasone 2017- 2020- No 1{spray Use 1 Un will 50 2-25 07-22 } [place] in ity of mcg/actuati 00:00: 00:00 each [place] on nasal 00 :00 nostril 2 Medica l spray (two) Branch times daily. furosemide 2017- Yes 20mg Take 20 mg U nivers 20 mg 2-14 by mouth ity of tablet 00:00: daily. [place] [address] Medical Branch HYDROcodone 2017- Yes 1{tbl} Take 1 Un will -acetaminop 2-14 tablet by ity of hen 10-325 00:00: [place] (three) Medical times Branch daily. carvedilol Yes 12.5mg Take 12.5 Univers 12.5 mg 2-14 mg by ity of tablet 00:00: mouth 2 [place] 00 (two) Medical times Branch daily. furosemide 2018- Yes 20mg Take 20 mg U nivers 20 mg 2-14 by mouth ity of tablet 00:00: daily. [place] [facility] HYDROcodone 2018- Yes 1{tbl} Take 1 Un will -acetaminop 2-14 tablet by ity of [place] 10-325 00:00: [place] (three) Medical times Branch daily. carvedilol 2018- Yes 12.5mg Take 12.5 Univers 12.5 mg 2-14 mg by ity of tablet 00:00: mouth 2 [place] 00 (two) Medical times Branch daily. furosemide 2018- Yes 20mg Take 20 mg U nivers 20 mg 2-14 by mouth ity of tablet 00:00: daily. [place] [address] Medical Branch HYDROcodone 2018-0 Yes 1{tbl} Take [...] by ity of tablet 00:00: mouth 2 [place] (two) Medical times Branch daily. furosemide 2018-0 Yes 20mg Take 20 mg U nivers 20 mg 2-14 by mouth ity of tablet 00:00: daily. [address] HYDROcodone 2018-0 Yes 1{tbl} Take 1 Un will -acetaminop 2-14 tablet by ity of hen 10-325 00:00: [place] (three) Medical times Branch daily. gabapentin 2018-0 Yes 300mg Take 300 Un will 300 mg 2-14 mg by ity of capsule 00:00: mouth 2 [place] (two) Medical times Branch daily. furosemide 2018-0 Yes 20mg Take 20 mg U nivers 20 mg 2-14 by mouth ity of tablet 00:00: daily. [address] carvedilol 2018-0 Yes 12.5mg Take 12.5 Univers 12.5 mg 2-14 mg by ity of tablet 00:00: mouth 2 (two) Medical times Branch daily. furosemide 2018-0 Yes 20mg Take 20 mg U nivers 20 mg 2-14 by mouth ity of tablet 00:00: daily. [address] Branch HYDROcodone 2018-0 Yes 1{tbl} Take [...] by mouth ity of tablet 00:00: daily. [place] [facility] Branch HYDROcodone 2018-0 Yes 1{tbl} Take 1 [...] by mouth ity of tablet 00:00: daily. [place] [facility] Branch HYDROcodone 2018-0 Yes 1{tbl} Take 1 [...] by mouth ity of tablet 00:00: daily. [place] [facility] Branch HYDROcodone 2018-0 Yes 1{tbl} Take 1 [...] by mouth ity of tablet 00:00: daily. [place] [facility] Branch HYDROcodone 2018-0 Yes 1{tbl} Take 1 [...] by mouth ity of tablet 00:00: daily. [address] Branch HYDROcodone 2018-0 Yes 1{tbl} Take [...] by mouth ity of tablet 00:00: daily. [address] furosemide 2018-0 Yes 20mg Take 20 mg U nivers 20 mg 2-14 by mouth ity of tablet 00:00: daily. [address] Branch HYDROcodone 2018-0 Yes 1{tbl} Take [...] by mouth ity of tablet 00:00: daily. [facility] Branch HYDROcodone 2018-0 Yes 1{tbl} Take 1 [...] by mouth ity of tablet 00:00: daily. [place] [facility] Branch HYDROcodone 2018-0 Yes 1{tbl} Take 1 [...] by mouth ity of tablet 00:00: daily. [place] [facility] HYDROcodone 2018-0 Yes 1{tbl} Take [...] by mouth ity of tablet 00:00: daily. [place] [facility] HYDROcodone 2018-0 Yes 1{tbl} Take [...] by mouth ity of tablet 00:00: daily. [address] Branch HYDROcodone 2018-0 Yes 1{tbl} Take [...] by mouth ity of tablet 00:00: daily. [address] Branch HYDROcodone 2018-0 Yes 1{tbl} Take [...] by mouth ity of tablet 00:00: daily. [place] [facility] Branch HYDROcodone 2018-0 Yes 1{tbl} Take 1 [...] by mouth ity of tablet 00:00: daily. [place] [facility] HYDROcodone 2018-0 Yes 1{tbl} Take [...] by mouth ity of tablet 00:00: daily. [place] [address] Medical Branch HYDROcodone 2018-0 Yes 1{tbl} Take [...] by mouth ity of tablet 00:00: daily. [place] [address] Medical Branch HYDROcodone 2018-0 Yes 1{tbl} Take [...] by mouth ity of tablet 00:00: daily. [place] [facility] Branch HYDROcodone 2018-0 Yes 1{tbl} Take 1 [...] by mouth ity of tablet 00:00: daily. [place] [facility] HYDROcodone 2018-0 Yes 1{tbl} Take [...] by mouth ity of tablet 00:00: daily. [place] [facility] HYDROcodone 2018-0 Yes 1{tbl} Take [...] by mouth ity of tablet 00:00: daily. [place] [facility] HYDROcodone 2018-0 Yes 1{tbl} Take [...] by mouth ity of tablet 00:00: daily. [place] [facility] HYDROcodone 2018-0 Yes 1{tbl} Take [...] by mouth ity of tablet 00:00: daily. [facility] Branch HYDROcodone 2018-0 Yes 1{tbl} Take 1 [...] by mouth ity of tablet 00:00: daily. [facility] Branch HYDROcodone 2018-0 Yes 1{tbl} Take 1 [...] by mouth ity of tablet 00:00: daily. [place] 00 Medical Branch HYDROcodone 2018-0 Yes 1{tbl} Take [...] by mouth ity of tablet 00:00: daily. [address] HYDROcodone 2018-0 Yes 1{tbl} Take 1 Un will -acetaminop 2-14 tablet by ity of hen 10-325 00:00: [place] tablet 00 (three) Medical times Branch daily. furosemide 2018-0 Yes 20mg Take 20 mg U nivers 20 mg 2-14 by mouth ity of tablet 00:00: daily. [address] Branch carvedilol 2018-0 Yes 12.5mg Take 12.5 Univers 12.5 mg 2-14 mg by ity of tablet 00:00: mouth 2 [place] (two) Medical times Branch daily. furosemide 2018-0 Yes 20mg Take 20 mg U nivers 20 mg 2-14 by mouth ity of tablet 00:00: daily. [address] HYDROcodone 2018-0 Yes 1{tbl} Take 1 [...] by ity of tablet 00:00: mouth 2 [place] (two) Medical times Branch daily. furosemide 2018-0 Yes 20mg Take 20 mg U nivers 20 mg 2-14 by mouth ity of tablet 00:00: daily. [address] HYDROcodone 2018-0 Yes 1{tbl} Take 1 Un will -acetaminop 2-14 tablet by ity of hen 10-325 00:00: [place] 3 [place] 00 (three) Medical times Branch daily. carvedilol 2018-0 Yes 12.5mg Take 12.5 Univers 12.5 mg 2-14 mg by ity of tablet 00:00: mouth 2 [place] (two) Medical times Branch daily. furosemide 2018-0 Yes 20mg Take 20 mg U nivers 20 mg 2-14 by mouth ity of tablet 00:00: daily. [address] Branch HYDROcodone 2017-0 Yes 1{tbl} Take 1 Un will -acetaminop 2-14 tablet by ity of hen 10-325 00:00: [place] 00 (three) Medical times Branch daily. carvedilol 2018-0 Yes 12.5mg Take 12.5 Univers 12.5 mg 2-14 mg by ity of tablet 00:00: mouth 2 [place] (two) Medical times Branch daily. furosemide 2018-0 Yes 20mg Take 20 mg U nivers 20 mg 2-14 by mouth ity of tablet 00:00: daily. [address] HYDROcodone 2018-0 Yes 1{tbl} Take 1 Un will -acetaminop 2-14 tablet by ity of hen 10-325 00:00: [place] mg [place] 00 (three) Medical times Branch daily. carvedilol 2018-0 Yes 12.5mg Take 12.5 Univers 12.5 mg 2-14 mg by ity of tablet 00:00: mouth 2 [place] (two) Medical times Branch daily. furosemide 2018-0 Yes 20mg Take 20 mg U nivers 20 mg 2-14 by mouth ity of tablet 00:00: daily. [address] HYDROcodone 2018-0 Yes 1{tbl} Take 1 [...] by mouth ity of tablet 00:00: daily. [address] HYDROcodone 2018-0 Yes 1{tbl} Take 1 [...] by mouth ity of tablet 00:00: daily. [address] HYDROcodone 2018-0 Yes 1{tbl} Take 1 Un will -acetaminop 2-14 tablet by ity of hen 10-325 00:00: mouth [place] tablet 00 (three) Medical times Branch daily. furosemide 2018-0 Yes 20mg Take 20 mg U nivers 20 mg 2-14 by mouth ity of tablet 00:00: daily. [address] HYDROcodone 2018-0 Yes 1{tbl} Take 1 [...] by mouth ity of tablet 00:00: daily. [address] HYDROcodone 2018-0 Yes 1{tbl} Take 1 Un will -acetaminop 2-14 tablet by ity of hen 10-325 00:00: mouth 3 [place] mg tablet 00 (three) Medical times Branch daily. carvedilol 2017- Yes 12.5mg Take 12.5 Univers 12.5 mg 2-14 mg by ity of tablet 00:00: mouth 2 [place] 00 (two) Medical times Branch daily. furosemide Yes 20mg Take 20 mg U nivers 20 mg 2-14 by mouth ity of tablet 00:00: daily. [place] 00 Medical Branch HYDROcodone 2017- Yes 1{tbl} Take 1 Un will -acetaminop 2-14 tablet by ity of hen 10-325 00:00: mouth 3 [place] mg tablet 00 (three) Medical times Branch daily. carvedilol Yes 12.5mg Take 12.5 Univers 12.5 mg 2-14 mg by ity of tablet 00:00: mouth 2 [place] 00 (two) Medical times Branch daily. gabapentin 2020- No 300mg Take 300 U nivers 300 mg 2-14 07-22 mg by ity of capsule 00:00: 00:00 mouth 2 [place] 00 :00 (two) Medical times Branch daily. gabapentin 2019- No 300mg Take 300 U nivers 300 mg 2-14 07-22 mg by ity of capsule 00:00: 00:00 mouth 2 [place] 00 :00 (two) Medical times Branch daily. Vital Signs Vital Name Observation Time Observation Value Comments Source Systolic blood 2022-07-18 13:52:00 132 mm[Hg[facility] 2022-07-18 13:52:00 76 mm[Hg] [facility] Heart rate 2022-07-18 13:52:00 69 /min [facility] Respiratory rate 2022-07-18 13:52:00 24 /min [facility] hospital Oxygen saturation in 2022-07-18 13:52:00 98 /min [facility] Arterial blood by [facility] Pulse oximetry Branch Body temperature 2022-07-18 13:37:00 36.39 Sandra [facility] acute hospital Body height 2022-07-06 21:00:00 180.3 cm [facility] Body weight 2022-07-06 21:00:00 124.286 kg Universi ty of [place] [facility] BMI 2022-07-06 21:00:00 38.22 kg/m2 Universi ty of [place] [facility] Systolic blood 2022-07-18 13:52:00 132 mm[Hg] Univer sity of pressure [place] [facility] Diastolic blood 2022-07-18 13:52:00 76 mm[Hg] Unive rsity of pressure [place] [facility] Heart rate 2022-07-18 13:52:00 69 /min Universi ty of [place] [facility] Respiratory rate 2022-07-18 13:52:00 24 /min Univ ersity of [place] [facility] Oxygen saturation in 2022-07-18 13:52:00 98 /min University of Arterial blood by [place] [employer] sushma Pulse oximetry Branch Body temperature 2022-07-18 13:37:00 36.39 Sandra Univ ersity of [place] [facility] Body height 2022-07-06 21:00:00 180.3 cm Universi ty of [place] [facility] Body weight 2022-07-06 21:00:00 124.286 kg Universi ty of [place] [facility] BMI 2022-07-06 21:00:00 38.22 kg/m2 Universi ty of [place] [facility] Systolic blood 2022-06-22 17:28:00 196 mm[Hg] Univer sity of pressure [place] [facility] Diastolic blood 2022-06-22 17:28:00 91 mm[Hg] Unive rsity of pressure [place] [facility] Heart rate 2022-06-22 17:28:00 89 /min Universi ty of [place] [facility] Body temperature 2022-06-22 17:28:00 37 Sandra Univ ersity of [place] [facility] Respiratory rate 2022-06-22 17:28:00 18 /min Univ ersity of [place] [facility] Body weight 2022-06-22 17:28:00 122.925 kg Universi ty of [place] [facility] BMI 2022-06-22 17:28:00 37.80 kg/m2 Universi ty of [place] [facility] Oxygen saturation in 2022-06-22 17:28:00 99 /min University of Arterial blood by [employer] sushma Pulse oximetry Branch Systolic blood 2022-06-09 17:23:00 123 mm[Hg] Univer sity of pressure [place] [facility] Diastolic blood 2022-06-09 17:23:00 86 mm[Hg] Unive rsity of pressure [place] [facility] Heart rate 2022-06-09 17:23:00 81 /min Universi ty of [place] [facility] Respiratory rate 2022-06-09 17:23:00 18 /min Univ ersity of [place] [facility] Body height 2022-06-09 17:23:00 180.3 cm per pt Universi ty of [place] [facility] Body weight 2022-06-09 17:23:00 121.592 kg Universi ty of [place] [facility] BMI 2022-06-09 17:23:00 37.39 kg/m2 Universi ty of [place] [facility] Oxygen saturation in 2022-06-09 17:23:00 96 /min University of Arterial blood by [place] [employer] sushma Pulse oximetry Branch Systolic blood 2022-06-06 15:15:00 153 mm[Hg] Univer sity of pressure [place] [facility] Diastolic blood 2022-06-06 15:15:00 80 mm[Hg] Unive rsity of pressure [place] [facility] Heart rate 2022-06-06 15:15:00 69 /min Universi ty of [place] [facility] Respiratory rate 2022-06-06 15:15:00 24 /min Univ ersity of [place] [facility] Oxygen saturation in 2022-06-06 15:15:00 99 /min University of Arterial blood by [place] [employer] sushma Pulse oximetry Branch Body temperature 2022-06-06 14:54:00 36.33 Sandra Univ ersity of [place] [facility] Body weight 2022-05-30 18:00:00 122.925 kg Universi ty of [place] [facility] BMI 2022-05-30 18:00:00 35.75 kg/m2 Universi ty of [place] [facility] Systolic blood 2022-06-06 15:15:00 153 mm[Hg] Univer sity of pressure [place] [facility] Diastolic blood 2022-06-06 15:15:00 80 mm[Hg] Unive rsity of pressure [place] [facility] Heart rate 2022-06-06 15:15:00 69 /min Universi ty of [place] [facility] Respiratory rate 2022-06-06 15:15:00 24 /min Univ ersity of [place] [facility] Oxygen saturation in 2022-06-06 15:15:00 99 /min University of Arterial blood by [place] [employer] sushma Pulse oximetry Branch Body temperature 2022-06-06 14:54:00 36.33 Sandra Univ ersity of [place] [facility] Body weight 2022-05-30 18:00:00 122.925 kg Universi ty of [place] [facility] BMI 2022-05-30 18:00:00 35.75 kg/m2 Universi ty of [place] [facility] Systolic blood 2021-10-13 22:15:00 152 mm[Hg] Univer sity of pressure [place] [facility] Diastolic blood 2021-10-13 22:15:00 89 mm[Hg] Unive rsity of pressure [place] [facility] Heart rate 2021-10-13 22:15:00 79 /min Universi ty of [place] [facility] Body temperature 2021-10-13 22:15:00 37.17 Sandra Univ ersity of [place] [facility] Respiratory rate 2021-10-13 22:15:00 18 /min Univ ersity of [place] [facility] Oxygen saturation in 2021-10-13 22:15:00 98 /min University of Arterial blood by [facility] Pulse oximetry Branch Systolic blood 2020-09-28 13:21:00 148 mm[Hg] Univer sity of pressure [place] [facility] Diastolic blood 2020-09-28 13:21:00 88 mm[Hg] Unive rsity of pressure [place] [facility] Heart rate 2020-09-28 13:21:00 81 /min Universi ty of [place] [facility] Respiratory rate 2020-09-28 13:21:00 20 /min Univ ersity of [place] [facility] Oxygen saturation in 2020-09-28 13:21:00 97 /min University of Arterial blood by [facility] [place] sushma Pulse oximetry Branch Body temperature 2020-09-28 13:07:00 36.83 Sandra Univ ersity of [place] [facility] Body height 2020-09-24 15:31:00 185.4 cm Universi ty of [place] [facility] Body weight 2020-09-24 15:31:00 117.5 kg Universi ty of [place] [facility] BMI 2020-09-24 15:31:00 34.18 kg/m2 Universi ty of [place] [facility] Systolic blood 2020-09-28 13:12:00 136 mm[Hg] Univer sity of pressure [place] [facility] Diastolic blood 2020-09-28 13:12:00 78 mm[Hg] Unive rsity of pressure [facility] Heart rate 2020-09-28 13:12:00 75 /min Universi ty of [facility] Branch Respiratory rate 2020-09-28 13:12:00 21 /min Univ ersity of [facility] Branch Oxygen saturation in 2020-09-28 13:12:00 97 /min University of Arterial blood by [facility] Pulse oximetry Branch Body temperature 2020-09-28 13:07:00 36.83 Sandra Univ ersity of [facility] Branch Body height 2020-09-24 15:31:00 185.4 cm Universi ty of [place] [facility] Body weight 2020-09-24 15:31:00 117.5 kg Universi ty of [facility] Branch BMI 2020-09-24 15:31:00 34.18 kg/m2 Universi ty of [facility] Systolic blood 2019-12-18 20:34:00 161 mm[Hg] Univer sity of pressure [facility] Branch Diastolic blood 2019-12-18 20:34:00 99 mm[Hg] Unive rsity of pressure [facility] Branch Heart rate 2019-12-18 20:34:00 77 /min Universi ty of [facility] Body temperature 2019-12-18 20:34:00 36.44 Sandra Univ ersity of [facility] Body weight 2019-12-18 20:34:00 117.482 kg Universi ty of [place] [facility] BMI 2019-12-18 20:34:00 34.17 kg/m2 Universi ty of [facility] Branch Systolic blood 2019-10-15 18:38:00 159 mm[Hg] Univer sity of pressure [facility] Branch Diastolic blood 2019-10-15 18:38:00 87 mm[Hg] Unive rsity of pressure [facility] Branch Heart rate 2019-10-15 18:34:00 85 /min Universi ty of [facility] Branch Body temperature 2019-10-15 18:34:00 37 Sandra Univ ersity of [facility] Branch Respiratory rate 2019-10-15 18:34:00 19 /min Univ ersity of [facility] Body height 2019-10-15 18:34:00 185.4 cm Universi ty of [facility] Branch Body weight 2019-10-15 18:34:00 119.75 kg Universi ty of [place] [facility] BMI 2019-10-15 18:34:00 34.83 kg/m2 Universi ty [facility] [place] Oxygen saturation in 2019-10-15 18:34:00 98 /min University of Arterial blood by [facility] Pulse oximetry Branch Systolic blood 2019-10-15 18:38:00 159 mm[Hg] Univer sity of pressure [place] [facility] [place] Diastolic blood 2019-10-15 18:38:00 87 mm[Hg] Unive rsity of pressure [facility] Heart rate 2019-10-15 18:34:00 85 /min Universi ty of [place] [facility] [place] Body temperature 2019-10-15 18:34:00 37 Sandra [facility] 2019-10-15 18:34:00 19 /min [facility] Body height 2019-10-15 18:34:00 185.4 cm Universi ty of [place] [facility] [place] Body weight 2019-10-15 18:34:00 119.75 kg Universi ty [facility] [place] BMI 2019-10-15 18:34:00 34.83 kg/m2 Universi ty [facility] [place] Oxygen saturation in 2019-10-15 18:34:00 98 /min University of Arterial blood by [facility] Pulse oximetry Branch Procedures Procedure Date / Time Performing Clinician Source Performed BLOCK EPIDURAL 2022-07-18 13:12:00 Dariel Yee [facility] [place] POCT GLUCOSE (AUTOMATED) 2022-07-18 13:08:00 Dariel Yee [facility] [place] [facility] POCT GLUCOSE (AUTOMATED) 2022-07-18 13:08:00 Dariel Yee [facility] [place] [facility] PATIENT QUESTIONNAIRE 2022-07-18 06:01:00 Doctor Unassigned, [facility] [place] [facility] CONSENT/REFUSAL FOR 2022-06-22 17:17:17 Doctor Unassigned, [facility] DIAGNOSIS AND TREATMENT [place] [facility] FL TIME OR 2022-06-06 15:07:00 Dariel Yee [facility] (NON-REPORTABLE) Medical Branch [place] TIME OR 2022-06-06 15:07:00 Dariel Yee [facility] (NON-REPORTABLE) Medical Branch BLOCK EPIDURAL 2022-06-06 14:36:00 Dariel Yee [facility] Branch POCT GLUCOSE (AUTOMATED) 2022-06-06 13:53:00 Doctor Carr [facility] [place] [facility] DAY SURGERY - [facility] 2022-06-06 06:01:00 Doctor Carr [facility] [place] [facility] EXTERNAL PROVIDER RECORDS 2022-05-17 06:01:00 Doctor Bruno [facility] [place] [facility] EXTERNAL PROVIDER RECORDS 2022-05-17 06:01:00 Doctor Bruno [facility] Name Medical Branch CBC WITH DIFF 2022-05-11 18:21:00 Dariel Yee [facility] PHYSICIAN ORDERS 2022-05-11 06:01:00 Doctor Carr [facility] [place] [facility] NOTICE OF PRIVACY 2021-10-13 22:11:48 Doctor Carr [facility] PRACTICES [place] [facility] CONSENT/REFUSAL FOR 2021-10-13 22:11:29 Doctor Bruno [facility] DIAGNOSIS AND TREATMENT [place] [facility] ASSIGNMENT OF BENEFITS 2020-10-09 16:58:46 Doctor Carr [facility] [place] [facility] FL TIME OR 2020-09-28 13:26:41 Dariel Yee [facility] (NON-REPORTABLE) Medical Branch [place] TIME OR 2020-09-28 13:26:41 Dariel Yee [facility] (NON-REPORTABLE) Medical Branch CERVICAL EPIDURAL STEROID 2020-09-28 12:45:00 Dariel Yee [facility] INJECTION Medical Branch [facility] SURGERY - [facility] 2020-09-28 05:01:00 Doctor Carr [facility] [place] [facility] ASSIGNMENT OF BENEFITS 2020-09-25 16:37:38 Doctor Carr [facility] [place] [facility] ASSIGNMENT OF BENEFITS 2020-09-24 14:39:19 Doctor Carr [facility] Name Medical Branch MEDICATION CORRESPONDENCE 2020-01-09 05:01:00 Doctor Carr [facility] [place] [facility] MEDICATION CORRESPONDENCE 2019-11-06 05:01:00 Doctor Unassigned, [facility] [place] [facility] URINALYSIS 2019-10-15 22:19:00 Kourtney Westfallthia [place] o [facility] CT ABDOMEN PELVIS WO 2019-10-15 21:41:01 Robyn Westfall [facility] CONTRAST [facility] CBC WITH DIFFERENTIAL 2019-10-15 20:00:00 Malou [facility] COMP. METABOLIC PANEL 2019-10-15 20:00:00 Malou [facility] ([id number]) [facility] [place] ASSIGNMENT OF BENEFITS 2019-10-15 19:48:27 Doctor Unassigned, [facility] [place] [facility] [place] Encounters Start End Encounter Admission Attending Care Care Encounter Source Date/Time Date/Time Type Type Clinicians Facility Department ID 2022-05-27 Outpatient Jung YEE [facility] ANS [id number] Univers 15:03:48 [facility] 2022-05-05 Outpatient Jung YEE [facility] ANS [id number] Univers 09:40:05 [facility] 2021-03-28 Outpatient R NAKIA [facility] ANS [id number] Univers 20:24:43 [facility] 2021-03-28 Outpatient Jung YEE [facility] ANS [id number] Univers 16:14:13 [facility] 2021-03-28 Outpatient Jung YEE [facility] ANS [id number] Univers 16:14:08 [facility] 2022-08-11 2022-08-11 Outpatient Jung GOMEZ [facility] [id number] Univers 09:00:00 09:00:00 NICHOLAS [facility] 2022-07-29 2022-07-29 Telephone Fabián KYCHRIS [id number] Univers 00:00:00 00:00:00 Jeri [facility] [id number] [facility] [id number] Emily s PROFESSIO [id number] Mn dical NAL 085 Branch BUILDING 2022-07-29 2022-07-29 Telephone Fabián [place] [id number] Univers 00:00:00 00:00:00 Shiwan [place] [id number] i ty [id number] [id number] Mn dical NAL 085 Branch [facility] 2022-07-28 2022-07-28 Outpatient R JERI CAMACHO [facility] [id number] Univers 11:00:00 11:00:00 JERI CAMACHO i ty of [facility] 2022-07-27 2022-07-27 Outpatient SFA SFA [id number] Anand 13:13:52 13:13:52 0301 [place] 2022-07-18 2022-07-18 [facility] [id number] Univers 06:45:00 08:04:00 Encounter Dariel S [place] [id number] [place]y [id number] [id number] [facility] 071 [place] 2022-07-18 2022-07-18 Outpatient R [facility] ANS [id number] Univers 06:45:00 08:04:00 DARIEL ity of [facility] 2022-07-18 2022-07-18 Surgery [facility] [id number] Univers 07:25:00 07:54:00 Draiel S [place] [id number] [id number] [id number] [facility] 020 [place] 2022-07-18 2022-07-18 Orders Doctor JOSÉ [id number] Univers 00:00:00 00:00:00 Only Unassigned, NESSA [id number] [place]y of [place] [facility] 4.2.7.2.686 Matt as [phone] [facility] [address] 2022-06-22 2022-06-22 Emergency X Susie FAROOQ [facility] ERT [id number] Univers 11:30:00 11:58:00 ity of [facility] 2022-06-22 2022-06-22 Emergency Susie Farooq [facility] 1.2.840.114 [id number] Univers 11:30:00 11:58:00 Ngoc SOBEBO 350.1.13.10 i [facility] [place] [phone] [facility] [address] [place] 2022-06-21 2022-06-21 Outpatient R JERI CAMACHO [facility] 10 [id number] Univers 00:00:00 00:00:00 JERI CAMACHO i ty of [facility] 2022-06-09 2022-06-09 Outpatient R JERI CAMACHO [facility] 10 [id number] Univers 11:30:00 12:15:12 JERI CAMACHO i ty of [facility] 2022-06-09 2022-06-09 [facility] 1.2.840.114 [id number] Univers 11:30:00 12:15:12 Visit Jeri FOSTER 350.1.13.10 i [place] [phone] Mn dic[address] 2022-06-06 2022-06-06 Outpatient [facility]S 68499 [id number] Univers 07:54:00 09:25:00 DARIEL ity of [facility] 2022-06-06 2022-06-06 [facility] 1.2.840.114 [id number] Univers 07:54:00 09:25:00 Encounter Dariel FOSTER 350.1.13.10 [place] [id number] [facility] [address] 2022-06-06 2022-06-06 Surgery [facility] 1.2.667.375 [id number] Univers 08:53:00 09:22:00 Dariel Maria Luisa SOTON 350.1.13.10 it[place] [id number] [facility] [address] 2022-05-13 2022-05-13 [facility] [id number] Univers 08:45:00 08:45:00 DARIEL carter [facility] 2022-05-11 2022-05-11 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 2022-05-11 2022-05-11 [facility] [id number] Univers 12:15:00 12:15:00 DARIEL carter [facility] 2022-05-11 2022-05-11 Orders Doctor JOSÉ 1.2.840.114 [id number] Univers 00:00:00 00:00:00 Only Unassigned, NESSA 350.1.13.10 ity of [place] [facility] 4.2.7.2.686 Matt as [id number] [facility] [address] 2021-10-13 2021-10-13 Emergency X [facility] ERT [id number] Univers 17:17:00 18:33:00 ULYSSES carter [facility] 2021-10-13 2021-10-13 Emergency [facility] 1.2.980.179 [id number] Univers 17:17:00 18:33:00 Ulysses FOSTER 350.1.13.10 i [place] [id number] [facility] [address] 2020-10-30 2020-10-30 Outpatient R NAKIA [facility] [id number] Univers 09:30:00 09:30:00 DARIEL carter [facility] 2020-10-09 2020-10-09 Laboratory Only, Adc Test [facility] 1.2.840. 114 [id number] Univers 11:57:54 12:12:54 Only Betzy Yeet Maria Luisa Foster 350.1.13.1 0 [place] [id number] [facility] [address] 2020-10-09 2020-10-09 Outpatient [facility] [id number] Univers 08:30:00 08:30:00 DARIEL ity of [facility] 2020-10-09 2020-10-09 Orders Doctor JOSÉ 1.2.840.114 [id number] Univers 00:00:00 00:00:00 Only Unassigned, NESSA 350.1.13.10 [facility] 4.2.7.2.686 Matt as [phone] [facility] [address] 2020-09-28 2020-09-28 [facility] 1.2.840.114 [id number] Univers 07:16:00 09:00:00 Encounter Dariel Glass [place] 350.1.13.10 [place] Surgical [id number] [facility] [address] 2020-09-28 2020-09-28 Surgery [facility] 1.2.677.687 [id number] Univers 07:50:00 08:12:00 Dariel Glass [place] 350.1.13.10 [place] [id number] [facility] [address] 2020-09-28 2020-09-28 Orders Doctor KUMAR 1.2.840.114 [id number] Univers 00:00:00 00:00:00 Only Unassigned, NESSA 350.1.13.10 [facility] 4.2.7.2.686 Matt as [phone] [facility] [address] 2020-09-25 2020-09-25 Laboratory Only, Adc Test [facility] 1.2.840. 114 [id number] Univers 11:34:51 11:49:51 Only Dariel Yee [place] 350.1.13.1 0 it[place] of [place] [phone] [facility] [address] 2020-09-25 2020-09-25 Outpatient [facility] [id number] Univers 11:15:00 11:15:00 DARIEL ity of [facility] 2020-09-25 2020-09-25 Orders Doctor JOSÉ 1.2.840.114 [id number] Univers 00:00:00 00:00:00 Only Unassigned, NESSA 350.1.13.10 ity of [place] HOSPITAL 4.2.7.2.686 Matt as [id number] [address] 2020-09-24 2020-09-24 Outpatient R NAKIA [facility] [id number] Univers 10:00:00 10:00:00 DARIEL ity of [facility] 2020-09-24 2020-09-24 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 Gary, Gigi Lab Main [facility] 1.2.8 40.114 [id number] Univers 09:38:58 09:53:58 Visit Dariel Yee 350.1.13.1 0 [place] [phone] Mn dical nal 353 [facility] 2020-09-24 2020-09-24 Orders Doctor KUMAR 1.2.840.114 [id number] Univers 00:00:00 00:00:00 Only Unassigned, NESSA 350.1.13.10 ity of [place] HOSPITAL 4.2.7.2.686 Matt as [phone] [address] 2020-01-09 2020-01-09 Orders Doctor KUMAR 1.2.840.114 [id number] Univers 00:00:00 00:00:00 Only Unassigned, NESSA 350.1.13.10 ity of [place] HOSPITAL 4.2.7.2.686 Matt as [phone] [address] 2020-01-08 2020-01-08 Telephone [place] [facility] 1.2.258.827 [id number] Univers 00:00:00 00:00:00 Jorge Foster 350.1.13.10 i ty [place] [phone] Mn dical nal 0[address] [facility] 2019-12-18 2019-12-18 Office [place] [facility] 1.2.840.114 [id number] Univers 15:26:31 15:41:31 Visit Omar Epifanio 350.1.13.10 i ty of [place] [phone] [address] 2019-12-18 2019-12-18 Outpatient R [facility] [id number] Univers 15:30:00 15:30:00 OMAR ity [facility] 2019-12-10 2019-12-10 Telephone [facility] 1.2.409.987 [id number] Univers 00:00:00 00:00:00 Jorge Foster 350.1.13.10 i ty [place] [phone] [address] 2019-12-09 2019-12-09 [facility] 1.2.840.114 [id number] Univers 00:00:00 00:00:00 Jorge [facility] 350.1.13.10 it y of [place] 4.2.7.2.686 Matt as Professio [phone] [address] 2019-11-26 2019-11-26 Refsilvio [facility] 1.2.840.114 [id number] Univers 00:00:00 00:00:00 Jorge [facility] 350.1.13.10 it y of [place] 4.2.7.2.686 [place] Professio [phone] [address] Office [facility] 2019-11-06 2019-11-06 Telephone [facility] 1.2.899.069 [id number] Univers 00:00:00 00:00:00 Jorge Foster 350.1.13.10 i ty [place] [id number] [address] 2019-11-06 2019-11-06 Orders Doctor JOSÉ 1.2.840.114 [id number] Univers 00:00:00 00:00:00 Only Unassigned, NESSA 350.1.13.10 ity of [place] [facility] 4.2.7.2.686 Matt as [phone] [address] 2019-11-04 2019-11-04 Refsilvio [facility] 1.2.840.114 [id number] Univers 00:00:00 00:00:00 Jorge Health 350.1.13.10 it y of [place] 4.2.7.2.686 [place] Professio [phone] [address] Office Building One 2019-10-22 2019-10-22 Outpatient R HOWARD [facility] [id number] Univers 08:00:00 08:00:00 JORGE itaracelis [facility] 2019-10-15 2019-10-17 Urgent Provider, [facility] 1.2.840.114 [id number] Univers 13:25:12 08:16:04 Care Aneoh, Rob[facility] 350.1.13.10 ity of [place] 4.2.7.2.686 Matt as Professio [phone] [address] Office [facility] 2019-10-15 2019-10-17 Urgent Provider, [facility] 1.2.157.787 [id number] 13:25:12 08:16:04 Care [facility] 350.1.13.10 Care [place] 4.2.7.2.686 Professio [phone] [place] [address] Office Building [facility] 2019-10-16 2019-10-16 Telephone [facility] 1.2.341.736 [id number] Univers 00:00:00 00:00:00 [facility] 350.1.13.10 it y of [place] 4.2.7.2.686 Matt as Professio [phone] [address] Office Building [facility] 2019-10-16 2019-10-16 [facility] 1.2.393.628 [id number] 00:00:00 00:00:00 [facility] 350.1.13.10 [place] 4.2.7.2.686 Professio [phone] [place] [address] Office Building One 2019-10-15 2019-10-15 Outpatient Jung [facility] [id number] Univers 15:22:21 23:59:00 ROBYN ity of [facility] 2019-10-15 2019-10-15 Hospital Malou, [facility] 1.2.840.114 [id number] Univers 15:22:00 23:59:00 Encounter Robyn Foster 350.1.13.10 [place] [phone] [facility] [address] [place] 2019-10-15 2019-10-15 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 Gary, Gigi Lab Main [facility] 1.2.8 40.114 [id number] Univers 14:32:11 14:47:11 Visit Malou, Robyn Foster 350.1.13.10 [place] [phone] [facility] 353 [facility] 2019-10-15 2019-10-15 Orders Doctor JOSÉ 1.2.840.114 [id number] Univers 00:00:00 00:00:00 Only Unassigned, NESSA 350.1.13.10 ity of [place] [facility] 4.2.7.2.686 Matt as [phone] [facility] [address] [place] 2019-09-16 2019-09-16 Refsilvio [facility] 1.2.840.114 [id number] Univers 00:00:00 00:00:00 Jorge Health 350.1.13.10 it y of [place] 4.2.7.2.686 Matt as Professio [phone] [facility] [address] [facility] One 2019-07-30 2019-07-30 Tejinder [facility] 1.2.840.114 [id number] Univers 00:00:00 00:00:00 Jorge Health 350.1.13.10 it y of [place] 4.2.7.2.686 Matt as Professio [phone] [facility] [address] [facility] One 2019-07-23 2019-07-23 Tejinder [facility] 1.2.840.114 [id number] Univers 00:00:00 00:00:00 Jorge [facility] 350.1.13.10 it y of [place] 4.2.7.2.686 Matt as Professio [phone] Mn dical nal [place] Office Building One 2019-07-04 2019-07-04 Ash [facility]PRES[facility] 1.2.914.801 [id number] 1911 Univers 00:00:00 00:00:00 Jorge [facility] 350.1.13.10 it y of [place] 4.2.7.2.686 Matt as Professio [phone] Mn sherman nal [address] [place] [address] [facility] One 2019-07-02 2019-07-02 Ash [facility]PRES[facility] 1.2.864.321 [id number] 1106 Univers 00:00:00 00:00:00 Jorge [facility] 350.1.13.10 it y of [place] 4.2.7.2.686 Matt as Professio [phone] Mn analiliaal nal [address] [place] [address] One 2019-06-21 2019-06-21 Tejinder [facility]PRES[facility] 1.2.840.114 [id number] Univers 00:00:00 00:00:00 Jorge [facility] 350.1.13.10 it y of [place] 4.2.7.2.686 Matt as Professio [phone] Mn analiliaal nal [address] [place] [address] [facility] One 2019-01-24 2019-01-24 Tejinder [facility]PRES[facility] 1.2.840.114 [id number] Univers 00:00:00 00:00:00 Jorge [facility] 350.1.13.10 it y of [place] 4.2.7.2.686 Matt as Professio [phone] Mn sherman nal [address] [place] [address] [facility] One 2018-12-26 2018-12-26 Ash [facility]PRES[facility] 1.2.717.977 [id number] Univers 00:00:00 00:00:00 Jorge [facility] 350.1.13.10 it y of [place] 4.2.7.2.686 Matt as Professio [phone] Mn dical nal [address] [place] [address] [facility] One 2018-12-18 2018-12-18 Ash [facility] 1.2.379.375 [id number] Univers 00:00:00 00:00:00 Jorge [facility] 350.1.13.10 it y of [place] 4.2.7.2.686 Matt as Professio [phone] Mn dical [address] Office Building One Results Test Description Test Time Test Comments Results Result Comments Source POCT GLUCOSE (AUTOMATED) 2022-07-18 13:11:22 Test Item Value Reference Range Interpretation Comme nts POCT GLU (test code = 4108259042) 110 mg/dL 70-110 Lab Interpretation (test code = 87759-5) Normal [facility] GLUCOSE (AUTOMATED)2022-07-18 13:11:22 Test Item Value Reference Range Interpretation Comments POCT GLU (test code = 2573659682) 110 mg/dL 70-110 Lab Interpretation (test code = Normal 59075-1) [facility] GLUCOSE (AUTOMATED)2022-06-06 16:05:51 Test Item Value Reference Range Interpretation Comments POCT GLU (test code = 5046151505) 99 mg/dL 70-110 Lab Interpretation (test code = Normal 33162-4) [facility] WITH [id number] 18:26:28 Test Item Value Reference Range Interpretation Comments WBC (test code = See_Comment [Automated 6690-2) message] The sy stem which generated this result transmitted reference range : 4.20 - 10.70 10*3/?L. The reference range was not used to interpret this result as normal/abnormal . RBC (test code = See_Comment [Automated 349-8) message] The sy stem which generated this result transmitted reference range : 4.26 - 5.52 10*6/?L. The reference range was not used to interpret this result as normal/abnormal . HGB (test code = 15.9 g/dL 12.2-16.4 718-7) HCT (test code = 48.4 % 38.4-49.3 4544-3) MCV (test code = 90.6 fL 81.7-95.6 787-2) MCH (test code = 29.8 pg 26.1-32.7 785-6) MCHC (test code = 32.9 g/dL 31.2-35.0 786-4) RDW-SD (test code = 45.5 fL 38.5-51.6 91316-0) RDW-CV (test code = 13.6 % 12.1-15.4 788-0) PLT (test code = See_Comment H [Automated 777-3) message] The sy stem which generated this result transmitted reference range : 150 - 328 10*3/ ?L. The reference r lito was not used to interpret this result as normal/abnormal . MPV (test code = 10.1 fL 9.8-13.0 83236-5) NRBC/100 WBC (test See_Comment [Automat ed code = 0075578455) message] The system which generated this result transmitted reference range : 0.0 - 10.0 /100 WBCs. The refer ence range was not u sed to interpret th is result as normal/abnormal . NRBC x10^3 (test code See_Comment [Auto mated = 6519253928) message] The s ystem which generated this result transmitted reference range : 10*3/?L. The reference range was not used to interpret this result as normal/abnormal . GRAN MAT (NEUT) % 71.8 % (test code = 770-8) IMM GRAN % (test code 0.40 % = 4905371468) LYMPH % (test code = 17.5 % 736-9) MONO % (test code = 6.6 % 5905-5) EOS % (test code = 3.2 % 713-8) BASO % (test code = 0.5 % 706-2) GRAN MAT x10^3(ANC) 6.79 10*3/uL 1.99-6.95 (test code = 8460915115) IMM GRAN x10^3 (test 0.04 10*3/uL 0.00-0.06 code = 6112350556) LYMPH x10^3 (test code 1.66 10*3/uL 1.09-3.23 = 731-0) MONO x10^3 (test code 0.62 10*3/uL 0.36-1.02 = 742-7) EOS x10^3 (test code = 0.30 10*3/uL 0.06-0.53 711-2) BASO x10^3 (test code 0.05 10*3/uL 0.01-0.09 = 704-7) Lab Interpretation Abnormal (test code = 45986-1) [facility]2020-09-28 13:28:16 These images do not require a Radiology diagnostic report.[facility] (NON-REPORTABLE)2020-09-28 13:28:16These images do not require a Radiology diagnostic report.[facility] [id number] 22:29:00 Test Item Value Reference Range Interpretation Comments APPEARANCE (test code = Clear Clear 7604725916) COLOR (test code = Yellow Yellow 5026366513) PH (test code = 4.8-8.0 2833661679) SP GRAVITY (test code = 1.003-1.030 4496131364) GLU U QUAL (test code = Normal Normal 6747895830) BLOOD (test code = Negative Negative 5266348134) KETONES (test code = Negative Negative 7379420442) PROTEIN (test code = Negative Negative 2887-8) UROBILIN (test code = 2.0 mg/dL Normal A 3712289702) BILIRUBIN (test code = Negative Negative 2970577154) NITRITE (test code = Negative Negative 3689861545) LEUK RAMONA (test code = Negative Negative 3815397177) RBC/HPF (test code = <1 See_Comment [Autom ated message] 5717277292) The system [employer] generated this result transmit dione reference range : 0 - 3 HPF. The refe rence range was not u sed to interpret th is result as normal/abnormal . WBC/HPF (test code = See_Comment [Autom ated message] 1812668974) The system [employer] generated this result transmit dione reference range : 0 - 5 HPF. The refe rence range was not u sed to interpret th is result as normal/abnormal . BACTERIA (test code = Few Negative A 1112501268) MUCOUS (test code = Slight Negative LPF A 2398806089) SQ EPITH (test code = <1 HPF 7735070288) GRAN CASTS (test code = See_Comment [Au tomated message] 7309807389) The system [employer] generated this result transmit dione reference range : <=1 LPF. The refere nce range was not u sed to interpret th is result as normal/abnormal . Lab Interpretation (test Abnormal code = 42270-6) [facility] WO [id number] 21:53:26CT Abdomen and Pelvis with oral contrast [...] morphology suggestive of chronic primary liver disease, possiblycirrhosis.[facility]. METABOLIC PANEL (68466)2019-10-15 21:26:00 Test Item Value Reference Range Interpretation Comments NA (test code = 141 mmol/L 135-145 2518111735) K (test code = 4.8 mmol/L 3.5-5 4680433112) CL (test code = 103 mmol/L 98-108 8354509671) CO2 TOTAL (test code = 30 mmol/L 23-31 9323625994) AGAP (test code = 2-16 7436563101) BUN (test code = 19 mg/dL 7-23 6870495373) GLUCOSE (test code = 100 mg/dL 70-110 3138805478) CREATININE (test code 1.25 mg/dL 0.6-1.25 = 5386049011) TOTAL BILI (test code 0.6 mg/dL 0.1-1.1 = 4380661535) CALCIUM (test code = 10.2 mg/dL 8.6-10.6 7695481975) T PROTEIN (test code = 7.0 g/dL 6.3-8.2 2535208663) ALBUMIN (test code = 4.4 g/dL 3.5-5 7592294820) ALK PHOS (test code = 77 U/L 34-122 8634673818) ALTv (test code = 29 U/L 5-50 1742-6) AST(SGOT) (test code = 25 U/L 13-40 7030824939) eGFR Calculation mL/min/1.73m2 (Non-) (test code = 9299704443) eGFR Calculation mL/min/1.73m2 () (test code = 9834331414) GORDO (test code = GORDO) Association of [...] or urine or abnormalities in imaging tests). [facility] WITH [id number] 20:07:00 Test Item Value Reference Range Interpretation Comments WBC (test code = See_Comment [Automated 6702-2) message] The sy stem which generated this result transmitted reference range : 4.20 - 10.70 10*3/?L. The reference range was not used to interpret this result as normal/abnormal . RBC (test code = See_Comment [Automated 288-8) message] The sy stem which generated this [...] RDW-SD (test code = 48.7 fL 38.5-51.6 97010-7) RDW-CV (test code = 14.2 % 12.1-15.4 788-0) PLT (test code = See_Comment [Automated 777-3) message] The sy stem which generated this result transmitted reference range : 150 - 328 10*3/ ?L. The reference r lito was not used to interpret this result as normal/abnormal . MPV (test code = 10.1 fL 9.8-13 72306-6) NRBC/100 WBC (test See_Comment [Automat ed code = 1738798970) message] The system which generated this result transmitted reference range : 0.0 - 10.0 /100 WBCs. The refer ence range was not u sed to interpret th is result as normal/abnormal . NRBC x10^3 (test code <0.01 See_Comment [Auto mated = 5306759537) message] The s ystem which generated this result transmitted reference range : 10*3/?L. The reference range was not used to interpret this result as normal/abnormal . GRAN MAT (NEUT) % 67.9 % (test code = 770-8) IMM GRAN % (test code 0.50 % = 3528295395) LYMPH % (test code = 18.9 % 736-9) MONO % (test code = 8.3 % 5905-5) EOS % (test code = 3.6 % 713-8) BASO % (test code = 0.8 % 706-2) GRAN MAT x10^3(ANC) 6.72 10*3/uL 1.99-6.95 (test code = 0056081131) IMM GRAN x10^3 (test 0.05 10*3/uL 0-0.06 code = 1750249263) LYMPH x10^3 (test code 1.87 10*3/uL 1.09-3.23 = 731-0) MONO x10^3 (test code 0.82 10*3/uL 0.36-1.02 = 742-7) EOS x10^3 (test code = 0.36 10*3/uL 0.06-0.53 711-2) BASO x10^3 (test code 0.08 10*3/uL 0.01-0.09 = 704-7) Lab Interpretation Abnormal (test code = 37884-7) [facility]"
[2022-08-17 12:46] LABS: Absolute Lymphocytes (CBC) 1.5 K/uL (0.7-4.9); Hematocrit 47.5 % (39.6-49.0); Lymphocytes % 15.7 % (15.3-44.8); RBC Red Blood Cell Count 5.16 M/uL (4.33-5.43)
[2022-08-17 13:06] LABS: Albumin 4.2 g/dL (3.4-5.0); Bilirubin Total 0.6 mg/dL (0.2-1.0); Protein, Total 7.7 g/dL (6.4-8.2)
[2022-08-17] MEDS ORDERED: DIAZEPAM 10 MG/2 ML INJ SYRINGE ONE (13:15)
[2022-08-17 13:22] LABS: Specific Gravity 1.023 (1.005-1.030); Urine Bacteria None Seen /HPF (<20); Urine Bilirubin NEGATIVE (Negative); Urine Blood Negative (Negative); Urine Clarity Clear (Clear); Urine Color Light-Yellow (Yellow); Urine Crystals Unidentified Few /HPF (None Seen); Urine Glucose NEGATIVE (Negative); Urine Mucus Slight /HPF (None Seen); Urine Protein TRACE (Negative); Urine RBC <5 /HPF (None Seen); Urine Urobilinogen Normal (Normal); Urine pH 6.5 (5.0-7.0)
--- NOTE | 2022-08-17 13:22 | RAD REPORT ---
EXAM DESCRIPTION: CT - Abdomen Pelvis Wo Contrast - 08/17/2022 12:31 pm CLINICAL HISTORY: FLANK PAIN COMPARISON: Abdomen Pelvis W Contrast dated 10/25/2019 TECHNIQUE: Thin cut axial CT imaging of the abdomen and pelvis was performed without IV contrast. Mu ltiplanar reformats were generated and reviewed. All CT scans are performed using dose optimization technique as appropriate and may include automated exposure control or mA/KV adjustment according to patient size. FINDINGS: No suspicious findings in the lung bases. The liver demonstrates a nodular contour, suggestive of cirrhosis. The Spleen, adrenal glands, and pa ncreas show no suspicious findings. Gallbladder shows a small mildly hyperdense focus near the neck s uggestive of a small gallstone. No evidence of intra or extrahepatic biliary ductal dilation. . No hinds spicious focal findings within limits of noncontrast evaluation. Symmetric renal contour, without suspicious parenchymal findings within limits of noncontrast techniq ue. Stable exophytic small left superior pole cyst. No evidence of radiopaque calculi or hydrouretero nephrosis. No dilated bowel loops or bowel wall thickening. Few colonic diverticula. No free air, free fluid or inflammatory stranding. No hernia, mass or bulky lymphadenopathy. The urinary bladder is suboptimally distended, limiting evaluation. No suspicious bony findings. IMPRESSION: No acute intra-abdominal process. No radiopaque renal calculi or hydroureteronephrosis. Cirrhotic changes of the liver.
--- NOTE | 2022-08-17 13:36 | EDPHYS ---
Physician Documentation [facility] Name: Jose Elias Ahn Age: 66 yrs Sex: Male : 1955 Arrival Date: 08/17/2022 Time: 11:39 Bed 11 Private MD: ED Physician Clayton Quintero HPI: 08/17 13:37 This 66 yrs old Male presents to ER via Wheelchair with complaints of Abdominal rt Distention, Abdominal Pain. 13:37 Patient with history of chronic back pain presents to the ED with a chronic low back rt pain that is somewhat worse today. He reports abdominal pain since yesterday with associated nausea. He denies bowel, bladder incontinence, saddle anesthesia. Patient denies other acute complaints at this time, symptoms are moderate in severity, no other aggravating alleviating factors.. Historical: - Allergies: : No Known Allergies; hb - PMHx: :59 Back pain; CHF; Diabetes - NIDDM; Hepatitis; Hypertension; hb - Immunization history:: Adult Immunizations up to date. - Social history:: Smoking status: Patient denies any tobacco usage or history of. - Family history:: not pertinent. ROS: 13:37 Constitutional: Negative for fever, chills, and weight loss, Cardiovascular: Negative rt for chest pain, palpitations, and edema, Respiratory: Negative for shortness of breath, cough, wheezing, and pleuritic chest pain, MS/Extremity: Negative for injury and deformity, Skin: Negative for injury, rash, and discoloration, Neuro: Negative for headache, weakness, numbness, tingling, and seizure, Psych: Negative for depression, anxiety, suicide ideation, homicidal ideation, and hallucinations. 13:37 Abdomen/GI: Positive for abdominal pain, nausea, Negative for diarrhea. 13:37 Back: Positive for pain at rest, pain with movement. Exam: 13:37 Constitutional: This is a well developed, well nourished patient who is awake, alert, rt and in no acute distress. Head/Face: Normocephalic, atraumatic. Eyes: Pupils equal round and reactive to light, extra-ocular motions intact. Lids and lashes normal. Conjunctiva and sclera are non-icteric and not injected. Cornea within normal limits. Periorbital areas with no swelling, redness, or edema. Chest/axilla: Normal chest wall appearance and motion. Nontender with no deformity. No lesions are appreciated. Cardiovascular: Regular rate and rhythm with a normal S1 and S2. No gallops, murmurs, or rubs. Normal PMI, no JVD. No pulse deficits. Abdomen/GI: Mild tenderness diffuse without rebound, guarding, distention Skin: Warm, dry with normal turgor. Normal color with no rashes, no lesions, and no evidence of cellulitis. MS/ Extremity: Pulses equal, no cyanosis. Neurovascular intact. Full, normal range of motion. Neuro: Awake and alert, GCS 15, oriented to person, place, time, and situation. Cranial nerves II-XII grossly intact. Motor strength 5/5 in all extremities. Sensory grossly intact. Cerebellar exam normal. Normal gait. Psych: Awake, alert, with orientation to person, place and time. Behavior, mood, and affect are within normal limits. Vital Signs: 11:53 BP 163 / 93; Pulse 71; Resp 16; Temp 98.1(TE); Pulse Ox 99% on R/A; Weight 124.28 kg; hb Height 6 ft. 1 in. ; Pain 10/10; 11:53 Body Mass Index 36.15 (124.28 kg, 185.42 cm) hb 11:53 Pain Scale: Adult hb MDM: 12:06 Patient medically screened. rt 13:37 Differential diagnosis: Spine epidural abscess, cauda equina syndrome, bowel rt obstruction, diverticulitis, colitis, chronic back pain. Data reviewed: vital signs, nurses notes, lab test result(s), EKG, radiologic studies. Consideration of Admission/Observation Escalation of care including admission/observation considered. I considered the following discharge prescriptions or medication management in the emergency department Pain Medications: At this time, prescription pain medications are not recommended, Medications were administered in the Emergency Department. See MAR. Test considered but Not performed: MRI: No clinical and is evidence to suggest cauda equina syndrome, spinal epidural abscess, MRI not indicated. Care significantly affected by the following chronic conditions: Diabetes. Counseling: I had a detailed discussion with the patient and/or guardian regarding: the historical points, exam findings, and any diagnostic results supporting the discharge/admit diagnosis, lab results, radiology results, the need for outpatient follow up. 08/17 12:07 Order name: CBC with Diff; Complete Time: 13:23 rt 08/17 12:07 Order name: CMP; Complete Time: rt 08/17 12:07 Order name: Urinalysis W/Microscopic; Complete Time: rt 08/17 12:07 Order name: CT Abd/Pelvis - Without Contrast; Complete Time: rt Administered Medications: 13:19 Drug: Diazepam IVP 10 mg Route: IVP; Site: right antecubital; hb 13:47 Follow up: Response: No adverse reaction hb Disposition Summary: 08/17/22 13:35 Discharge Ordered Location: Home rt Problem: an ongoing problem rt Symptoms: are unchanged rt Condition: Stable rt Diagnosis - Low back pain rt - Abdominal pain, unspecified rt Followup: rt - With: Private Physician - When: 2 - 3 days - Reason: Discharge Instructions: - Discharge Summary Sheet rt - Chronic Back Pain rt Forms: - Medication Reconciliation Form rt - Thank You Letter rt - Antibiotic Education rt - Prescription Opioid Use rt Prescriptions: - Protonix 40 mg Oral Tablet - take 1 tablet by ORAL route once daily; 30 tablet; Refills: 0, Product rt Selection Permitted - Zofran 4 mg Oral Tablet - take 1 tablet by ORAL route every 12 hours As needed; 15 tablet; Refills: 0, rt Product Selection Permitted - dicyclomine 20 mg Oral Tablet - take 1 tablet by ORAL route 4 times per day; 15 tablet; Refills: 0, Product rt Selection Permitted Signatures: Dispatcher [employer] Fatmata Smart RN RN hb [place], Ryan, MD MD rt
--- NOTE | 2022-08-17 13:36 | ER ---
Nurse's Notes [facility] Name: Jose Elias Ahn Age: 66 yrs Sex: Male : 1955 Arrival Date: 08/17/2022 Time: 11:39 Bed 11 Private MD: Diagnosis: Low back pain;Abdominal pain, unspecified Presentation: 08/17 11:53 Chief complaint: Chronic right low back pain that is worse today, and abdominal pain hb since yesterday. Sees Dr. Jovel. Coronavirus screen: At this time, the client does not indicate any symptoms associated with coronavirus-19. Ebola Screen: No symptoms or risks identified at this time. Initial Sepsis Screen: Does the patient meet any 2 criteria? No. Patient's initial sepsis screen is negative. Does the patient have a suspected source of infection? No. Patient's initial sepsis screen is negative. Risk Assessment: Do you want to hurt yourself or someone else? Patient reports no desire to harm self or others. Onset of symptoms was August 17, 2022. 11:53 Method Of Arrival: Wheelchair hb 11:53 Acuity: NEEL 3 hb Historical: - Allergies: 11:59 No Known Allergies; hb - PMHx: 11:59 Back pain; CHF; Diabetes - NIDDM; Hepatitis; Hypertension; hb - Immunization history:: Adult Immunizations up to date. - Social history:: Smoking status: Patient denies any tobacco usage or history of. - Family history:: not pertinent. Screenin:42 Abuse screen: Denies threats or abuse. Denies injuries from another. Nutritional ss screening: No deficits noted. Tuberculosis screening: Never had TB. 13:28 [facility] ED Fall Risk Assessment (Adult) Score/Fall Risk Level 0 - 2 = Low Risk hb Oriented to surroundings, Maintained a safe environment, Educated pt \T\ family on fall prevention, incl call for assistance when getting out of bed. Assessment: 12:41 Reassessment: Pt back from CT. IV in place. Labs sent to lab. ss 13:26 General: Appears in no apparent distress. Behavior is calm, cooperative. Pain: Pain hb currently is 10 out of 10 on a pain scale. Neuro: Level of Consciousness is awake, alert, obeys commands, Oriented to person, place, time, situation. Cardiovascular: Patient's skin is warm and dry. Respiratory: Respiratory effort is even, unlabored, Respiratory pattern is regular, symmetrical. GI: Reports lower abdominal pain, upper abdominal pain. : No signs and/or symptoms were reported regarding the genitourinary system. EENT: No signs and/or symptoms were reported regarding the EENT system. Derm: Skin is pink, warm \T\ dry. Musculoskeletal: Reports severe right sided back pain that radiates to right hip. 13:47 Reassessment: Patient appears in no apparent distress at this time. Patient and/or hb family updated on plan of care and expected duration. Pain level reassessed. Patient is alert, oriented x 3, equal unlabored respirations, skin warm/dry/pink. Vital Signs: 11:53 BP 163 / 93; Pulse 71; Resp 16; Temp 98.1(TE); Pulse Ox 99% on R/A; Weight 124.28 kg; hb Height 6 ft. 1 in. ; Pain 10/10; 11:53 Body Mass Index 36.15 (124.28 kg, 185.42 cm) hb 11:53 Pain Scale: Adult hb ED Course: 11:39 Patient arrived in ED. am2 11:44 Clayton Quintero MD is Attending Physician. rt 11:59 Triage completed. hb 12:33 CT Abd/Pelvis - Without Contrast In Process Unspecified. EDMS 12:41 Inserted saline lock: 20 gauge in right antecubital area, using aseptic technique. ss Blood collected. 13:20 Arm band placed on. hb 13:27 Patient has correct armband on for positive identification. hb 13:47 No provider procedures requiring assistance completed. IV discontinued, intact, hb bleeding controlled, No redness/swelling at site. Administered Medications: 13:19 Drug: Diazepam IVP 10 mg Route: IVP; Site: right antecubital; hb 13:47 Follow up: Response: No adverse reaction hb Medication: 13:27 VIS not applicable for this client. hb Outcome: 13:35 Discharge ordered by . rt 13:47 Discharged to home via wheelchair, with friend. hb 13:47 Condition: stable 13:47 Discharge instructions given to patient, Instructed on discharge instructions, follow up and referral plans. medication usage, Demonstrated understanding of instructions, follow-up care, medications, Prescriptions given X 3. 13:48 Patient left the ED. hb Signatures: Dispatcher Med[employer]Diana Garza, CHELLE RN ss Fatmata Aponte RN RN Shirley Goldsmith [facility] Clayton Quintero MD MD rt
[2022-08-17 13:53] VITALS: BP 163/93; TEMP 98.1; O2SAT 99
== END 2022-08-17 13:48 | disposition home or self-care (01) ==
LOC: ER 11:35
DX: M54.50 Low back pain, unspecified (principal); R10.9 Unspecified abdominal pain; I10 Essential (primary) hypertension; I50.9 Heart failure, unspecified
CPT/HCPCS: 85025; 81001; 36415; 80053; 74176; J3360